=== PATIENT | female | born 1970 | race Hispanic/Latino ===

== ENCOUNTER 2018-03-26 01:56 | Emergency (ER) | payer OTHER ==
[2018-03-26] MEDS ORDERED: Fentanyl 100 MCG/2 ML VIAL ONE (02:08)
[2018-03-26] MEDS ORDERED: Lorazepam 2 MG/ML VIAL ONE (02:08)
[2018-03-26 03:19] LABS: Anion Gap 13 mmol/L (10-20); BUN (Urea Nitrogen) 62 mg/dL (7.0-18.7); Calc. Creatinine Clearance 0 mL/min (70-130); Calcium 8.5 mg/dL (7.8-10.44); Carbon Dioxide 23 mmol/L (22-29); Chloride 110 mmol/L (98-107); Estimated GFR-MDRD 7; Glucose 172 mg/dL (70-105); Potassium 3.3 mmol/L (3.5-5.1); Sodium 143 mmol/L (136-145)
== END 2018-03-26 03:49 | disposition home or self-care (01) ==
LOC: ERS 01:56
DX: G25.81 Restless legs syndrome (principal); I12.0 Hypertensive chronic kidney disease with stage 5 chronic kidney disease or end stage renal disease; N18.6 End stage renal disease; E11.22 Type 2 diabetes mellitus with diabetic chronic kidney disease; Z99.2 Dependence on renal dialysis
CPT/HCPCS: 36415; 80048; 96374; 96375; J2060; J3010

== ENCOUNTER 2018-04-25 00:41 | Emergency (ER) | payer OTHER ==
[2018-04-25 04:00] LABS: #Basophils 0.2 thou/uL (0.0-0.2); #Eosinphils 0.9 thou/uL (0.0-0.7); #Lymphocytes 4.2 thou/uL (1.20-3.40); #Monocytes 0.6 thou/uL (0.11-0.59); #Neutrophils 4.5 thou/uL (1.40-6.50); %Basophils 1.7 % (0.0-1.0); %Eosinophils 8.3 % (0.0-10.0); %Lymphocytes 40.6 % (21.0-51.0); %Monocytes 5.8 % (0.0-10.0); %Neutrophils 43.6 % (42.0-75.0); Hemoglobin 10.7 g/dL (12.0-16.0); Mean Corpuscular HGB CONC 33.6 g/dL (32.0-36.0); Mean Corpuscular Hemoglobin 31.7 pg (27.0-31.0); Mean Corpuscular Volume 94.5 fL (78.0-98.0); Mean Platelet Volume 7.7 fL (7.4-10.4); Platelet Count 245 thou/uL (130-400); RBC Distribution Width 11.7 % (11.5-14.5); Red Blood Cell (RBC) Count 3.37 mill/uL (4.20-5.40); White Blood Cell (WBC) Count 10.3 thou/uL (4.8-10.8)
[2018-04-25 04:11] LABS: BHCG - Serum Negative (NEGATIVE); Pregs Control Background? CLEAR/WHITE (CLR/WHITE); Pregs Control Bar Appear? YES (CONTROL BAR)
[2018-04-25 04:20] LABS: ALT (SGPT) 24 U/L (8-55); AST (SGOT) 15 U/L (5-34); Albumin 3.2 g/dL (3.5-5.0); Alkaline Phosphatase 81 U/L (40-150); Anion Gap 12 mmol/L (10-20); BUN (Urea Nitrogen) 46 mg/dL (7.0-18.7); Bilirubin, Total Less than 0.2 mg/dL (0.2-1.2); CK (CPK) 204 U/L (29-168); Calc. Creatinine Clearance 0 mL/min (70-130); Calcium 8.1 mg/dL (7.8-10.44); Carbon Dioxide 25 mmol/L (22-29); Chloride 106 mmol/L (98-107); Estimated GFR-MDRD 7; Globulin 2.6 g/dL (2.4-3.5); Glucose 103 mg/dL (70-105); Potassium 3.1 mmol/L (3.5-5.1); Protein, Total 5.8 g/dL (6.0-8.3); Sodium 140 mmol/L (136-145)
[2018-04-25 04:25] LABS: CKMB 1.6 ng/mL (0-6.6); Troponin I Less than 0.010 ng/mL (< 0.028)
[2018-04-25] MEDS ORDERED: Ketorolac Tromethamine 60 MG/2 ML VIAL ONE (05:01)
--- NOTE | 2018-04-25 12:13 | RAD ---
PORTABLE CHEST 1 VIEW: DATE: 06/25/2017. TIME: 3:14 a.m. HISTORY: Chest pain. FINDINGS: The heart size is normal. No focal areas of consolidation, pneumothoraces, or pleural effusions are seen. IMPRESSION: No acute process. POS: [facility]
== END 2018-04-25 05:26 | disposition home or self-care (01) ==
LOC: ERS 00:41
DX: M79.662 Pain in left lower leg (principal); M79.661 Pain in right lower leg; M19.90 Unspecified osteoarthritis, unspecified site; I10 Essential (primary) hypertension; E11.9 Type 2 diabetes mellitus without complications; Z79.891 Long term (current) use of opiate analgesic; Z79.899 Other long term (current) drug therapy
CPT/HCPCS: 36415; 71045; 80053; 82550; 82553; 84484; 84703; 85025; 93005; 96372; J1885

== ENCOUNTER 2018-05-26 08:31 | Emergency (ER) | payer OTHER ==
[2018-05-26] MEDS ORDERED: Ketorolac Tromethamine 30 MG/ML VIAL ONE (08:47)
== END 2018-05-26 09:07 | disposition home or self-care (01) ==
LOC: ERS 08:31
DX: S76.912A Strain of unspecified muscles, fascia and tendons at thigh level, left thigh, initial encounter (principal); I10 Essential (primary) hypertension; E11.9 Type 2 diabetes mellitus without complications; Z79.899 Other long term (current) drug therapy; Z79.4 Long term (current) use of insulin; X58.XXXA Exposure to other specified factors, initial encounter
CPT/HCPCS: 96372; J1885

== ENCOUNTER 2018-05-29 14:48 | Observation (INO) | payer OTHER ==
[2018-05-29 15:11] LABS: #Basophils 0.1 thou/uL (0.0-0.2); #Lymphocytes 2.3 thou/uL (1.20-3.40); #Monocytes 0.5 thou/uL (0.11-0.59); #Neutrophils 3.9 thou/uL (1.40-6.50); %Basophils 1.4 % (0.0-1.0); %Eosinophils 12.5 % (0.0-10.0); %Lymphocytes 29.5 % (21.0-51.0); %Monocytes 6.6 % (0.0-10.0); Hemoglobin 10.8 g/dL (12.0-16.0); Mean Corpuscular Hemoglobin 31.6 pg (27.0-31.0); Mean Corpuscular Volume 95.9 fL (78.0-98.0); Mean Platelet Volume 8.1 fL (7.4-10.4); Platelet Count 225 thou/uL (130-400); RBC Distribution Width 12.9 % (11.5-14.5); Red Blood Cell (RBC) Count 3.43 mill/uL (4.20-5.40); White Blood Cell (WBC) Count 7.8 thou/uL (4.8-10.8)
[2018-05-29] MEDS ORDERED: Nitroglycerin 2% Ointment 1 INCH/1 GM Packet ONE (15:20)
[2018-05-29] MEDS ORDERED: Nitroglycerin 0.4 MG TAB (25 Tab Bottle) ONE (15:20)
[2018-05-29 15:33] LABS: ALT (SGPT) 20 U/L (8-55); AST (SGOT) 13 U/L (5-34); Albumin 3.4 g/dL (3.5-5.0); Alkaline Phosphatase 116 U/L (40-150); Anion Gap 12 mmol/L (10-20); BUN (Urea Nitrogen) 60 mg/dL (7.0-18.7); Bilirubin, Total 0.2 mg/dL (0.2-1.2); CK (CPK) 108 U/L (29-168); Calc. Creatinine Clearance 0 mL/min (70-130); Calcium 8.2 mg/dL (7.8-10.44); Carbon Dioxide 23 mmol/L (22-29); Chloride 103 mmol/L (98-107); Estimated GFR-MDRD 7; Globulin 2.9 g/dL (2.4-3.5); Glucose 267 mg/dL (70-105); Lipase 54 U/L (8-78); Potassium 4.3 mmol/L (3.5-5.1); Protein, Total 6.3 g/dL (6.0-8.3); Sodium 134 mmol/L (136-145)
--- NOTE | 2018-05-29 15:43 | RAD ---
SINGLE VIEW CHEST: COMPARISON: 04/25/2018. INDICATION: Midsternal chest pain and new-onset short of breath. FINDINGS: Lungs are clear. Cardiac silhouette is stable. No effusion or pneumothorax. IMPRESSION: Stable chest. POS: [facility]
[2018-05-29] MEDS ORDERED: Ondansetron ODT 4 MG TAB SL PRN (16:00)
[2018-05-29] MEDS ORDERED: Ondansetron PF 4 MG/2 ML Vial IVP PRN (16:00)
--- NOTE | 2018-05-29 16:07 | PDOC.FPRHP ---
- History of Present Illness Chief Complaint: Chest pain History of Present Illness: This is a 48 yo female with a PMH of HTN, DM2, ESRD on Peritoneal dialysis who presents to the ed with a cc of chest pain. 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 She states that the pain started as a left sided constant sharp pain and changed to a pressure with heat. She states that the pain was constant and was associated with SOB and lightheadedness. She denies nausea or diaphoresis. She denies any pain like this before. She also states that she has been having some HTN and has recently been working with Dr. Rios with her medications. ED Course: Nitro paste 1 inch Nitro SL .4 mg aspirin 324 x1 - Allergies/Adverse Reactions Allergies Allergy/AdvReac Type Severity Reaction Status Date / Time gabapentin Allergy Severe Anaphylaxis Verified 05/29/18 17:48 - Home Medications Medication Instructions Recorded Confirmed Type Calcitriol 0.5 mcg PO DAILY 05/29/18 05/29/18 History Calcium Acetate [Calphron] 667 mg PO TID 05/29/18 05/29/18 History Carvedilol 25 mg PO BID 05/29/18 05/29/18 History Cyclobenzaprine [Flexeril] 10 mg PO TID PRN 05/29/18 05/29/18 History Diclofenac Sodium [Voltaren] 100 gm TP 05/29/18 History Insulin Aspart [Novolog] 2 unit SQ AC 05/29/18 05/29/18 History Insulin Glargine,Hum.Rec.Anlog 10 unit SQ QAM 05/29/18 05/29/18 History [Tobrenden Louise] Levothyroxine Sodium 50 mcg PO DAILY 05/29/18 05/29/18 History Metoclopramide HCl [Reglan] 5 mg PO AC 05/29/18 05/29/18 History Mirabegron [Myrbetriq ER] 25 mg PO DAILY 05/29/18 05/29/18 History Naproxen 500 mg PO BID 05/29/18 05/29/18 History Ondansetron HCl [Zofran] 8 mg PO TID PRN 05/29/18 05/29/18 History Terazosin HCl 2 mg PO DAILY 05/29/18 05/29/18 History Topiramate 50 mg PO BID 05/29/18 05/29/18 History Vit B Complx C/Folic Acid/Zinc 1 05/29/18 History [Renaplex Tablet] traMADol HCl [Tramadol HCl] 100 mg PO TID 05/29/18 05/29/18 History - History PMHx:HTN, DM2, HLD, ESRD on PD, diabetic neuropathy PSHx: PD port placed FHx: Mother had Stroke and CA in her 40s Social: Denies SAI - Review of Systems General: denies: fever/chills, weight/appetite/sleep changes Eyes: denies: eye pain, vision changes ENT: denies: nasal congestion, rhinorrhea Respiratory: reports: shortness of breath. denies: cough, congestion Cardiovascular: reports: chest pain. denies: palpitation, edema, paroxysmal nocturnal dyspnea Gastrointestinal: denies: nausea, vomiting, diarrhea, constipation Genitourinary: denies: incontinence, dysuria Skin: denies: rashes, lesions Musculoskeletal: reports: tenderness. denies: pain (back pain) Neurological: denies: numbness, syncope Psychological: denies: anxiety, depression - Vital signs BP: 169 HR: 75 RR: 18 Tmax: 98.1 Pox: 99% on ra Wt: 68.7 kg - Physical Exam Constitutional: NAD, awake, alert and oriented, well developed HEENT: normocephalic and atraumatic, PERRLA, EOMI, MMM Neck: supple, FROM Chest: no-tender to palpation, no lesions Heart: RRR, normal S1/S2, no murmurs/rubs/gallops Lungs: CTAB, no respiratory distress, good air movement Abdomen: soft, non-tender, bowel sounds present, no masses/distention Musculoskeletal: normal structure, ROM grossly normal Neurological: no focal deficit, CN II-XII intact Skin: no rash/lesions, good turgor Heme/Lymphatic: no unusual bruising or bleeding Psychiatric: normal mood and affect, intact recent and remote memory FMR H&P: Results - Labs Result Diagrams: 05/29/18 15:00 05/29/18 15:00 Lab results: WBC 7.8 thou/uL (4.8-10.8) 05/29/18 15:00 Hgb 10.8 g/dL (12.0-16.0) L 05/29/18 15:00 Hct 32.9 % (36.0-47.0) L 05/29/18 15:00 MCV 95.9 fL (78.0-98.0) 05/29/18 15:00 Plt Count 225 thou/uL (130-400) 05/29/18 15:00 Neutrophils % 50.0 % (42.0-75.0) 05/29/18 15:00 Sodium 134 mmol/L (136-145) L 05/29/18 15:00 Potassium 4.3 mmol/L (3.5-5.1) 05/29/18 15:00 Chloride 103 mmol/L (98-107) 05/29/18 15:00 Carbon Dioxide 23 mmol/L (22-29) 05/29/18 15:00 BUN 60 mg/dL (7.0-18.7) H 05/29/18 15:00 Creatinine 6.48 mg/dL (0.6-1.1) H 05/29/18 15:00 Glucose 267 mg/dL (70-105) H 05/29/18 15:00 Calcium 8.2 mg/dL (7.8-10.44) 05/29/18 15:00 Total Bilirubin 0.2 mg/dL (0.2-1.2) 05/29/18 15:00 AST 13 U/L (5-34) 05/29/18 15:00 ALT 20 U/L (8-55) 05/29/18 15:00 Alkaline Phosphatase 116 U/L (40-150) 05/29/18 15:00 Creatine Kinase 108 U/L (29-168) 05/29/18 15:00 B-Natriuretic Peptide 85.0 pg/mL (0-100) 05/29/18 15:00 Serum Total Protein 6.3 g/dL (6.0-8.3) 05/29/18 15:00 Albumin 3.4 g/dL (3.5-5.0) L 05/29/18 15:00 Lipase 54 U/L (8-78) 05/29/18 15:00 - EKG Interpretation EKG: NSR, no ST depressions or elevations - Radiology Interpretation Chest x-ray Status: report reviewed by me (No acute cardiopulmonary processes) FMR H&P: A/P - Problem List (1) ESRD (end stage renal disease) Current Visit: Yes Status: Acute Code(s): N18.6 - END STAGE RENAL DISEASE (2) Chest pain Current Visit: Yes Status: Acute Code(s): R07.9 - CHEST PAIN, UNSPECIFIED (3) DM (diabetes mellitus) Current Visit: Yes Status: Acute Code(s): E11.9 - TYPE 2 DIABETES MELLITUS WITHOUT COMPLICATIONS (4) HTN (hypertension) Current Visit: Yes Status: Acute Code(s): I10 - ESSENTIAL (PRIMARY) HYPERTENSION (5) Peripheral neuropathy Current Visit: Yes Status: Acute Code(s): G62.9 - POLYNEUROPATHY, UNSPECIFIED - Plan This is a 48 yo female with a PMH of HTN, DM2, ESRD on Peritoneal dialysis Atypical chest pain likely 2/2 ischemia vs. MSK -Heart score of 4 -Admit to tele obs -Pt received aspirin and nitro in the er -PRN nitro -Trend troponins -Stress test tomorrow, hold beta blockers tomorrow ESRD on PD -Consult Dr. Vazquez -Monitor electrolytes DM -Continue home meds -Accuchecks ACHS and SSI HTN -Continue home meds Diabetic neuropathy -Continue home meds Code: Full Prophylaxis: none Family: at bedside and plan discussed with him Disposition: home tomorrow if normal stress test FMR H&P: Upper Level - Pertinent history 48F p/w chest pain. At appointment with her wood repatcher when she developed CP at rest. Described as left sided and initially sharp that converted to a crushing sensation. It felt "hot all across my chest". Associated with dizziness , SOB. No significant cardiac history. PMH significant for ESRD on nightly peritioneal dialysis, HTN, DMII. - Pertinent findings trop: negative x 1 EKG: normal BNP: 85 - Plan Date/Time: 05/29/18 1607 Atypical chest pain: trend troponins and EKG's. morphine, oxygen, nitrates available PRN. stress test in AM given her risk factors and Heart score. ESRD on PD: consult nephrology to continue nightly regimen I, Peterson Amador, have evaluated this patient and agree with findings/plan as outlined by equine internship resident. Pertinent changes/additions are listed here. Attending Addendum - Attending Addendum Date/Time: [id number] I personally evaluated the patient and discussed the management with Dr. Martines /Perry. I agree with the History, Examination, Assessment and Plan documented above with any addition or exceptions noted below. Patient here with first episode of chest pain, pressure type in L chest, without radiation but associated with dyspnea. Has history of HTN, DM, ESRD on PD. Occurred at rest and resolved spontaneously after about 10 minutes. No evidence for ischemia on intake, EKG normal. Plan to obs for ACS r/o and stress in AM. Further mgmt per that result. Plan for PD overnight and consult her outpt [employer] to arrange for that. Continue other home meds as needed.
[2018-05-29 17:50] VITALS: BMI 32.8
[2018-05-29] MEDS ORDERED: Ondansetron ODT 4 MG TAB PO PRN (18:18)
[2018-05-29] MEDS ORDERED: Cyclobenzaprine 10 MG TAB PO PRN (18:18)
[2018-05-29] MEDS ORDERED: Ondansetron ODT 8 MG TAB PO PRN (18:18)
[2018-05-29 19:25] LABS: Troponin I Less than 0.010 ng/mL (< 0.028)
[2018-05-29] MEDS ORDERED: HumaLOG 300 UNITS/3 ML VIAL SC PRN ×2 (19:31)
[2018-05-29] MEDS ORDERED: Dextrose 5% in Water 1,000 ML IV PRN (19:31)
[2018-05-29] MEDS ORDERED: Dextrose 50% Abboject 50 ML SYRINGE SLOW IVP PRN (19:31)
[2018-05-29] MEDS ORDERED: hydrALAZINE 20 MG/ML VIAL SLOW IVP PRN (19:54)
[2018-05-29] MEDS: traMADol HCl 50 MG TAB PO SCH (20:12)
[2018-05-29] MEDS: Naproxen 500 MG TAB PO SCH (20:12)
[2018-05-29] MEDS: Topiramate 25 MG TAB PO SCH (20:13)
[2018-05-29 21:21] LABS: Troponin I Less than 0.010 ng/mL (< 0.028)
[2018-05-30] MEDS: Acetaminophen 325 MG TAB PO PRN ×2 (00:08→05:00)
[2018-05-30] MEDS ORDERED: Lactated Ringer's 500 ML IV SCH ×2 (00:30→01:15)
--- NOTE | 2018-05-30 05:50 | PDOC.FM ---
- Subjective Subjective: Patient reports feeling well this AM. Denies any recurrent episodes of CP since admission. Also denies any N/V, SOB or diaphoresis. Endorses some palpitations overnight and did have to receive 1 500mL bolus 2/2 hypotension but also underwent peritoneal dialysis overnight. Has no complaints this AM. - Objective MAR Reviewed: Yes Vital Signs & Weight: Vital Signs (12 hours) Temp Pulse Resp BP BP BP Pulse Ox 05/30/18 04:55 75 14 111/57 L 05/30/18 03:14 77 16 105/55 L 05/30/18 03:00 98.3 F 77 16 87/55 L 98 05/30/18 02:16 79 16 82/48 L 05/30/18 01:12 78 16 83/49 L 05/30/18 00:26 78 16 95/53 L 05/30/18 00:05 97.9 F 82 16 84/51 L 99 05/29/18 22:17 103 H 16 112/65 05/29/18 19:36 97.9 F 73 20 182/89 H 100 05/29/18 17:55 97.6 F 72 20 142/100 H 100 Weight Weight 68.719 kg I&O: 05/28/18 05/29/18 05/30/18 06:59 06:59 06:59 Intake Total 980 Output Total 500 Balance 480 Result Diagrams: 05/30/18 05:06 05/30/18 05:06 Phys Exam - Physical Examination Constitutional: NAD HEENT: sclera anicteric Neck: supple, full ROM Respiratory: no wheezing, no rales, no rhonchi, clear to auscultation bilateral Cardiovascular: RRR, no significant murmur Gastrointestinal: positive bowel sounds Neurological: non-focal, moves all 4 limbs Psychiatric: normal affect, A&O x 3 Skin: no rash, normal turgor Dx/Plan (1) Chest pain Code(s): R07.9 - CHEST PAIN, UNSPECIFIED Status: Acute (2) DM (diabetes mellitus) Code(s): E11.9 - TYPE 2 DIABETES MELLITUS WITHOUT COMPLICATIONS Status: Acute (3) ESRD (end stage renal disease) Code(s): N18.6 - END STAGE RENAL DISEASE Status: Acute (4) HTN (hypertension) Code(s): I10 - ESSENTIAL (PRIMARY) HYPERTENSION Status: Acute (5) Peripheral neuropathy Code(s): G62.9 - POLYNEUROPATHY, UNSPECIFIED Status: Acute - Plan Plan: This is a 48YO female with a PMH of HTN, DM2, & ESRD on Peritoneal dialysis who presented to the ED with a CC of CP 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 Atypical chest pain likely 2/2 ischemia vs. MSK origin: - Initial Heart score of 4 & troponins negative x3. However, given risk factors of DM & HTN will evaluate with a stress test today to r/o and cardiac etiology for her CP. - Will keep NPO except for H2O with meds (with exception of BBs which will be held) for stress test this morning. - Will continue PRN nitro. ESRD on PD - Will consult Dr. Vazquez and continue to monitor electrolytes. DM - Will continue home meds. - Will continue Accuchecks ACHS and SSI. HTN - Aware, will continue home meds. Diabetic neuropathy - Aware, will continue home meds. Code: Full Prophylaxis: none Diet: NPO, med with sips of water IVFs: SL Abx: None Disposition: Home today if stress test is normal.
[2018-05-30 06:24] LABS: #Basophils 0.1 thou/uL (0.0-0.2); #Eosinphils 1.1 thou/uL (0.0-0.7); #Monocytes 0.6 thou/uL (0.11-0.59); #Neutrophils 3.5 thou/uL (1.40-6.50); %Basophils 0.9 % (0.0-1.0); %Eosinophils 12.7 % (0.0-10.0); %Lymphocytes 36.7 % (21.0-51.0); %Monocytes 7.1 % (0.0-10.0); %Neutrophils 42.7 % (42.0-75.0); Hemoglobin 10.7 g/dL (12.0-16.0); Mean Corpuscular HGB CONC 33.6 g/dL (32.0-36.0); Mean Corpuscular Hemoglobin 32.4 pg (27.0-31.0); Mean Corpuscular Volume 96.5 fL (78.0-98.0); Mean Platelet Volume 8.3 fL (7.4-10.4); Platelet Count 221 thou/uL (130-400); RBC Distribution Width 12.9 % (11.5-14.5); Red Blood Cell (RBC) Count 3.31 mill/uL (4.20-5.40); White Blood Cell (WBC) Count 8.3 thou/uL (4.8-10.8)
[2018-05-30 06:38] LABS: Anion Gap 12 mmol/L (10-20); BUN (Urea Nitrogen) 56 mg/dL (7.0-18.7); Calc. Creatinine Clearance 12 mL/min (70-130); Carbon Dioxide 23 mmol/L (22-29); Chloride 108 mmol/L (98-107); Estimated GFR-MDRD 7; Glucose 141 mg/dL (70-105); Potassium 4.1 mmol/L (3.5-5.1); Sodium 139 mmol/L (136-145)
[2018-05-30] MEDS ORDERED: ADENOSINE 60 MG/20 ML VIAL ONE (08:28)
[2018-05-30] MEDS ORDERED: Terazosin HCl 1 MG CAP PO SCH (09:00)
[2018-05-30] MEDS ORDERED: Aspirin 325 MG TAB PO SCH (09:00)
[2018-05-30] MEDS ORDERED: Calcitriol 0.25 MCG CAP PO SCH (09:00)
[2018-05-30] MEDS ORDERED: Non-Formulary Item 1 EACH (Insulin Glargine,Hum.Rec.Anlog [Toujeo Solostar] 10 UNIT) SQ SCH (09:00)
[2018-05-30] MEDS ORDERED: Insulin Glargine 10 UNITS in Pre-Filled Syringe 1 EACH SC SCH (09:00)
[2018-05-30] MEDS: HumaLOG 300 UNITS/3 ML VIAL SC SCH ×2 (11:30→12:29)
[2018-05-30] MEDS: Metoclopramide HCl 10 MG TAB PO SCH ×2 (11:31→12:28)
[2018-05-30] MEDS: Calcium Acetate 667 MG CAP PO SCH ×2 (11:31→12:27)
--- NOTE | 2018-05-30 11:42 | NM ---
MYOCARDIAL PERFUSION AND QUANTITATIVE GATED SPECT STUDY PERFORMED: DOSE: 32 mCi of Technetium 99m Cardiolite for the stress portion of the exam and 10 mCi for the resting por tion of the exam. The patient was stressed using 38.1 mg of adenosine given IV. Myocardial perfusion and quantitative gated SPECT images demonstrate no evidence of areas of decrease d perfusion on stress or resting images. No evidence or reversible defect seen. Ejection fraction measures 70%. IMPRESSION: Normal myocardial perfusion and quantitated gated SPECT study. POS: [facility]
[2018-05-30 12:26] VITALS: BP 140/59; TEMP 99.1
[2018-05-30] MEDS: Naproxen 500 MG TAB PO SCH (12:27)
[2018-05-30] MEDS: traMADol HCl 50 MG TAB PO SCH ×2 (12:34→14:13)
[2018-05-30] MEDS: Topiramate 25 MG TAB PO SCH (14:14)
--- NOTE | 2018-06-01 05:35 | DIS ---
DATE OF ADMISSION: 05/29/2018 DATE OF DISCHARGE: 05/30/2018 RESIDENT: Tatianna Mcconnell MD ADMITTING ATTENDING: Austyn Hernandez MD. DISCHARGE ATTENDING: Austyn Hernandez MD. CONSULTS: None. PROCEDURES: 1. Chest x-ray, which showed clear lungs with stable cardiac silhouette and no effusion or pneumothorax. 2. Nuclear stress test, which showed a normal myocardial perfusion with an ejection fraction measuring up to 70% with no evidence of defect seen. PRIMARY DIAGNOSIS: Atypical chest pain, secondary to suspected musculoskeletal strain. SECONDARY DIAGNOSES: 1. End-stage renal disease, on peritoneal dialysis. 2. Type 2 diabetes mellitus. 3. Hypertension. 4. Peripheral neuropathy. DISCHARGE MEDICATIONS: 1. Topiramate 50 mg tablets p.o. as directed. 2. Flexeril 10 mg tabs p.o. t.i.d. p.r.n. 3. Tramadol 100 mg p.o. t.i.d. 4. Naproxen 500 mg p.o. every 12 hours. 5. Toujeo 20 units subcu q.a.m. 6. NovoLog units subcu as directed. 7. Diclofenac sodium gel 4 mg topically b.i.d. 8. Calcitriol 0.5 mcg p.o. as directed. 9. Calcium acetate 667 mg p.o. t.i.d. with meals. 10. Carvedilol 25 mg p.o. b.i.d. 11. Fluoxetine 20 mg p.o. daily. 12. Synthroid 50 mcg p.o. daily. 13. Metoclopramide 5 mg p.o. a.c. 14. Mirabegron 50 mg p.o. daily. 15. Thera-Tabs 1 tablet p.o. daily. 16. Zofran 8 mg p.o. t.i.d. p.r.n. 17. Terazosin hydrochloride 2 mg p.o. at bedtime. Discontinued medications: None. 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 The patient reported the pain to be constant, sharp, left-sided with associated shortness of breath and lightheadedness. She therefore presented to the emergency department for further evaluation. On presentation to the emergency department, the patient's vitals were noted to be within normal limits with the exception of a mildly elevated blood pressure of 152/89. She rated her pain as 5/10 in severity and was given 1 inch of topical nitro paste, one 0.4 mg sublingual tablet of nitroglycerin, and 324 mg of aspirin to be chewed. Her troponins were trended x3, all of which were negative and her initial chest x-ray and EKG were within normal limits. She was therefore admitted for observation on telemetry overnight with plans for a nuclear stress test the following morning to rule out any possible cardiac etiology. The patient was therefore kept n.p.o. after midnight and her home beta-cecil was held in anticipation of her stress test the following morning. The patient underwent the stress test without any complications and it was noted to be normal without any evidence of ischemia with normal ejection fraction estimated to be around 70%. The patient was therefore cleared to be discharged home with close followup with her primary care physician within 1 week of discharge. Of note, per reports of the emergency department nurse practitioner, who handed over care to our team, the patient was noted to have a 25-second run of ventricular tachycardia while in the emergency department. This, however, was nonsustained, but the patient was monitored closely overnight on telemetry and had no further episodes of V-tach for the duration of her hospital stay. The patient was given exquisite return discharge instructions to return to the emergency department immediately if she began to experience palpitations or a very fast heart rate along with any of the following symptoms including lightheadedness, chest pain, shortness of breath, nausea, vomiting, or diaphoresis. The patient was also instructed to follow up with her primary care provider, Dr. Jamarcus Rios within 1 week of discharge. DISPOSITION: Stable. DISCHARGE INSTRUCTIONS: 1. Location: Home. 2. Diet: Renal, high-protein diet, diabetic diet, heart-healthy diet, low sodium. 3. Activity: As tolerated. No restrictions. 4. Followup: The patient was instructed to follow up with her primary care provider, Dr. Jamarcus Rios within 1 week of discharge. Job ID: [id number]
--- NOTE | 2018-06-03 14:56 | EKG ---
Test Reason : Blood Pressure : / mmHG Vent. Rate : 072 BPM Atrial Rate : 072 BPM P-R Int : 166 ms QRS Dur : 094 ms QT Int : 430 ms P-R-T Axes : 009 -14 034 degrees QTc Int : 470 ms Normal sinus rhythm Moderate voltage criteria for LVH, may be normal variant Borderline ECG Confirmed by YOLA HERNANDEZ D.O. ([id number]), editor publications NEIDA EID ([id number]) on 06/03/2018 2:56:48 PM Referred By: Confirmed By:YOLA HERNANDEZ D.O.
== END 2018-05-30 14:47 | disposition home or self-care (01) ==
LOC: ERS 14:48 → 2NO 16:23 → INTOOBSV 16:23
PROVIDERS: ADMIT Family Medicine; ATTEND Family Medicine
DX: R07.89 Other chest pain (principal); I12.0 Hypertensive chronic kidney disease with stage 5 chronic kidney disease or end stage renal disease; E11.22 Type 2 diabetes mellitus with diabetic chronic kidney disease; N18.6 End stage renal disease; Z99.2 Dependence on renal dialysis; E11.40 Type 2 diabetes mellitus with diabetic neuropathy, unspecified; Z88.8 Allergy status to other drugs, medicaments and biological substances; Z79.891 Long term (current) use of opiate analgesic; Z79.1 Long term (current) use of non-steroidal anti-inflammatories (NSAID); Z79.4 Long term (current) use of insulin; Z79.899 Other long term (current) drug therapy; Z98.890 Other specified postprocedural states
CPT/HCPCS: 36415; 36416; 71045; 78452; 80048; 80053; 82550; 83690; 83880; 84484; 85025; 90945; 93005; 93017; 94760; 96374; A9500; G0257; G0378; J0153; J0360

== ENCOUNTER 2018-11-09 18:35 | Emergency (ER) | payer OTHER | END 2018-11-09 20:03 | disposition home or self-care (01) | LOC: ERS 18:35 | DX: S16.1XXA Strain of muscle, fascia and tendon at neck level, initial encounter (principal); E11.9 Type 2 diabetes mellitus without complications; I10 Essential (primary) hypertension; E78.00 Pure hypercholesterolemia, unspecified; E03.9 Hypothyroidism, unspecified; Z79.899 Other long term (current) drug therapy; V43.62XA Car passenger injured in collision with other type car in traffic accident, initial encounter | CPT/HCPCS: 99283 ==

== ENCOUNTER 2018-11-19 15:58 | Outpatient (CLI) | payer OTHER ==
[2018-11-19 17:31] LABS: #Basophils 0.1 thou/uL (0.0-0.2); #Eosinphils 0.4 thou/uL (0.0-0.7); #Monocytes 0.6 thou/uL (0.11-0.59); #Neutrophils 5.6 thou/uL (1.40-6.50); %Basophils 0.9 % (0.0-1.0); %Eosinophils 5.2 % (0.0-10.0); %Lymphocytes 23.1 % (21.0-51.0); %Monocytes 6.8 % (0.0-10.0); %Neutrophils 64.1 % (42.0-75.0); Hemoglobin 11.4 g/dL (12.0-16.0); Mean Corpuscular HGB CONC 33.7 g/dL (32.0-36.0); Mean Corpuscular Hemoglobin 31.9 pg (27.0-31.0); Mean Corpuscular Volume 94.8 fL (78.0-98.0); Mean Platelet Volume 8.1 fL (7.4-10.4); Platelet Count 253 thou/uL (130-400); RBC Distribution Width 11.6 % (11.5-14.5); Red Blood Cell (RBC) Count 3.57 mill/uL (4.20-5.40); White Blood Cell (WBC) Count 8.7 thou/uL (4.8-10.8)
[2018-11-19 17:53] LABS: ALT (SGPT) 27 U/L (8-55); AST (SGOT) 18 U/L (5-34); Albumin 3.5 g/dL (3.5-5.0); Alkaline Phosphatase 95 U/L (40-150); Anion Gap 14 mmol/L (10-20); BUN (Urea Nitrogen) 55 mg/dL (7.0-18.7); Bilirubin, Total 0.3 mg/dL (0.2-1.2); Calc. Creatinine Clearance 0 mL/min (70-130); Calcium 8.3 mg/dL (7.8-10.44); Carbon Dioxide 23 mmol/L (22-29); Chloride 103 mmol/L (98-107); Estimated GFR-MDRD 6; Globulin 2.5 g/dL (2.4-3.5); Glucose 249 mg/dL (70-105); Potassium 3.3 mmol/L (3.5-5.1); Sodium 137 mmol/L (136-145)
--- NOTE | 2018-11-19 18:06 | RAD ---
TWO VIEW CHEST: 11/19/18 HISTORY: Preop evaluation. The lung [place] are clear. Heart and mediastinum appear normal. Osseous structures unremarkable. IMPRESSION: Unremarkable chest. POS: [facility]
== END 2018-11-19 15:59 | disposition home or self-care (01) ==
LOC: LABBT 15:58
PROVIDERS: ATTEND Internal Medicine Cardiovascular Disease
DX: Z01.818 Encounter for other preprocedural examination (principal); R93.1 Abnormal findings on diagnostic imaging of heart and coronary circulation
CPT/HCPCS: 71046; 80053; 85025; 93005; 93010

== ENCOUNTER → 2018-11-24 | Day surgery (SDC) | payer OTHER ==
[2018-11-19 16:19] VITALS: BMI 29.2
[~2018-11-24] MED LIST: Cyclobenzaprine 10 MG TAB ONE; Cyclobenzaprine 10 MG TAB PO PRN; Fentanyl 100 MCG/2 ML VIAL ONE; Heparin 10,000 UNITS/1 ML VIAL ONE; Iopamidol 370 76% 100 ML VIAL ONE; Iopamidol 370 76% 50 ML VIAL FS ONE; Midazolam HCl 2 mg/2 ml Vial ONE; diphenhydrAMINE 50 MG/ML VIAL ONE; traMADol HCl 50 MG TAB ONE; traMADol HCl 50 MG TAB PO SCH
[2018-11-24 07:03] LABS: Cardiac Risk 3.4 (Less than 4.5)
== END ==
LOC: CCL 06:08
PROVIDERS: ATTEND Internal Medicine Cardiovascular Disease
PROC: 4A023N7 Measurement of Cardiac Sampling and Pressure, Left Heart, Percutaneous Approach (ICD-10-PCS; principal; 2018-11-24)
PROC: B2001ZZ Plain Radiography of Single Coronary Artery using Low Osmolar Contrast (ICD-10-PCS; principal; 2018-11-24)
DX: R94.39 Abnormal result of other cardiovascular function study (principal); R07.89 Other chest pain; I12.0 Hypertensive chronic kidney disease with stage 5 chronic kidney disease or end stage renal disease; N18.6 End stage renal disease; E11.22 Type 2 diabetes mellitus with diabetic chronic kidney disease; E78.00 Pure hypercholesterolemia, unspecified; Z79.4 Long term (current) use of insulin; Z79.899 Other long term (current) drug therapy
CPT/HCPCS: 36415; 80061; 85347; 93458; 99152; C1769; J1200; J1644; J2250; J3010; Q9967

== ENCOUNTER 2019-01-25 07:27 | Emergency (ER) | payer OTHER ==
[2019-01-25] MEDS ORDERED: Dexamethasone 10 MG/ML VIAL ONE (07:57)
== END 2019-01-25 08:17 | disposition home or self-care (01) ==
LOC: ERS 07:27
DX: S29.012A Strain of muscle and tendon of back wall of thorax, initial encounter (principal); E11.9 Type 2 diabetes mellitus without complications; I10 Essential (primary) hypertension; E78.00 Pure hypercholesterolemia, unspecified; E03.9 Hypothyroidism, unspecified; Z79.899 Other long term (current) drug therapy; Z79.4 Long term (current) use of insulin; X50.9XXA Other and unspecified overexertion or strenuous movements or postures, initial encounter
CPT/HCPCS: 99283; J1100

== ENCOUNTER 2019-03-26 03:24 | Emergency (ER) | payer OTHER ==
[2019-03-26] MEDS ORDERED: Dextrose 50% Abboject 50 ML SYRINGE ONE (03:29)
[2019-03-26 04:10] LABS: #Basophils 0.1 thou/uL (0.0-0.2); #Eosinphils 0.7 thou/uL (0.0-0.7); #Lymphocytes 3.4 thou/uL (1.20-3.40); #Monocytes 0.8 thou/uL (0.11-0.59); #Neutrophils 8.4 thou/uL (1.40-6.50); %Basophils 0.7 % (0.0-1.0); %Eosinophils 5.1 % (0.0-10.0); %Lymphocytes 25.6 % (21.0-51.0); %Monocytes 5.8 % (0.0-10.0); %Neutrophils 62.9 % (42.0-75.0); Hemoglobin 12.5 g/dL (12.0-16.0); Mean Corpuscular HGB CONC 33.8 g/dL (32.0-36.0); Mean Corpuscular Hemoglobin 31.7 pg (27.0-31.0); Mean Corpuscular Volume 93.8 fL (78.0-98.0); Mean Platelet Volume 7.6 fL (7.4-10.4); Platelet Count 237 thou/uL (130-400); RBC Distribution Width 12.1 % (11.5-14.5); Red Blood Cell (RBC) Count 3.95 mill/uL (4.20-5.40); White Blood Cell (WBC) Count 13.3 thou/uL (4.8-10.8)
[2019-03-26 04:16] LABS: BHCG - Serum Negative (NEGATIVE); Pregs Control Background? CLEAR/WHITE (CLR/WHITE); Pregs Control Bar Appear? YES (CONTROL BAR)
[2019-03-26 04:29] LABS: ALT (SGPT) 48 U/L (8-55); AST (SGOT) 30 U/L (5-34); Albumin 3.3 g/dL (3.5-5.0); Alkaline Phosphatase 106 U/L (40-110); Anion Gap 17 mmol/L (10-20); BUN (Urea Nitrogen) 45 mg/dL (7.0-18.7); Bilirubin, Total 0.3 mg/dL (0.2-1.2); Calc. Creatinine Clearance 0 mL/min (70-130); Calcium 8.3 mg/dL (7.8-10.44); Carbon Dioxide 22 mmol/L (22-29); Chloride 102 mmol/L (98-107); Estimated GFR-MDRD 5; Globulin 2.9 g/dL (2.4-3.5); Glucose 146 mg/dL (70-105); Protein, Total 6.2 g/dL (6.0-8.3); Sodium 138 mmol/L (136-145)
[2019-03-26] MEDS ORDERED: traMADol HCl 50 MG TAB ONE (05:26)
--- NOTE | 2019-03-26 08:00 | CT ---
PRELIMINARY REPORT/[facility]/EMERGENCY AFTER HOURS PROCEDURE: PROCEDURE INFORMATION: Exam: CT Abdomen and pelvis with contrast Exam date and time: 03/26/2019 4:10 AM Clinical history: 49 years old, female; Abdominal pain; Prior surgery; Patient HX: Er 3. 49 y/o F, wi th h/o esrd, dm, presents to ED via EMS transport from home for evaluation of AMS, nausea and vomting . PT states she was unable to complete dialysis tonight due to shunt hurting. PT states she woke up i n the middle of the night in pain. Dialysis shunt hurting. Surgical HX of tubal ligation. TECHNIQUE: Imaging protocol: Computed tomography of the abdomen and pelvis with intravenous contrast. COMPARISON: No relevant prior studies available. FINDINGS: Tubes, catheters and devices: Peritoneal dialysis catheter is present without evidence of kinking. Distal tip coiled in the pelvis. Liver: Normal attenuation. No mass. Gallbladder and bile ducts: The gallbladder has been surgically removed. There is minimal intrahepati c and extrahepatic biliary ductal dilatation most likely from prior cholecystectomy. There is no evid ence of common bile duct stone. Pancreas: Normal. No ductal dilation. Spleen: Indeterminant probable cyst in the spleen. Adrenals: Normal. No mass. Kidneys and ureters: Tiny left renal cyst. Stomach and bowel: No obstruction. No wall thickening Appendix: No evidence of appendicitis. Intraperitoneal space: Large amount of intraperitoneal fluid possibly from recent dialysis. Vasculature: Unremarkable. No abdominal aortic aneurysm. Lymph nodes: No enlarged lymph nodes. Bladder: Unremarkable as visualized. Reproductive: Unremarkable as visualized. Bones/joints: Small to moderate-sized disc protrusion at L4/L5 Soft tissues: Small fat-containing umbilical hernia. IMPRESSION: 1. No evidence of acute intra-abdominal or pelvic pathology. 2. Significant intraperitoneal free fluid which may be from recent dialysis. Thank you for allowing us to participate in the care of your patient. Dictated and Authenticated by: Adam Curtis MD 03/26/2019 5:24 AM Central Time ([place] & See) FINAL REPORT EMERGENCY AFTER HOURS CT ABDOMEN AND PELVIS WITH CONTRAST: Date: FINDINGS/IMPRESSION: I agree with the findings and impression given in the preliminary report per [facility] physician. 1. There is a peritoneal dialysis catheter and a moderate amount of ascites. 2. There is enlargement of the common bile duct and central intrahepatic biliary tree. This may be a reservoir effect from prior cholecystectomy. Correlate with LFTs. POS: [facility]
[2019-03-26] MEDS ORDERED: ISOVUE-370 76%-LOCM 1 ML ONE (12:37)
== END 2019-03-26 06:25 | disposition home or self-care (01) ==
LOC: ERS 03:24
DX: E11.649 Type 2 diabetes mellitus with hypoglycemia without coma (principal); R41.82 Altered mental status, unspecified; I12.0 Hypertensive chronic kidney disease with stage 5 chronic kidney disease or end stage renal disease; E11.22 Type 2 diabetes mellitus with diabetic chronic kidney disease; N18.6 End stage renal disease; M19.90 Unspecified osteoarthritis, unspecified site; E78.00 Pure hypercholesterolemia, unspecified; E03.9 Hypothyroidism, unspecified; F41.9 Anxiety disorder, unspecified; F32.9 Major depressive disorder, single episode, unspecified; Z79.899 Other long term (current) drug therapy; Z79.4 Long term (current) use of insulin; Z99.2 Dependence on renal dialysis
CPT/HCPCS: 36415; 36416; 74177; 80053; 84703; 85025; 96374; Q9966

== ENCOUNTER 2019-05-15 16:10 | Inpatient (IN) | payer OTHER ==
[2019-05-15 17:11] LABS: #Basophils 0.1 thou/uL (0.0-0.2); #Eosinphils 0.4 thou/uL (0.0-0.7); #Lymphocytes 2.1 thou/uL (1.20-3.40); #Monocytes 0.7 thou/uL (0.11-0.59); #Neutrophils 7.5 thou/uL (1.40-6.50); %Basophils 0.8 % (0.0-1.0); %Eosinophils 3.7 % (0.0-10.0); %Lymphocytes 19.6 % (21.0-51.0); %Monocytes 6.1 % (0.0-10.0); %Neutrophils 69.8 % (42.0-75.0); Hemoglobin 12.1 g/dL (12.0-16.0); Mean Corpuscular HGB CONC 32.8 g/dL (32.0-36.0); Mean Corpuscular Volume 94.4 fL (78.0-98.0); Mean Platelet Volume 8.4 fL (7.4-10.4); Platelet Count 214 thou/uL (130-400); RBC Distribution Width 12.2 % (11.5-14.5); Red Blood Cell (RBC) Count 3.91 mill/uL (4.20-5.40); White Blood Cell (WBC) Count 10.8 thou/uL (4.8-10.8)
[2019-05-15 17:34] LABS: ALT (SGPT) 27 U/L (8-55); AST (SGOT) 26 U/L (5-34); Albumin 3.3 g/dL (3.5-5.0); Alkaline Phosphatase 94 U/L (40-110); Anion Gap 13 mmol/L (10-20); BUN (Urea Nitrogen) 40 mg/dL (7.0-18.7); Bilirubin, Total 0.3 mg/dL (0.2-1.2); Calc. Creatinine Clearance 0 mL/min (70-130); Calcium 8.5 mg/dL (7.8-10.44); Carbon Dioxide 26 mmol/L (22-29); Chloride 97 mmol/L (98-107); Estimated GFR-MDRD 3; Glucose 153 mg/dL (70-105); Lipase 24 U/L (8-78); Protein, Total 6.3 g/dL (6.0-8.3); Sodium 133 mmol/L (136-145)
[2019-05-15 17:39] LABS: Potassium 2.5 mmol/L (3.5-5.1)
[2019-05-15] MEDS ORDERED: Potassium Chloride 40 MEQ in Sodium Chloride 0.9% 250 ML 250 ML IVPB SCH (18:00)
--- NOTE | 2019-05-15 18:53 | PDOC.FPRHP ---
- History of Present Illness Chief Complaint: Nausea/Vomiting, Hypokalemia History of Present Illness: Patient is a 49 yo female who presents with complaint of nausea and multiple episodes of vomiting. Symptoms have been ongoing on/off for at least the past week. Patient currently ESRD on peritoneal dialysis she performs daily at home, monitored by Dr. Vazquez every 2 weeks. She last saw Dr. Vazquez on 05/13 and says he changed some meds at that appointment but unknown since she has not had the chance to pick them up from the pharmacy yet. Also patient says Dr. Vazquez told her to take some TUMS with each meal, she has attempted this but vomits every time she tries to take the TUMs or tried to eat anything. Earlier today patient states she started to feel bad, checked her sugar around 3:00PM and was 24. She did not eat anything or take any of her glucose tabs at that time because she was "out of it". Patient's returned home at 4:30PM, noticed his was lethargic, checked her sugar and it was 58. He gave her glucose tabs & sugar water and proceeded to call EMS. At EMS arrival sugar was 106, was given additional glucose. Upon arrival at [facility] ED her sugar was 160. Patient currently says she still has no appetite and is nauseous. ED Course: In the ED, K+ was found to be 2.5. Started on 10meq/hr of KCl for 40meq total. EKG showed sinus tachycardia at 110. Dr. Vazquez, Nephrology was called from ED, per handoff from ED Dr. Vazquez will see patient in the morning and arrange for dialysis. - Allergies/Adverse Reactions Allergies Allergy/AdvReac Type Severity Reaction Status Date / Time gabapentin Allergy Severe Anaphylaxis Verified 11/19/18 16:19 - Home Medications Medication Instructions Recorded Confirmed Type Cyclobenzaprine [Flexeril] 10 mg PO TID PRN 05/29/18 05/16/19 History Insulin Aspart [Novolog] 0 unit SQ ASDIR 05/29/18 05/16/19 History Insulin Glargine,Hum.Rec.Anlog 40 unit SQ QAM 05/29/18 05/16/19 History [Toujessica Solostar] Topiramate 50 mg PO ASDIR 05/29/18 05/16/19 History traMADol HCl [Tramadol HCl] 100 mg PO TID PRN 05/29/18 05/16/19 History FLUoxetine HCl 20 mg PO DAILY #30 tablet 05/30/18 05/16/19 Rx Levothyroxine Sodium 50 mcg PO DAILY #30 tablet 05/30/18 05/16/19 Rx Mirabegron [Myrbetriq ER] 50 mg PO DAILY #30 tab 05/30/18 05/16/19 Rx Ondansetron HCl [Zofran] 8 mg PO TID PRN #90 tablet 05/30/18 05/16/19 Rx Carvedilol 6.25 mg PO BID 11/19/18 05/16/19 History Atorvastatin Calcium 20 mg PO QPM 05/16/19 05/16/19 History Calcitriol 0.5 mcg PO DAILY 05/16/19 05/16/19 History - History PMHx: ESRD on peritoneal dialysis daily, HTN, DM2, HLD, Neuropathy, Hypothyroidism, Arthritis PSHx: dialysis port placement, BTL, Carpal tunnel FHx: mother age 51 from DM complications & had CVA & RI in her 40s. father alive with T2DM; family members with breast and lung cancer Social: denies EtOH or tobacco use - Review of Systems General: reports: weight/appetite/sleep changes, fatigue. denies: fever/chills Eyes: denies: vision changes ENT: denies: nasal congestion Respiratory: denies: cough, congestion, shortness of breath Cardiovascular: denies: chest pain, palpitation, edema Gastrointestinal: reports: nausea, vomiting, diarrhea. denies: constipation, abdominal pain Genitourinary: denies: dysuria Skin: denies: rashes, lesions, jaundice Musculoskeletal: reports: arthritis/arthralgias. denies: pain, tenderness, swelling Neurological: reports: numbness, weakness, other (paresthesias) - Vital signs BP: 175/90 HR: 80 RR: 20 Tmax: 97.6F Pox: 100% on RA Wt: 63 kg - Physical Exam Constitutional: NAD, awake, alert and oriented, well developed HEENT: normocephalic and atraumatic, EOMI, conjunctiva clear, grossly normal vision, grossly normal hearing, MMM Neck: supple, FROM, no JVD Heart: RRR, normal S1/S2, no murmurs/rubs/gallops, pulses present, no edema Lungs: CTAB, no respiratory distress, good air movement, no rales/rhonchi, no wheezing Abdomen: soft, non-tender, bowel sounds present -Abdomen: port placement in LLQ Musculoskeletal: normal structure, normal tone, ROM grossly normal Neurological: no focal deficit Skin: no rash/lesions, good turgor Heme/Lymphatic: no unusual bruising or bleeding Psychiatric: normal mood and affect, intact recent and remote memory FMR H&P: Results - Labs Result Diagrams: 05/16/19 04:18 05/16/19 04:18 Lab results: WBC 10.8 thou/uL (4.8-10.8) 05/15/19 16:55 Hgb 12.1 g/dL (12.0-16.0) 05/15/19 16:55 Hct 36.9 % (36.0-47.0) 05/15/19 16:55 MCV 94.4 fL (78.0-98.0) 05/15/19 16:55 Plt Count 214 thou/uL (130-400) 05/15/19 16:55 Neutrophils % 69.8 % (42.0-75.0) 05/15/19 16:55 Sodium 133 mmol/L (136-145) L 05/15/19 16:55 Potassium 2.5 mmol/L (3.5-5.1) L* 05/15/19 16:55 Chloride 97 mmol/L (98-107) L 05/15/19 16:55 Carbon Dioxide 26 mmol/L (22-29) 05/15/19 16:55 BUN 40 mg/dL (7.0-18.7) H 05/15/19 16:55 Creatinine 12.86 mg/dL (0.6-1.1) H 05/15/19 16:55 Glucose 153 mg/dL (70-105) H 05/15/19 16:55 Calcium 8.5 mg/dL (7.8-10.44) 05/15/19 16:55 Total Bilirubin 0.3 mg/dL (0.2-1.2) 05/15/19 16:55 AST 26 U/L (5-34) 05/15/19 16:55 ALT 27 U/L (8-55) 05/15/19 16:55 Alkaline Phosphatase 94 U/L (40-110) 05/15/19 16:55 B-Natriuretic Peptide 47.5 pg/mL (0-100) 05/15/19 16:55 Serum Total Protein 6.3 g/dL (6.0-8.3) 05/15/19 16:55 Albumin 3.3 g/dL (3.5-5.0) L 05/15/19 16:55 Lipase 24 U/L (8-78) 05/15/19 16:55 - EKG Interpretation EKG: sinus tachycardia, no ST changes FMR H&P: A/P - Problem List (1) Hypokalemia Current Visit: Yes Status: Acute Code(s): E87.6 - HYPOKALEMIA (2) DM (diabetes mellitus) Current Visit: No Status: Acute Code(s): E11.9 - TYPE 2 DIABETES MELLITUS WITHOUT COMPLICATIONS Qualifiers: Diabetes mellitus type: type 2 Diabetes mellitus ocean transportation intermediary insulin use: with assisted use Diabetes mellitus complication status: with kidney complications Diabetes mellitus complication detail: with chronic kidney disease Chronic kidney disease stage: on chronic dialysis Qualified Code(s) : E11.22 - Type 2 diabetes mellitus with diabetic chronic kidney disease; N18.6 - End stage renal disease; Z79.4 - terminal manager (current) use of insulin; Z99.2 - Dependence on renal dialysis (3) ESRD (end stage renal disease) Current Visit: No Status: Acute Code(s): N18.6 - END STAGE RENAL DISEASE (4) Peripheral neuropathy Current Visit: No Status: Acute Code(s): G62.9 - POLYNEUROPATHY, UNSPECIFIED Qualifiers: Peripheral neuropathy type: polyneuropathy associated with underlying disease Qualified Code(s): G63 - Polyneuropathy in diseases classified elsewhere - Plan 49 yo female with complaint of n/v and diarrhea is admitted for hypokalemia & hypoglycemia #Hypokalemia -ED started 40meQ of IV replacement, will plan to give an additional 40 meQ IV -no changes on EKG -CMP in AM -Consult Nephrology, Dr. Vazquez--appreciate recs -Mg 2.2, Phosphorus pending -place on telemetry #Nausea/vomiting -suspect Gastroparesis vs viral gastroenteritis -maintenance IVF LR @ 100 ml/hr -Start clear liquid diet, advance as tolerated -will obtain flu swab if patient has fever -Zofran prn -Protonix BID #Hypoglycemia, currently resolved; T2DM -earlier sugars in 20s-50 per home log -Accuchecks ACHS -Hold home insulin -place on mild ssi #ESRD on daily PD -Nephro consulted, to arrange PD #HTN -awaiting formal med rec, will plan to restart home meds Diet: clear liquid, advance as tolerated VTE: SCD Code status: FULL Dispo: Stable, admitted to inpatient on telemetry. Will replace Potassium, monitor po intake and advance diet as tolerated. Anticipate LOS >48 hrs. FMR H&P: Upper Level - Pertinent history 49 yo F with hx of ESRD on PD and DM2, here with complaint of low blood sugar below 30 at home. She states that she has been vomiting multiple times per day for the past 2 weeks. She states that her glucose has been low for the past few days and has been correcting with glucose tabs. She was recently seen in the outpatient setting by her Nephro Dr. Vazquez who started her on a new med which she cant remember and hasnt started yet. Upon arrival to the ER her glucose was 153. She was also noted to have a potassium of 2.5 without EKG changes. She was given 40 mEq of K and Dr Vazquez was consulted to set up PD. PMHx DM2 ESRD HTN HLD Abnormal stress with normal cath on 11/24/18 Surgical hx Carpal Tunnel release b/l Tubal ligation Denies smoking, etoh, or drugs - Pertinent findings See analysis intern note for full ROS, PE, vitals, and labs ROS General denies fever or chills CV Denies CP, palpitation, or peripheral edema Resp complains of SOB. Denies cough GI Complains of n/v. Denies diarrhea or abdominal pain denies increased frequency or dysuria. Neuro denies numbness or weakness Endo complains of hypoglycemia PE General A&O x4, NAD HEENT NCAT CV RRR, no murmur Resp CTA, no respiratory distress Abd non tender, no distension, normal BS. PD cath in place, clean. Extremities no edema, equal pedal pulses Neuro no focal deficits, CN II-XII intact - Plan Date/Time: 05/15/193 I, Joseph Mcguire DO, have evaluated this patient and agree with findings/plan as outlined by analysis intern resident. Pertinent changes/additions are listed here. 1.Hypokalemia -Replace IV -EKG without worrisome changes -Recheck in AM -Nephro consulted from ER -Mg WNL -Monitor on tele 2.Hypoglycemia -Most likely related to poor PO intake -Start clears and advance as tolerated -Accucheck ACHS -Hold home insulin until taking PO 3.ESRD -Nephro consulted, will get PD here. 4.Nausea/vomiting -Gastroparesis vs viral gastroenteritis -Diet as above -Zofran as needed -Schedule protonix -Consider Reglan for pro kinetic 5.HTN -Restart home meds, IV PRNs PPx SCD Diet Clears, advance as tolerated Code Full Addendum - Attending - Attending Attestation Date/Time: 05/16/19 0619 I personally evaluated the patient and discussed the management with Dr. Keller/ Maynor. I agree with the History, Examination, Assessment and Plan documented above with any addition or exceptions noted below. Patient here for recurrent hypoglycemia and hypokalemia. Replete as needed and will make adjustments to diabetic regimen. Will discuss with Nephro about the persistent hypokalemia in setting of PD. She currently has leg cramping but otherwise denies complaints. Vitals stable. Continue current mgmt and await nephro recs.
[2019-05-15] MEDS ORDERED: Potassium Chloride 20 MEQ/100 ML PREMIX BAG ONE (19:27)
[2019-05-15 20:36] LABS: Phosphorus 4.8 mg/dL (2.3-4.7)
[2019-05-15] MEDS ORDERED: Dextrose 50% Abboject 50 ML SYRINGE ONE (21:34)
[2019-05-15] MEDS ORDERED: Ondansetron ODT 4 MG TAB PO PRN (22:56)
[2019-05-15] MEDS ORDERED: Dextrose 5% in Water 1,000 ML IV PRN (22:56)
[2019-05-15] MEDS ORDERED: Ondansetron PF 4 MG/2 ML Vial IVP PRN (22:56)
[2019-05-15] MEDS ORDERED: Dextrose 50% Abboject 50 ML SYRINGE SLOW IVP PRN (22:56)
[2019-05-15] MEDS ORDERED: HumaLOG 300 UNITS/3 ML VIAL SC PRN (22:56)
[2019-05-15] MEDS ORDERED: Potassium Chloride 10 MEQ in Premix Bag 1 BAG IVPB SCH (23:00)
[2019-05-16] MEDS: Acetaminophen 325 MG TAB PO PRN ×2 (01:03→11:15)
[2019-05-16] MEDS: Lactated Ringer's 1,000 ML IV SCH ×3 (01:06→21:19)
[2019-05-16 04:56] LABS: #Basophils 0.1 thou/uL (0.0-0.2); #Eosinphils 0.2 thou/uL (0.0-0.7); #Lymphocytes 3.7 thou/uL (1.20-3.40); #Monocytes 0.8 thou/uL (0.11-0.59); #Neutrophils 7.1 thou/uL (1.40-6.50); %Lymphocytes 30.9 % (21.0-51.0); %Monocytes 6.4 % (0.0-10.0); %Neutrophils 59.6 % (42.0-75.0); Hemoglobin 12.2 g/dL (12.0-16.0); Mean Corpuscular HGB CONC 33.4 g/dL (32.0-36.0); Mean Corpuscular Hemoglobin 31.3 pg (27.0-31.0); Mean Corpuscular Volume 93.7 fL (78.0-98.0); Mean Platelet Volume 8.8 fL (7.4-10.4); Platelet Count 215 thou/uL (130-400); RBC Distribution Width 12.5 % (11.5-14.5); White Blood Cell (WBC) Count 11.9 thou/uL (4.8-10.8)
[2019-05-16 05:07] LABS: ALT (SGPT) 22 U/L (8-55); AST (SGOT) 14 U/L (5-34); Albumin 3.2 g/dL (3.5-5.0); Alkaline Phosphatase 91 U/L (40-110); Anion Gap 15 mmol/L (10-20); BUN (Urea Nitrogen) 33 mg/dL (7.0-18.7); Bilirubin, Total 0.3 mg/dL (0.2-1.2); Calc. Creatinine Clearance 6 mL/min (70-130); Calcium 8.5 mg/dL (7.8-10.44); Carbon Dioxide 22 mmol/L (22-29); Chloride 102 mmol/L (98-107); Estimated GFR-MDRD 4; Globulin 3.1 g/dL (2.4-3.5); Glucose 63 mg/dL (70-105); Protein, Total 6.3 g/dL (6.0-8.3); Sodium 136 mmol/L (136-145)
[2019-05-16 05:21] LABS: Potassium 2.8 mmol/L (3.5-5.1)
[2019-05-16] MEDS ORDERED: Cyclobenzaprine 10 MG TAB PO PRN (05:37)
[2019-05-16] MEDS ORDERED: Ondansetron ODT 4 MG TAB PO PRN (05:37)
[2019-05-16] MEDS ORDERED: Topiramate 25 MG TAB PO SCH (05:45)
--- NOTE | 2019-05-16 05:54 | PDOC.FM ---
- Subjective Subjective: Patient doing okay this morning. Had no episodes of vomiting, but continues to report that she is gagging. Also reports that she has continued to have diarrhea. - Objective Vital Signs & Weight: Vital Signs (12 hours) Temp Pulse Resp BP Pulse Ox 05/16/19 04:00 98.6 F 67 20 116/73 98 05/15/19 23:52 98.2 F 85 20 171/81 H 100 05/15/19 22:56 98 Weight Weight 60.101 kg Result Diagrams: 05/16/19 04:18 05/16/19 04:18 EKG Reviewed by me: Yes (sinus 80s) Phys Exam - Physical Examination Constitutional: NAD HEENT: moist MMs, sclera anicteric Neck: supple Respiratory: no wheezing, clear to auscultation bilateral Cardiovascular: RRR, no significant murmur Gastrointestinal: soft, non-tender, no distention Musculoskeletal: no edema, pulses present chronic left leg pain Neurological: moves all 4 limbs Psychiatric: normal affect, A&O x 3 Skin: no rash, normal turgor Dx/Plan (1) Hypokalemia Code(s): E87.6 - HYPOKALEMIA Status: Acute (2) Chest pain Code(s): R07.9 - CHEST PAIN, UNSPECIFIED Status: Acute (3) DM (diabetes mellitus) Code(s): E11.9 - TYPE 2 DIABETES MELLITUS WITHOUT COMPLICATIONS Status: Acute Qualifiers: Diabetes mellitus type: type 2 Diabetes mellitus residential insulin use: with termite control technician use Diabetes mellitus complication status: with kidney complications Diabetes mellitus complication detail: with chronic kidney disease Chronic kidney disease stage: on chronic dialysis Qualified Code(s) : E11.22 - Type 2 diabetes mellitus with diabetic chronic kidney disease; N18.6 - End stage renal disease; Z79.4 - termite control technician (current) use of insulin; Z99.2 - Dependence on renal dialysis (4) ESRD (end stage renal disease) Code(s): N18.6 - END STAGE RENAL DISEASE Status: Acute (5) HTN (hypertension) Code(s): I10 - ESSENTIAL (PRIMARY) HYPERTENSION Status: Acute (6) Peripheral neuropathy Code(s): G62.9 - POLYNEUROPATHY, UNSPECIFIED Status: Acute Qualifiers: Peripheral neuropathy type: polyneuropathy associated with underlying disease Qualified Code(s): G63 - Polyneuropathy in diseases classified elsewhere - Plan Plan: 49 yo female with complaint of n/v and diarrhea is admitted for hypokalemia & hypoglycemia #Hypokalemia -ED started 40meQ of IV replacement, received another 10meq. Potassium 2.8 this morning, another 40meq has been ordered -no changes on EKG -Dr. Vazquez, nephrology, consulted, appreciate recs -Mg 2.2, Phosphorus high 4.8 -on telemetry #Nausea/vomiting/diarrhea -suspect Gastroparesis vs viral gastroenteritis -maintenance IVF LR @ 100 ml/hr -Started on clear liquid diet, advance as tolerated -patient afebrile overnight -Zofran prn -Protonix BID -stool studies #Hypoglycemia, currently resolved; T2DM -earlier glucose in 20s-50 per home log, glucose continues to be low this morning -likely due to n/v and patient not being able to keep any food down -D50 PRN for hypoglycemia -Accuchecks ACHS -Continue to hold home insulin -place on mild ssi #ESRD on daily PD -Nephro consulted, to arrange PD today -patient did not have PD yesterday #HTN -home meds restarted Diet: clear liquid, advance as tolerated VTE: SCD Code status: FULL Dispo: Stable, admitted to inpatient on telemetry. Continue to replace potassium as needed, monitor po intake and advance diet as tolerated. Nephrology , Dr. Vazquez, consulted, appreciate recs. Stool studies. Anticipate LOS >48 hrs. Addendum - Attending - Attending Attestation Date/Time: 05/16/19 9154 I personally evaluated the patient and discussed the management with Dr. Amador. I agree with the History, Examination, Assessment and Plan documented above with any addition or exceptions noted below. Please see H/P dated 05/15 for today's addendum.
[2019-05-16] MEDS: Levothyroxine Sodium 50 MCG TAB PO SCH (05:56)
[2019-05-16] MEDS: traMADol HCl 50 MG TAB PO PRN ×3 (05:56→23:50)
[2019-05-16] MEDS: Potassium Chloride 20 MEQ in Premix Bag 1 BAG IVPB SCH ×2 (06:07→08:42)
[2019-05-16] MEDS: Calcitriol 0.25 MCG CAP PO SCH (09:30)
[2019-05-16] MEDS: Carvedilol 25 MG TAB PO SCH ×2 (09:30→21:19)
[2019-05-16] MEDS: FLUoxetine HCl 20 MG CAP PO SCH (09:31)
[2019-05-16] MEDS: Pantoprazole 40 MG VIAL IVP SCH ×2 (09:31→21:25)
[2019-05-16 10:11] LABS: Hemoglobin A1c 7.3 % (4.0-6.0)
[2019-05-16] MEDS ORDERED: Potassium Chloride 20 MEQ TAB PO SCH (10:30)
[2019-05-16] MEDS ORDERED: Gentamicin Ophth Soln 0.3% 5 ml Bottle FS SCH (10:30)
--- NOTE | 2019-05-16 10:47 | CON ---
DATE OF CONSULTATION: HISTORY OF PRESENT ILLNESS: Ms. Marion is a 49-year-old female with ESRD from diabetic nephropathy and was admitted due to nausea and vomiting. She also was found to have a concomitant low blood sugar as well as being hypokalemic. We are being consulted for her maintenance peritoneal dialysis. She underwent peritoneal dialysis last night without any difficulty. We are continuing her current PD regimen. The patient still has some nausea today. She still has decreased appetite. REVIEW OF SYSTEMS: No chest pain. Positive for nausea and vomiting. No diarrhea. No constipation. No productive cough. Positive for abdominal discomfort. No dysuria. No urinary frequency. No productive cough. No new skin rash. Occasional numbness of the lower extremities. No headache. No fever or chills. No chest pain. No shortness of breath. HOME MEDICATIONS: Include; 1. Levothyroxine 50 mcg daily. 2. Prozac 20 mg tablet once a day. 3. Tramadol 100 mg p.o. t.i.d. p.r.n. 4. Topiramate 50 mg daily. 5. Toujeo insulin 40 units subcu q.a.m. 6. NovoLog as directed. 7. Flexeril 10 mg t.i.d. p.r.n. PAST MEDICAL HISTORY: 1. ESRD from diabetic nephropathy. 2. Type 2 diabetes mellitus. 3. History of depression. 4. Hypothyroidism. 5. Chronic pain. PAST SURGICAL HISTORY: Status post PD catheter placement, status post cuffed hemodialysis catheter placement. SOCIAL HISTORY: The patient , 4 children. 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 Currently, no smoking. No alcohol intake. No IV drug abuse. ? of blood transfusion. Education, high school. ALLERGIES/ADVERSE REACTION: Gabapentin. TRAUMA: None. IMMUNIZATIONS: Up-to-date. HOSPITALIZATIONS: Please see past medical history. FAMILY HISTORY: No family history of ESRD. PHYSICAL EXAMINATION: VITAL SIGNS: Blood pressure is 142/78, heart rate 95, respiratory rate 18, temperature 97.3, and pulse ox 100% on room air. GENERAL: Awake, alert, comfortable, not in overt distress. SKIN: Adequate turgor. HEENT: Has pinkish conjunctivae. Anicteric sclerae. NECK: No neck mass. No carotid bruits. No JVD. CHEST: No deformities. LUNGS: Clear breath sounds. No wheezing. No crackles. HEART: Normal sinus rhythm. No murmur. No gallops. No rubs. ABDOMEN: Globular, soft, and nontender. No masses. Positive for bowel sounds. Positive for PD catheter. EXTREMITIES: No edema. No deformities. NEUROLOGICAL: Moving all extremities. No tremors. No asterixis. No ataxia. Oriented to 3 spheres. LABORATORY DATA: On May 16, 2019; white count 11.9, hemoglobin 12.2. Sodium 136, potassium 2.8, chloride 102, carbon dioxide 22, BUN 33, and creatinine 11.1. AST 14, ALT 22, sugar is 45, and albumin 3.2. ASSESSMENT AND PLAN: 1. Nausea and vomiting - most likely from diabetic gastroparesis. Consider adding Reglan 5 mg tablet t.i.d. before meals and at bedtime. 2. Hypokalemia, p.r.n. correction. I have maintained this patient on potassium 40 mEq once a day. 3. End-stage renal disease, stable. Review of the last Kt/V suggests she is currently adequately dialyzed with the current peritoneal dialysis. My plan is to continue her current CCPD regimen. She is tolerating her peritoneal dialysis. 4. Hypoglycemia. Adjust insulin regimen as needed. Thank you for the consult. We will continue to follow. Job ID: [id number]
[2019-05-16] MEDS: Metoclopramide 10 MG/10 ML UDCUP PO SCH ×3 (11:15→21:31)
[2019-05-16 17:02] LABS: Anion Gap 13 mmol/L (10-20); BUN (Urea Nitrogen) 30 mg/dL (7.0-18.7); Calc. Creatinine Clearance 6 mL/min (70-130); Calcium 8.5 mg/dL (7.8-10.44); Carbon Dioxide 24 mmol/L (22-29); Chloride 103 mmol/L (98-107); Estimated GFR-MDRD 4; Potassium 3.6 mmol/L (3.5-5.1); Sodium 136 mmol/L (136-145)
[2019-05-16 17:05] LABS: Glucose 53 mg/dL (70-105)
[2019-05-16] MEDS ORDERED: Loperamide HCl 2 MG CAP PO SCH (20:45)
[2019-05-16] MEDS: Atorvastatin Calcium 20 MG TAB PO SCH (21:19)
[2019-05-16] MEDS ORDERED: Carvedilol 6.25 MG TAB PO SCH (21:30)
[2019-05-17] MEDS ORDERED: diphenhydrAMINE 25 MG CAP PO PRN (01:48)
[2019-05-17] MEDS: Levothyroxine Sodium 50 MCG TAB PO SCH (05:59)
[2019-05-17] MEDS: Lactated Ringer's 1,000 ML IV SCH (06:00)
--- NOTE | 2019-05-17 06:03 | PDOC.FM ---
- Subjective Subjective: Pt states she did better overnight, except that her BLE are very painful. She thinks the SCD's are irritating her peripheral neuropathy. Pt denies N/V. Had episode of Diarrhea overnight and reglan was held. - Objective MAR Reviewed: Yes Vital Signs & Weight: Vital Signs (12 hours) Temp Pulse Resp BP BP Pulse Ox 05/17/19 05:46 100 05/17/19 03:17 97.9 F 60 14 162/84 H 100 05/17/19 00:00 20 05/16/19 21:30 139/69 05/16/19 20:00 100 05/16/19 19:55 98.1 F 89 20 139/69 100 Weight Weight 60.101 kg I&O: 05/15/19 05/16/19 05/17/19 06:59 06:59 06:59 Intake Total 1380 1550 Output Total 780 Balance 1380 770 Result Diagrams: 05/16/19 04:18 05/17/19 08:15 Phys Exam - Physical Examination Constitutional: NAD HEENT: moist MMs, sclera anicteric Neck: no nodes, supple Respiratory: no wheezing, no rales, no rhonchi, clear to auscultation bilateral Cardiovascular: RRR, no rub Gastrointestinal: soft, non-tender, positive bowel sounds Musculoskeletal: no edema, pulses present Neurological: non-focal, moves all 4 limbs Psychiatric: normal affect, A&O x 3 Skin: no rash, normal turgor, cap refill <2 seconds Dx/Plan (1) Gastroparesis Code(s): K31.84 - GASTROPARESIS Status: Acute (2) Hypokalemia Code(s): E87.6 - HYPOKALEMIA Status: Acute (3) DM (diabetes mellitus) Code(s): E11.9 - TYPE 2 DIABETES MELLITUS WITHOUT COMPLICATIONS Status: Acute Qualifiers: Diabetes mellitus type: type 2 Diabetes mellitus terminal carman insulin use: with fci use Diabetes mellitus complication status: with kidney complications Diabetes mellitus complication detail: with chronic kidney disease Chronic kidney disease stage: on chronic dialysis Qualified Code(s) : E11.22 - Type 2 diabetes mellitus with diabetic chronic kidney disease; N18.6 - End stage renal disease; Z79.4 - emt intermediate (current) use of insulin; Z99.2 - Dependence on renal dialysis (4) ESRD (end stage renal disease) Code(s): N18.6 - END STAGE RENAL DISEASE Status: Acute (5) HTN (hypertension) Code(s): I10 - ESSENTIAL (PRIMARY) HYPERTENSION Status: Acute - Plan Plan: 49 yo female with complaint of n/v and diarrhea is admitted for hypokalemia & hypoglycemia #Hypokalemia -ED started 40meQ of IV replacement, received another 10meq. Potassium 2.8 05/16 , another 40meq given. -no changes on EKG -Dr. Vazquez, nephrology, consulted, appreciate recs -Mg 2.2, Phosphorus high 4.8 -on telemetry #Nausea/vomiting/diarrhea Most liekly 2/2 Gastroparesis -suspect Gastroparesis vs viral gastroenteritis. Reglan started by Dr. Vazquez. -maintenance IVF LR @ 100 ml/hr, will D/C today pending how well pt tolerates PO. -Started on clear liquid diet, advance as tolerated -patient afebrile overnight -Zofran prn -Protonix BID -stool studies #Hypoglycemia, currently resolved; T2DM -earlier glucose in 20s-50 per home log -likely due to n/v and patient not being able to keep any food down -D50 PRN for hypoglycemia -Accuchecks ACHS -Continue to hold home insulin -place on mild ssi #ESRD on daily PD -Nephro consulted, to arrange PD -received overnight. #HTN -home meds restarted Diet: clear liquid, advance as tolerated VTE: SCD Code status: FULL Dispo: stable, D/C pending improvement in blood glucose and toleration of Po diet. Addendum - Attending - Attending Attestation Date/Time: 05/17/19 1111 I personally evaluated the patient and discussed the management with Dr. Oliva. I agree with the History, Examination, Assessment and Plan documented above with any addition or exceptions noted below. Patient doing well, denies complaints. Reports her diarrhea is chronic, no evidence of infectious etiology. Her nausea is improved with Reglan, continue that. She continues on PD per Nephrology. Potassium improved. Will need continued management of her hypoglycemia and modification of her DM regimen.
--- NOTE | 2019-05-17 08:24 | PRG ---
DATE OF SERVICE: 05/17/2019 SUBJECTIVE: Ms. Marion is a 49-year-old female with ESRD and currently on peritoneal dialysis and was admitted for nausea and vomiting associated with hypoglycemia, hypokalemia. Sugar slowly improving. In addition, hypokalemia is also improving. She has been started on Reglan for her diabetic gastroparesis. The nausea and vomiting are better this morning. No other complaints. No chest pain or shortness of breath. She underwent PD without any difficulty yesterday. OBJECTIVE: VITAL SIGNS: Blood pressure is 162/84, heart rate 68, respiratory rate 14, temperature 97.9, pulse ox 100%-room air. GENERAL: Awake, alert, comfortable, not in distress. SKIN: Adequate turgor. HEENT: She has pinkish conjunctivae. Anicteric sclerae. NECK: No neck mass. No carotid bruits. No JVD. CHEST: No deformities. LUNGS: Clear breath sounds. No wheezing. No crackles. HEART: Normal sinus rhythm. No murmur. No gallops. No rubs. ABDOMEN: Globular, soft, nontender, no masses. Positive for PD catheter. EXTREMITIES: No edema. MEDICATIONS: May 17, 2019, were reviewed. LABORATORY DATA: May 16, 2019, white count 11.9, hemoglobin 12.2. Sodium 136, potassium 3.6, chloride 103, carbon dioxide 24, BUN 30, creatinine 10.46, calcium 8.5. ASSESSMENT AND PLAN: 1. Hypokalemia, much improved. Currently, on potassium replacement. 2. End-stage renal disease, stable, tolerating current peritoneal dialysis. We used a 2.5% PD solution due to the hypoglycemia. Tolerating said treatment. 3. Nausea and vomiting - secondary to diabetic gastroparesis, much improved. 4. Agree with current management. Recheck basic metabolic profile in a.m. Job ID: [id number]
[2019-05-17 08:53] LABS: Anion Gap 13 mmol/L (10-20); BUN (Urea Nitrogen) 26 mg/dL (7.0-18.7); Calc. Creatinine Clearance 9 mL/min (70-130); Calcium 7.9 mg/dL (7.8-10.44); Carbon Dioxide 21 mmol/L (22-29); Chloride 103 mmol/L (98-107); Estimated GFR-MDRD 5; Glucose 80 mg/dL (70-105); Potassium 4.1 mmol/L (3.5-5.1); Sodium 133 mmol/L (136-145)
[2019-05-17] MEDS: Metoclopramide 10 MG/10 ML UDCUP PO SCH ×4 (09:02→21:15)
[2019-05-17] MEDS: Carvedilol 6.25 MG TAB PO SCH ×2 (09:03→16:32)
[2019-05-17] MEDS: Potassium Chloride 20 MEQ TAB PO SCH (09:03)
[2019-05-17] MEDS: FLUoxetine HCl 20 MG CAP PO SCH (09:04)
[2019-05-17] MEDS: Calcitriol 0.25 MCG CAP PO SCH (09:04)
[2019-05-17] MEDS: Pantoprazole 40 MG VIAL IVP SCH ×2 (09:05→21:14)
[2019-05-17] MEDS: traMADol HCl 50 MG TAB PO PRN ×2 (09:07→16:38)
[2019-05-17 13:46] VITALS: BMI 30.9
[2019-05-17] MEDS: Gentamicin Ophth Soln 0.3% 5 ml Bottle FS PRN (18:00)
[2019-05-17] MEDS: Atorvastatin Calcium 20 MG TAB PO SCH (21:14)
[2019-05-18 04:55] LABS: Anion Gap 10 mmol/L (10-20); BUN (Urea Nitrogen) 33 mg/dL (7.0-18.7); Calc. Creatinine Clearance 8 mL/min (70-130); Calcium 8.7 mg/dL (7.8-10.44); Carbon Dioxide 26 mmol/L (22-29); Chloride 103 mmol/L (98-107); Estimated GFR-MDRD 5; Glucose 266 mg/dL (70-105); Potassium 4.5 mmol/L (3.5-5.1); Sodium 134 mmol/L (136-145)
[2019-05-18] MEDS: Levothyroxine Sodium 50 MCG TAB PO SCH (06:00)
--- NOTE | 2019-05-18 06:51 | PDOC.FM ---
- Subjective Subjective: Pt's glucose more jovan overnight. range 75-220. Pt states she feels ready to go home. Denies any further N/V/diarrhea. - Objective MAR Reviewed: Yes Vital Signs & Weight: Vital Signs (12 hours) Temp Pulse Resp BP Pulse Ox 05/18/19 03:19 98.8 F 81 16 137/64 96 05/18/19 00:00 87 18 05/17/19 20:00 98.7 F 81 20 143/72 H 100 Weight Admit Weight 60.101 kg Weight 65.9 kg I&O: 05/16/19 05/17/19 05/18/19 06:59 06:59 06:59 Intake Total 1380 2850 1740 Output Total 780 200 Balance 1380 2070 1540 Result Diagrams: 05/16/19 04:18 05/18/19 04:26 Phys Exam - Physical Examination Constitutional: NAD HEENT: moist MMs, sclera anicteric Neck: no nodes, supple, full ROM Respiratory: no wheezing, no rales, no rhonchi, clear to auscultation bilateral Cardiovascular: RRR, no rub Gastrointestinal: soft, non-tender, no distention, positive bowel sounds Musculoskeletal: no edema, pulses present Neurological: non-focal, normal sensation, moves all 4 limbs Psychiatric: normal affect, A&O x 3 Skin: no rash, normal turgor, cap refill <2 seconds Dx/Plan (1) Gastroparesis Code(s): K31.84 - GASTROPARESIS Status: Acute (2) Hypokalemia Code(s): E87.6 - HYPOKALEMIA Status: Acute (3) DM (diabetes mellitus) Code(s): E11.9 - TYPE 2 DIABETES MELLITUS WITHOUT COMPLICATIONS Status: Acute Qualifiers: Diabetes mellitus type: type 2 Diabetes mellitus rodent exterminator insulin use: with rodent exterminator use Diabetes mellitus complication status: with kidney complications Diabetes mellitus complication detail: with chronic kidney disease Chronic kidney disease stage: on chronic dialysis Qualified Code(s) : E11.22 - Type 2 diabetes mellitus with diabetic chronic kidney disease; N18.6 - End stage renal disease; Z79.4 - nursing home (current) use of insulin; Z99.2 - Dependence on renal dialysis (4) ESRD (end stage renal disease) Code(s): N18.6 - END STAGE RENAL DISEASE Status: Acute (5) HTN (hypertension) Code(s): I10 - ESSENTIAL (PRIMARY) HYPERTENSION Status: Acute - Plan Plan: 49 yo female with complaint of n/v and diarrhea is admitted for hypokalemia & hypoglycemia #Hypokalemia , resolved -ED started 40meQ of IV replacement, received another 10meq. Potassium 2.8 05/16 , another 40meq given. 4.5 on 05/18. -no changes on EKG -Dr. Vazquez, nephrology, consulted, appreciate recs -Mg 2.2, Phosphorus high 4.8 -on telemetry #Nausea/vomiting/diarrhea Most likely 2/2 Gastroparesis, improved -suspect Gastroparesis. Reglan TID started by Dr. Vazquez. -renal diet -patient afebrile overnight -Zofran prn -Protonix BID -stool studies negative, latoferrin elevated. Diarrhea improved 05/18. #Hypoglycemia, resolved; T2DM -glucose on admission 20s-50, stable overnight 220-75. -likely due to n/v and patient not being able to keep any food down while continuing insulin. -D50 PRN for hypoglycemia -Accuchecks ACHS -restart home insulin slowly/lightly. 10 lantus Qam, mild SSI. #ESRD on daily PD -Nephro consulted, to arrange PD -received #HTN -home meds restarted Diet: renal diet VTE: SCD Code status: FULL Dispo: stable, D/C home today after restarting insulin. Addendum - Attending - Attending Attestation Date/Time: 05/18/19 1120 I personally evaluated the patient and discussed the management with Dr. Oliva. I agree with the History, Examination, Assessment and Plan documented above with any addition or exceptions noted below. Patient denies complaints. Her potassium is improved. We are monitoring her blood sugar today back on 10 units and if stable may be discharged later today. Will need to monitor levels outpatient very closely. Nausea improved with Reglan.
[2019-05-18] MEDS ORDERED: Potassium Chloride 20 MEQ TAB PO SCH (08:00)
[2019-05-18] MEDS: Metoclopramide 10 MG/10 ML UDCUP PO SCH ×3 (08:10→16:46)
[2019-05-18] MEDS: Calcitriol 0.25 MCG CAP PO SCH (08:11)
[2019-05-18] MEDS: Carvedilol 6.25 MG TAB PO SCH ×2 (08:11→16:46)
[2019-05-18] MEDS: FLUoxetine HCl 20 MG CAP PO SCH (08:12)
[2019-05-18] MEDS: traMADol HCl 50 MG TAB PO PRN ×2 (08:16→16:46)
[2019-05-18] MEDS: Pantoprazole 40 MG VIAL IVP SCH (08:22)
[2019-05-18] MEDS ORDERED: Dextrose 50% Abboject 50 ML SYRINGE SLOW IVP PRN (08:23)
[2019-05-18] MEDS ORDERED: HumaLOG 300 UNITS/3 ML VIAL SC PRN ×2 (08:23)
[2019-05-18] MEDS ORDERED: Dextrose 5% in Water 1,000 ML IV PRN (08:23)
[2019-05-18] MEDS: Potassium Chloride 20 MEQ TAB PO SCH (08:23)
[2019-05-18] MEDS ORDERED: Insulin Glargine 10 UNITS in Pre-Filled Syringe 1 EACH SC SCH (09:00)
--- NOTE | 2019-05-18 09:06 | PRG ---
DATE OF SERVICE: 05/18/2019 SUBJECTIVE: Ms. Marion is a 49-year-old female with ESRD, currently on peritoneal dialysis. She was initially admitted due to hypoglycemia and Hypokalemia. Her metabolic abnormalities are much improved. Please note, she is currently on KCl 40 mEq once daily, which we will now decrease to 20 mEq once a day. She is feeling much better. She is tolerating the current peritoneal dialysis. We removed about 1.3 L of fluid from last night's peritoneal dialysis. No other complaints. No chest pain or shortness of breath. OBJECTIVE: VITAL SIGNS: Blood pressure 135/71, heart rate 85, respiratory rate 16, temperature 98.2, pulse ox 96%. GENERAL: Awake, alert, comfortable, not in distress. SKIN: Adequate turgor. HEENT: She has pinkish conjunctivae. Anicteric sclerae. No neck mass. No carotid bruits. No JVD. CHEST: No deformities. LUNGS: Clear breath sounds. No wheezing. No crackles. HEART: Normal sinus rhythm. No murmurs, gallops, or rubs. ABDOMEN: Globular, soft, nontender. No masses. Positive for PD catheter. EXTREMITIES: No edema. No deformities. MEDICATIONS: Medications of May 18, 2019, reviewed. LABORATORY DATA: Laboratories of May 18, 2019, sodium 134, potassium 4.5, chloride 103, carbon dioxide 26, BUN 33, creatinine 9.13, glucose 266, calcium 8.7. On May 16, 2019, hemoglobin 12.2. ASSESSMENT AND PLAN: 1. End-stage renal disease, stable. We will continue current continuous cyclic peritoneal dialysis regimen. Tolerating current peritoneal dialysis. Removed 1.3 L of fluid with yesterday's peritoneal dialysis. Continue current management. No changes will be made with the current peritoneal dialysis regimen. 2. Hypokalemia, much improved. Decrease KCl from 40 mEq to 20 mEq one tablet once a day. 3. Hypoglycemia, resolved. 4. Nausea and vomiting secondary to diabetic gastroparesis, much improved with Reglan. 5. Agree with current management. Job ID: [id number]
[2019-05-18 11:31] VITALS: TEMP 98.1
[2019-05-18 15:57] VITALS: BP 173/82
[2019-05-18] MEDS: Gentamicin Ophth Soln 0.3% 5 ml Bottle FS PRN (16:47)
== END 2019-05-18 19:09 | disposition home or self-care (01) | DRG 73 ==
LOC: ERS 16:10 → 2NO 23:15
PROVIDERS: ADMIT Family Medicine; ATTEND Family Medicine
PROC: 3E1M39Z Irrigation of Peritoneal Cavity using Dialysate, Percutaneous Approach (ICD-10-PCS; principal; 2019-05-15)
DX: E11.43 Type 2 diabetes mellitus with diabetic autonomic (poly)neuropathy (principal); N18.6 End stage renal disease; E87.6 Hypokalemia; K31.84 Gastroparesis; E11.649 Type 2 diabetes mellitus with hypoglycemia without coma; E11.42 Type 2 diabetes mellitus with diabetic polyneuropathy; F32.9 Major depressive disorder, single episode, unspecified; F41.9 Anxiety disorder, unspecified; E11.22 Type 2 diabetes mellitus with diabetic chronic kidney disease; E78.5 Hyperlipidemia, unspecified; E03.9 Hypothyroidism, unspecified; M19.90 Unspecified osteoarthritis, unspecified site; I10 Essential (primary) hypertension; Z88.8 Allergy status to other drugs, medicaments and biological substances; Z79.4 Long term (current) use of insulin; Z79.890 Hormone replacement therapy; Z79.899 Other long term (current) drug therapy; Z99.2 Dependence on renal dialysis; Z98.51 Tubal ligation status
CPT/HCPCS: 36415; 36416; 80048; 80053; 83036; 83630; 83690; 83735; 83880; 84100; 85025; 87015; 87045; 87046; 87206; 87324; 87328; 87329; 87427; 87449; 90945; C9113; G0257; J1610; J1815; J3480; J7050; Q0162; Q0163

== ENCOUNTER 2019-06-05 04:41 | Emergency (ER) | payer OTHER ==
[2019-06-05 06:27] LABS: Anion Gap 14 mmol/L (10-20); BUN (Urea Nitrogen) 41 mg/dL (7.0-18.7); Calc. Creatinine Clearance 0 mL/min (70-130); Carbon Dioxide 27 mmol/L (22-29); Chloride 99 mmol/L (98-107); Estimated GFR-MDRD 5; Glucose 101 mg/dL (70-105); Potassium 3.8 mmol/L (3.5-5.1); Sodium 136 mmol/L (136-145)
== END 2019-06-05 06:39 | disposition home or self-care (01) ==
LOC: ERS 04:41
DX: G25.81 Restless legs syndrome (principal); I12.0 Hypertensive chronic kidney disease with stage 5 chronic kidney disease or end stage renal disease; N18.6 End stage renal disease; M19.90 Unspecified osteoarthritis, unspecified site; E11.22 Type 2 diabetes mellitus with diabetic chronic kidney disease; E78.00 Pure hypercholesterolemia, unspecified; E03.9 Hypothyroidism, unspecified; F41.9 Anxiety disorder, unspecified; F32.9 Major depressive disorder, single episode, unspecified; Z79.899 Other long term (current) drug therapy; Z79.4 Long term (current) use of insulin; Z99.2 Dependence on renal dialysis
CPT/HCPCS: 36415; 80048; 99283

== ENCOUNTER 2019-09-12 02:10 | Emergency (ER) | payer OTHER ==
[2019-09-12] MEDS ORDERED: Ondansetron PF 4 MG/2 ML Vial ONE ×2 (02:29→03:19)
[2019-09-12 02:40] LABS: #Basophils 0.1 thou/uL (0.0-0.2); #Eosinphils 0.4 thou/uL (0.0-0.7); #Lymphocytes 1.9 thou/uL (1.20-3.40); #Monocytes 0.9 thou/uL (0.11-0.59); #Neutrophils 10.9 thou/uL (1.40-6.50); %Basophils 0.5 % (0.0-1.0); %Eosinophils 2.7 % (0.0-10.0); %Lymphocytes 13.2 % (21.0-51.0); %Monocytes 6.2 % (0.0-10.0); %Neutrophils 77.4 % (42.0-75.0); Hemoglobin 12.2 g/dL (12.0-16.0); Mean Corpuscular HGB CONC 33.1 g/dL (32.0-36.0); Mean Corpuscular Hemoglobin 31.1 pg (27.0-31.0); Mean Corpuscular Volume 93.9 fL (78.0-98.0); Mean Platelet Volume 7.7 fL (7.4-10.4); Platelet Count 252 thou/uL (130-400); RBC Distribution Width 12.8 % (11.5-14.5); Red Blood Cell (RBC) Count 3.91 mill/uL (4.20-5.40); White Blood Cell (WBC) Count 14.1 thou/uL (4.8-10.8)
[2019-09-12 03:03] LABS: BHCG - Serum Negative (NEGATIVE); Pregs Control Background? CLEAR/WHITE (CLR/WHITE); Pregs Control Bar Appear? YES (CONTROL BAR)
[2019-09-12 03:10] LABS: ALT (SGPT) 19 U/L (8-55); AST (SGOT) 30 U/L (5-34); Albumin 3.3 g/dL (3.5-5.0); Alkaline Phosphatase 111 U/L (40-110); Anion Gap 20 mmol/L (10-20); BUN (Urea Nitrogen) 38 mg/dL (7.0-18.7); Bilirubin, Total 0.4 mg/dL (0.2-1.2); Calc. Creatinine Clearance 0 mL/min (70-130); Calcium 9.2 mg/dL (7.8-10.44); Carbon Dioxide 21 mmol/L (22-29); Chloride 101 mmol/L (98-107); Estimated GFR-MDRD 4; Glucose 90 mg/dL (70-105); Lipase 15 U/L (8-78); Magnesium 1.9 mg/dL (1.6-2.6); Protein, Total 7.3 g/dL (6.0-8.3); Sodium 137 mmol/L (136-145)
[2019-09-12] MEDS ORDERED: Haloperidol Lactate 5 MG/ML VIAL ONE (03:34)
--- NOTE | 2019-09-12 08:20 | CT ---
PRELIMINARY REPORT/[facility]/EMERGENCY AFTER HOURS PROCEDURE EXAM: CT Abdomen and Pelvis with Intravenous Contrast CLINICAL HISTORY: F 49 presents to ER with c/o N/V/D associated with abd pain that onset this morning. Pt reports dry h eaving.Pt reports cramping abd pain localized to the epigastric area TECHNIQUE: Axial computed tomography images of the abdomen and pelvis with intravenous contrast. CONTRAST: With; ISOVUE 370,100mL COMPARISON: None provided. FINDINGS: LUNG BASES: No basilar airspace consolidation or pleural effusion. LIVER: Focal fatty deposition at the falciform ligament. Mild intrahepatic biliary duct dilatation. GALLBLADDER AND BILE DUCTS: Status post cholecystectomy. Enlargement of the common bile duct up to 2.6 cm. PANCREAS: Unremarkable. SPLEEN: 1.2 cm cystic lesion within the spleen. Spleen is otherwise unremarkable. ADRENAL GLANDS: Unremarkable. KIDNEYS, URETERS, AND BLADDER: Unremarkable. No hydronephrosis or nephrolithiasis. No ureteral or bladder calculi. STOMACH AND BOWEL: No obstruction. No wall thickening. No CT evidence of colitis or acute diverticulitis. APPENDIX: No CT evidence for appendicitis. PERITONEUM: Intra-abdominal ascites, or perinephric retroperitoneal stranding. No intra-abdominal abscess or free air. LYMPH NODES: No lymphadenopathy. REPRODUCTIVE: Unremarkable as visualized. VASCULATURE: No aortic aneurysm. Diffuse atherosclerotic vascular changes. BONES: No fracture or suspicious osseous abnormality. ABDOMINAL WALL AND SOFT TISSUES: Unremarkable. MISCELLANEOUS: Surgical drain in pelvic free fluid. IMPRESSION: 1. Dilation of the common bile duct and intrahepatic biliary ducts out of proportion to expected for postcholecystectomy status. No discrete obstructing process. Correlate with laboratory values and consider further evaluation with MRCP or ERCP if concern for biliary obstruction persists. 2. Mild diffuse intra-abdominal ascites and pelvic ascites. Surgical drain within pelvic free fluid. ELECTRONICALLY SIGNED BY: Tae Fisher M.D. Sep 12, 2019 3:13:58 AM CDT This report is intended for review by the ordering physician only, in accordance of law. If you recei ve this report in error, please call [facility] at [phone]. FINAL REPORT EXAM: CT ABDOMEN AND PELVIS HISTORY: Nausea vomiting diarrhea. Abdominal pain. COMPARISON: 03/26/2019 Procedure: Multiple contiguous axial images were obtained and a CT of the abdomen and pelvis with IV contrast. C oronal reformats were performed. FINDINGS: Lower Chest: Small bilateral pleural effusions. Patchy groundglass opacities in the visualized lung p arenchyma. Vessels: Normal caliber aorta. Heart: Normal heart size. Abdomen: Portal vein:Patent Gallbladder: Surgically absent. Stable dilatation of the intra and extra hepatic biliary system. Liver: within normal limits. Pancreas: within normal limits. Spleen: Stable hypodensity in the splenic parenchyma. Adrenals: within normal limits. Kidneys: Symmetric enhancement. Bilateral perinephric fluid. No obstructive uropathy. Peritoneum: Extensive free fluid in the pelvis, compatible with a patient undergoing peritoneal dialy sis. Bowel: Limited evaluation due to the lack of oral contrast administration. No evidence of bowel obstr uction. Ileocecal junction is unremarkable. Normal caliber appendix. Scattered fecal material in a nondistended, nondilated colon. Mesentery and Retroperitoneum: No enlarged mesenteric or retroperitoneal lymph nodes. Abdominal Wall: Note is made of a peritoneal dialysis catheter. Associated pneumoperitoneum. Pelvis: Reproductive Organs: Reproductive organs are unremarkable. Pelvis: No mass, lymphadenopathy, free air or free fluid. Bladder: within normal limits. Bones: within normal limits. IMPRESSION: This report is in agreement with initial report by [facility]. Findings compatible with periton eal dialysis. No acute abnormality in the abdomen or pelvis. Transcribed Date/Time: 09/12/2019 9:30 AM
--- NOTE | 2019-09-12 09:35 | ULT ---
PRELIMINARY REPORT/[facility]/EMERGENCY AFTER HOURS PROCEDURE: EXAM: US Abdomen Limited, Right Upper Quadrant. CLINICAL HISTORY: HX: ABD PAIN, VOMITTING. SEE NOTES ON LAST IMAGE.THANKS TECHNIQUE: Real-time ultrasound of the right upper quadrant with image documentation. COMPARISON: CT - CT ABDOMEN PELVIS W CON - 09/12/2019 02:42 AM CDT FINDINGS: LIVER: Unremarkable. GALLBLADDER: Surgically absent. COMMON BILE DUCT: Appears dilated at 17.5 mm. PANCREAS: Unremarkable as visualized. The distal pancreas is obscured by overlying bowel gas. RIGHT KIDNEY: Multiple nonobstructing renal calculi are noted. No hydronephrosis. Measures 10 cm IMPRESSION: Nonobstructing renal calculi. Cholecystectomy with dilatation of the common bile duct ELECTRONICALLY SIGNED BY: Arvin Mcgrath MD Sep 12, 2019 4:17:33 AM CDT This report is intended for review by the ordering physician only, in accordance of law. If you recei ve this report in error, please call [facility] at [phone]. FINAL REPORT GALLBLADDER ULTRASOUND: Date: 09/12/2019 HISTORY: Right upper quadrant pain. FINDINGS: Real-time imaging of the right upper quadrant shows that the gallbladder has been removed. The common duct is very dilated at 1.7 cm. There is intrahepatic ductal dilatation. Visualized liver parenchyma shows no focal findings. Right kidney is normal in size and not obstructed. Pancreas is partially ob scured. IMPRESSION: Post cholecystectomy change. The common bile duct is markedly dilated, more dilated than typically se en in post cholecystectomy. In reviewing a previous CT examination of 03/26/2019, this is a similar f inding to that study and this is most likely on the basis of cholecystectomy. Report in agreement with the preliminary report issued by [facility]. POS: TPC
[2019-09-12] MEDS ORDERED: Iopamidol 370 76% 100 ML VIAL ONE (15:09)
== END 2019-09-12 05:16 | disposition home or self-care (01) ==
LOC: ERS 02:10
DX: K83.8 Other specified diseases of biliary tract (principal); E11.9 Type 2 diabetes mellitus without complications; I10 Essential (primary) hypertension; E03.9 Hypothyroidism, unspecified; F41.9 Anxiety disorder, unspecified; F32.9 Major depressive disorder, single episode, unspecified; Z79.899 Other long term (current) drug therapy
CPT/HCPCS: 36416; 74177; 76705; 80053; 83690; 83735; 84703; 85025; J0500; J1630; J2405

== ENCOUNTER 2019-09-12 21:49 | Observation (INO) | payer OTHER ==
[2019-09-12 22:31] LABS: #Basophils 0.1 thou/uL (0.0-0.2); #Eosinphils 0.2 thou/uL (0.0-0.7); #Lymphocytes 1.5 thou/uL (1.20-3.40); #Monocytes 0.8 thou/uL (0.11-0.59); #Neutrophils 9.1 thou/uL (1.40-6.50); %Basophils 0.6 % (0.0-1.0); %Eosinophils 2.1 % (0.0-10.0); %Lymphocytes 12.8 % (21.0-51.0); %Monocytes 7.2 % (0.0-10.0); %Neutrophils 77.4 % (42.0-75.0); Hemoglobin 12.5 g/dL (12.0-16.0); Mean Corpuscular HGB CONC 33.3 g/dL (32.0-36.0); Mean Corpuscular Hemoglobin 30.9 pg (27.0-31.0); Mean Corpuscular Volume 92.8 fL (78.0-98.0); Mean Platelet Volume 8.2 fL (7.4-10.4); Platelet Count 230 thou/uL (130-400); RBC Distribution Width 12.8 % (11.5-14.5); Red Blood Cell (RBC) Count 4.04 mill/uL (4.20-5.40); White Blood Cell (WBC) Count 11.7 thou/uL (4.8-10.8)
[2019-09-12] MEDS ORDERED: Morphine 4 MG/ML VIAL ONE ×2 (22:43→23:52)
[2019-09-12] MEDS ORDERED: Ondansetron PF 4 MG/2 ML Vial ONE (22:43)
[2019-09-12] MEDS ORDERED: Pantoprazole 40 MG VIAL ONE (22:43)
[2019-09-12 22:55] LABS: ALT (SGPT) 19 U/L (8-55); AST (SGOT) 28 U/L (5-34); Albumin 3.3 g/dL (3.5-5.0); Alkaline Phosphatase 106 U/L (40-110); Anion Gap 17 mmol/L (10-20); BUN (Urea Nitrogen) 36 mg/dL (7.0-18.7); Bilirubin, Total 0.5 mg/dL (0.2-1.2); Calc. Creatinine Clearance 0 mL/min (70-130); Calcium 9.8 mg/dL (7.8-10.44); Carbon Dioxide 25 mmol/L (22-29); Chloride 99 mmol/L (98-107); Estimated GFR-MDRD 4; Globulin 3.3 g/dL (2.4-3.5); Glucose 136 mg/dL (70-105); Lipase 18 U/L (8-78); Potassium 3.6 mmol/L (3.5-5.1); Protein, Total 6.6 g/dL (6.0-8.3); Sodium 137 mmol/L (136-145)
--- NOTE | 2019-09-12 23:18 | PDOC.FPRHP ---
- History of Present Illness Chief Complaint: intractable abdominal pain History of Present Illness: Yesterday morning she began having severe abdominal pain that came on suddenly. She describes the pain as 10/10. It woke her from sleep. It is waxing and waning , when it is present it lasts for 5-10 minutes and comes back every 30 minutes. She came to the ED yesterday and was worked up and sent home. US and CT scan were negative (CT showed dilated common bile duct and ascites, US showed dilation of the common bile duct). She is on daily peritoneal dialysis. Her daughter said that the fluid from yesterday was yellow, whereas it was usually clear. She states this pain is similar to the pain she had with her gallstones several years ago. She has had associated nausea and vomiting, to the point she is just dry heaving now. She had diarrhea yesterday, but a normal bowel movement today. She denies gastrointestinal bleeding. ED Course: Morphine 12mg, Haldol 5mg, Benadryl 25mg, ASA 324, Nitro, Protonix 40mg - Allergies/Adverse Reactions Allergies Allergy/AdvReac Type Severity Reaction Status Date / Time gabapentin Allergy Severe Anaphylaxis Verified 09/13/19 02:56 - Home Medications Medication Instructions Recorded Confirmed Type Topiramate 50 mg PO DAILY 05/29/18 09/13/19 History traMADol HCl [Tramadol HCl] 50 mg PO TID PRN 05/29/18 09/13/19 History Levothyroxine Sodium 50 mcg PO DAILY #30 tablet 05/30/18 09/13/19 Rx Ondansetron HCl [Zofran] 8 mg PO TID PRN #90 tablet 05/30/18 09/13/19 Rx Carvedilol 12.5 mg PO BID 11/19/18 09/13/19 History Atorvastatin Calcium 20 mg PO QPM 05/16/19 09/13/19 History Calcitriol 0.5 mcg PO DAILY 05/16/19 09/13/19 History Metoclopramide [Reglan Oral 5 mg PO ACHS #60 udcup 05/18/19 09/13/19 Rx Solution] DULoxetine HCl [Cymbalta] 20 mg PO DAILY 09/13/19 09/13/19 History Insulin Glargine,Hum.Rec.Anlog 20 unit SQ QAM 09/13/19 09/13/19 History [Giovany Louise] Mirabegron [Myrbetriq] 50 mg PO DAILY 09/13/19 09/13/19 History Pantoprazole Sodium 20 mg PO DAILY 09/13/19 09/13/19 History - History PMHx: ESRD on periotoneal dialysis DMII Arthritis HTN HLD Hypothyroidism Anxiety & Depression PSHx: Tubal ligation Tennis elbow Carpal tunnel release Cholecystectomy FHx: Parents had diabetes and HTN. Grandmother had pancreatic cancer. Social: Denies tobacco, alcohol, or illicit drug use. - Review of Systems General: reports: weight/appetite/sleep changes (unable to tolerate PO intake). denies: fever/chills, night sweats Eyes: denies: eye pain, vision changes ENT: denies: nasal congestion, rhinorrhea Respiratory: reports: shortness of breath. denies: cough, congestion Cardiovascular: reports: chest pain. denies: palpitation, edema, paroxysmal nocturnal dyspnea, orthopnea Gastrointestinal: reports: nausea, vomiting, diarrhea, abdominal pain. denies: constipation, GI bleeding Genitourinary: denies: dysuria, polyuria, discharge Skin: denies: rashes, lesions, jaundice Musculoskeletal: denies: pain, tenderness, stiffness Neurological: denies: numbness, syncope, seizure, weakness Psychological: reports: anxiety, depression - Vital signs BP: 188/131, Pulse: 102, Resp: 20, Pain: 8, O2 sat: 98 on (Room Air), Time: 09/11 23:00. Weight 64kg - Physical Exam Constitutional: awake, alert and oriented -Constitutional: Writhing and crying in pain. Eyes swollen from crying. HEENT: normocephalic and atraumatic, PERRLA, EOMI, conjunctiva clear, grossly normal vision, grossly normal hearing, MMM Neck: supple, trachea midline Heart: normal S1/S2, no murmurs/rubs/gallops, pulses present, no edema -Heart: Tachycardic Lungs: CTAB, no respiratory distress, good air movement Abdomen: soft, bowel sounds present -Abdomen: Peritoneal dialysis catheter present. No signs of skin changes. Positive peritoneal signs: Rebound tenderness present. Mildly positive heel jar tenderness. TTP diffusely, worst in the midepigastrium. Musculoskeletal: normal structure, normal tone Neurological: no focal deficit, CN II-XII intact Skin: good turgor -Skin: Several skin lesions on legs, appear chronic. 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 Heme/Lymphatic: no unusual bruising or bleeding, no purpura, no petechia Psychiatric: intact recent and remote memory FMR H&P: Results - Labs Result Diagrams: 09/13/19 04:22 09/13/19 04:22 Lab results: WBC 11.7 thou/uL (4.8-10.8) H 09/12/19 22:18 Hgb 12.5 g/dL (12.0-16.0) 09/12/19 22:18 Hct 37.5 % (36.0-47.0) 09/12/19 22:18 MCV 92.8 fL (78.0-98.0) 09/12/19 22:18 Plt Count 230 thou/uL (130-400) 09/12/19 22:18 Neutrophils % 77.4 % (42.0-75.0) H 09/12/19 22:18 Sodium 137 mmol/L (136-145) 09/12/19 22:18 Potassium 3.6 mmol/L (3.5-5.1) 09/12/19 22:18 Chloride 99 mmol/L (98-107) 09/12/19 22:18 Carbon Dioxide 25 mmol/L (22-29) 09/12/19 22:18 BUN 36 mg/dL (7.0-18.7) H 09/12/19 22:18 Creatinine 9.36 mg/dL (0.6-1.1) H 09/12/19 22:18 Glucose 136 mg/dL (70-105) H 09/12/19 22:18 Calcium 9.8 mg/dL (7.8-10.44) 09/12/19 22:18 Total Bilirubin 0.5 mg/dL (0.2-1.2) 09/12/19 22:18 AST 28 U/L (5-34) 09/12/19 22:18 ALT 19 U/L (8-55) 09/12/19 22:18 Alkaline Phosphatase 106 U/L (40-110) 09/12/19 22:18 Serum Total Protein 6.6 g/dL (6.0-8.3) 09/12/19 22:18 Albumin 3.3 g/dL (3.5-5.0) L 09/12/19 22:18 Lipase 18 U/L (8-78) 09/12/19 22:18 - Radiology Interpretation CT scan - abdomen Status: report reviewed by me (09/10 Common bile duct dilation. Mild diffuse intraabdominal ascites.) US - abdomen Status: report reviewed by me (09/10 Dilated CBD.) FMR H&P: A/P - Problem List (1) Spontaneous bacterial peritonitis Current Visit: Yes Status: Acute Code(s): K65.2 - SPONTANEOUS BACTERIAL PERITONITIS (2) DM (diabetes mellitus) Current Visit: No Status: Acute Code(s): E11.9 - TYPE 2 DIABETES MELLITUS WITHOUT COMPLICATIONS Qualifiers: Diabetes mellitus type: type 2 Diabetes mellitus fdc insulin use: with rodent exterminator use Diabetes mellitus complication status: with kidney complications Diabetes mellitus complication detail: with chronic kidney disease Chronic kidney disease stage: on chronic dialysis Qualified Code(s) : E11.22 - Type 2 diabetes mellitus with diabetic chronic kidney disease; N18.6 - End stage renal disease; Z79.4 - terminologist (current) use of insulin; Z99.2 - Dependence on renal dialysis (3) ESRD (end stage renal disease) Current Visit: No Status: Acute Code(s): N18.6 - END STAGE RENAL DISEASE (4) Gastroparesis Current Visit: No Status: Acute Code(s): K31.84 - GASTROPARESIS (5) HTN (hypertension) Current Visit: No Status: Acute Code(s): I10 - ESSENTIAL (PRIMARY) HYPERTENSION (6) Peripheral neuropathy Current Visit: No Status: Acute Code(s): G62.9 - POLYNEUROPATHY, UNSPECIFIED Qualifiers: Peripheral neuropathy type: polyneuropathy associated with underlying disease Qualified Code(s): G63 - Polyneuropathy in diseases classified elsewhere - Plan Suspected bacterial peritonitis - exam findings consistent w/ SBP. Fluid yesterday was straw colored instead of the normal clear color. - Fluid culture, gram stain, and cytology ordered. - Will start empiric antibiotics once fluid is collected (Rocephin 2g and intraperitoneal vancomycin 30mg/kg) - Will monitor CBC and CMP in the morning. DM II - Patient is taking 20u of Toujeo daily and 2u regular insulin prior to meals, per clinic documentation. - Will verify dosage tomorrow and continue home medications. - SSI and hypoglycemia protocol HTN - patient is taking 12.5mg coreg bid and Amlodipine 5mg daily, per clinic documentation. - Will continue home meds. ESRD on PD daily - Will initiate peritoneal dialysis - Consult Dr. Vazquez in the morning. Hypothyroid - continue home medication Gastroparesis - continue reglan Dispo: stable Code: Full PCP: Gabriel BARCLAY H&P: Upper Level - Plan Date/Time: 09/12/19 1361 I, Pete Mckeon, DO, have evaluated this patient and agree with findings/ plan as outlined by software intern resident. Pertinent changes/additions are listed here. I was present for the entire history and physical exam and discussed in detail the assessment and plan with Dr Brown. Pt is a 49 yo f w/ ESRD on PD who presents for 3 day history of worsening abdominal pain. Was seen in ed yesterday and had multiple imaginf done on abd which was negative. She presents again with same complaint. She has prfound rebound tenderness but otherwise soft abd ND, mild ttp diffsely. Neg lipase, normal LFTs. Given exam fidnings will admit for presumptive peritonitis from peritoneal dialysis. Consult nepgro in am for further recs. Empiric avx with rocephin and IP vanc with loading dose of 30mg/kg and daily exchanges. VSS. Troponins indterminant, likely dmenad and trop leak from ESRD, trend. Dispo, stable admit to obs and order peritoneal fluid analysis in addition to empiric abx for peritonitis 2/2 indwelling peritoneal dialysis cath. Addendum - Attending - Attending Attestation Date/Time: 09/13/19 4691 I personally evaluated the patient and discussed the management with Dr. Brown/ Mike. I agree with the History, Examination, Assessment and Plan documented above with any addition or exceptions noted below. Continue abx for now, does not appear to be peritonitis. Await cultures. Nephro on board. Vitals stable and pain improved currently.
[2019-09-12] MEDS ORDERED: Haloperidol Lactate 5 MG/ML VIAL ONE (23:34)
[2019-09-12] MEDS ORDERED: Aspirin Chewable 81 MG TAB ONE (23:34)
[2019-09-12] MEDS ORDERED: diphenhydrAMINE 50 MG/ML VIAL ONE (23:34)
[2019-09-12] MEDS ORDERED: Nitroglycerin 2% Ointment 1 INCH/1 GM Packet ONE (23:34)
[2019-09-12] MEDS ORDERED: Vancomycin 1 GM/200 ML BAG FS SCH (23:45)
[2019-09-12] MEDS ORDERED: Morphine 2 MG/ML SYRINGE SLOW IVP PRN (23:53)
[2019-09-12] MEDS ORDERED: Dextrose 5% in Water 1,000 ML IV PRN (23:53)
[2019-09-12] MEDS ORDERED: Morphine 4 MG/ML VIAL SLOW IVP PRN (23:53)
[2019-09-12] MEDS ORDERED: Dextrose 50% Abboject 50 ML SYRINGE SLOW IVP PRN (23:53)
[2019-09-12] MEDS ORDERED: HumaLOG 300 UNITS/3 ML VIAL SC PRN (23:53)
[2019-09-12] MEDS ORDERED: Ondansetron PF 4 MG/2 ML Vial IVP PRN (23:53)
[2019-09-12 23:54] LABS: Hemoglobin A1c 6.7 % (4.0-6.0)
[2019-09-13 01:43] VITALS: BMI 31.9
[2019-09-13 01:57] LABS: Troponin I 0.149 ng/mL (< 0.028)
[2019-09-13] MEDS ORDERED: [UNRECOGNIZED DRUG - OTHER] FS SCH (03:15)
[2019-09-13] MEDS ORDERED: DEXTROSE FS SCH (03:15)
[2019-09-13] MEDS ORDERED: VANCOMYCIN HCL 2 GM FS SCH (03:15)
[2019-09-13 04:54] LABS: #Basophils 0.1 thou/uL (0.0-0.2); #Eosinphils 0.2 thou/uL (0.0-0.7); #Lymphocytes 1.9 thou/uL (1.20-3.40); #Monocytes 0.6 thou/uL (0.11-0.59); #Neutrophils 7.1 thou/uL (1.40-6.50); %Basophils 0.6 % (0.0-1.0); %Eosinophils 1.5 % (0.0-10.0); %Lymphocytes 19.3 % (21.0-51.0); %Monocytes 6.5 % (0.0-10.0); %Neutrophils 72.1 % (42.0-75.0); Hemoglobin 9.3 g/dL (12.0-16.0); Mean Corpuscular HGB CONC 33.4 g/dL (32.0-36.0); Mean Corpuscular Hemoglobin 30.8 pg (27.0-31.0); Mean Corpuscular Volume 92.2 fL (78.0-98.0); Mean Platelet Volume 8.2 fL (7.4-10.4); Platelet Count 170 thou/uL (130-400); RBC Distribution Width 12.6 % (11.5-14.5); Red Blood Cell (RBC) Count 3.03 mill/uL (4.20-5.40); White Blood Cell (WBC) Count 9.8 thou/uL (4.8-10.8)
[2019-09-13 05:12] LABS: ALT (SGPT) 14 U/L (8-55); AST (SGOT) 20 U/L (5-34); Albumin 2.6 g/dL (3.5-5.0); Alkaline Phosphatase 83 U/L (40-110); Anion Gap 14 mmol/L (10-20); BUN (Urea Nitrogen) 37 mg/dL (7.0-18.7); Bilirubin, Total 0.4 mg/dL (0.2-1.2); Calc. Creatinine Clearance 8 mL/min (70-130); Calcium 9.1 mg/dL (7.8-10.44); Carbon Dioxide 26 mmol/L (22-29); Chloride 102 mmol/L (98-107); Estimated GFR-MDRD 4; Globulin 2.5 g/dL (2.4-3.5); Glucose 98 mg/dL (70-105); Potassium 3.8 mmol/L (3.5-5.1); Protein, Total 5.1 g/dL (6.0-8.3); Sodium 138 mmol/L (136-145)
[2019-09-13 05:12] LABS: RBC Count-Automated (BF) 0 /cumm; WBC/Nucleated-Auto (BF) 37 uL
[2019-09-13 05:15] LABS: BF Color Colorless; Body Fluid Source Peritoneal Fluid; Clarity Clear (Clear); Tube # EDTA
[2019-09-13] MEDS: cefTRIAXone\\ROCEPHIN 2 GM in Sodium Chloride 0.9% 100 ML IVPB SCH (05:36)
[2019-09-13] MEDS: Levothyroxine Sodium 50 MCG TAB PO SCH (05:36)
[2019-09-13 05:44] LABS: BF Segmented Neutrophils 2 %; Cell Count Non Hematic 82 %; Eosinophils 1 %; Lymphocytes 15 %
[2019-09-13 07:04] LABS: Troponin I 0.146 ng/mL (< 0.028)
[2019-09-13] MEDS: Metoclopramide HCl 10 MG TAB PO SCH ×2 (08:13→16:08)
[2019-09-13] MEDS: Carvedilol 25 MG TAB PO SCH ×2 (08:13→20:35)
[2019-09-13] MEDS: Heparin 5,000 UNITS/ML VIAL SC SCH ×3 (08:14→20:35)
[2019-09-13] MEDS ORDERED: Labetalol HCl 100 MG/20 ML VIAL SLOW IVP PRN (08:38)
[2019-09-13] MEDS ORDERED: INSULIN GLARGINE HUM REC ANLOG 20 UNIT SQ SCH (09:00)
[2019-09-13] MEDS ORDERED: Ondansetron ODT 8 MG TAB PO PRN (10:09)
--- NOTE | 2019-09-13 10:43 | PRG ---
DATE OF SERVICE: 09/13/2019 SERVICE: Renal Medicine. SUBJECTIVE: Ms. Marion is a 49-year-old female with ESRD-on peritoneal dialysis and was admitted for abdominal pain. Initial ultrasound and CT scan of the abdomen showed no acute abdominal lesions. We are being consulted for her maintenance peritoneal dialysis. Please note that the patient's abdominal pain is actually improved. REVIEW OF SYSTEMS: Currently, no abdominal pain. Positive for occasional nausea. No hematochezia. No melena. No hematemesis. No chest pain. No shortness of breath. Appetite and energy level are decreased. No leg edema. No syncopal episode. No fever or chills. No productive cough. MEDICATIONS: 1. Atorvastatin 20 mg at bedtime. 2. Calcitriol 0.5 mcg p.o. daily. 3. Carvedilol 12.5 mg b.i.d. 4. Ceftriaxone 2 g IV daily. 5. Cymbalta 20 mg daily. 6. Heparin 5000 units subcu t.i.d. 7. Lantus 16 units subcu q.a.m. 8. Levothyroxine 50 mcg daily. 9. Metoclopramide 5 mg p.o. b.i.d. before meals. 10. Myrbetriq 50 mg daily. 11. Morphine 2 mg IV q.2 p.r.n. 12. Topiramate 50 mg daily. 13. Tramadol 50 mg p.o. b.i.d.. PAST MEDICAL HISTORY: 1. ESRD from diabetic nephropathy. 2. Type 2 diabetes mellitus. 3. Hyperlipidemia. 4. Hypothyroidism. 5. History of chronic pain. 6. Type 2 diabetes mellitus. 7. History of hypertension. PAST SURGICAL HISTORY: Status post cuffed dialysis catheter placement, status post PD catheter placement. SOCIAL HISTORY: The patient originally from [place], but lives in [place]. She is , has 4 children. 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 Currently, no smoking. No alcohol intake. No IV drug abuse. ? of blood transfusion. Education, high school. ALLERGIES/ADVERSE REACTION: ? gabapentin. TRAUMA: None. IMMUNIZATIONS: Up to date. HOSPITALIZATIONS: Please see past medical history. FAMILY HISTORY: No family history of ESRD. PHYSICAL EXAMINATION: VITAL SIGNS: Blood pressure is 219/95, heart rate 83, respiratory rate 20, temperature 97.5, pulse ox 100%. GENERAL: Noted to be awake, alert, comfortable, not in overt distress. SKIN: Adequate turgor. HEENT: Pinkish conjunctivae. Anicteric sclerae. NECK: No neck mass. No carotid bruits. No JVD. CHEST: No deformities. LUNGS: Clear breath sounds. HEART: Normal sinus rhythm. No murmur. No gallops. No rubs. ABDOMEN: Globular, soft, nontender. No masses. EXTREMITIES: No edema. No deformities. Positive for PD catheter in the belly. LABORATORY DATA: Laboratories of September 13, 2019; white count 9.8, hemoglobin 9.3, hematocrit 27.9. Sodium 138, potassium 3.8, chloride 102, carbon dioxide 26, BUN 37, creatinine 9.39, calcium 9.1, albumin 2.6. Troponin I 0.146. CT scan of the abdomen and pelvis, no acute intraabdominal pathology noted. ASSESSMENT AND PLAN: 1. Abdominal pain-PD fluid was examined and total cell count was noted to be 36. The PD fluid is clear, making peritonitis less likely for her abdominal pain. 2. End-stage renal disease, stable. We will continue current CCPD regimen. No changes with the current peritoneal dialysis regimen. If she is still here in the hospital, we will continue the current PD regimen. 3. Hypertension. Adjust BP medications. We would probably add nifedipine 30 mg XL tab with this patient for better BP control. Thank you for the consult. We will continue to follow. Job ID: [id number] [id number]
[2019-09-13] MEDS: Insulin Glargine 16 UNITS in Pre-Filled Syringe 1 EACH SC SCH (13:23)
[2019-09-13] MEDS ORDERED: NIFEdipine XL 30 MG TAB PO SCH (13:30)
[2019-09-13] MEDS: HumaLOG 300 UNITS/3 ML VIAL SC PRN (17:43)
[2019-09-13 18:32] LABS: HBSAg Index 0.22 S/CO (0-0.99); Hep B Surf Ag Non-Reactive S/CO (NonReactive)
[2019-09-13] MEDS ORDERED: Pramipexole Di-HCl 0.125 MG TAB PO PRN (20:13)
[2019-09-13] MEDS: traMADol HCl 50 MG TAB PO PRN (20:36)
[2019-09-13] MEDS ORDERED: Atorvastatin Calcium 20 MG TAB PO SCH (21:00)
[2019-09-14] MEDS: cefTRIAXone\\ROCEPHIN 2 GM in Sodium Chloride 0.9% 100 ML IVPB SCH (04:27)
[2019-09-14] MEDS: Levothyroxine Sodium 50 MCG TAB PO SCH (04:28)
--- NOTE | 2019-09-14 05:43 | PDOC.FM ---
- Subjective Subjective: She says she feels great this morning. She no longer has abdominal pain. She is eating and sleeping well. - Objective MAR Reviewed: Yes Vital Signs & Weight: Vital Signs (12 hours) Temp Pulse Resp BP Pulse Ox 09/14/19 04:20 98.1 F 79 14 160/70 H 93 L 09/14/19 00:02 85 14 158/68 H 09/13/19 19:47 98.0 F 86 20 170/80 H 96 Weight Admit Weight 66.95 kg Weight 64.637 kg I&O: 09/12/19 09/13/19 09/14/19 06:59 06:59 06:59 Intake Total 120 702 Output Total 0 1813 Balance 120 -1111 Result Diagrams: 09/13/19 04:22 09/13/19 04:22 Phys Exam - Physical Examination Constitutional: NAD HEENT: PERRLA, moist MMs, sclera anicteric Neck: no nodes, supple Respiratory: no wheezing, no rales, no rhonchi, clear to auscultation bilateral Cardiovascular: RRR, no significant murmur, no rub Gastrointestinal: soft, non-tender, positive bowel sounds Musculoskeletal: no edema, pulses present Neurological: moves all 4 limbs Lymphatic: no nodes Psychiatric: normal affect Skin: no rash, normal turgor Dx/Plan (1) Spontaneous bacterial peritonitis Code(s): K65.2 - SPONTANEOUS BACTERIAL PERITONITIS Status: Acute (2) DM (diabetes mellitus) Code(s): E11.9 - TYPE 2 DIABETES MELLITUS WITHOUT COMPLICATIONS Status: Acute Qualifiers: Diabetes mellitus type: type 2 Diabetes mellitus buttermaker helper insulin use: with buttermaker helper use Diabetes mellitus complication status: with kidney complications Diabetes mellitus complication detail: with chronic kidney disease Chronic kidney disease stage: on chronic dialysis Qualified Code(s) : E11.22 - Type 2 diabetes mellitus with diabetic chronic kidney disease; N18.6 - End stage renal disease; Z79.4 - nursing home (current) use of insulin; Z99.2 - Dependence on renal dialysis (3) ESRD (end stage renal disease) Code(s): N18.6 - END STAGE RENAL DISEASE Status: Acute (4) Gastroparesis Code(s): K31.84 - GASTROPARESIS Status: Acute (5) HTN (hypertension) Code(s): I10 - ESSENTIAL (PRIMARY) HYPERTENSION Status: Acute - Plan Plan: 49 yo F with pmh of ESRD on periotoneal dialysis DMII, Arthritis, HTN, HLD, Hypothyroidism, Anxiety, & Depression who present 09/11 for severe abdominal pain. 1. Suspected bacterial peritonitis- Ruled out Exam findings on initial presentation consistent w/ SBP. Fluid yesterday was straw colored instead of the normal clear color. * Fluid studies: * Cytology shows 37 WBC so unlikely peritonitis * Gram Stain: Rare WBCs and no Organisms * Fluid Cx: NG @ 24H * Was started on empiric antibiotics after fluid was collected (Rocephin 2g and intraperitoneal vancomycin 30mg/kg) * Will d/c Antibiotics today * Will monitor CBC and CMP. 2. DM II Patient is taking 20u of Toujeo daily and 2u regular insulin prior to meals, per clinic documentation. * Continue home medication regimen * SSI and hypoglycemia protocol 3. HTN Patient is taking 12.5mg coreg bid and Amlodipine 5mg daily, per clinic documentation. * Continued Coreg * Started Procardia XL 30 mg 4. ESRD on PD daily Continue peritoneal dialysis * Nephrology consulted, Dr. Vazquez, appreciate recommendations. * Unlikely SBP * Continue dialysis regimen * Start Procardia 5. Hypothyroid Continue home medication 7. Gastroparesis Continue reglan Code Status: Full Diet: HHLSo DVT PPx: Heparin 5000 TID IVF: SL PCP: Gabriel Dispo: Med obs, LOS < 48H. Likely d/c today with continued blood pressure control and discontinuation of antibiotics. Addendum - Attending - Attending Attestation Date/Time: 09/14/19 3611 I personally evaluated the patient and discussed the management with Dr. Kamara I agree with the History, Examination, Assessment and Plan documented above with any addition or exceptions noted below. BP improved. Will d/c home unless Nephro has additional recommendations.
[2019-09-14] MEDS ORDERED: Epoetin (ESRD) 20,000 UNITS/ML SC SCH (08:45)
--- NOTE | 2019-09-14 08:48 | PRG ---
DATE OF SERVICE: 09/14/2019 SUBJECTIVE: Ms. Marion is a 49-year-old female with ESRD and on peritoneal dialysis. She was admitted for abdominal pain. Initially, the feeling is that she may have peritonitis. However, abdominal pain is much improved. In addition, the PD fluid was noted to be clear and did not show any evidence of peritonitis. This morning, she is asymptomatic. OBJECTIVE: VITAL SIGNS: Blood pressure 158/70, heart rate 75, respiratory rate 16, temperature 98.9, and pulse ox 95%. GENERAL: Awake, alert, comfortable, not in distress. SKIN: Adequate turgor. HEENT: She has pinkish conjunctivae. Anicteric sclerae. No neck mass. No carotid bruits. No JVD. CHEST: No deformities. LUNGS: Clear breath sounds. HEART: Normal sinus rhythm. No murmurs. No gallops. No rubs. ABDOMEN: Globular, soft, and nontender. No masses. Positive for PD catheter. EXTREMITIES: No edema. No deformities. MEDICATIONS: Medications of September 14, 2019, reviewed. LABORATORY DATA: Laboratories of September 13, 2019: White count 9.8, hemoglobin 9.3. Sodium 138, potassium 3.8, chloride 102, carbon dioxide 26, BUN 37, creatinine 9.39, and albumin 2.6. LFTs normal. PD fluid, no white cells, negative Gram stain. ASSESSMENT AND PLAN: 1. Abdominal pain, resolved. No evidence of peritonitis. 2. End-stage renal disease, stable. We will continue current CCPD regimen. We will continue 2.5% PD solution. 3. Anemia. Resume Epogen at 7500 units subcu every week. 4. Hypertension. Continue current blood pressure medications. Please note, she was started on nifedipine yesterday. Job ID: [id number]
[2019-09-14] MEDS ORDERED: Topiramate 25 MG TAB PO SCH (09:00)
[2019-09-14] MEDS ORDERED: NIFEdipine XL 30 MG TAB PO SCH (09:00)
[2019-09-14] MEDS ORDERED: Calcitriol 0.25 MCG CAP PO SCH (09:00)
[2019-09-14] MEDS: Metoclopramide HCl 10 MG TAB PO SCH (09:04)
[2019-09-14] MEDS: Carvedilol 25 MG TAB PO SCH (09:05)
[2019-09-14] MEDS: Insulin Glargine 16 UNITS in Pre-Filled Syringe 1 EACH SC SCH (09:08)
[2019-09-14] MEDS: Heparin 5,000 UNITS/ML VIAL SC SCH (09:09)
[2019-09-14] MEDS: traMADol HCl 50 MG TAB PO PRN (09:17)
[2019-09-14] MEDS: HumaLOG 300 UNITS/3 ML VIAL SC PRN (11:38)
[2019-09-14] MEDS ORDERED: EPOETIN ALFA-EPBX (ESRD) 4,000 UNIT/ML VIAL SC SCH (12:00)
[2019-09-14 12:15] VITALS: BP 148/64; TEMP 97.9
--- NOTE | 2019-09-14 14:45 | DIS ---
DATE OF ADMISSION: 09/12/2019 DATE OF DISCHARGE: 09/14/2019 RESIDENT: Carmine Kamara MD. ADMITTING ATTENDING: Matteo Dozier MD. DISCHARGE ATTENDING: Kole Cuellar MD. CONSULTS: Nephrology on 09/13/2019. * Abdominal pain, resolved, no evidence of peritonitis. * End-stage renal disease, continue current peritoneal dialysis regimen. Continue 2.5% peritoneal dialysis solution. * Anemia, resume Epogen at 7500 units subcu every week. * Hypertension, continue current blood pressure medications along with nifedipine that was started yesterday. PROCEDURES: Fluid was obtained from the peritoneal dialysis to rule out SBP. Fluid Gram-stain showed few white blood cells and no organisms. Cytology revealed 37 white blood cells and there has been no growth on the culture for 24 hours, so unlikely SBP. PRIMARY DIAGNOSIS: Spontaneous bacterial peritonitis. SECONDARY DIAGNOSES: 1. Diabetes, type 2. 2. Hypertension. 3. End-stage renal disease, on peritoneal dialysis daily. 4. Hypothyroidism. 5. Gastroparesis. DISCHARGE MEDICATIONS: 1. Nifedipine 30 mg p.o. daily. 2. Atorvastatin 20 mg q.p.m. 3. Calcitriol 0.5 mcg daily. 4. Carvedilol 12.5 mg p.o. b.i.d. 5. Duloxetine 20 mg p.o. daily. 6. EPO 7500 units subcu every 7 days. 7. Levothyroxine 50 mcg p.o. daily. 8. Metoclopramide 5 mg p.o. a.c. and at bedtime. 9. Myrbetriq 50 mg daily. 10. Zofran 8 mg p.o. t.i.d. 11. Protonix 20 mg daily. 12. Topiramate 50 mg daily. 13. Tramadol 50 mg daily. 14. Toujeo 20 units daily subcu q.a.m. 15. Procardia, as noted above, 30 mg daily. DISCONTINUED MEDICATIONS: 1. Morphine. 2. Sliding-scale insulin. 3. Pramipexole. 4. Labetalol. 5. Heparin. 6. Glucagon. 7. D50. HISTORY OF PRESENT ILLNESS/HOSPITAL COURSE: The patient is a 49-year-old female with past medical history of end-stage renal disease, on peritoneal dialysis, diabetes type 2, arthritis, hypertension , hyperlipidemia, hypothyroidism, anxiety and depression, who presents for severe abdominal pain on 09/11, that came on suddenly. She describes the pain as 10/10 and awoke her from sleep. It is waxing and waning when it is present. It lasts for 5 to 10 minutes and come back every 30 minutes. She came to the ED yesterday and was worked up, sent home. Ultrasound and CT scan were negative. CT showed dilated common bile duct and ascites. Ultrasound showed dilation of the common bile duct. She is on daily peritoneal dialysis. Her daughter said that the fluid from yesterday was yellow, whereas it is usually clear. She states this pain is similar to the pain she had with her gallstones several years ago. She had associated nausea and vomiting to the point. She has dry heaving. She had diarrhea, but normal bowel movement today. She denied GI bleeding. In the ED, she was given morphine 12 mg, Haldol 5 mg, Benadryl 25 mg, aspirin 324, nitroglycerin, and Protonix. 1. Spontaneous bacterial peritonitis, ruled down. Exam on initial presentation was consistent with spontaneous bacterial peritonitis and fluid was straw-colored instead of normal clear color with peritoneal dialysis. * Fluid studies showed a cytology of 37 white blood count, unlikely SBP. * Gram-stain showed were white blood cells and no organisms. * Fluid culture showed no growth at 24 hours. * Started on empiric antibiotics after fluid was collected. * Rocephin 2 g and intraperitoneal vancomycin. * Discontinue the antibiotics before discharge. 2. Type 2 diabetes. The patient is on 20 units of Toujeo daily and 2 units of regular insulin, one prior to meals per clinical documentation. * Had her on sliding-scale insulin during hospital stay, but discharged with home medication regimen. 3. Hypertension. The patient is taking 12.5 mg of Coreg b.i.d. and amlodipine 5 mg daily. * We continued to the Coreg. * Later on, it was discovered that amlodipine was not current, so started on Procardia XL 30 mg and did not start amlodipine. * Blood pressures have been stayed stable on this dosage. We will send home with 30 days and needs further followup to call. 4. End-stage renal disease, on peritoneal dialysis. Continue peritoneal dialysis. * Nephrology consulted. Appreciate records as above from Dr. Vazquez. 5. Hypothyroidism. Continue home medication. 6. Gastroparesis. Continue Reglan. DISPOSITION: Stable. DISCHARGE INSTRUCTIONS: 1. Location: Home. 2. Activity: As tolerated. 3. Diet: Renal. 4. Followup: Follow up with Dr. Rios within 7 days of discharge. Job ID: [id number] MTDD
[2019-09-15] MEDS ORDERED: DEXTROSE IP SCH (22:00)
[2019-09-15] MEDS ORDERED: [UNRECOGNIZED DRUG - OTHER] IP SCH (22:00)
[2019-09-15] MEDS ORDERED: VANCOMYCIN HCL 2 GM IP SCH (22:00)
--- NOTE | 2019-09-16 15:29 | EKG ---
Test Reason : EMERGENCY EXAM Blood Pressure : / mmHG Vent. Rate : 096 BPM Atrial Rate : 096 BPM P-R Int : 148 ms QRS Dur : 094 ms QT Int : 380 ms P-R-T Axes : 073 -09 031 degrees QTc Int : 480 ms Normal sinus rhythm Moderate voltage criteria for LVH, may be normal variant Prolonged QT Abnormal ECG Confirmed by CORINE FERNANDEZ, ANIL ([id number]), acquisitions editor NEIDA EID ([id number]) on 09/16/2019 3:29:11 PM Referred By: Confirmed By:ANIL POOL MD
== END 2019-09-14 14:54 | disposition home or self-care (01) ==
LOC: ERS 21:49 → 2SW 23:25
PROVIDERS: ADMIT Family Medicine; ATTEND Family Medicine
DX: R10.84 Generalized abdominal pain (principal); I12.0 Hypertensive chronic kidney disease with stage 5 chronic kidney disease or end stage renal disease; E11.21 Type 2 diabetes mellitus with diabetic nephropathy; E11.22 Type 2 diabetes mellitus with diabetic chronic kidney disease; N18.6 End stage renal disease; D63.1 Anemia in chronic kidney disease; M19.90 Unspecified osteoarthritis, unspecified site; E78.5 Hyperlipidemia, unspecified; E03.9 Hypothyroidism, unspecified; F41.9 Anxiety disorder, unspecified; F32.9 Major depressive disorder, single episode, unspecified; E11.43 Type 2 diabetes mellitus with diabetic autonomic (poly)neuropathy; K31.84 Gastroparesis; E11.42 Type 2 diabetes mellitus with diabetic polyneuropathy; G25.81 Restless legs syndrome; E78.00 Pure hypercholesterolemia, unspecified; Z79.4 Long term (current) use of insulin; Z79.899 Other long term (current) drug therapy; Z88.8 Allergy status to other drugs, medicaments and biological substances; Z99.2 Dependence on renal dialysis
CPT/HCPCS: 36415; 36416; 74177; 76705; 80053; 82553; 83036; 83690; 83735; 84484; 84703; 85025; 85060; 87070; 87205; 87340; 89051; 90945; 93005; 96361; 96365; 96366; 96367; 96372; 96374; 96375; 96376; C9113; G0257; G0378; J0500; J0696; J1200; J1630; J1644; J1815; J2270; J2405; J3370; J3490; Q5105; Q9967

== ENCOUNTER 2019-10-20 21:11 | Emergency (ER) | payer OTHER ==
[2019-10-20] MEDS ORDERED: Diazepam 10 MG/2 ML SYRINGE ONE (22:28)
[2019-10-20 22:54] LABS: Anion Gap 19 mmol/L (10-20); BUN (Urea Nitrogen) 42 mg/dL (7.0-18.7); Calc. Creatinine Clearance 0 mL/min (70-130); Calcium 9.1 mg/dL (7.8-10.44); Carbon Dioxide 22 mmol/L (22-29); Chloride 100 mmol/L (98-107); Estimated GFR-MDRD 4; Glucose 123 mg/dL (70-105); Sodium 137 mmol/L (136-145)
== END 2019-10-20 23:15 | disposition home or self-care (01) ==
LOC: ERS 21:11
DX: M79.605 Pain in left leg (principal); E11.9 Type 2 diabetes mellitus without complications; I10 Essential (primary) hypertension; E78.00 Pure hypercholesterolemia, unspecified; E03.9 Hypothyroidism, unspecified; F41.9 Anxiety disorder, unspecified; F32.9 Major depressive disorder, single episode, unspecified; M19.90 Unspecified osteoarthritis, unspecified site; Z79.899 Other long term (current) drug therapy; Z79.891 Long term (current) use of opiate analgesic
CPT/HCPCS: 36415; 80048; 96374; J3360

== ENCOUNTER 2019-10-31 11:02 | Emergency (ER) | payer OTHER | END 2019-10-31 14:12 | disposition home or self-care (01) | LOC: ERS 11:02 | DX: E11.649 Type 2 diabetes mellitus with hypoglycemia without coma (principal); M19.90 Unspecified osteoarthritis, unspecified site; I10 Essential (primary) hypertension; E78.00 Pure hypercholesterolemia, unspecified; E03.9 Hypothyroidism, unspecified; F41.9 Anxiety disorder, unspecified; F32.9 Major depressive disorder, single episode, unspecified; Z79.891 Long term (current) use of opiate analgesic; Z79.899 Other long term (current) drug therapy | CPT/HCPCS: 36416; 99285 ==

== ENCOUNTER 2019-12-15 04:09 | Emergency (ER) | payer OTHER ==
[2019-12-15 04:55] LABS: #Basophils 0.1 thou/uL (0.0-0.2); #Eosinphils 0.3 thou/uL (0.0-0.7); #Lymphocytes 1.9 thou/uL (1.20-3.40); #Monocytes 0.5 thou/uL (0.11-0.59); #Neutrophils 7.5 thou/uL (1.40-6.50); %Basophils 0.6 % (0.0-1.0); %Eosinophils 2.7 % (0.0-10.0); %Lymphocytes 18.6 % (21.0-51.0); %Monocytes 5.3 % (0.0-10.0); %Neutrophils 72.9 % (42.0-75.0); Hemoglobin 11.2 g/dL (12.0-16.0); Mean Corpuscular Hemoglobin 30.6 pg (27.0-31.0); Mean Corpuscular Volume 92.8 fL (78.0-98.0); Mean Platelet Volume 9.6 fL (7.4-10.4); Platelet Count 216 thou/uL (130-400); RBC Distribution Width 14.3 % (11.5-14.5); Red Blood Cell (RBC) Count 3.65 mill/uL (4.20-5.40); White Blood Cell (WBC) Count 10.3 thou/uL (4.8-10.8)
[2019-12-15 05:16] LABS: ALT (SGPT) 47 U/L (8-55); AST (SGOT) 42 U/L (5-34); Albumin 2.6 g/dL (3.5-5.0); Alkaline Phosphatase 93 U/L (40-110); Anion Gap 16 mmol/L (10-20); BUN (Urea Nitrogen) 69 mg/dL (7.0-18.7); Bilirubin, Total 0.2 mg/dL (0.2-1.2); Calc. Creatinine Clearance 0 mL/min (70-130); Calcium 8.8 mg/dL (7.8-10.44); Carbon Dioxide 17 mmol/L (22-29); Chloride 108 mmol/L (98-107); Estimated GFR-MDRD 4; Globulin 2.9 g/dL (2.4-3.5); Glucose 121 mg/dL (70-105); Potassium 3.5 mmol/L (3.5-5.1); Protein, Total 5.5 g/dL (6.0-8.3); Sodium 137 mmol/L (136-145)
== END 2019-12-15 06:05 | disposition home or self-care (01) ==
LOC: ERS 04:09
DX: E11.649 Type 2 diabetes mellitus with hypoglycemia without coma (principal); I10 Essential (primary) hypertension; E03.9 Hypothyroidism, unspecified; F41.9 Anxiety disorder, unspecified; Z79.899 Other long term (current) drug therapy
CPT/HCPCS: 36415; 36416; 80053; 85025; 99285

== ENCOUNTER 2019-12-19 12:26 | Inpatient (IN) | payer OTHER ==
[2019-12-19] MEDS ORDERED: Dextrose 50% Abboject 50 ML SYRINGE ONE (13:32)
[2019-12-19] MEDS ORDERED: Calcium Chloride 1 GM/10 ML Abboject SYRINGE ONE (13:32)
[2019-12-19 13:45] LABS: Actual Bicarbonate (HCO3a) 16.9 mEq/L (22-28); Analyzer IN Cardio ER; CO2 Tension 36.6 mmHg (35.0-45.0); Calcium, Ionized (arterial) 1.13 mmol/L (1.12-1.30); Hemoglobin (Hb) 12.2 g/dL (12.0-16.0); O2 Tension (PaO2), arterial 115.8 mmHg (80.0-100.0); Potassium - ABG Lab 3.73 mmol/L (3.70-5.30); pH, Arterial 7.28 (7.35-7.45)
[2019-12-19 13:46] LABS: Puncture Site RBRACH
[2019-12-19 14:07] LABS: #Basophils 0.1 thou/uL (0.0-0.2); #Eosinphils 0.3 thou/uL (0.0-0.7); #Lymphocytes 1.8 thou/uL (1.20-3.40); #Monocytes 0.3 thou/uL (0.11-0.59); #Neutrophils 6.6 thou/uL (1.40-6.50); %Basophils 0.7 % (0.0-1.0); %Lymphocytes 19.9 % (21.0-51.0); %Monocytes 3.7 % (0.0-10.0); %Neutrophils 72.7 % (42.0-75.0); Mean Corpuscular HGB CONC 32.3 g/dL (32.0-36.0); Mean Corpuscular Hemoglobin 31.2 pg (27.0-31.0); Mean Corpuscular Volume 96.7 fL (78.0-98.0); Mean Platelet Volume 9.5 fL (7.4-10.4); Platelet Count 199 thou/uL (130-400); RBC Distribution Width 15.2 % (11.5-14.5); Red Blood Cell (RBC) Count 3.51 mill/uL (4.20-5.40)
--- NOTE | 2019-12-19 14:13 | RAD ---
AP CHEST: History: Central line placement. FINDINGS: A supine portable exam was obtained. A central line via the left subclavian has been placed with the tip overlying the SVC and appears in good position. The lungs show no pneumothorax or interval change. POS: AGW
[2019-12-19] MEDS ORDERED: Iopamidol-370 76% 500 ML 1 ML ONE (14:24)
[2019-12-19 14:27] LABS: ALT (SGPT) 103 U/L (8-55); AST (SGOT) 154 U/L (5-34); Albumin 2.3 g/dL (3.5-5.0); Alkaline Phosphatase 118 U/L (40-110); Anion Gap 17 mmol/L (10-20); BUN (Urea Nitrogen) 62 mg/dL (7.0-18.7); Bilirubin, Total 0.3 mg/dL (0.2-1.2); CK (CPK) 112 U/L (29-168); Calc. Creatinine Clearance 0 mL/min (70-130); Calcium 7.7 mg/dL (7.8-10.44); Carbon Dioxide 17 mmol/L (22-29); Chloride 105 mmol/L (98-107); Estimated GFR-MDRD 4; Globulin 2.7 g/dL (2.4-3.5); Glucose 224 mg/dL (70-105); Lipase 50 U/L (8-78); Potassium 3.7 mmol/L (3.5-5.1); Sodium 135 mmol/L (136-145)
[2019-12-19 14:28] LABS: Acetaminophen Less than 6.0 mcg/mL (10.0-30.0); Alcohol Less than 10 mg/dL (Less than 10); Salicylate Less than 8.0 mg/dL (15.0-30.0)
[2019-12-19 14:36] LABS: Bilirubin Negative (Negative); Blood, Urine Trace (Negative); Clarity Turbid (Clear); Glucose, Urine (Dipstick) 30 mg/dL (Negative); Leukocyte 500 Leu/uL (Negative); Nitrite Negative (Negative); Protein, Urine (Dipstick) 200 mg/dL (Neg-Trace); Squamous Epithelial 0-3 HPF (0-3); Urobilinogen Normal mg/dL (Less than 2); WBC/HPF Greater than 50 HPF (0-3)
[2019-12-19 14:44] LABS: Amphetamine Not Detected (NotDetected); Barbiturates Screen Not Detected (NotDetected); Benzodiazepine Screen Not Detected (NotDetected); Cocaine Metabolite Screen Not Detected (NotDetected); Medtox Control Line Valid? VALID (VALID); Medtox Reader # READER 1; Methadone Not Detected (NotDetected); Methamphetamine Not Detected (NotDetected); Opiate Screen Detected (NotDetected); Oxycodone Screen Not Detected (NotDetected); Phencyclidine (PCP) Not Detected (NotDetected); THC/Cannabinoid Screen Not Detected (NotDetected); Tricyclic Screen Not Detected (NotDetected)
[2019-12-19 14:46] LABS: Bacteria/HPF Rare-Few HPF (None Seen)
[2019-12-19 14:49] LABS: CKMB 4.6 ng/mL (0-6.6)
[2019-12-19] MEDS ORDERED: Cefepime 2 GM VIAL ONE (14:56)
[2019-12-19] MEDS ORDERED: Vancomycin 1 GM/200 ML BAG ONE (14:57)
[2019-12-19] MEDS ORDERED: Octreotide Acetate 50 MCG/ML AMP ONE (14:57)
[2019-12-19] MEDS ORDERED: Sodium Chloride 77 MEQ in Dextrose 10% in Water 1,000 ML IV SCH (15:15)
--- NOTE | 2019-12-19 15:15 | RAD ---
FRONTRAL RADIOGRAPH CHEST: Date: 12-19-2019 Comparison: 11-26-2019 History: Dialysis, altered mental status. FINDINGS: Right upper quadrant post-operative clips suggest prior cholecystectomy. No pneumothorax, pleural flu id, focal consolidation or alveolar edema. There are post-operative clips in the left axillary region . IMPRESSION: No significant interval change. POS: YAMEL
--- NOTE | 2019-12-19 16:19 | PDOC.FPRHP ---
- History of Present Illness Chief Complaint: Altered mental status History of Present Illness: Ms. Marion is a 49yoF well known to our service who presented to the ED today for altered mental status. She Her daughter states that she was find last night. One of her sons found her down on the floor around lunchtime today and she was unresponsive. Her blood glucose machine at home read 70. They called 911 and EMS arrived and gave her sugar. : [phone] Daughter Albina: [phone] Her senior ui web developer is Dr. Vazquez. She is on peritoneal dialysis. ED Course: NS 1L, Vancomycin 1g, Cefepime 1g, Octreotide 26mcg, D10 IV, Calcium chloride, D50 1 amp. - Allergies/Adverse Reactions Allergies Allergy/AdvReac Type Severity Reaction Status Date / Time gabapentin Allergy Severe Anaphylaxis Verified 11/26/19 14:56 - Home Medications Medication Instructions Recorded Confirmed Type Topiramate 50 mg PO DAILY 05/29/18 11/26/19 History traMADol HCl [Tramadol HCl] 50 mg PO TID PRN 05/29/18 11/26/19 History Levothyroxine Sodium 50 mcg PO DAILY #30 tablet 05/30/18 11/26/19 Rx Ondansetron HCl [Zofran] 8 mg PO TID PRN #90 tablet 05/30/18 11/26/19 Rx Carvedilol 12.5 mg PO BID 11/19/18 11/26/19 History Atorvastatin Calcium 20 mg PO QPM 05/16/19 11/26/19 History Calcitriol 0.5 mcg PO DAILY 05/16/19 11/26/19 History Metoclopramide [Reglan Oral 5 mg PO ACHS #60 udcup 05/18/19 11/26/19 Rx Solution] Insulin Glargine,Hum.Rec.Anlog 30 unit SQ QAM 09/13/19 09/13/19 History [Toujessica Solostar] Mirabegron [Myrbetriq] 50 mg PO DAILY 09/13/19 11/26/19 History Pantoprazole Sodium 20 mg PO DAILY 09/13/19 11/26/19 History Epoetin Siddhartha-Epbx [Retacrit] 7,500 unit SC Q7D vial 09/14/19 11/26/19 Rx NIFEdipine [Procardia XL] 30 mg PO DAILY 30 Days #30 tab 09/14/19 11/26/19 Rx - History PMHx: ESRD on periotoneal dialysis DMII Arthritis HTN HLD Hypothyroidism Anxiety & Depression PSHx: Tubal ligation Tennis elbow Carpal tunnel release Cholecystectomy FHx: Parents had diabetes and HTN. Grandmother had pancreatic cancer. Social: Denies tobacco, alcohol, or illicit drug use. - Review of Systems ROS unobtainable: due to mental status - Vital signs BP: 156/70, MAP: 98, Pulse: 59, Resp: 14, Pain: UTR, O2 sat: 100 on (Room Air), Time: 12/19/2019 15:40. Weight 57kg - Physical Exam Constitutional: NAD, well developed -Constitutional: Responds to painful/uncomfortable stimuli HEENT: normocephalic and atraumatic, PERRLA, EOMI, conjunctiva clear, grossly normal vision, grossly normal hearing, MMM, oropharynx clear Neck: supple, trachea midline Heart: RRR, normal S1/S2, no murmurs/rubs/gallops, pulses present, no edema Lungs: CTAB, no respiratory distress, good air movement, no rales/rhonchi, no wheezing, no retractions Abdomen: soft, non-tender, bowel sounds present Musculoskeletal: normal structure, normal tone -Neurological: Responds to pain. Minimally responsive to voice. -Skin: Calciphlaxis Heme/Lymphatic: no unusual bruising or bleeding, no purpura -Psychiatric: Unable to obtain FMR H&P: Results - Labs Result Diagrams: 12/19/19 13:47 12/19/19 13:47 Lab results: WBC 9.0 thou/uL (4.8-10.8) 12/19/19 13:47 Hgb 11.0 g/dL (12.0-16.0) L 12/19/19 13:47 Hct 34.0 % (36.0-47.0) L 12/19/19 13:47 MCV 96.7 fL (78.0-98.0) 12/19/19 13:47 Plt Count 199 thou/uL (130-400) 12/19/19 13:47 Neutrophils % 72.7 % (42.0-75.0) 12/19/19 13:47 ABG pH 7.28 (7.35-7.45) L 12/19/19 13:45 ABG pCO2 36.6 mmHg (35.0-45.0) 12/19/19 13:45 ABG pO2 115.8 mmHg (80.0-100.0) H 12/19/19 13:45 Sodium 135 mmol/L (136-145) L 12/19/19 13:47 Potassium 3.7 mmol/L (3.5-5.1) 12/19/19 13:47 Chloride 105 mmol/L (98-107) 12/19/19 13:47 Carbon Dioxide 17 mmol/L (22-29) L 12/19/19 13:47 BUN 62 mg/dL (7.0-18.7) H 12/19/19 13:47 Creatinine 10.23 mg/dL (0.6-1.1) H 12/19/19 13:47 Glucose 224 mg/dL (70-105) H 12/19/19 13:47 Lactic Acid 0.5 mmol/L (0.5-2.2) 12/19/19 13:47 Calcium 7.7 mg/dL (7.8-10.44) L 12/19/19 13:47 Total Bilirubin 0.3 mg/dL (0.2-1.2) 12/19/19 13:47 AST 154 U/L (5-34) H 12/19/19 13:47 ALT 103 U/L (8-55) H 12/19/19 13:47 Alkaline Phosphatase 118 U/L (40-110) H 12/19/19 13:47 Ammonia 23 umol/L (18-72) 12/19/19 13:47 Creatine Kinase 112 U/L (29-168) 12/19/19 13:47 CK-MB (CK-2) 4.6 ng/mL (0-6.6) 12/19/19 13:47 B-Natriuretic Peptide 430.7 pg/mL (0-100) H 12/19/19 13:47 Serum Total Protein 5.0 g/dL (6.0-8.3) L 12/19/19 13:47 Albumin 2.3 g/dL (3.5-5.0) L 12/19/19 13:47 Lipase 50 U/L (8-78) 12/19/19 13:47 Urine Ketones Negative mg/dL (Negative) 12/19/19 14:20 Urine Blood Trace (Negative) A 12/19/19 14:20 Urine Nitrite Negative (Negative) 12/19/19 14:20 Ur Leukocyte Esterase 500 Noe/uL (Negative) A 12/19/19 14:20 Urine RBC 4-6 HPF (0-3) A 12/19/19 14:20 Urine WBC Greater than 50 HPF (0-3) A 12/19/19 14:20 Ur Squamous Epith Cells 0-3 HPF (0-3) 12/19/19 14:20 Urine Bacteria Rare-Few HPF (None Seen) 12/19/19 14:20 - EKG Interpretation EKG: Poor EKG, appears to be NSR - Radiology Interpretation CT scan - chest Status: report reviewed by me (No PE. No acute findings in lungs.) CT scan - head Status: report reviewed by me (No acute findings) Chest x-ray Status: report reviewed by me (No acute findings, central line in place.) FMR H&P: A/P - Problem List (1) Sepsis Current Visit: Yes Status: Acute Code(s): A41.9 - SEPSIS, UNSPECIFIED ORGANISM (2) UTI (urinary tract infection) Current Visit: Yes Status: Acute (3) DM (diabetes mellitus) Current Visit: No Status: Acute Code(s): E11.9 - TYPE 2 DIABETES MELLITUS WITHOUT COMPLICATIONS Qualifiers: Diabetes mellitus type: type 2 Diabetes mellitus swimming pool attendant insulin use: with halfway use Diabetes mellitus complication status: with kidney complications Diabetes mellitus complication detail: with chronic kidney disease Chronic kidney disease stage: on chronic dialysis Qualified Code(s) : E11.22 - Type 2 diabetes mellitus with diabetic chronic kidney disease; N18.6 - End stage renal disease; Z79.4 - cone cleaner (current) use of insulin; Z99.2 - Dependence on renal dialysis (4) ESRD (end stage renal disease) Current Visit: No Status: Acute Code(s): N18.6 - END STAGE RENAL DISEASE (5) Gastroparesis Current Visit: No Status: Acute Code(s): K31.84 - GASTROPARESIS (6) HTN (hypertension) Current Visit: No Status: Acute Code(s): I10 - ESSENTIAL (PRIMARY) HYPERTENSION (7) Hypokalemia Current Visit: No Status: Acute Code(s): E87.6 - HYPOKALEMIA (8) Peripheral neuropathy Current Visit: No Status: Acute Code(s): G62.9 - POLYNEUROPATHY, UNSPECIFIED Qualifiers: Peripheral neuropathy type: polyneuropathy associated with underlying disease Qualified Code(s): G63 - Polyneuropathy in diseases classified elsewhere - Plan Altered mental status likely 2/2 UTI Hypothermia - Initial temp 92.4F rectally - Will cover with broad spectrum antibiotics (Vanc and Cefepime) until cultures result. - Unclear etiology of her altered mental status. Transaminitis - AST/ALT 154/103 - Will obtain hepatitis serologies. - May have shock liver from inciting event. Will trend. Hypoglycemia - Will start D5W as blood sugar has been labile and initially was in the 40s. DM II - Patient is taking 30u of Toujeo daily and 2u regular insulin prior to meals, per clinic documentation. - SSI and hypoglycemia protocol HTN - patient is taking 12.5mg coreg bid and Nifedipine ER 60mg - Will continue home meds. ESRD on PD daily - Will initiate peritoneal dialysis - Consult Dr. Vazquez in the morning. - Cr 10.23 Hypothyroid - continue home medication Gastroparesis - continue reglan Dispo: stable Code: Full PCP: [facility], previously Dr. Gabriel Clancy MD PGY2 The patient was seen and discussed with Dr. Cuellar attending and Dr. Vargas. FMR H&P: Upper Level - Plan Date/Time: 12/19/19 1617 I, [], have evaluated this patient and agree with findings/plan as outlined by training intern resident. Pertinent changes/additions are listed here. Addendum - Attending - Attending Attestation Date/Time: 12/19/19 1901 I personally evaluated the patient and discussed the management with Dr. Brown. I agree with the History, Examination, Assessment and Plan documented above with any addition or exceptions noted below. See my dictated H&P for details. Doc # [id number].
--- NOTE | 2019-12-19 16:51 | CT ---
CT HEAD: Indications: Mental status change. FINDINGS: The ventricles have normal size and position. There is no evidence of intracranial mass or hemorrhage . No evidence of acute infarct. IMPRESSION: No acute abnormality identified. POS: AGW
--- NOTE | 2019-12-19 16:55 | CT ---
CTA CHEST WITH CONTRAST: Technique: Axial tomograms obtained with multiplanar reconstruction and 3D post processing. Indications: Elevated D-Dimer. Assess for pulmonary embolus. FINDINGS: Pulmonary arteries show adequate opacification. No evidence of pulmonary embolus identified. Thoracic aorta is unremarkable with no evidence of dissection. The lungs are well aerated. No infiltrate or effusion. There is cardiomegaly and mild vascular conges tion. Images through the upper abdomen reveal intra and extra hepatic biliary duct dilatation. This w as described on the prior CT scan of 09-12-2019. IMPRESSION: 1. No evidence of pulmonary embolus. 2. No acute lung process. POS: AGW
[2019-12-19] MEDS ORDERED: HumaLOG 300 UNITS/3 ML VIAL SC PRN ×2 (17:14)
[2019-12-19] MEDS ORDERED: Acetaminophen 650 MG Suppository PR PRN (17:14)
[2019-12-19] MEDS ORDERED: Dextrose 5% in Water 1,000 ML IV PRN (17:14)
[2019-12-19] MEDS ORDERED: Ondansetron PF 4 MG/2 ML Vial IVP PRN (17:14)
[2019-12-19] MEDS ORDERED: Calcium Carbonate 500 MG ChewTAB PO PRN (17:14)
[2019-12-19 18:36] VITALS: BMI 26.2
[2019-12-19] MEDS ORDERED: Dextrose 5 %-0.45 % NaCl 1,000 ML IV SCH (18:45)
[2019-12-19] MEDS ORDERED: Dextrose 10% in Water 1,000 ML IV SCH (19:00)
[2019-12-19 20:04] LABS: Phosphorus 9.2 mg/dL (2.3-4.7)
[2019-12-19 20:16] LABS: Syphilis Antibody Nonreactive (Nonreactive); Syphilis Antibody Index 0.02 S/CO (<1.00 Non-Reactive)
[2019-12-19 20:19] LABS: HBSAg Index 0.13 S/CO (0-0.99); HIV (1/2) Antibody/Antigen Non-Reactive (NonReactive); Hep B Surf Ag Non-Reactive S/CO (NonReactive)
[2019-12-19 20:20] LABS: HBSAB Concentration 228.99 mIU/mL; Hep B Surf AB Reactive (NonReactive)
[2019-12-19] MEDS: Heparin 5,000 UNITS/ML VIAL SC SCH (20:30)
--- NOTE | 2019-12-19 21:53 | HP ---
TIME OF SERVICE: 1815 hours. CHIEF COMPLAINT: Altered mental status. HISTORY OF PRESENT ILLNESS: I reviewed all documentation and discussed the management of this patient with Dr. Brown. I agree with her history and physical unless otherwise stated in the following attestation. In summary, Ms. Marion is a 49-year-old female with a history of end- stage renal disease, currently on peritoneal dialysis; hypertension; diabetes; chronic pain; and peripheral vascular disease. Per report, she was found down at home around noon today unresponsive. Her family checked her blood glucose and it was 70. States she was last seen normal the previous evening. Upon arrival, EMS gave her IV dextrose, and her initial core body temperature was noted to be 92.2 Fahrenheit rectally. She was aggressively warmed in the ER and started on D10 drip. No other history can be obtained at this time as there is no family present at bedside and the patient is still fairly altered. Please see resident note for past medical, surgical, social, and family history. PHYSICAL EXAMINATION: VITAL SIGNS: Temperature 98.7, blood pressure 180/80, pulse 60, respiratory rate 14, pulse ox 95% on room air. Lowest recorded temperature, T-min 92.2 rectally. GENERAL: Alert, oriented to person and place. The patient thought she was at [facility]. She would not answer orientation to time. She is in no acute distress, but very somnolent. CARDIOVASCULAR: Normal rate, regular rhythm. There is a 2/6 murmur auscultated in the precordium. PULMONARY: Clear to auscultation bilaterally. NEUROLOGIC: The patient moves all 4 limbs equally. She follows commands appropriately. EXTREMITIES: Left BKA. PERTINENT LABORATORY FINDINGS: Hemoglobin 11, which appears to be her baseline; platelets 199. D-dimer 0.9. Blood gas: PH 7.28, pCO2 36.6, PO2 115.8, bicarb 16.9. Initial glucose 224, trended down to 74, back up to 92. BNP 430.7. AST 154, ALT 103, alkaline phosphatase 118. Troponin 0.031. DIAGNOSTIC DATA: Chest x-ray reviewed by me, no acute process or infiltrate noted. Chest x-ray post-CVC placement, left subclavian central venous catheter placed appropriately. No pneumothorax. CT chest without contrast report reviewed by me. No acute processes. No pulmonary embolus. EKG, normal sinus rhythm, normal intervals, ST depressions or elevations. DISCUSSION AND DECISION-MAKING: Ms. Marion is a 49-year-old woman with multiple chronic comorbidities, found altered at home. She was borderline hypoglycemic and found to be profoundly hypothermic. Her mentation appears to have improved with rewarming and IV dextrose. 1. Acute metabolic encephalopathy. This may be due to her hypothermia, UTI, or hypoglycemia. We will continue rewarming, antibiotics, and IV dextrose. We will monitor mental status in the IMCU. Frequent glucose checks q.4 hours. 2. Acute metabolic acidosis. Appears to be very mild, likely result of her hypothermia. Anion gap is normal. We will continue to monitor and reassess. 3. Potential opiate abuse. [facility] was reviewed and only shows tramadol and Lyrica prescription for the past 2 years. I suspect she may be obtaining opiates from some other source, which may be contributing to her altered mental status. If she becomes more somnolent, we will administer Narcan at that time. 4. End-stage renal disease. Dr. Vazquez consulted for peritoneal dialysis. 5. Elevated BNP. We will check an echocardiogram. 6. Heart murmur. The patient is unable to state if this is a chronic issue, echocardiogram. 7. Elevated troponin without ischemia. We will continue to trend. 8. Possible UTI. culture pending. continue antibiotics . DISPOSITION: Inpatient IMCU greater than 2 midnights. Job ID: [id number] MTDD
[2019-12-20] MEDS: Acetaminophen 325 MG TAB PO PRN (00:12)
[2019-12-20] MEDS ORDERED: traMADol HCl 50 MG TAB PO SCH (02:45)
[2019-12-20 03:27] LABS: #Basophils 0.1 thou/uL (0.0-0.2); #Eosinphils 0.5 thou/uL (0.0-0.7); #Lymphocytes 1.9 thou/uL (1.20-3.40); #Monocytes 0.7 thou/uL (0.11-0.59); #Neutrophils 7.6 thou/uL (1.40-6.50); %Basophils 0.7 % (0.0-1.0); %Eosinophils 4.7 % (0.0-10.0); %Monocytes 6.3 % (0.0-10.0); %Neutrophils 70.3 % (42.0-75.0); Hemoglobin 10.4 g/dL (12.0-16.0); Mean Corpuscular HGB CONC 32.6 g/dL (32.0-36.0); Mean Corpuscular Hemoglobin 30.6 pg (27.0-31.0); Mean Corpuscular Volume 94.1 fL (78.0-98.0); Mean Platelet Volume 9.8 fL (7.4-10.4); Platelet Count 231 thou/uL (130-400); RBC Distribution Width 15.2 % (11.5-14.5); Red Blood Cell (RBC) Count 3.41 mill/uL (4.20-5.40); White Blood Cell (WBC) Count 10.8 thou/uL (4.8-10.8)
[2019-12-20 03:48] LABS: ALT (SGPT) 96 U/L (8-55); AST (SGOT) 79 U/L (5-34); Albumin 2.3 g/dL (3.5-5.0); Alkaline Phosphatase 118 U/L (40-110); Anion Gap 13 mmol/L (10-20); BUN (Urea Nitrogen) 54 mg/dL (7.0-18.7); Bilirubin, Total 0.2 mg/dL (0.2-1.2); Calc. Creatinine Clearance 7 mL/min (70-130); Calcium 8.1 mg/dL (7.8-10.44); Carbon Dioxide 20 mmol/L (22-29); Chloride 104 mmol/L (98-107); Estimated GFR-MDRD 4; Globulin 2.8 g/dL (2.4-3.5); Glucose 300 mg/dL (70-105); Potassium 3.4 mmol/L (3.5-5.1); Protein, Total 5.1 g/dL (6.0-8.3); Sodium 134 mmol/L (136-145)
[2019-12-20] MEDS ORDERED: Pregabalin 50 MG CAP PO SCH (04:15)
--- NOTE | 2019-12-20 05:36 | PDOC.FM ---
- Subjective Subjective: Patient complains of leg cramping this morning. Just finished a round of peritoneal dialysis. Per nursing report, the patient became more alert and oriented around midnight overnight and has been mostly awake since. She did receive a dose of Tramadol and Lyrica overnight which patient says helped her pain. Patient's POC glucose last was 300, D10 fluids were stopped at 0400. - Objective MAR Reviewed: Yes Vital Signs & Weight: Vital Signs (12 hours) Temp Resp Pulse Ox 12/20/19 03:32 98.3 F 12/19/19 23:31 98.4 F 12/19/19 20:00 12 100 12/19/19 19:32 98.4 F 12/19/19 19:00 12 12/19/19 17:57 98.7 F Weight Weight 64.949 kg Most Recent Monitor Data Heart Rate from ECG 86 NIBP 168/99 NIBP BP-Mean 122 Respiration from ECG 22 SpO2 100 I&O: 12/18/19 12/19/19 12/20/19 06:59 06:59 06:59 Intake Total 1376 Output Total 250 Balance 1126 Result Diagrams: 12/20/19 03:10 12/20/19 03:10 Phys Exam - Physical Examination Constitutional: NAD HEENT: moist MMs, sclera anicteric Neck: supple, full ROM Respiratory: no wheezing, clear to auscultation bilateral Cardiovascular: RRR, no significant murmur Gastrointestinal: soft, no distention Musculoskeletal: no edema, pulses present Neurological: moves all 4 limbs Psychiatric: normal affect, A&O x 3 Skin: no rash, normal turgor Dx/Plan (1) Acute metabolic encephalopathy Code(s): G93.41 - METABOLIC ENCEPHALOPATHY Status: Acute (2) UTI (urinary tract infection) Status: Acute Qualifiers: Urinary tract infection type: acute cystitis Hematuria presence: without hematuria Qualified Code(s): N30.00 - Acute cystitis without hematuria (3) DM (diabetes mellitus) Code(s): E11.9 - TYPE 2 DIABETES MELLITUS WITHOUT COMPLICATIONS Status: Acute Qualifiers: Diabetes mellitus type: type 2 Diabetes mellitus buttermaker helper insulin use: with buttermaker helper use Diabetes mellitus complication status: with kidney complications Diabetes mellitus complication detail: with chronic kidney disease Chronic kidney disease stage: on chronic dialysis Qualified Code(s) : E11.22 - Type 2 diabetes mellitus with diabetic chronic kidney disease; N18.6 - End stage renal disease; Z79.4 - intermediate project manager (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) use of insulin; Z99.2 - Dependence on renal dialysis (4) ESRD (end stage renal disease) Code(s): N18.6 - END STAGE RENAL DISEASE Status: Acute (5) HTN (hypertension) Code(s): I10 - ESSENTIAL (PRIMARY) HYPERTENSION Status: Acute Qualifiers: Hypertension type: secondary to other renal disorders Qualified Code(s): I15.1 - Hypertension secondary to other renal disorders; N28.89 - Other specified disorders of kidney and ureter - Plan Plan: Patient is a 49 yo female who presents with AMS is admitted to IMCU for acute metabolic encephalopthy: #Altered metabolic encephalopathy likely 2/2 UTI #Hypothermia - Initial temp 92.4F rectally, initial BS 70, then 46 - UA: turbid, >50 WBC, 500 Leuk, 0-3 squamous epithelial - Will cover with broad spectrum antibiotics (Vanc and Cefepime) until cultures result. - Blood & Urine Cx pending - Unclear etiology of her altered mental status, UDS pos for opiates so suspect some underlying opiate abuse contributing #Transaminitis - AST/ALT 154/103 - Hepatitis B Ag neg, Hep C pending - May have shock liver from inciting event. Will trend. #Hypoglycemia - Received D10W as blood sugar has been labile and initially was in the 40s, sugars holding in 110s-180s with most recent at 300. D10 stopped today. - continue to monitor POC accuchecks #DM II - Patient is taking 30u of Toujeo daily and 2u regular insulin prior to meals, per clinic documentation. - SSI and hypoglycemia protocol #Paresthesias Bilateral LE -leg pain/cramping throughout day -takes Lyrica & Tramadol at home, will continue #HTN - patient is taking 12.5mg coreg bid and Nifedipine ER 60mg - Will continue home meds once able to resume PO - will add on IV Hydralazine prn for BP coverage until tolerate PO #ESRD on PD daily - Will initiate peritoneal dialysis - Consult Dr. Vazquez to arrange dialysis, appreciate recs - Cr 10.23, will monitor with labs #Hypothyroid - continue home medication #Gastroparesis - continue reglan Diet: Renal VTE: Heparin TID Code: Full PCP: SAJI, previously Dr. Rios Dispo: Stable, admitted to [facility] for further monitoring of mental status. Continue IVF and antibiotics, cultures pending. Consider transition to medical floor pending clinical improvement. Anticipate discharge in >48 hours. Addendum - Attending - Attending Attestation Date/Time: 12/20/19 2227 I personally evaluated the patient and discussed the management with Dr. Keller I agree with the History, Examination, Assessment and Plan documented above with any addition or exceptions noted below- Patient sitting up in chair. Denies any complaints. Afebrile VSS. A/P: 1) AMS- resolved; possibly secondary to hypoglycemia or hypothermia. Transfer to floor. 2) DM- monitor accuchecks; continue current dose of insulin; patient endorses poor appetite; consider addition of mirtazipine. 3) HTN- resume home meds. 4) ESRD- continue PD.
[2019-12-20] MEDS ORDERED: Vancomycin HCl 750 MG in Sodium Chloride 0.9% 250 ML 250 ML IVPB SCH (05:45)
[2019-12-20] MEDS ORDERED: Vancomycin 1 GM in Premix Bag 1 BAG IVPB SCH (05:45)
[2019-12-20] MEDS ORDERED: Vancomycin HCl 500 MG in Sodium Chloride 0.9% 100 ML IVPB SCH (05:45)
[2019-12-20] MEDS ORDERED: Vancomycin HCl 250 MG in Sodium Chloride 0.9% 100 ML IVPB SCH (05:45)
[2019-12-20] MEDS ORDERED: Non-Formulary Item 1 EACH (Ondansetron Hcl [Zofran] 8 MG) PO PRN (07:07)
[2019-12-20] MEDS ORDERED: Ondansetron ODT 4 MG TAB PO PRN ×2 (07:19→07:30)
[2019-12-20] MEDS ORDERED: Metoclopramide 10 MG/10 ML UDCUP PO SCH (07:30)
[2019-12-20] MEDS: NIFEdipine XL 30 MG TAB PO SCH (08:01)
[2019-12-20] MEDS: Calcitriol 0.25 MCG CAP PO SCH (08:02)
[2019-12-20] MEDS: Pregabalin 75 MG CAP PO SCH ×2 (08:02→20:22)
[2019-12-20] MEDS: Metoclopramide HCl 10 MG TAB PO SCH ×2 (08:03→20:22)
[2019-12-20] MEDS: Carvedilol 6.25 MG TAB PO SCH ×2 (08:03→20:21)
[2019-12-20] MEDS: Heparin 5,000 UNITS/ML VIAL SC SCH ×3 (08:04→20:21)
[2019-12-20] MEDS: Levothyroxine Sodium 50 MCG TAB PO SCH (08:05)
[2019-12-20] MEDS: Topiramate 25 MG TAB PO SCH (08:06)
[2019-12-20] MEDS: Pantoprazole 40 MG GRANULES PACKET PO SCH (08:08)
[2019-12-20] MEDS ORDERED: Non-Formulary Item 1 EACH (Calcitriol [Calcitriol] 0.5 MCG) PO SCH (09:00)
[2019-12-20] MEDS ORDERED: INSULIN GLARGINE HUM REC ANLOG 30 UNIT SQ SCH (09:00)
[2019-12-20] MEDS ORDERED: Prevnar 13-Val Conj/PF 0.5 ML SYRINGE IM ONE (09:00)
[2019-12-20] MEDS ORDERED: Carvedilol 25 MG TAB PO SCH (09:00)
[2019-12-20] MEDS ORDERED: Non-Formulary Item 1 EACH (Mirabegron [Myrbetriq] 50 MG) PO SCH (09:00)
[2019-12-20] MEDS ORDERED: Non-Formulary Item 1 EACH (Topiramate [Topiramate] 50 MG) PO SCH (09:00)
[2019-12-20] MEDS ORDERED: Insulin Glargine 30 UNITS in Pre-Filled Syringe 1 EACH SC SCH (09:00)
[2019-12-20] MEDS ORDERED: Non-Formulary Item 1 EACH (Pantoprazole Sodium [Pantoprazole Sodium] 20 MG) PO SCH (09:00)
--- NOTE | 2019-12-20 09:46 | CON ---
DATE OF CONSULTATION: SERVICE: Renal Medicine. HISTORY OF PRESENT ILLNESS: Ms. Marion is a 49-year-old female with ESRD-on peritoneal dialysis, was admitted due to mental status change. She was also noted to be hypoglycemic and hypothermic. Temperature was noted at 92.2. The suspicion is that the patient may have overmedicated with her pain medications. Please note, she is on Lyrica as well as on tramadol. I had long discussion with the patient regarding judicious use of her pain medications. She does have underlying chronic pain from her underlying diabetic neuropathy. We were consulted for maintenance peritoneal dialysis. She underwent peritoneal dialysis last night without any difficulty. REVIEW OF SYSTEMS: Positive for chronic pain. Occasional nausea, but no vomiting. Appetite and energy level are fair. No gross hematuria. No dysuria. No urinary frequency. No productive cough. No fever or chills. No shortness of breath or chest pain. Occasional joint pains. No hematochezia. No melena. No hematemesis. MEDICATIONS: 1. Lyrica 75 mg p.o. b.i.d. 2. Protonix 20 mg tablet daily. 3. Zofran 4 mg IV q.6 p.r.n. 4. Nifedipine 30 mg tablet daily. 5. Levothyroxine 50 mcg daily. 6. Glargine insulin 30 units subcu q.a.m. 7. Humalog sliding scale. 8. Tramadol-on hold. PAST MEDICAL HISTORY: 1. ESRD from diabetic nephropathy. 2. Type 2 diabetes mellitus. 3. Chronic pain. 4. Diabetic gastroparesis, hypothyroidism, history of depression. PAST SURGICAL HISTORY: Status post cuffed hemodialysis catheter placement, status post PD catheter placement. SOCIAL HISTORY: The patient is . Lives with her . Four children. 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 No smoking. No alcohol intake. No drug abuse. Status post blood transfusion. Education, high school. ALLERGIES/ADVERSE REACTION: Gabapentin. TRAUMA: None. IMMUNIZATION: Up-to-date. HOSPITALIZATIONS: Please see past medical history. FAMILY HISTORY: No family history of ESRD. PHYSICAL EXAMINATION: VITAL SIGNS: Blood pressure is 186/95, heart rate 88, O2 saturation 100%, and respiratory rate 25. GENERAL: The patient is awake, alert, comfortable, not in overt distress. SKIN: Adequate turgor. HEENT: She has slightly pale conjunctivae. Anicteric sclerae. No neck mass. No carotid bruits. No JVD. CHEST: No deformities. LUNGS: Clear breath sounds. No wheezing. No crackles. HEART: Normal sinus rhythm. No murmur. No gallops. No rubs. ABDOMEN: Globular, soft, nontender. No masses. Positive for PD catheter. EXTREMITIES: No edema. No deformities. LABORATORY DATA: Laboratories of December 20, 2019, white count 10.8, hemoglobin 10.4. Sodium 134, potassium 3.4, chloride 104, carbon dioxide 20, BUN 54, creatinine 9.81, glucose 300, calcium 8.1, AST 79, ALT 96, albumin 2.3. CT scan of the brain on December 19, 2019, no acute findings. CT of the chest, no pulmonary embolism. ASSESSMENT AND PLAN: 1. Mental status change-the patient may simply have overdosed with her pain medication. Tramadol has been discontinued. Lyrica has been adjusted for her chronic pain. 2. Chronic pain, on Lyrica 75 mg p.o. b.i.d. We will observe her intake regarding this, see if she is tolerating the Lyrica. 3. End-stage renal disease, stable. She tolerated her peritoneal dialysis last night. We are currently using a 1.5% PD solution with 2 L fill volume with 8 hours duration and for exchanges. She is tolerating said dialysis. Review of the last Kt/V suggests she is adequately dialyzed. 4. Agree with current management. Job ID: [id number]
[2019-12-20] MEDS: traMADol HCl 50 MG TAB PO PRN ×2 (14:24→23:46)
[2019-12-20] MEDS: Dextrose 50% Abboject 50 ML SYRINGE SLOW IVP PRN (16:19)
[2019-12-20] MEDS ORDERED: Vancomycin HCl 1 GM in Sodium Chloride 0.9% 250 ML 300 ML IVPB SCH (17:00)
[2019-12-20] MEDS: Atorvastatin Calcium 20 MG TAB PO SCH (20:21)
[2019-12-20] MEDS: Melatonin 3 MG TAB PO PRN (21:24)
[2019-12-21] MEDS: Dextrose 50% Abboject 50 ML SYRINGE SLOW IVP PRN ×2 (01:38→04:27)
[2019-12-21] MEDS ORDERED: hydrOXYzine 25 MG TAB PO SCH (01:45)
[2019-12-21] MEDS: Acetaminophen 325 MG TAB PO PRN (02:48)
[2019-12-21] MEDS ORDERED: Dextrose 5 %-0.45 % NaCl 1,000 ML IV SCH (04:45)
--- NOTE | 2019-12-21 05:33 | PDOC.FM ---
- Subjective Subjective: Patient in the position in bed. Notes that she is doing better today but still complains of leg cramping. Requesting hydrocodone. Patient was screaming and agitated throughout the night. Received tramadol, tylenol and then atarax. Per the night nurse, the patient was found on the ground next to her bed, possibly that she fell, was initially unresponsive but after a sternal rub starting screaming about her pain. There was no head injury, a neuro check was negative and she was at her baseline. Also noted overnight was her blood sugars dropped to 30, she was given D50, then they were 59, 455 and she was given another amp D50 and started on a D5 drip with her morning lantus stopped. There was a complication with her peritoneal dialysis last night, per the nurse some sort of kink, dialysis came down fixed it and she still received her full treatment. The nurse noted the patients fistual was draining serosanguinous fluid over night, they have covered it and it currently appears to not be draining. - Objective MAR Reviewed: Yes Vital Signs & Weight: Vital Signs (12 hours) Temp Pulse Resp BP Pulse Ox 12/21/19 03:45 73 16 156/89 H 99 12/21/19 01:47 98 12/20/19 23:35 98 12/20/19 23:25 98.6 F 82 18 98 12/20/19 20:38 83 18 99 12/20/19 20:00 99 12/20/19 19:00 99.3 F Weight Weight 64.949 kg Most Recent Monitor Data Heart Rate from ECG 81 NIBP 166/104 NIBP BP-Mean 124 Respiration from ECG 15 SpO2 100 I&O: 12/19/19 12/20/19 12/21/19 06:59 06:59 06:59 Intake Total 1376 Output Total 250 Balance 1126 Result Diagrams: 12/21/19 05:15 12/21/19 07:54 Phys Exam - Physical Examination Constitutional: NAD HEENT: PERRLA, moist MMs Respiratory: clear to auscultation bilateral Cardiovascular: RRR Gastrointestinal: soft, non-tender Musculoskeletal: no edema Neurological: moves all 4 limbs Psychiatric: A&O x 3 Skin: no rash Dx/Plan - Plan Plan: Patient is a 49 yo female who presents with AMS is initially admitted to [facility], now on the medical floor, for acute metabolic encephalopthy: Altered metabolic encephalopathy Secondary to Likely Medication Overuse Hypothermia - Unclear etiology of her altered mental status, UDS pos for opiates so suspect some underlying opiate abuse contributing. Holding tramadol as it could be a potential cause. Initial temp 92.4F rectally, initial BS 70, then 46 UA: turbid, >50 WBC, 500 Leuk, 0-3 squamous epithelial - UCx <10,000 strep a - Will cover with broad spectrum antibiotics Vanc/Cefepime until cultures result. Can consider discontinuing if blood cultures negative. - pending BCx Hypoglycemia Blood sugar trends last night 30 -->D50, 59, 45 --> D50, started on D5 drip last BS 185 Lantus discontinued, D5 drip stopped, moderate sliding scale for BS management - continue to monitor POC accuchecks DM II At home patient is taking 30u of Toujeo daily and 2u regular insulin prior to meals, per clinic documentation. - as above, stopping daily lantus and switching to moderate sliding scale only - SSI and hypoglycemia protocol ESRD on PD daily - peritoneal dialysis nightly, issue with machine resolved - Dr. Vazquez Consulted, appreciate recs - Cr 10.23 --> 9.81, will monitor with labs Paresthesias Bilateral LE -leg pain/cramping throughout day -Home Lyrica dose increased and tramadol discontinued per nephro recs Transaminitis, improving Initial AST/ALT 154/103 ; now 79/96 Hepatitis B Ag neg, Hep C pending - May have been from shock liver from inciting event. Trending down. Will continue to trend HTN - patient is taking 12.5mg coreg bid and Nifedipine ER 60mg - Will continue home meds once able to resume PO - IV Hydralazine prn for BP coverage until tolerate PO Hypothyroid - continue home medication Gastroparesis - continue reglan Diet: Renal VTE: Heparin TID Code: Full PCP: SAJI, previously Dr. Rios Dispo: Stable on medical floor. Awaiting Blood cultures, if negative can stop antibiotics. Likely discharge in 2-3 days pending blood sugars and cultures. Case discussed with Dr. Carnes. Addendum - Attending - Attending Attestation Date/Time: 12/21/19 2033 I personally evaluated the patient and discussed the management with Dr. Vazquez I agree with the History, Examination, Assessment and Plan documented above with any addition or exceptions noted below - Patient crying on rounds this morning secondary to leg pain. Afebrile VSS. A/P: 1) AMS- resolved; continue cautious pain medications. 2) ESRD on PD- continue PD. 3) Hypoglycemia - having recurrent episodes needing D50; restarted on D5 IV fluids and will trasnfer to IMCU for close monitoring.
[2019-12-21 06:13] LABS: #Basophils 0.1 thou/uL (0.0-0.2); #Eosinphils 0.3 thou/uL (0.0-0.7); #Lymphocytes 1.7 thou/uL (1.20-3.40); #Monocytes 0.5 thou/uL (0.11-0.59); #Neutrophils 6.8 thou/uL (1.40-6.50); %Basophils 0.6 % (0.0-1.0); %Lymphocytes 18.2 % (21.0-51.0); %Monocytes 5.1 % (0.0-10.0); %Neutrophils 73.1 % (42.0-75.0); Hemoglobin 10.1 g/dL (12.0-16.0); Mean Corpuscular HGB CONC 33.6 g/dL (32.0-36.0); Mean Corpuscular Hemoglobin 31.1 pg (27.0-31.0); Mean Corpuscular Volume 92.7 fL (78.0-98.0); Mean Platelet Volume 9.7 fL (7.4-10.4); Platelet Count 203 thou/uL (130-400); RBC Distribution Width 14.7 % (11.5-14.5); Red Blood Cell (RBC) Count 3.26 mill/uL (4.20-5.40); White Blood Cell (WBC) Count 9.4 thou/uL (4.8-10.8)
[2019-12-21 08:25] LABS: Vancomycin, Trough 12.2 ug/mL
[2019-12-21 08:27] LABS: ALT (SGPT) 86 U/L (8-55); AST (SGOT) 64 U/L (5-34); Albumin 2.6 g/dL (3.5-5.0); Alkaline Phosphatase 137 U/L (40-110); Anion Gap 16 mmol/L (10-20); BUN (Urea Nitrogen) 50 mg/dL (7.0-18.7); Bilirubin, Total 0.3 mg/dL (0.2-1.2); Calc. Creatinine Clearance 7 mL/min (70-130); Calcium 8.9 mg/dL (7.8-10.44); Carbon Dioxide 19 mmol/L (22-29); Chloride 103 mmol/L (98-107); Estimated GFR-MDRD 4; Globulin 3.1 g/dL (2.4-3.5); Glucose 95 mg/dL (70-105); Potassium 3.9 mmol/L (3.5-5.1); Protein, Total 5.7 g/dL (6.0-8.3); Sodium 134 mmol/L (136-145)
[2019-12-21] MEDS: Calcitriol 0.25 MCG CAP PO SCH (08:31)
[2019-12-21] MEDS: Levothyroxine Sodium 50 MCG TAB PO SCH (08:32)
[2019-12-21] MEDS: Carvedilol 6.25 MG TAB PO SCH ×2 (08:32→20:16)
[2019-12-21] MEDS: NIFEdipine XL 30 MG TAB PO SCH (08:32)
[2019-12-21] MEDS: Metoclopramide HCl 10 MG TAB PO SCH ×2 (08:32→20:20)
[2019-12-21] MEDS: Topiramate 25 MG TAB PO SCH (08:33)
[2019-12-21] MEDS: Pregabalin 75 MG CAP PO SCH ×2 (08:33→20:15)
[2019-12-21] MEDS: Heparin 5,000 UNITS/ML VIAL SC SCH ×3 (08:34→20:20)
[2019-12-21] MEDS: Pantoprazole 40 MG GRANULES PACKET PO SCH (08:34)
[2019-12-21] MEDS ORDERED: Insulin Glargine 20 UNITS in Pre-Filled Syringe SC SCH (09:00)
[2019-12-21] MEDS ORDERED: Morphine 2 MG/ML SYRINGE SLOW IVP PRN (09:03)
--- NOTE | 2019-12-21 09:28 | PRG ---
DATE OF SERVICE: 12/21/2019 SUBJECTIVE: Ms. Marion is a 49-year-old female with ESRD and followed up by the Renal Service for management of her ESRD. She underwent peritoneal dialysis last night. We pulled about 300 mL of fluid. This morning, complaining of severe bilateral leg pain. We will give her a one time dose of morphine sulfate 2 mg IV. OBJECTIVE: VITAL SIGNS: Blood pressure is 186/70, heart rate 73, respiratory rate 18, temperature 97.5, and O2 saturation 99%. GENERAL: The patient is awake, in mild distress from the leg pain. HEENT: Pinkish conjunctivae. Anicteric sclerae. NECK: No neck mass. No carotid bruits. No JVD. CHEST: No deformities. LUNGS: Clear breath sounds. HEART: Normal sinus rhythm. No murmurs. No gallops. No rubs. ABDOMEN: Globular, soft, and nontender. No masses. EXTREMITIES: No edema. No deformities. MEDICATIONS: Medications of December 21, 2019, reviewed. LABORATORY DATA: Laboratories of December 21, 2019; white count 9.4, hemoglobin 10.1. Sodium 134, potassium 3.9, chloride 103, carbon dioxide 19, BUN 50, creatinine 9.83. AST 64, ALT 86, and albumin 2.6. ASSESSMENT AND PLAN: 1. Chronic leg pain-most likely from diabetic neuropathy. We will give a one time dose of morphine sulfate 2 mg IV. Consider placing this patient on long-term pain medications-? of fentanyl patch. 2. Mental status change-secondary to overdose of her pain medications. Mentating better. 3. End-stage renal disease, stable, tolerating current CCPD regimen. We will continue current peritoneal dialysis regimen. Job ID: [id number]
[2019-12-21] MEDS ORDERED: Dextrose 5 % And 0.9 % NaCl 1,000 ML IV SCH (15:00)
[2019-12-21] MEDS ORDERED: Cefepime 2 GM in Sodium Chloride 0.9% 100 ML IVPB SCH (15:00)
[2019-12-21] MEDS ORDERED: Dextrose 50% Abboject 50 ML SYRINGE ONE (15:17)
[2019-12-21] MEDS ORDERED: Dextrose 50% Abboject 50 ML SYRINGE SLOW IVP SCH (16:15)
[2019-12-21] MEDS: hydrALAZINE 20 MG/ML VIAL SLOW IVP PRN (16:22)
[2019-12-21] MEDS: Atorvastatin Calcium 20 MG TAB PO SCH (20:20)
[2019-12-22 03:23] LABS: #Basophils 0.1 thou/uL (0.0-0.2); #Eosinphils 0.7 thou/uL (0.0-0.7); #Lymphocytes 2.7 thou/uL (1.20-3.40); #Neutrophils 6.5 thou/uL (1.40-6.50); %Basophils 0.8 % (0.0-1.0); %Eosinophils 6.4 % (0.0-10.0); %Lymphocytes 24.7 % (21.0-51.0); %Monocytes 9.2 % (0.0-10.0); Hemoglobin 9.1 g/dL (12.0-16.0); Mean Corpuscular HGB CONC 32.3 g/dL (32.0-36.0); Mean Corpuscular Hemoglobin 30.3 pg (27.0-31.0); Mean Corpuscular Volume 93.8 fL (78.0-98.0); Mean Platelet Volume 10.1 fL (7.4-10.4); Platelet Count 175 thou/uL (130-400); RBC Distribution Width 14.8 % (11.5-14.5); Red Blood Cell (RBC) Count 3.02 mill/uL (4.20-5.40)
--- NOTE | 2019-12-22 06:03 | PDOC.FM ---
- Subjective Subjective: Patient is resting comfortably in bed. She states that she feels "good" today and that her pain is improving with the fentanyl patch. Denies CP/SOB. - Objective MAR Reviewed: Yes Vital Signs & Weight: Vital Signs (12 hours) Temp Pulse Resp BP BP Pulse Ox 12/22/19 03:29 98.4 F 12/21/19 23:49 98.2 F 12/21/19 20:55 100 12/21/19 20:16 171/80 H 12/21/19 20:05 97.9 F 92 18 171/80 H 99 12/21/19 18:11 97.4 F L 73 18 182/80 H 96 Weight Weight 64.949 kg Most Recent Monitor Data Heart Rate from ECG 72 NIBP 149/76 NIBP BP-Mean 100 Respiration from ECG 16 SpO2 100 I&O: 12/20/19 12/21/19 12/22/19 06:59 06:59 06:59 Intake Total 1376 1095 0 Output Total 250 838 Balance 2098 087 [id number] Result Diagrams: 12/22/19 02:55 12/21/19 07:54 Phys Exam - Physical Examination Constitutional: NAD HEENT: PERRLA Respiratory: clear to auscultation bilateral Cardiovascular: RRR Gastrointestinal: soft, non-tender Musculoskeletal: no edema Neurological: non-focal, moves all 4 limbs Psychiatric: A&O x 3 Skin: normal turgor Dx/Plan - Plan Plan: Patient is a 49 yo female who presents with AMS is initially admitted to [facility], now on the medical floor, for acute metabolic encephalopthy: Altered metabolic encephalopathy Secondary to Likely Medication Overuse Hypothermia - Unclear etiology of her altered mental status, UDS pos for opiates so suspect some underlying opiate abuse contributing. Holding tramadol per Dr. Vazquez as it could be a potential cause. Initial temp 92.4F rectally, initial BS 70, then 46 UA: turbid, >50 WBC, 500 Leuk, 0-3 squamous epithelial - Will cover with broad spectrum antibiotics Vanc/Cefepime until cultures result. - UCx <10,000 strep a - BCx no growth at 48 hours - Will stop Vanc/Cefipime started 12/18, due to negative cultures, no symptoms Hypoglycemia Throughout hospital stay blood sugars have been intermittently dropping in the 40s-50s, requiring d50 and D5 drip. Last drop (12/20) Current BG 95 with D5 drip, lantus and all sliding scale stopped - continue to monitor POC accuchecks q2hr DM II At home patient is taking 30u of Toujeo daily and 2u regular insulin prior to meals, per clinic documentation. - as above, stopping daily lantus and sliding scale - hypoglycemia protocol ESRD on PD daily - peritoneal dialysis nightly - Dr. Vazquez Consulted, appreciate recs - Cr 10.23 --> 9.81 --> 9.83, - will continue to monitor Paresthesias Bilateral LE - Hx of Lumbar Stenosis and LE neuropathy - leg pain/cramping throughout day - Home Lyrica dose increased and tramadol discontinued per nephro recs - Fentanyl patches started 12/[address] Vazquez, her pain appears to be improving - Due to difficulty getting in and out of bed, the patient History of Falls - d/t lumbar stenosis vs hypoglycemia vs neuropathy - deconditioned since admission to the hospital - gait unsteady per PT report and recommends either rehab vs outpatient PT services - would benefit from home health and assistance via shower bench and bedside commode due to the above Transaminitis, improving Initial AST/ALT 154/103 ; now 64/86 Hepatitis B Ag neg, Hep C pending - May have been from shock liver from inciting event. Trending down. Will continue to trend HTN - patient is taking 12.5mg coreg bid and Nifedipine ER 60mg - Will continue home meds once able to resume PO - IV Hydralazine prn for BP coverage until tolerate PO Hypothyroid - continue home medication Gastroparesis - continue reglan Diet: Renal VTE: Heparin TID Code: Full PCP: SAJI, previously Dr. Rios Dispo: Stable on IMCU, Monitoring her blood sugars. Likely discharge 2-3 days depending on her BG control. Case discussed with Dr. Carnes. Addendum - Attending - Attending Attestation Date/Time: 12/22/19 5964 I personally evaluated the patient and discussed the management with Dr. Vazquez I agree with the History, Examination, Assessment and Plan documented above with any addition or exceptions noted below - Patient states her pain is better today since starting on fentanyl patch. Afebrile VSS A/P: 1) Hypoglycemia - transferred yesterday to [facility] for frequent accuchecks; improved; weaned off D5; tolerating diet; continue to monitor closely. 2) Chronic leg pain - started on fentanyl patch after discussion with nephrology for a medication compatib;le with her dialysis. Continue to monitor. Will need close outpatient follow-up. Continue lyrica. 3) ESRD- continue PD, 4) DM - suspect insulin requirements are low due to ESRD; not on any long acting currently; continue to hold and if needed will restart very small dose.
[2019-12-22] MEDS: NIFEdipine XL 30 MG TAB PO SCH (08:14)
[2019-12-22] MEDS: Carvedilol 6.25 MG TAB PO SCH ×2 (08:14→20:04)
[2019-12-22] MEDS: Pregabalin 75 MG CAP PO SCH ×2 (08:14→20:05)
[2019-12-22] MEDS: Metoclopramide HCl 10 MG TAB PO SCH ×2 (08:15→20:04)
[2019-12-22] MEDS: Topiramate 25 MG TAB PO SCH (08:15)
[2019-12-22] MEDS: Levothyroxine Sodium 50 MCG TAB PO SCH (08:15)
[2019-12-22] MEDS: Calcitriol 0.25 MCG CAP PO SCH (08:15)
[2019-12-22] MEDS: Heparin 5,000 UNITS/ML VIAL SC SCH ×3 (08:16→20:07)
[2019-12-22] MEDS ORDERED: EPOETIN ALFA-EPBX (ESRD) 4,000 UNIT/ML VIAL SC SCH (09:45)
--- NOTE | 2019-12-22 09:51 | PRG ---
DATE OF SERVICE: 12/22/2019 SUBJECTIVE: Ms. Marion is a 49-year-old female, followed up by the Renal Service for her ESRD. She is undergoing peritoneal dialysis and tolerating said treatment. We removed more than 1 L with the dialysis last night. She is still having some pain on the lower extremities. Currently, this is being addressed by her primary care team. She has been started on Duragesic at 12 mcg q.3 days. She continues to be on Lyrica. She is currently ambulating with PT. She was a bit upset when the nursing staff was impatient with her last night. She has been crying quite frequently due to the pain. OBJECTIVE: VITAL SIGNS: Blood pressure 183/82, heart rate 77, respiratory rate 21, O2 saturation 100%. GENERAL: The patient is awake, comfortable, sitting, not in distress. SKIN: Adequate turgor. HEENT: Pinkish conjunctivae. Anicteric sclerae. No neck mass. No carotid bruits. No JVD. CHEST: No deformities. LUNGS: Clear breath sounds. HEART: Normal sinus rhythm. No murmurs. No gallops. No rubs. ABDOMEN: Globular, soft, nontender. No masses. Positive for PD catheter. EXTREMITIES: No edema. No deformities. MEDICATIONS: Medications of December 22, 2019, reviewed. LABORATORY DATA: Laboratories of December 22, 2019; white count 11, hemoglobin 9.1. On December 21, 2019; potassium 3.9, BUN 50, creatinine 9.83. ASSESSMENT AND PLAN: 1. Chronic pain, lower extremities - most likely from diabetic neuropathy. Currently, the patient has been started on fentanyl patch. Continue supportive care. Continue Lyrica. 2. End-stage renal disease, stable, tolerating current peritoneal dialysis, fluid removal as tolerated by the patient. 3. Anemia. We will start Epogen every week. Job ID: [id number] MTDD
[2019-12-22 11:49] LABS: Hemoglobin A1c 7.6 % (4.0-6.0)
[2019-12-22 18:57] LABS: Phosphorus 9.3 mg/dL (2.3-4.7)
[2019-12-22] MEDS: Acetaminophen 325 MG TAB PO PRN (19:27)
[2019-12-22] MEDS: Melatonin 3 MG TAB PO PRN (20:03)
[2019-12-22] MEDS: Atorvastatin Calcium 20 MG TAB PO SCH (20:05)
[2019-12-23 04:14] LABS: #Eosinphils 0.7 thou/uL (0.0-0.7); #Lymphocytes 2.7 thou/uL (1.20-3.40); #Monocytes 0.9 thou/uL (0.11-0.59); #Neutrophils 5.1 thou/uL (1.40-6.50); %Basophils 0.3 % (0.0-1.0); %Eosinophils 7.8 % (0.0-10.0); %Lymphocytes 28.2 % (21.0-51.0); %Monocytes 9.9 % (0.0-10.0); %Neutrophils 53.8 % (42.0-75.0); Hemoglobin 9.1 g/dL (12.0-16.0); Mean Corpuscular HGB CONC 33.4 g/dL (32.0-36.0); Mean Corpuscular Hemoglobin 31.2 pg (27.0-31.0); Mean Corpuscular Volume 93.4 fL (78.0-98.0); Mean Platelet Volume 9.8 fL (7.4-10.4); Platelet Count 177 thou/uL (130-400); RBC Distribution Width 14.6 % (11.5-14.5); White Blood Cell (WBC) Count 9.4 thou/uL (4.8-10.8)
[2019-12-23] MEDS ORDERED: diphenhydrAMINE 25 MG CAP PO SCH (04:30)
[2019-12-23] MEDS: Acetaminophen 325 MG TAB PO PRN ×3 (04:40→22:21)
--- NOTE | 2019-12-23 05:55 | PDOC.FM ---
- Subjective Subjective: Patient is standing by the bed. She complains of left knee pain she had a fall 2 days ago. Notes she can still walk on it but it is painful. She states this is different than her cramping leg pain. She is still having the cramping leg pain but it appears to be improving. - Objective MAR Reviewed: Yes Vital Signs & Weight: Vital Signs (12 hours) Temp BP Pulse Ox 12/23/19 03:40 97.8 F 12/22/19 23:35 98.3 F 12/22/19 20:04 164/103 H 12/22/19 20:00 100 12/22/19 19:28 98.6 F Weight Weight 64.949 kg Most Recent Monitor Data Heart Rate from ECG 82 NIBP 126/78 NIBP BP-Mean 94 Respiration from ECG 17 SpO2 99 I&O: 12/21/19 12/22/19 12/23/19 06:59 06:59 06:59 Intake Total 1095 2050 Output Total 838 1327 250 Balance 257 723 -250 Result Diagrams: 12/23/19 03:52 12/23/19 10:53 Phys Exam - Physical Examination Constitutional: NAD HEENT: PERRLA, moist MMs Respiratory: clear to auscultation bilateral Cardiovascular: RRR Gastrointestinal: soft, non-tender TTP along the medial and lateral joint lines of the L knee, worse laterally Full ROM of the knee, sensation and pulses intact, strength 2+ Neurological: moves all 4 limbs Psychiatric: normal affect, A&O x 3 Skin: normal turgor Dx/Plan - Plan Plan: Patient is a 49 yo female who presents with AMS is in the IMCU for acute metabolic encephalopthy: Metabolic encephalopathy Likely Secondary to Hypoglycemia - Patient becomes encephalopathic each time sugars are in the 30s-50s - UDS pos for opiates so suspect some underlying opiate abuse contributing. Holding tramadol per Dr. Vazquez as it could be a potential cause. - UCx <10,000 strep a - BCx no growth at 48 hours Hypoglycemia Throughout hospital stay blood sugars have been intermittently dropping in the 40s-50s, 12/21 after stopping SS and lantus, glucose has begun to rise and is now in the low 400s - starting lantus 10u (1/3 of home dose) - continue to monitor POC accuchecks q2hr DM II At home patient is taking 30u of Toujeo daily and 2u regular insulin prior to meals, per clinic documentation. - as above, started lantus 10u - hypoglycemia protocol ESRD on PD daily - peritoneal dialysis nightly - Dr. Vazquez Consulted, appreciate recs - phosphate (12/22) 9.4, discussed with Dr. Vazquez, will start Renvela. Repeat Phosphorus ordered. - CR downtrending, ordered CMP for today - will continue to monitor Paresthesias Bilateral LE - Hx of Lumbar Stenosis and LE neuropathy - leg pain/cramping throughout day - Home Lyrica dose increased and tramadol discontinued per nephro recs - Fentanyl patches started 12/[address] Vazquez, her pain appears to be improving History of Falls - d/t lumbar stenosis vs hypoglycemia vs neuropathy - Reported fall (12/21) - deconditioned since admission to the hospital - gait unsteady per PT report and recommends either rehab vs outpatient PT services - would benefit from home health and assistance via shower bench and bedside commode due to the above L Knee Pain Patient states left knee pain x 1 day after a fall where she hit her knee, reports she is still able to walk on it - TTP along L knee joint line, full ROM, strength intact - L Knee XR ordered Transaminitis, resolved Initial AST/ALT 154/103; last , repeat CMP today Hepatitis B Ag neg, Hep C pending Likely d/t shock liver from inciting event HTN - Patient is taking her home medications of 12.5mg coreg bid and Nifedipine ER 30mg - Will continue to monitor Hypothyroid - continue home medication Gastroparesis - continue reglan Diet: Renal VTE: Heparin TID Code: Full PCP: [facility]JI, previously Dr. Rios Dispo: Stable on IMCU, Monitoring her blood sugars. Likely discharge 2-3 days depending on her BG control. Addendum - Attending - Attending Attestation Date/Time: 12/23/19 [id number] I personally evaluated the patient and discussed the management with Dr. Vazquez I agree with the History, Examination, Assessment and Plan documented above with any addition or exceptions noted below- Patient without complaints except for leg pain. Afebrile VSS. A/P: 1) Hypoglycemia- resolved; restarted on smaller dose of long acting insulin; monitor BG through day and if stable will trasnfer to floor. 2) Leg pain possible diabetic neuropathy- continue lyrica and fentanyl patch; discussed with patient that unable to increase patch yet as it was just started. Will add small dose of tramadol for breakthrough and also trial of ropinoprile for restless leg componenet. 3) ESRD- continue PD.
--- NOTE | 2019-12-23 09:52 | RAD ---
LEFT KNEE 2 VIEWS: Date: 12/23/2019 HISTORY: Left knee pain following injury from a fall. FINDINGS: Prominent arteriovascular calcification. Minimal osteoarthrosis changes and degenerative changes of t he knee joint. No fracture or dislocation. IMPRESSION: Degenerative and osteoarthrosis change. Extensive vascular calcification. No fracture or dislocation. POS: RRE
--- NOTE | 2019-12-23 09:54 | PRG ---
DATE OF SERVICE: 12/23/2019 SERVICE: Renal Medicine. SUBJECTIVE: Ms. Marion is a 49-year-old female with ESRD and currently on peritoneal dialysis. She was admitted initially for mental status change secondary to overdose of her pain medications. Pain medications have been adjusted. She is more awake. Complaining of still diffuse overall pain. Also complaining of knee joint pain. X-rays have been ordered. She has been started on Duragesic patch at 12 mcg every three days. OBJECTIVE: VITAL SIGNS: Blood pressure is 127/75, heart rate 82, respiratory rate 15, temperature is 98.1, and O2 saturation 100%. GENERAL: Awake, sitting comfortable, in mild pain, not in overt cardiorespiratory distress. SKIN: Adequate turgor. HEENT: She has a slightly pale conjunctivae. Anicteric sclerae. NECK: No neck mass. No carotid bruits. No JVD. CHEST: No deformities. LUNGS: Clear breath sounds. HEART: Normal sinus rhythm. No murmur. No gallops. No rubs. ABDOMEN: Globular, soft, nontender. Positive for PD catheter. EXTREMITIES: No edema. MEDICATIONS: Medications of December 23, 2019, were reviewed. LABORATORY DATA: Laboratories of December 23, 2019; white count 9.4 and hemoglobin 9.1. December 23, 2019; glucose 352. December 21, 2019; potassium 3.9, BUN 50, and creatinine 9.83. ASSESSMENT AND PLAN: 1. Chronic pain. Consider increasing fentanyl patch to 25 mcg q.3 days. 2. End-stage renal disease, stable. We will continue current CCPD regimen. We are using only 1.5% PD solution to minimize ultrafiltration. She does complain of diffuse cramping, which could be related from the fluid removal. Please note, we only removed about 800 mL of ultrafiltration overnight with the current peritoneal dialysis. No changes to be made at the present time. 3. Anemia, continuing weekly Epogen. Overall agree with current management. Job ID: [id number]
[2019-12-23] MEDS: Calcitriol 0.25 MCG CAP PO SCH (10:08)
[2019-12-23] MEDS: NIFEdipine XL 30 MG TAB PO SCH (10:09)
[2019-12-23] MEDS: Pregabalin 75 MG CAP PO SCH ×2 (10:09→20:03)
[2019-12-23] MEDS: Levothyroxine Sodium 50 MCG TAB PO SCH (10:10)
[2019-12-23] MEDS: Carvedilol 6.25 MG TAB PO SCH ×2 (10:11→20:04)
[2019-12-23] MEDS: Heparin 5,000 UNITS/ML VIAL SC SCH ×3 (10:12→20:03)
[2019-12-23] MEDS: Metoclopramide HCl 10 MG TAB PO SCH ×2 (10:12→20:02)
[2019-12-23] MEDS: Insulin Glargine 10 UNITS in Pre-Filled Syringe 1 EACH SC SCH (10:13)
[2019-12-23] MEDS: Topiramate 25 MG TAB PO SCH (10:14)
[2019-12-23] MEDS: Sevelamer Carbonate 800 MG TAB PO SCH ×2 (10:54→17:08)
[2019-12-23 11:49] LABS: ALT (SGPT) 55 U/L (8-55); AST (SGOT) 34 U/L (5-34); Albumin 2.3 g/dL (3.5-5.0); Alkaline Phosphatase 163 U/L (40-110); Anion Gap 15 mmol/L (10-20); BUN (Urea Nitrogen) 46 mg/dL (7.0-18.7); Bilirubin, Total 0.2 mg/dL (0.2-1.2); Calc. Creatinine Clearance 7 mL/min (70-130); Calcium 8.2 mg/dL (7.8-10.44); Carbon Dioxide 18 mmol/L (22-29); Chloride 103 mmol/L (98-107); Estimated GFR-MDRD 4; Globulin 2.7 g/dL (2.4-3.5); Glucose 376 mg/dL (70-105); Potassium 4.4 mmol/L (3.5-5.1); Sodium 132 mmol/L (136-145)
[2019-12-23 11:52] LABS: Phosphorus 9.4 mg/dL (2.3-4.7)
[2019-12-23] MEDS ORDERED: traMADol HCl 50 MG TAB PO PRN (16:11)
[2019-12-23] MEDS: Atorvastatin Calcium 20 MG TAB PO SCH (20:03)
[2019-12-23] MEDS ORDERED: rOPINIRole HCl 0.25 MG TAB PO SCH (21:00)
[2019-12-23] MEDS: Melatonin 3 MG TAB PO PRN (22:21)
[2019-12-23] MEDS ORDERED: hydrOXYzine 25 MG TAB PO PRN (23:56)
--- NOTE | 2019-12-24 07:13 | PDOC.FM ---
- Subjective Subjective: Patient is resting in bed. She states that her pain is better this morning but it was bad overnight. She received hydroxyzine overnight. She states that she is feeling depressed and notes that she doesn't want to be here. - Objective MAR Reviewed: Yes Vital Signs & Weight: Vital Signs (12 hours) Temp Pulse Resp BP BP Pulse Ox 12/24/19 03:24 97.5 F L 66 18 180/77 H 98 12/24/19 00:00 99 12/23/19 23:35 97.4 F L 73 16 129/74 99 12/23/19 21:00 98.9 F 78 20 163/78 H 99 12/23/19 20:04 136/79 12/23/19 20:00 100 12/23/19 19:23 98.7 F Weight Weight 64.949 kg Most Recent Monitor Data Heart Rate from ECG 78 NIBP 136/79 NIBP BP-Mean 98 Respiration from ECG 11 SpO2 100 I&O: 12/23/19 12/24/19 12/25/19 06:59 06:59 06:59 Intake Total 720 890 Output Total 950 Balance -230 890 Result Diagrams: 12/23/19 03:52 12/23/19 10:53 Phys Exam - Physical Examination tearful HEENT: PERRLA, moist MMs Respiratory: clear to auscultation bilateral Cardiovascular: RRR Gastrointestinal: soft, non-tender Musculoskeletal: no edema Neurological: non-focal, moves all 4 limbs Psychiatric: A&O x 3 Skin: normal turgor Dx/Plan - Plan Plan: Plan: Patient is a 49 yo female who presents with AMS is on the medical floor for acute metabolic encephalopthy: Metabolic encephalopathy Likely Secondary to Hypoglycemia - Patient becomes encephalopathic each time sugars are in the 30s-50s - UDS pos for opiates so suspect some underlying opiate abuse contributing. - UCx <10,000 strep a - BCx no growth at 48 hours Hypoglycemia, improving Throughout hospital stay blood sugars have been intermittently dropping in the 40s-50s, appears to have stabilized sugars in the high 200s and 300s for the last 24 hours, last sugar 180s - restarted lantus 10u (1/3 of home dose) yesterday morning 12/22, will continue - continue to monitor POC accuchecks q4hr DM II At home patient is taking 30u of Toujeo daily and 2u regular insulin prior to meals, per clinic documentation. - as above, started lantus 10u 12/22 - hypoglycemia protocol ESRD on PD daily - peritoneal dialysis nightly - Dr. Vazquez Consulted, appreciate recs - phosphate (12/22) 9.4, discussed with Dr. Vazquez, will start Renvela. Repeat Phosphorus ordered. - CR downtrending, ordered CMP for today - will continue to monitor Paresthesias Bilateral LE - Hx of Lumbar Stenosis and LE neuropathy - leg pain/cramping throughout day - Home Lyrica dose increased. Home tramadol PRN - Fentanyl patches started 12/[address] Vazquez, increaesed by Dr. Vazquez yesterday 12/22 Depression - notes her pain makes her depressed, she is crying a lot, will check records for past rx for depression History of Falls - d/t lumbar stenosis vs hypoglycemia vs neuropathy - Reported fall (12/21) - deconditioned since admission to the hospital - gait unsteady per PT report and recommends either rehab vs outpatient PT services - would benefit from home health and assistance via shower bench and bedside commode due to the above L Knee Pain, improving Patient states left knee pain x 1 day after a fall where she hit her knee, reports she is still able to walk on it - TTP along L knee joint line, full ROM, strength intact - L Knee XR positive for degenerative changes, no fracture - on pain medications for leg cramping - improved today Transaminitis, resolved Initial AST/ALT 154/103; last , repeat CMP today Hepatitis B Ag neg, Hep C pending Likely d/t shock liver from inciting event HTN - Patient is taking her home medications of 12.5mg coreg bid and Nifedipine ER 30mg - Will continue to monitor Hypothyroid - continue home medication Gastroparesis - continue reglan Diet: Renal VTE: Heparin TID Code: Full PCP: [facility]JI, previously Dr. Rios Dispo: Stable on medicine, Monitoring her blood sugars. Possible d/c today or tomorrow depending on her BG control and pain. Addendum - Attending - Attending Attestation Date/Time: 12/24/19 0076 I personally evaluated the patient and discussed the management with Dr. Vazquez I agree with the History, Examination, Assessment and Plan documented above with any addition or exceptions noted below- Patient resting; states had pain through night. Afebrile VSS. A/P: 1) Hypoglycemia- resolved; continue current dose of insulin. 2) Chronic pain- currently on fentanyl patch 25mcg and ropinoprole started yesterday. Will check with renal regarding addition of duloxetine. Outpatient follow-up with behavioral clinic may be helpful. D/c home today.
[2019-12-24] MEDS: NIFEdipine XL 30 MG TAB PO SCH (08:55)
[2019-12-24] MEDS: Sevelamer Carbonate 800 MG TAB PO SCH ×2 (08:55→13:17)
[2019-12-24] MEDS: Calcitriol 0.25 MCG CAP PO SCH (08:56)
[2019-12-24] MEDS: Metoclopramide HCl 10 MG TAB PO SCH (08:57)
[2019-12-24] MEDS: Carvedilol 6.25 MG TAB PO SCH (08:57)
[2019-12-24] MEDS: Levothyroxine Sodium 50 MCG TAB PO SCH (08:58)
[2019-12-24] MEDS: Heparin 5,000 UNITS/ML VIAL SC SCH ×2 (08:58→14:38)
[2019-12-24] MEDS: Pregabalin 75 MG CAP PO SCH (08:58)
[2019-12-24] MEDS: hydrALAZINE 20 MG/ML VIAL SLOW IVP PRN (09:54)
[2019-12-24] MEDS: Topiramate 25 MG TAB PO SCH (10:01)
[2019-12-24] MEDS: Insulin Glargine 10 UNITS in Pre-Filled Syringe 1 EACH SC SCH (10:01)
--- NOTE | 2019-12-24 10:10 | PRG ---
DATE OF SERVICE: 12/24/2019 SERVICE: Renal Medicine. SUBJECTIVE: Ms. Marion is a 49-year-old female with ESRD and currently on peritoneal dialysis. She was somewhat teary-eyed today. She feels that some of the staff is not listening to her. Her pain has actually improved with increased dose of her fentanyl patch. The patient feels somewhat depressed. No complaints of chest pain or shortness of breath. OBJECTIVE: VITAL SIGNS: Blood pressure 181/83, heart rate 74, respiratory rate 16, temperature 97.5, O2 saturation 100%. GENERAL: Noted to be awake, teary eyed, sitting, not in distress. SKIN: Adequate turgor. HEENT: Slightly pale conjunctivae. Anicteric sclerae. NECK: No neck mass. No carotid bruits. No JVD. CHEST: No deformities. LUNGS: Clear breath sounds. HEART: Normal sinus rhythm. No murmurs. No gallops. No rubs. ABDOMEN: Globular, soft, nontender. No masses. Positive for PD catheter. EXTREMITIES: No edema. No deformities. MEDICATIONS: Medications of December 24, 2019, were reviewed. LABORATORY DATA: Laboratories of December 23, 2019, white count 9.4, hemoglobin 9.1. Sodium 132, potassium 4.4, chloride 103, carbon dioxide 18, BUN 46, creatinine 10.1, glucose 376, phosphorus is 9.4, calcium 8.2, AST 34, ALT 55. On December 24, 2019, glucose 185. ASSESSMENT AND PLAN: 1. End-stage renal disease, stable, tolerating current peritoneal dialysis. Remove 1.6 L of fluid with dialysis yesterday. Continue current CCPD regimen. 2. Chronic pain-actually improved, most likely from diabetic nephropathy, on a fentanyl patch. 3. Anemia. Continue weekly Epogen. Continue supportive care. Job ID: [id number]
[2019-12-24 11:42] VITALS: BP 157/90; TEMP 97.3
== END 2019-12-24 14:04 | disposition home or self-care (01) | DRG 917 ==
LOC: ERS 12:26 → IMCU/EMU 13:58 → SURG A 12-20 23:36 → IMCU/EMU 12-21 21:29 → SURG A 12-23 20:53
PROVIDERS: ADMIT Family Medicine; ATTEND Family Medicine
PROC: 3E1M39Z Irrigation of Peritoneal Cavity using Dialysate, Percutaneous Approach (ICD-10-PCS; principal; 2019-12-21)
DX: T40.4X1A Poisoning by other synthetic narcotics, accidental (unintentional), initial encounter (principal); N18.6 End stage renal disease; G93.41 Metabolic encephalopathy; K72.00 Acute and subacute hepatic failure without coma; I12.0 Hypertensive chronic kidney disease with stage 5 chronic kidney disease or end stage renal disease; E87.2 Acidosis; N39.0 Urinary tract infection, site not specified; E11.649 Type 2 diabetes mellitus with hypoglycemia without coma; E11.22 Type 2 diabetes mellitus with diabetic chronic kidney disease; M19.90 Unspecified osteoarthritis, unspecified site; E78.5 Hyperlipidemia, unspecified; E03.9 Hypothyroidism, unspecified; F41.9 Anxiety disorder, unspecified; F32.9 Major depressive disorder, single episode, unspecified; E11.43 Type 2 diabetes mellitus with diabetic autonomic (poly)neuropathy; K31.84 Gastroparesis; E87.6 Hypokalemia; G89.29 Other chronic pain; R79.89 Other specified abnormal findings of blood chemistry; T68.XXXA Hypothermia, initial encounter; R01.1 Cardiac murmur, unspecified; M25.562 Pain in left knee; I73.9 Peripheral vascular disease, unspecified; R20.2 Paresthesia of skin; Z88.8 Allergy status to other drugs, medicaments and biological substances; Z99.2 Dependence on renal dialysis; Z98.51 Tubal ligation status; Z90.49 Acquired absence of other specified parts of digestive tract; Z79.4 Long term (current) use of insulin; Z91.81 History of falling
CPT/HCPCS: 36415; 36416; 36556; 51701; 70450; 71045; 71275; 80053; 80202; 80306; 80307; 81003; 81015; 82140; 82550; 82553; 82607; 82805; 83036; 83605; 83690; 83735; 83880; 84100; 84443; 84484; 85025; 85379; 86706; 86780; 87040; 87077; 87086; 87340; 87389; 87521; 90945; 93005; 93306; 96361; 96365; 96368; 96372; 96375; 99292; G0257; J0360; J0692; J1644; J1815; J2270; J2354; J2405; J3370; J3490; Q0163; Q5105; Q9967

== ENCOUNTER 2019-12-31 01:57 | Emergency (ER) | payer OTHER ==
[2019-12-31 03:02] LABS: Anion Gap 20 mmol/L (10-20); BUN (Urea Nitrogen) 56 mg/dL (7.0-18.7); Calc. Creatinine Clearance 0 mL/min (70-130); Calcium 8.5 mg/dL (7.8-10.44); Carbon Dioxide 20 mmol/L (22-29); Chloride 103 mmol/L (98-107); Estimated GFR-MDRD 4; Glucose 229 mg/dL (70-105); Potassium 4.2 mmol/L (3.5-5.1); Sodium 139 mmol/L (136-145)
[2019-12-31] MEDS ORDERED: Lorazepam 1 MG TAB ONE (03:07)
== END 2019-12-31 03:20 | disposition home or self-care (01) ==
LOC: ERS 01:57
DX: M79.662 Pain in left lower leg (principal); M79.661 Pain in right lower leg; M79.672 Pain in left foot; M79.671 Pain in right foot; M79.675 Pain in left toe(s); M79.674 Pain in right toe(s); R21 Rash and other nonspecific skin eruption; R60.0 Localized edema; L98.9 Disorder of the skin and subcutaneous tissue, unspecified; E11.9 Type 2 diabetes mellitus without complications; I10 Essential (primary) hypertension; E78.00 Pure hypercholesterolemia, unspecified; E03.9 Hypothyroidism, unspecified; M19.90 Unspecified osteoarthritis, unspecified site; F41.9 Anxiety disorder, unspecified; F32.9 Major depressive disorder, single episode, unspecified; Z79.4 Long term (current) use of insulin; Z79.899 Other long term (current) drug therapy; Z99.2 Dependence on renal dialysis
CPT/HCPCS: 36415; 80048; 99283

== ENCOUNTER 2020-01-14 13:38 | Emergency (ER) | payer OTHER | END 2020-01-14 15:29 | disposition home or self-care (01) | LOC: ERS 13:38 | DX: E11.649 Type 2 diabetes mellitus with hypoglycemia without coma (principal); F41.9 Anxiety disorder, unspecified; F32.9 Major depressive disorder, single episode, unspecified; M19.90 Unspecified osteoarthritis, unspecified site; I10 Essential (primary) hypertension; E03.9 Hypothyroidism, unspecified; E78.00 Pure hypercholesterolemia, unspecified | CPT/HCPCS: 36416; 99281 ==

== ENCOUNTER 2020-02-21 16:58 | Emergency (ER) | payer OTHER ==
[2020-02-21 17:47] LABS: #Eosinphils 0.1 thou/uL (0.0-0.7); #Lymphocytes 0.7 thou/uL (1.20-3.40); #Monocytes 0.1 thou/uL (0.11-0.59); #Neutrophils 7.2 thou/uL (1.40-6.50); %Basophils 0.4 % (0.0-1.0); %Eosinophils 0.8 % (0.0-10.0); %Lymphocytes 8.9 % (21.0-51.0); %Monocytes 1.2 % (0.0-10.0); %Neutrophils 88.8 % (42.0-75.0); Hemoglobin 9.3 g/dL (12.0-16.0); Mean Corpuscular HGB CONC 31.6 g/dL (32.0-36.0); Mean Corpuscular Hemoglobin 28.9 pg (27.0-31.0); Mean Corpuscular Volume 91.6 fL (78.0-98.0); Mean Platelet Volume 8.5 fL (7.4-10.4); Platelet Count 232 thou/uL (130-400); RBC Distribution Width 13.3 % (11.5-14.5); Red Blood Cell (RBC) Count 3.21 mill/uL (4.20-5.40); White Blood Cell (WBC) Count 8.1 thou/uL (4.8-10.8)
[2020-02-21 18:11] LABS: ALT (SGPT) 25 U/L (8-55); AST (SGOT) 22 U/L (5-34); Albumin 3.2 g/dL (3.5-5.0); Alkaline Phosphatase 220 U/L (40-110); Anion Gap 24 mmol/L (10-20); BUN (Urea Nitrogen) 97 mg/dL (7.0-18.7); Bilirubin, Total 0.4 mg/dL (0.2-1.2); Calc. Creatinine Clearance 0 mL/min (70-130); Calcium 8.2 mg/dL (7.8-10.44); Carbon Dioxide 17 mmol/L (22-29); Chloride 100 mmol/L (98-107); Estimated GFR-MDRD 4; Globulin 3.2 g/dL (2.4-3.5); Glucose 257 mg/dL (70-105); Potassium 6.5 mmol/L (3.5-5.1); Protein, Total 6.4 g/dL (6.0-8.3); Sodium 134 mmol/L (136-145)
== END 2020-02-21 18:15 | disposition left against medical advice (07) ==
LOC: ERS 16:58
DX: R53.1 Weakness (principal); I10 Essential (primary) hypertension; E03.9 Hypothyroidism, unspecified; E11.9 Type 2 diabetes mellitus without complications; E78.00 Pure hypercholesterolemia, unspecified; F41.9 Anxiety disorder, unspecified; F32.9 Major depressive disorder, single episode, unspecified
CPT/HCPCS: 36415; 80053; 85025; 93005

== ENCOUNTER 2020-02-22 16:18 | Inpatient (IN) | payer OTHER ==
[2020-02-22 16:56] LABS: #Eosinphils 0.5 thou/uL (0.0-0.7); #Neutrophils 6.4 thou/uL (1.40-6.50); %Basophils 0.3 % (0.0-1.0); %Eosinophils 4.3 % (0.0-10.0); %Lymphocytes 27.7 % (21.0-51.0); %Monocytes 9.2 % (0.0-10.0); %Neutrophils 58.6 % (42.0-75.0); Hemoglobin 8.6 g/dL (12.0-16.0); Mean Corpuscular HGB CONC 32.6 g/dL (32.0-36.0); Mean Platelet Volume 8.9 fL (7.4-10.4); Platelet Count 221 thou/uL (130-400); RBC Distribution Width 13.2 % (11.5-14.5); Red Blood Cell (RBC) Count 2.86 mill/uL (4.20-5.40); White Blood Cell (WBC) Count 10.8 thou/uL (4.8-10.8)
--- NOTE | 2020-02-22 16:57 | RAD ---
Chest one view HISTORY: Dyspnea. COMPARISON: 12/19/2019. FINDINGS: Cardiac silhouette is magnified by projection. Pulmonary vasculature is unremarkable. Mediastinum is midline. No lobar consolidation or evidence of pneumothorax. IMPRESSION : No abnormalities are demonstrated.
[2020-02-22 17:14] LABS: Base Excess-Venous -7.1 mmol/L (-2.0 to 3.0); Bicarbonate (HCO3v) 18.1 mmol/L (22.0-28.0); CO2 Tension (PvCO2) 34.2 mmHg (40.0-50.0); Calcium, Ionized 0.89 mmol/L (See Comments:); Chloride 105 mmol/L (98-107); Hemoglobin - Calc 8.7 g/dL (12.0-16.0); Potassium 5.6 mmol/L (3.5-5.1); Sodium 129 mmol/L (138-145); T. Carbon Dioxide 19.1 mmol/L (22.0-28.0); vO2 Saturation-calc 98.3 % (60.0-85.0)
[2020-02-22 17:22] LABS: ALT (SGPT) 27 U/L (8-55); AST (SGOT) 23 U/L (5-34); Albumin 3.3 g/dL (3.5-5.0); Alkaline Phosphatase 229 U/L (40-110); Anion Gap 26 mmol/L (10-20); BUN (Urea Nitrogen) 120 mg/dL (7.0-18.7); Bilirubin, Total 0.4 mg/dL (0.2-1.2); Calc. Creatinine Clearance 0 mL/min (70-130); Calcium 8.4 mg/dL (7.8-10.44); Carbon Dioxide 16 mmol/L (22-29); Chloride 98 mmol/L (98-107); Estimated GFR-MDRD 3; Glucose 288 mg/dL (70-105); Potassium 5.9 mmol/L (3.5-5.1); Protein, Total 6.3 g/dL (6.0-8.3); Sodium 134 mmol/L (136-145)
[2020-02-22 17:43] LABS: CKMB 7.4 ng/mL (0-6.6)
[2020-02-22] MEDS ORDERED: Calcium Gluc 4.6 MEQ/10 ML (100 MG/ML) ONE (17:45)
[2020-02-22] MEDS ORDERED: Aspirin Chewable 81 MG TAB ONE ×2 (18:17→18:20)
--- NOTE | 2020-02-22 18:19 | PDOC.FPRHP ---
- History of Present Illness Chief Complaint: sent by doctor due to high K History of Present Illness: This is a 49yo F with PMH of multiple comorbidities including ESRD on PD who comes to the ER after getting labs done at clinic that showed a K of 6.4. She did not do her PD last night. Yesterday in clinic she was found to have elevated BP, up to Ps 200 and abdominal distention with weight gain of 25 pounds in 2 weeks. She was sent to the ED from clinic, but patient left AMA from ED. PCP spoke with patient today and advised her to come back to ED. In speaking with patient today in ED, she was very lethargic and not participating well in discussion. She was oriented to person, place and time, but kept falling asleep during interview. 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 Patient is currently on peritoneal dialysis but has been recommended to start HD , currently she is refusing. She is not performing her PD correctly at home which is leading to her increase K and abdominal distention. ED Course: 2g IV calcium gluconate, 324 ASA Labs: Trop 0.045, CKMB 7.4 BNP 915.6 Na 134, K 5.9 BUN/120/Cr 12.29 CXR nml hgb 8.6 - Allergies/Adverse Reactions Allergies Allergy/AdvReac Type Severity Reaction Status Date / Time gabapentin Allergy Severe Anaphylaxis Verified 02/22/20 23:32 - Home Medications Medication Instructions Recorded Confirmed Type Topiramate 50 mg PO DAILY 05/29/18 12/20/19 History traMADol HCl [Tramadol HCl] 50 mg PO TID PRN 05/29/18 12/20/19 History Levothyroxine Sodium 50 mcg PO DAILY #30 tablet 05/30/18 02/22/20 Rx Carvedilol 12.5 mg PO BID 11/19/18 02/22/20 History Atorvastatin Calcium 20 mg PO QPM 05/16/19 02/22/20 History Metoclopramide [Reglan Oral 5 mg PO ACHS #60 udcup 05/18/19 12/20/19 Rx Solution] Mirabegron [Myrbetriq] 50 mg PO DAILY 09/13/19 02/22/20 History Pantoprazole Sodium 20 mg PO DAILY 09/13/19 12/20/19 History Epoetin Siddhartha-Epbx [Retacrit] 7,500 unit SC Q7D vial 09/14/19 12/20/19 Rx DULoxetine [Cymbalta] 30 mg PO DAILY #30 cap 12/24/19 Rx Insulin Glargine,Hum.Rec.Anlog 10 unit SQ QAM #1 insuln.pen 12/24/19 Rx [Toujeo Solostar] Sevelamer Carbonate [Renvela] 800 mg PO TID-WM #90 tab 12/24/19 Rx fentaNYL [Duragesic] 25 mcg TD Q3D #0 patch 12/24/19 Rx rOPINIRole HCl [Requip] 0.25 mg PO QPM #30 tab 12/24/19 02/22/20 Rx Calcitriol 1 cap PO DAILY 02/22/20 02/22/20 History HYDROcodone Bit/APAP 10/325 [[place] 0.5 tab PO Q6HR PRN 02/22/20 02/22/20 History 10/325] NIFEdipine [Nifedipine ER] 60 mg PO HS 02/22/20 02/22/20 History Ondansetron [Zofran ODT] 4 mg PO BID PRN 02/22/20 02/22/20 History Pregabalin [Lyrica] 50 mg PO HS 02/22/20 02/22/20 History hydrOXYzine HCl 10 mg PO Q6H PRN 02/22/20 02/22/20 History - History PMHx: DM2, ESRD on PD, peripheral neuropathy, depression, hx of falls, HTN, hypothyroidism, arthritis, restless leg PSHx: tubal ligation, carpal tunnel release, cholecystectomy, AV fistula left arm FHx: parents with Dm and HTN, grandmother with pancreatic cancer Social: denies tobacco, alcohol, or illicit drug use - Review of Systems General: denies: fever/chills Eyes: denies: eye pain Respiratory: denies: cough, shortness of breath Cardiovascular: denies: chest pain, palpitation Gastrointestinal: denies: nausea, vomiting, diarrhea Skin: denies: rashes Musculoskeletal: denies: pain, tenderness - Vital signs BP: 156/86, Pulse: 74, Resp: 12, O2 sat: 98 on (Room Air), Time: 02/22/2020 18: 15. Weight 74kg - Physical Exam -Constitutional: lethargic, sleeping throughout exam, AO x3 HEENT: normocephalic and atraumatic, grossly normal vision, grossly normal hearing Neck: FROM, trachea midline Chest: no-tender to palpation Heart: RRR, normal S1/S2, pulses present -Heart: 2/6 systolic murmur best heard at left sternal border, 1+ pretibial pitting edema bilat Lungs: CTAB, no respiratory distress Abdomen: soft, non-tender -Abdomen: mild distention Musculoskeletal: normal structure, normal tone Neurological: no focal deficit, normal sensation Skin: no rash/lesions FMR H&P: Results - Labs Result Diagrams: 02/23/20 04:01 02/23/20 04:01 Lab results: WBC 10.8 thou/uL (4.8-10.8) 02/22/20 16:44 Hgb 8.6 g/dL (12.0-16.0) L 02/22/20 16:44 Hct 26.3 % (36.0-47.0) L 02/22/20 16:44 MCV 92.0 fL (78.0-98.0) 02/22/20 16:44 Plt Count 221 thou/uL (130-400) 02/22/20 16:44 Neutrophils % 58.6 % (42.0-75.0) 02/22/20 16:44 VBG pCO2 34.2 mmHg (40.0-50.0) L 02/22/20 17:15 VBG pO2 116.1 mmHg (35.0-45.0) H 02/22/20 17:15 Sodium 134 mmol/L (136-145) L 02/22/20 16:44 Potassium 5.9 mmol/L (3.5-5.1) H 02/22/20 16:44 Chloride 98 mmol/L (98-107) 02/22/20 16:44 Carbon Dioxide 16 mmol/L (22-29) L 02/22/20 16:44 BUN 120 mg/dL (7.0-18.7) H 02/22/20 16:44 Creatinine 12.29 mg/dL (0.6-1.1) H 02/22/20 16:44 Glucose 288 mg/dL (70-105) H 02/22/20 16:44 Calcium 8.4 mg/dL (7.8-10.44) 02/22/20 16:44 Total Bilirubin 0.4 mg/dL (0.2-1.2) 02/22/20 16:44 AST 23 U/L (5-34) 02/22/20 16:44 ALT 27 U/L (8-55) 02/22/20 16:44 Alkaline Phosphatase 229 U/L (40-110) H 02/22/20 16:44 CK-MB (CK-2) 7.4 ng/mL (0-6.6) H* 02/22/20 16:44 B-Natriuretic Peptide 915.6 pg/mL (0-100) H 02/22/20 16:44 Serum Total Protein 6.3 g/dL (6.0-8.3) 02/22/20 16:44 Albumin 3.3 g/dL (3.5-5.0) L 02/22/20 16:44 - EKG Interpretation EKG: no peaked T waves, sinus rhythm FMR H&P: A/P - Plan #Encephalopathy 2/2 Uremia vs Pain medication - BUN/Cr 120/12.9, K 5.9 - current pain regimen: fentanyl patch 25mcg q72h, norco 10/325 1/2 tab q6h, lyrica 25mg daily. 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 crop farmworker: HD tonight, patient has fistula in left arm, recommends pt transition from PD to HD and he will speak with daughter - 10u insulin now, SSI - pending CT brain - admit tele, appreciate nephro recs #hyperkalemia - likely due to improper peritoneal dialysis at home - ekg stable - Dr Vazquez plans to do HD - given Ca gluconate in ED - 10 units insulin given - will continue to monitor #Elevated Trop - Trop 0.045, this appears to be stable from previous admissions, will trend - denies CP, SOB #elevated BNP - likely due to ESRD - echo in November showed normal EF with no diastolic dysfunction - will monitor #Anemia - likely due to ESRD - will monitor #DM w/ peripheral neuropathy - poorly controlled at home - will hold lyrica due to AMS - SSI, glucose checks ACHS #HTN - continue home meds - will monitor #ESRD on PD - consulted Dr. Vazquez who plans to do HD #Hypothyroidism - TSH 1.95 - continue home meds #Restless leg - continue home med: ropinirole #constipation - continue home meds Diet: renal Ppx: heparin Code: Full PCP: Ella Glass Dispo: admit to tele, obs Case discussed with Dr. Carnes and Dr Ella Chester FMR H&P: Upper Level - Plan Date/Time: 02/22/201814 I, Jennifer Chester MD, have evaluated this patient and agree with findings/plan as outlined by internal security manager resident. Pertinent changes/additions are listed here. This is a 49yo F with PMH of ESRD on PD who presents to the ER today after labs at clinic showed elevated K. She came to the ER yesterday but left AMA. She saw Dr Glass in clinic yesterday - please see her note for full details/HPI. In the ER the patient was lethargic but arousable. She did not have any acute concerns or complaints. Denied chest pain, SOB. Endorses swelling of her abdomen. Stated she had not done her PD at night and has missed this several times. PE: General: NAD, resting, lethargic HEENT: NCAT, neck supple, free ROM, trachea midline Cards: RRR with occasional VPC Resp: CTAB Abd: mildly distended, non TTP, normal BS MSK: palpable thrill of fistula in L arm, 1+ edema b/l LE Psych: axox3, slow to arouse, wouldn't open eyes when responding Plan: Metabolic Encephalopay 2/2 Uremia and missed PD BUN/Cr 120/12.9. K 5.9. s/p calcium gluconate in the ER. No T wave elevations on EKG. - Dr. Vazquez (nephrology) consulted; Patient to get HD tonight. Patient likely needs to be transitioned from PD to HD due to inability to properly do PD at home. - Monitor K. Will give 10u insulin now. Monitor on tele due to K. - Will hold nephrotoxic medications. Discontinue pain meds and lyrica due to altered state. - CT brain pending to r/o other etiology Elevated Trop Trop 0.049, CKMB 7.4. No acute chest pain. - Will trend Anemia likely 2/2 CKD. Hgb 8.6. - will trend labs Will continue meds for other chronic conditions. Dispo: admit to tele, obs Diet: CC Ppx: heparin Code: Full PCP: Ella Glass Case discussed with Dr. Carnes Addendum - Attending - Attending Attestation Date/Time: 02/23/20 2285 I personally evaluated the patient and discussed the management with Dr. Glass I agree with the History, Examination, Assessment and Plan documented above with any addition or exceptions noted below -49yo F with PMH of ESRD on PD who presents to the ER today after labs at clinic showed elevated K. She came to the ER yesterday but left AMA. In the ER the patient was sleepy but arousable. She did not have any acute concerns or complaints. Denied chest pain, SOB. Endorses swelling of her abdomen. Stated she had not done her PD at night and has missed this several times. PMH/PSH/Meds/SH reviewed and agree with resident' s documentation. Afebrile VSS. Exam repeated by me and agree with resident's findings. Labs: H/H=8.6/26.3, Ixg=223, Au=482, K=5.9, Cl=98, CO2=16, BUN/Fz=438/ 12.29, Hemv=984, trop=0.043, BCN=029.6, TSH=1.9553 A/P: 1) Hyperkalemia- Place in obs. Nephro contacted and will assist with dialysis. 2) HTN- pcontinue home meds and monitor closely. 3) Chronic pain - continue current meds, 4) DM- continue home meds.
[2020-02-22] MEDS ORDERED: Ondansetron PF 4 MG/2 ML Vial IVP PRN (18:39)
[2020-02-22] MEDS ORDERED: Ondansetron ODT 4 MG TAB PO PRN (18:39)
[2020-02-22] MEDS ORDERED: Acetaminophen 650 MG Suppository PR PRN (18:39)
[2020-02-22] MEDS ORDERED: Senokot S 8.6-50 MG TAB PO PRN (18:39)
[2020-02-22] MEDS ORDERED: Dextrose 5% in Water 1,000 ML IV PRN (18:48)
[2020-02-22] MEDS ORDERED: HumaLOG 300 UNITS/3 ML VIAL SC PRN ×2 (18:48→19:32)
[2020-02-22] MEDS ORDERED: Dextrose 50% Abboject 50 ML SYRINGE SLOW IVP PRN (18:48)
--- NOTE | 2020-02-22 19:23 | CT ---
Exam: Head CT without contrast HISTORY: Altered mental status. Unresponsive patient. COMPARISON: 12/19/2019 FINDINGS: Hemorrhage: No intraparenchymal hemorrhage or extra-axial hematoma. Brain parenchyma: Cortical parra-white matter differentiation is preserved. No mass effect or midline shift. Basilar cisterns are patent. Ventricular system: Ventricles and sulci are patent and symmetric. Calvarium: Intact. Sinuses and mastoid air cells: Adequate aeration. IMPRESSION: No acute intracranial process.
[2020-02-22 20:41] VITALS: BMI 40.1
[2020-02-22] MEDS ORDERED: Insulin Regular 300 UNITS/3 ML VIAL SC SCH (20:45)
[2020-02-22 20:52] LABS: CKMB 7.5 ng/mL (0-6.6)
[2020-02-22] MEDS: Heparin 5,000 UNITS/ML VIAL SC SCH (21:20)
[2020-02-23] MEDS: Acetaminophen 325 MG TAB PO PRN ×2 (04:31→20:52)
[2020-02-23] MEDS: Levothyroxine Sodium 50 MCG TAB PO SCH (04:32)
[2020-02-23 04:56] LABS: #Basophils 0.1 thou/uL (0.0-0.2); #Eosinphils 1.1 thou/uL (0.0-0.7); #Lymphocytes 3.9 thou/uL (1.20-3.40); #Monocytes 1.2 thou/uL (0.11-0.59); %Basophils 0.8 % (0.0-1.0); %Eosinophils 8.3 % (0.0-10.0); %Lymphocytes 29.3 % (21.0-51.0); %Monocytes 8.8 % (0.0-10.0); %Neutrophils 52.7 % (42.0-75.0); Hemoglobin 9.2 g/dL (12.0-16.0); Mean Corpuscular HGB CONC 31.9 g/dL (32.0-36.0); Mean Corpuscular Hemoglobin 29.6 pg (27.0-31.0); Mean Corpuscular Volume 92.8 fL (78.0-98.0); Mean Platelet Volume 8.7 fL (7.4-10.4); Platelet Count 265 thou/uL (130-400); RBC Distribution Width 13.3 % (11.5-14.5); White Blood Cell (WBC) Count 13.3 thou/uL (4.8-10.8)
[2020-02-23 05:10] LABS: ALT (SGPT) 25 U/L (8-55); AST (SGOT) 21 U/L (5-34); Albumin 3.4 g/dL (3.5-5.0); Alkaline Phosphatase 170 U/L (40-110); Anion Gap 25 mmol/L (10-20); BUN (Urea Nitrogen) 116 mg/dL (7.0-18.7); Bilirubin, Total 0.4 mg/dL (0.2-1.2); Calc. Creatinine Clearance 8 mL/min (70-130); Calcium 9.1 mg/dL (7.8-10.44); Carbon Dioxide 18 mmol/L (22-29); Chloride 99 mmol/L (98-107); Estimated GFR-MDRD 3; Globulin 3.4 g/dL (2.4-3.5); Potassium 5.5 mmol/L (3.5-5.1); Protein, Total 6.8 g/dL (6.0-8.3); Sodium 136 mmol/L (136-145)
[2020-02-23 05:22] LABS: Glucose 44 mg/dL (70-105)
--- NOTE | 2020-02-23 05:29 | PDOC.FM ---
- Subjective Subjective: Patient sleeping and receiving PD. Briefly awakened to deny any new pain or complaints. - Objective MAR Reviewed: Yes Vital Signs & Weight: Vital Signs (12 hours) Temp Pulse Resp BP Pulse Ox 02/23/20 03:40 97.5 F L 67 18 171/76 H 96 02/22/20 23:05 97.7 F 67 15 142/83 H 99 02/22/20 20:25 97.9 F 72 14 132/72 95 Weight Weight 84.187 kg Result Diagrams: 02/23/20 04:01 02/23/20 04:01 Additional Labs: CT Brain - neg for intracranial process Phys Exam - Physical Examination Constitutional: NAD HEENT: PERRLA, moist MMs Respiratory: no wheezing, clear to auscultation bilateral Cardiovascular: RRR 2/6 WILLIE Gastrointestinal: soft, non-tender, positive bowel sounds 1+ pitting edema b/l Neurological: non-focal Patient very sleepy during exam, oriented to person, place, time would only wake up and speak a few words before returning to sleep Skin: no rash Dx/Plan - Plan Plan: #Encephalopathy 2/2 Uremia vs Pain medication CT brain neg - BUN/Cr 120/12.9, K 5.9 - current pain regimen: fentanyl patch 25mcg q72h, norco 10/325 1/2 tab q6h, lyrica 25mg daily - discontinued per George recs - consulted Dr Vazquez, her supervisor rework: HD tonight, patient has fistula in left arm, recommends pt transition from PD to HD and he will speak with daughter - Getting PD this morning - appreciate nephro recs #Hyperkalemia - likely due to improper peritoneal dialysis at home - ekg stable - Dr Vazquez plans to transition to HD - given Ca gluconate in ED - 10 units insulin given - will continue to monitor #Elevated Trop - Trop 0.045, this appears to be stable from previous admissions, will trend - denies CP, SOB #elevated BNP - likely due to ESRD - echo in November showed normal EF with no diastolic dysfunction - will monitor #Anemia - likely due to ESRD - will monitor #DM w/ peripheral neuropathy - poorly controlled at home - will hold lyrica due to AMS - SSI, glucose checks ACHS #HTN - continue home meds - will monitor #ESRD on PD CKMB 7.4, 7.5 - CK ordered - consulted Dr. Vazquez who plans to do HD - strict I/Os, daily weights #Hypothyroidism - TSH 1.95 - continue home meds #Restless leg - continue home med: ropinirole #constipation - continue home meds Diet: renal Ppx: heparin Code: Full PCP: Ella Glass Dispo: admit to tele, obs Addendum - Attending - Attending Attestation Date/Time: 02/23/20 [id number] I personally evaluated the patient and discussed the management with Dr. Vazquez. I agree with the History, Examination, Assessment and Plan documented above with any addition or exceptions noted below. Patient here with abnormal labs due to noncompliance with PD. Nephro has been consulted and she will be on prolonged PD sessions. Monitor labs, continue home meds.
[2020-02-23] MEDS: Heparin 5,000 UNITS/ML VIAL SC SCH ×3 (08:36→20:53)
[2020-02-23] MEDS: Carvedilol 6.25 MG TAB PO SCH ×2 (08:37→18:02)
[2020-02-23] MEDS ORDERED: Calcitriol 0.25 MCG CAP PO SCH (09:00)
[2020-02-23] MEDS ORDERED: NIFEdipine XL 60 MG TAB PO SCH (09:00)
[2020-02-23] MEDS ORDERED: Prevnar 13-Val Conj/PF 0.5 ML SYRINGE IM ONE (09:00)
[2020-02-23] MEDS ORDERED: Epoetin (ESRD) 20,000 UNITS/ML SC SCH (09:15)
[2020-02-23] MEDS ORDERED: EPOETIN ALFA-EPBX (ESRD) 4,000 UNIT/ML VIAL SC SCH ×2 (09:15→10:00)
--- NOTE | 2020-02-23 09:41 | PRG ---
DATE OF SERVICE: SUBJECTIVE: Ms. Marion is a 49-year-old female with ESRD and was admitted due to high potassium. Recheck of the potassium showed it is much improved. She also has not been compliant with her peritoneal dialysis. I had a long discussion with the patient about the peritoneal dialysis. She said she plans converting to hemodialysis. Her potassium is much better. In addition, her mentation was decreased yesterday. I felt that this was secondary to her pain medications. This pain medication has currently been adjusted. We are following her up for her management over ESRD. She underwent peritoneal dialysis last night without any difficulty. We did use 4.25% PD solution to enhance ultrafiltration. OBJECTIVE: VITAL SIGNS: Blood pressure is 162/74, heart rate 68, respiratory rate 20, temperature 97.6, O2 saturation 96%. GENERAL: The patient is awake, alert, comfortable, not in distress. SKIN: Adequate turgor. HEENT: Slightly pale conjunctivae. Anicteric sclerae. NECK: No neck mass. No carotid bruits. No JVD. CHEST: No deformities. LUNGS: Clear breath sounds. No wheezing. No crackles. HEART: Normal sinus rhythm. No murmurs. No gallops. No rubs. ABDOMEN: Globular, soft, nontender. No masses. Positive for PD catheter. EXTREMITIES: Trace edema. MEDICATIONS: Medications of February 23, 2020, was reviewed. LABORATORY DATA: Laboratories of February 23, 2020; white count 13.3, hemoglobin 9.2. Sodium 136, potassium 5.5, chloride 99, carbon dioxide 18, BUN 116, creatinine 11.97, glucose 120, calcium 9.1, AST 21, ALT 25. Troponin I 0.043. Albumin 3.4. Chest x-ray, no CHF. ASSESSMENT AND PLAN: 1. Decreased mentation-most likely related to the pain medications. This has been adjusted or placed on hold temporarily. 2. End-stage renal disease. The patient is undergoing peritoneal dialysis for a total of 9 hours using 4.25% PD solution to enhance fluid removal. 3. Hyperkalemia, much improved. Potassium is 5.5, which is acceptable. 4. Anemia. We will start Epogen 7500 units subcu q.week. Consider converting patient to hemodialysis. She has a left AV fistula which is functional. Job ID: [id number] [facility]
[2020-02-23 12:56] LABS: SARS-CoV-2 MS2 Positive; SARS-CoV-2 N Gene Negative; SARS-CoV-2 S Gene Negative; SARS-CoV-2 by NAA Not Detected (NotDetected); SARS-CoV-2 orf1ab Negative
[2020-02-23] MEDS ORDERED: rOPINIRole HCl 0.25 MG TAB PO SCH (19:00)
[2020-02-23] MEDS ORDERED: Atorvastatin Calcium 20 MG TAB PO SCH (21:00)
[2020-02-23] MEDS ORDERED: Bacitracin 1 PK TOP SCH (21:00)
[2020-02-23] MEDS ORDERED: HYDROcodone/Acetaminophen 5/325 mg Tablet PO SCH (22:45)
[2020-02-24] MEDS ORDERED: hydrOXYzine 10 MG TAB PO PRN (02:03)
[2020-02-24] MEDS ORDERED: Pregabalin 50 MG CAP PO SCH ×2 (02:30→21:00)
[2020-02-24 04:57] LABS: #Basophils 0.1 thou/uL (0.0-0.2); #Eosinphils 1.1 thou/uL (0.0-0.7); #Monocytes 1.2 thou/uL (0.11-0.59); #Neutrophils 6.8 thou/uL (1.40-6.50); %Basophils 0.6 % (0.0-1.0); %Eosinophils 9.6 % (0.0-10.0); %Lymphocytes 17.9 % (21.0-51.0); %Monocytes 10.5 % (0.0-10.0); %Neutrophils 61.4 % (42.0-75.0); Hemoglobin 8.6 g/dL (12.0-16.0); Mean Corpuscular HGB CONC 32.1 g/dL (32.0-36.0); Mean Corpuscular Volume 93.4 fL (78.0-98.0); Mean Platelet Volume 8.5 fL (7.4-10.4); Platelet Count 200 thou/uL (130-400); RBC Distribution Width 13.2 % (11.5-14.5); Red Blood Cell (RBC) Count 2.86 mill/uL (4.20-5.40); White Blood Cell (WBC) Count 11.1 thou/uL (4.8-10.8)
[2020-02-24 05:21] LABS: ALT (SGPT) 24 U/L (8-55); AST (SGOT) 24 U/L (5-34); Albumin 2.7 g/dL (3.5-5.0); Alkaline Phosphatase 156 U/L (40-110); Anion Gap 24 mmol/L (10-20); BUN (Urea Nitrogen) 118 mg/dL (7.0-18.7); Bilirubin, Total 0.4 mg/dL (0.2-1.2); Calc. Creatinine Clearance 7 mL/min (70-130); Calcium 8.2 mg/dL (7.8-10.44); Carbon Dioxide 17 mmol/L (22-29); Chloride 100 mmol/L (98-107); Estimated GFR-MDRD 3; Globulin 2.5 g/dL (2.4-3.5); Glucose 133 mg/dL (70-105); Potassium 5.6 mmol/L (3.5-5.1); Protein, Total 5.2 g/dL (6.0-8.3); Sodium 135 mmol/L (136-145)
--- NOTE | 2020-02-24 05:27 | PDOC.FM ---
- Subjective Subjective: Patient is resting in bed. Reports she had pain in her legs overnight. Notes she got PD overnight. Denies chest pain, shortness of breath. Is threatening to leave the hospital. Advised her that Dr. Vazquez will be by this by this morning, and that is unsafe for her to leave. Told her we can discuss her pain medications with Dr. Vazquez and what he advises for us to continue. - Objective MAR Reviewed: Yes Vital Signs & Weight: Vital Signs (12 hours) Temp Pulse Resp BP Pulse Ox 02/23/20 23:21 97.6 F 74 18 137/64 97 02/23/20 20:38 96 02/23/20 20:16 97.6 F 74 18 136/63 96 Weight Weight 84.907 kg I&O: 02/22/20 02/23/20 02/24/20 06:59 06:59 06:59 Intake Total 480 Output Total 3000 Balance -2520 Result Diagrams: 02/24/20 04:33 02/24/20 04:33 Phys Exam - Physical Examination Constitutional: NAD HEENT: PERRLA, moist MMs Respiratory: no wheezing, clear to auscultation bilateral Cardiovascular: RRR, no significant murmur Gastrointestinal: soft, non-tender, positive bowel sounds 2+ pitting edema bilaterally Neurological: non-focal, normal sensation, moves all 4 limbs Psychiatric: normal affect, A&O x 3 Skin: no rash Dx/Plan - Plan Plan: #Encephalopathy 2/2 Uremia vs Pain medication Patient Skipped PD at home CT brain neg - BUN/Cr 120/12.9 --> 118/12/24, K 5.9> 5.6 s/p PD - current pain regimen: fentanyl patch 25mcg q72h, norco 10/325 1/2 tab q6h, lyrica 25mg daily - discontinued per George recs - consulted Dr Vazquez, 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: PD last night, patient has fistula in left arm - recommends pt transition from PD to HD - appreciate nephro recs #Hyperkalemia - likely due to improper peritoneal dialysis at home - ekg stable - Dr Vazquez plans to transition to HD - will continue to monitor #Elevated Trop - Trop 0.045 > .043, this appears to be stable from previous admissions - denies CP, SOB #elevated BNP - likely due to ESRD - echo in November showed normal EF with no diastolic dysfunction - will monitor #Anemia - likely due to ESRD - will monitor #DM w/ peripheral neuropathy - poorly controlled at home - SSI, glucose checks ACHS #HTN - continue home meds - will monitor #ESRD on PD CKMB 7.4, 7.5; CK 345 - consulted Dr. Vazquez who plans to do HD - strict I/Os, daily weights #Hypothyroidism - TSH 1.95 - continue home meds #Restless leg - continue home med: ropinirole #constipation - continue home meds Diet: renal Ppx: heparin Code: Full PCP: Ella Glass Dispo: likely > 48 hours Addendum - Attending - Attending Attestation Date/Time: 02/24/20 1101 I personally evaluated the patient and discussed the management with Dr. Vazquez. I agree with the History, Examination, Assessment and Plan documented above with any addition or exceptions noted below. Patient in need of continued workup and interventions but left AMA this morning.
[2020-02-24] MEDS: Levothyroxine Sodium 50 MCG TAB PO SCH (06:50)
[2020-02-24] MEDS: Acetaminophen 325 MG TAB PO PRN (06:50)
[2020-02-24 07:30] VITALS: BP 174/76; TEMP 98.2
[2020-02-24] MEDS ORDERED: DULoxetine 30 MG CAP PO SCH (09:00)
== END 2020-02-24 08:45 | disposition left against medical advice (07) | DRG 91 ==
LOC: ERS 16:18 → 2SW 18:20 → OBSVTOIN 02-23 17:54
PROVIDERS: ADMIT Student in an Organized Health Care Education/Training Program; ATTEND Student in an Organized Health Care Education/Training Program
PROC: 3E1M39Z Irrigation of Peritoneal Cavity using Dialysate, Percutaneous Approach (ICD-10-PCS; principal; 2020-02-24)
DX: G92 Toxic encephalopathy (principal); N18.6 End stage renal disease; I12.0 Hypertensive chronic kidney disease with stage 5 chronic kidney disease or end stage renal disease; Z20.828 Contact with and (suspected) exposure to other viral communicable diseases; E87.5 Hyperkalemia; R79.89 Other specified abnormal findings of blood chemistry; D63.1 Anemia in chronic kidney disease; E11.22 Type 2 diabetes mellitus with diabetic chronic kidney disease; E11.42 Type 2 diabetes mellitus with diabetic polyneuropathy; E03.9 Hypothyroidism, unspecified; G25.81 Restless legs syndrome; K59.00 Constipation, unspecified; G89.29 Other chronic pain; F32.9 Major depressive disorder, single episode, unspecified; M19.90 Unspecified osteoarthritis, unspecified site; Z99.2 Dependence on renal dialysis; Z88.8 Allergy status to other drugs, medicaments and biological substances; Z98.51 Tubal ligation status; Z90.49 Acquired absence of other specified parts of digestive tract; Z91.15 Patient's noncompliance with renal dialysis; Z79.4 Long term (current) use of insulin
CPT/HCPCS: 36415; 36416; 70450; 71045; 80053; 82330; 82550; 82553; 82803; 83880; 84443; 84484; 85025; 87635; 90945; 93005; 96372; 96375; 96376; G0257; G0378; J1644; J1815; Q5105; U0003

== ENCOUNTER 2020-04-12 08:11 | Outpatient (CLI) | payer OTHER ==
[2020-04-13 13:14] LABS: SARS-CoV-2 MS2 Positive; SARS-CoV-2 N Gene Negative; SARS-CoV-2 S Gene Negative; SARS-CoV-2 by NAA Not Detected (NotDetected); SARS-CoV-2 orf1ab Negative
== END 2020-04-12 08:12 | disposition home or self-care (01) ==
LOC: LABBT 08:11
PROVIDERS: ATTEND Specialist
DX: N18.6 End stage renal disease (principal); T85.611A Breakdown (mechanical) of intraperitoneal dialysis catheter, initial encounter; Z20.828 Contact with and (suspected) exposure to other viral communicable diseases
CPT/HCPCS: 87635; U0003

== ENCOUNTER 2020-04-17 07:41 | Day surgery (SDC) | payer OTHER ==
--- NOTE | 2020-04-14 09:44 | HP ---
HISTORY OF PRESENT ILLNESS: Cori Marion, 50-year-old female, referred by Dr. Vazquez for removal of hemodialysis catheter. She has a left upper arm basilic vein fistula, which is functioning very well. She dialyzes Friday, , and Friday at [facility] [address] [place] [address]. Peritoneal dialysis catheter functioned adequately, but she received poor clearances and persistent edema and converted to hemodialysis. ALLERGIES: NEURONTIN. SOCIAL HISTORY: Tobacco, none. Alcohol, none. PAST SURGICAL HISTORY: Open gallbladder, left AV fistula basilic vein , PD catheter placement, . PAST MEDICAL HISTORY: Hypertension, diabetes, end-stage renal disease, elevated cholesterol, neuropathy, follows with Dr. Gonzales. REVIEW OF SYSTEMS: Noncontributory. FAMILY HISTORY: Noncontributory. PHYSICAL EXAMINATION: VITAL SIGNS: 167 pounds, 4 foot 9, 36 BMI, 206/87, 74, 97.9 degrees. EARS, EYES, NOSE AND THROAT: Unremarkable. LUNGS: Clear to auscultation. CARDIAC: Rhythm without murmur or gallop. ABDOMEN: Soft. Peritoneal dialysis catheter, left lower quadrant. Open cholecystectomy scar in right upper quadrant without hernia. EXTREMITIES: Without edema. Left upper extremity, basilic vein fistula good thrill and bruit, upper arm. ASSESSMENT AND PLAN: Undesired peritoneal dialysis catheter. Plan, removal under IV sedation and local anesthesia, outpatient. The patient understands risks and benefits and consents. Job ID: [id number]
[2020-04-14 10:50] VITALS: BMI 31.4
[2020-04-17 08:18] LABS: #Basophils 0.1 thou/uL (0.0-0.2); #Eosinphils 1.2 thou/uL (0.0-0.7); #Lymphocytes 1.9 thou/uL (1.20-3.40); #Monocytes 0.5 thou/uL (0.11-0.59); #Neutrophils 4.6 thou/uL (1.40-6.50); %Basophils 0.8 % (0.0-1.0); %Eosinophils 14.5 % (0.0-10.0); %Lymphocytes 22.9 % (21.0-51.0); %Monocytes 6.1 % (0.0-10.0); %Neutrophils 55.6 % (42.0-75.0); Hemoglobin 11.1 g/dL (12.0-16.0); Mean Corpuscular HGB CONC 31.3 g/dL (32.0-36.0); Mean Corpuscular Hemoglobin 29.5 pg (27.0-31.0); Mean Corpuscular Volume 94.3 fL (78.0-98.0); Mean Platelet Volume 9.5 fL (7.4-10.4); Platelet Count 230 thou/uL (130-400); RBC Distribution Width 15.3 % (11.5-14.5); Red Blood Cell (RBC) Count 3.75 mill/uL (4.20-5.40); White Blood Cell (WBC) Count 8.3 thou/uL (4.8-10.8)
[2020-04-17] MEDS ORDERED: Fentanyl 100 MCG/2 ML VIAL ONE (08:52)
[2020-04-17] MEDS ORDERED: SUGAMMADEX SODIUM 200 MG/2 ML VIAL ONE (08:52)
[2020-04-17 08:56] LABS: Anion Gap 18 mmol/L (10-20); BUN (Urea Nitrogen) 36 mg/dL (7.0-18.7); Calc. Creatinine Clearance 11 mL/min (70-130); Calcium 9.2 mg/dL (7.8-10.44); Carbon Dioxide 29 mmol/L (22-29); Chloride 100 mmol/L (98-107); Estimated GFR-MDRD 7; Glucose 226 mg/dL (70-105); Potassium 4.1 mmol/L (3.5-5.1); Sodium 143 mmol/L (136-145)
[2020-04-17] MEDS ORDERED: PROPOFOL 200 MG/20 ML VIAL ONE (09:11)
[2020-04-17] MEDS ORDERED: Bupivacaine/Epinephrine 0.25% 30 ML VIAL ONE (09:28)
[2020-04-17] MEDS ORDERED: Lidocaine 2% PF 5 ML VIAL ONE (09:28)
--- NOTE | 2020-04-17 13:01 | OP ---
DATE OF PROCEDURE: 04/17/2020 PREOPERATIVE DIAGNOSIS: End-stage renal disease, undesired PD catheter did not work out for her, although it exchanged well. POSTOPERATIVE DIAGNOSIS: End-stage renal disease, undesired PD catheter did not work out for her, although it exchanged well. PROCEDURE PERFORMED: Removal of PD catheter, double-cuffed pigtail intact. ANESTHESIA: Intravenous sedation, local 0.5% Marcaine with epinephrine 30 mL mixed with 1% Xylocaine 20 mL. DESCRIPTION OF PROCEDURE: The patient was taken to the operating room, where under inhalational sedation, IV was initiated and abdomen and PD catheter were prepared with ChloraPrep and draped in routine fashion. Local anesthetic was infiltrated in the skin and subcutaneous tissue. Catheter double-cuffed pigtail removed intact, discarded, and dressings applied. The patient tolerated procedure well. Job ID: [id number]
[2020-04-17] MEDS ORDERED: HYDROcodone/Acetaminophen 10/325 mg Tablet ONE (13:15)
[2020-04-17] MEDS ORDERED: Insulin Regular 300 UNITS/3 ML VIAL ONE (13:15)
== END 2020-04-17 13:55 | disposition home or self-care (01) ==
LOC: SDC 07:41
PROVIDERS: ATTEND Specialist
PROC: 0WPGX3Z Removal of Infusion Device from Peritoneal Cavity, External Approach (ICD-10-PCS; principal; 2020-04-17)
DX: T85.691A Other mechanical complication of intraperitoneal dialysis catheter, initial encounter (principal); I12.0 Hypertensive chronic kidney disease with stage 5 chronic kidney disease or end stage renal disease; E11.22 Type 2 diabetes mellitus with diabetic chronic kidney disease; E11.42 Type 2 diabetes mellitus with diabetic polyneuropathy; N18.6 End stage renal disease; E78.00 Pure hypercholesterolemia, unspecified; Z79.4 Long term (current) use of insulin; Z79.899 Other long term (current) drug therapy; Z88.8 Allergy status to other drugs, medicaments and biological substances
CPT/HCPCS: 36415; 80048; 85025; J0690; J1815; J2001; J2704; J3010

== ENCOUNTER 2020-05-14 04:59 | Emergency (ER) | payer OTHER | END 2020-05-14 05:29 | disposition left against medical advice (07) | LOC: ERS 04:59 | DX: G89.29 Other chronic pain (principal); M25.512 Pain in left shoulder; M79.604 Pain in right leg; M79.605 Pain in left leg; E11.9 Type 2 diabetes mellitus without complications; I10 Essential (primary) hypertension; E78.00 Pure hypercholesterolemia, unspecified; E03.9 Hypothyroidism, unspecified; F41.9 Anxiety disorder, unspecified; F32.9 Major depressive disorder, single episode, unspecified | CPT/HCPCS: 99283 ==

== ENCOUNTER 2020-06-08 18:42 | Inpatient (IN) | payer OTHER ==
[2020-06-08 19:18] LABS: #Eosinphils 0.1 thou/uL (0.0-0.7); #Lymphocytes 0.8 thou/uL (1.20-3.40); #Monocytes 0.4 thou/uL (0.11-0.59); #Neutrophils 5.8 thou/uL (1.40-6.50); %Basophils 0.3 % (0.0-1.0); %Eosinophils 0.9 % (0.0-10.0); %Lymphocytes 11.1 % (21.0-51.0); %Neutrophils 82.7 % (42.0-75.0); Hemoglobin 12.5 g/dL (12.0-16.0); Mean Corpuscular HGB CONC 31.8 g/dL (32.0-36.0); Mean Corpuscular Hemoglobin 29.1 pg (27.0-31.0); Mean Corpuscular Volume 91.6 fL (78.0-98.0); Mean Platelet Volume 10.3 fL (7.4-10.4); Platelet Count 177 thou/uL (130-400); RBC Distribution Width 17.1 % (11.5-14.5)
[2020-06-08 19:54] LABS: PTT 32.8 sec (22.9-36.1)
[2020-06-08 19:59] LABS: Prothrombin Time 13.1 sec (12.0-14.7)
--- NOTE | 2020-06-08 20:17 | RAD ---
Portable frontal chest radiograph: 06/08/2020 COMPARISON: 02/22/2020 HISTORY: Cough FINDINGS: There is extensive severe new interstitial and alveolar/ground glass opacity bilaterally wi th a perihilar/bibasilar predominance. No large volume pleural effusion. No pneumothorax. Heart and mediastinal contours are stable. IMPRESSION: Interval development of severe extensive bilateral interstitial and alveolar opacity. Fin dings are suspicious for Covid pneumonia. Superimposed edema cannot be excluded. Recommend follow-up imaging following treatment.
[2020-06-08] MEDS ORDERED: cefTRIAXone\\ROCEPHIN 2 GM VIAL ONE (20:19)
[2020-06-08 20:35] LABS: ALT (SGPT) 31 U/L (8-55); AST (SGOT) 27 U/L (5-34); Albumin 4.1 g/dL (3.5-5.0); Alkaline Phosphatase 215 U/L (40-110); Anion Gap 23 mmol/L (10-20); BUN (Urea Nitrogen) 31 mg/dL (7.0-18.7); Bilirubin, Total 0.5 mg/dL (0.2-1.2); Calc. Creatinine Clearance 0 mL/min (70-130); Calcium 9.1 mg/dL (7.8-10.44); Carbon Dioxide 24 mmol/L (22-29); Chloride 94 mmol/L (98-107); Globulin 3.8 g/dL (2.4-3.5); Glucose 153 mg/dL (70-105); Potassium 4.4 mmol/L (3.5-5.1); Protein, Total 7.9 g/dL (6.0-8.3); Sodium 137 mmol/L (136-145)
[2020-06-08 20:46] LABS: SARS-CoV-2 NAA Rapid Test DETECTED (NotDetected)
--- NOTE | 2020-06-08 21:36 | PDOC.FPRHP ---
- History of Present Illness Chief Complaint: Fever History of Present Illness: This is a 50 yo female with a pmh of ESRD on HD, HTN, HLD, hypothyroidism who presents to the ER from dialysis with a cc of SOB and cough. She reports initially feeling symptoms on Friday. She reports associated cough, congestion, SOB, and fatigue. She states these symptoms worsened over the course of the week until her arrival. In addition, she reports a fever prior to arrival and a loss of taste yesterday. She states that her grandson is likely the person who gave her COVID as he is quarantined at a friends house at this time. Today she was at dialysis when she began feeling progressively worse. She reports cough and SOB that prompted her to come to the ER. She did not finish dialysis and in fact only completed 1-2 hours. Her labs are not terribly concerning at this time. I spoke with Dr. Vazquez, her blood donor recruiter who plans to see her in the morning and possibly dialyze her further. Of note, our clinic has stopped prescribing any opioid medications for this patient starting 03/31/20 due to two hospitalizations 2/2 drug overdose. ED Course: Labetolol 5mg Azithromycin 500mg Rocephin 1g - Allergies/Adverse Reactions Allergies Allergy/AdvReac Type Severity Reaction Status Date / Time gabapentin Allergy Severe Anaphylaxis Verified 04/14/20 10:50 - Home Medications Medication Instructions Recorded Confirmed Type Carvedilol 12.5 mg PO BID 11/19/18 06/08/20 History Atorvastatin Calcium 20 mg PO QPM 05/16/19 06/08/20 History Sevelamer Carbonate [Renvela] 800 mg PO TID- #90 tab 12/24/19 06/08/20 Rx NIFEdipine [Nifedipine ER] 60 mg PO HS 02/22/20 06/08/20 History Insulin Glargine,Hum.Rec.Anlog 15 ml SQ DAILY 04/14/20 06/08/20 History [Toupatsyo Solostar] Levothyroxine Sodium 75 mcg PO DAILY 04/14/20 06/08/20 History DULoxetine [Cymbalta] 30 mg PO DAILY 06/08/20 06/08/20 History - History PMHx: ESRD, HTN, HLD, hypothyroidism, IDDM PSHx: Elbow, hand, fistula FHx: Siblings diabetes, Social: Denies current Drug, alcohol, or tobacco abuse - Review of Systems General: reports: fever/chills, weight/appetite/sleep changes, fatigue. denies: night sweats Eyes: denies: eye pain, vision changes ENT: reports: nasal congestion, rhinorrhea Respiratory: reports: cough, congestion, shortness of breath, exercise intolerance Cardiovascular: reports: chest pain (with exertion and coughing), edema. denies: palpitation, paroxysmal nocturnal dyspnea, orthopnea Gastrointestinal: reports: nausea, vomiting, diarrhea, abdominal pain. denies: constipation, GI bleeding Genitourinary: reports: other (produces some urine). denies: incontinence, dysuria Musculoskeletal: reports: pain. denies: tenderness, stiffness, swelling Neurological: reports: weakness. denies: numbness, syncope Psychological: reports: anxiety, depression - Vital signs BP: 122/86 HR: 75 RR: 21 Tmax: 98.5 Pox: 98% on 2L Wt: 68 kg - Physical Exam Constitutional: NAD, awake, alert and oriented, well developed HEENT: EOMI, grossly normal vision, grossly normal hearing, MMM Neck: trachea midline, no JVD Heart: RRR, normal S1/S2, no murmurs/rubs/gallops Lungs: other (bilateral basilar crackles with upper lobe rhonchi) Abdomen: soft, bowel sounds present, other (Pt had mild pain with palpation initially and her pain worsened with time) Musculoskeletal: normal tone, other (pain with palpation of bilateral calfs, no cords felt, no warmth or erythema appreciated) Neurological: CN II-XII intact, normal sensation, other Skin: capillary refill <2 seconds Heme/Lymphatic: no unusual bruising or bleeding Psychiatric: normal mood and affect FMR H&P: Results - Labs Result Diagrams: 06/08/20 19:05 06/08/20 19:59 Lab results: WBC 7.0 thou/uL (4.8-10.8) 06/08/20 19:05 Hgb 12.5 g/dL (12.0-16.0) 06/08/20 19:05 Hct 39.4 % (36.0-47.0) 06/08/20 19:05 MCV 91.6 fL (78.0-98.0) 06/08/20 19:05 Plt Count 177 thou/uL (130-400) 06/08/20 19:05 Neutrophils % 82.7 % (42.0-75.0) H 06/08/20 19:05 Sodium 137 mmol/L (136-145) 06/08/20 19:59 Potassium 4.4 mmol/L (3.5-5.1) 06/08/20 19:59 Chloride 94 mmol/L (98-107) L 06/08/20 19:59 Carbon Dioxide 24 mmol/L (22-29) 06/08/20 19:59 BUN 31 mg/dL (7.0-18.7) H 06/08/20 19:59 Creatinine 6.53 mg/dL (0.6-1.1) H 06/08/20 19:59 Glucose 153 mg/dL (70-105) H 06/08/20 19:59 Lactic Acid 1.9 mmol/L (0.5-2.2) 06/08/20 19:05 Calcium 9.1 mg/dL (7.8-10.44) 06/08/20 19:59 Total Bilirubin 0.5 mg/dL (0.2-1.2) 06/08/20 19:59 AST 27 U/L (5-34) 06/08/20 19:59 ALT 31 U/L (8-55) 06/08/20 19:59 Alkaline Phosphatase 215 U/L (40-110) H 06/08/20 19:59 Serum Total Protein 7.9 g/dL (6.0-8.3) 06/08/20 19:59 Albumin 4.1 g/dL (3.5-5.0) 06/08/20 19:59 - Radiology Interpretation Chest x-ray Status: image reviewed by me (Ground glass opacities, vascular congestion, no significant effusions), report reviewed by me FMR H&P: A/P - Plan Acute hypoxic respiratory failure 2/2 COVID PNA -Admit to medical -Respiratory support -Continue Azithromycin and Rocephin given comorbidities -Pending COVID risk stratifying labs -CXR consistent with covid PNA and pulmonary congestion Sepsis 2/2 above -As above ESRD on HD TTHS -Consult DR. Vazquez -Plan for dialysis tomorrow -Currently K 4.4, BUN 31, Cr 6.5 HTN -Pt had elevated BP in ER but resolved after a single dose of labetolol -Will continue home Coreg and Procardia HLD -Continue atrovastatin Hypothyroidism -Continue home levothyroxine -TSH on 02/2020 was 1.9 Abdominal pain -Pending CT abdomen/pelvis w/o contrast to assess -Pt received 4mg of morphine at the time for her pain Opioid pain medication abuse -Our clinic no longer prescribes opioid medication for this patient after 2 hospital admissions for opioid/drug overdose Restless leg syndrome -Per chart review, she is off ropierol, pending further med rec -Pt is on Cymbalta at this time Code: Full Propylaxis: Heparin 5000 units TID Family: None at bedside Fluids: SL Diet: Renal high protein Disposition: DC in 4-5 days PCP: SAJI Mcclendon
[2020-06-08] MEDS ORDERED: Metoprolol Tartrate 5 MG/5 ML VIAL ONE (21:37)
[2020-06-08] MEDS ORDERED: Metoprolol Tartrate 50 MG TAB ONE (21:37)
[2020-06-08] MEDS ORDERED: Azithromycin 500 MG VIAL ONE (21:40)
[2020-06-08] MEDS ORDERED: Carvedilol 6.25 MG TAB PO SCH (21:45)
[2020-06-08] MEDS ORDERED: Ondansetron PF 4 MG/2 ML Vial ONE (21:49)
[2020-06-08] MEDS ORDERED: Acetaminophen 325 MG TAB PO PRN (21:56)
[2020-06-08] MEDS ORDERED: Acetaminophen 500 MG TAB PO SCH ×2 (22:00→22:45)
[2020-06-08] MEDS ORDERED: Morphine 4 MG/ML VIAL ONE (23:12)
--- NOTE | 2020-06-08 23:55 | CT ---
CT abdomen and pelvis: 06/08/2020 COMPARISON: None HISTORY: Shortness of breath and cough TECHNIQUE: Axial CT imaging at 5 mm intervals from lung bases through pubic symphysis without contras t. Coronal and sagittal reformatted imaging obtained. FINDINGS: Evaluation of the viscera, bowel, vascular structures, and for lymphadenopathy limited on n oncontrast enhanced examination. Extensive confluent patchy airspace disease within the lung bases. No pleural fluid. Enlarged partially imaged heart. Diffuse stranding of the subcutaneous fat with ski n thickening, evidence of anasarca. Cholecystectomy clips. Liver and spleen not optimally assessed without contrast media. Nonspecific round low-density lesion within the anterior spleen measures 1.4 cm. Pancreas and adrenal glands grossly unremarkable, not well evaluated on this exam. Kidneys appear small and contain numerous calcifications which likely represent a combination of vascular corina cification and nonobstructing stones. There is moderate volume free fluid within the abdomen/pelvis, most prominent within the pelvis. Limited assessment of the bowel demonstrates no evidence for obstruction. Severe diffuse atherosclero tic calcification of the abdominal aorta and its branches noted. Review of the osseous structures demonstrates no acute findings. IMPRESSION: Extensive pulmonary parenchymal opacities, most consistent with a nonspecific diffuse inf ectious pneumonitis. This certainly could represent Covid pneumonia. Anasarca with moderate nonspecific ascites. Extensive atherosclerotic calcification.
[2020-06-09] MEDS ORDERED: Ondansetron ODT 4 MG TAB PO PRN (00:08)
[2020-06-09] MEDS ORDERED: Acetaminophen 650 MG Suppository PR PRN (00:08)
[2020-06-09] MEDS ORDERED: Dextrose 50% Abboject 50 ML SYRINGE SLOW IVP PRN (00:08)
[2020-06-09] MEDS ORDERED: HumaLOG 300 UNITS/3 ML VIAL SC PRN ×2 (00:08)
[2020-06-09] MEDS ORDERED: Dextrose 5% in Water 1,000 ML IV PRN (00:08)
[2020-06-09 00:38] VITALS: BMI 34.3
[2020-06-09 01:27] LABS: CKMB 1.5 ng/mL (0-6.6)
[2020-06-09] MEDS ORDERED: Heparin 25,000 units/D5W 500 ML IVPB SCH (02:00)
[2020-06-09] MEDS ORDERED: Heparin 10,000 UNITS/ 10 ML VIAL SLOW IVP SCH (02:00)
[2020-06-09] MEDS: hydrALAZINE 20 MG/ML VIAL SLOW IVP PRN ×3 (02:46→17:52)
[2020-06-09] MEDS ORDERED: Heparin 25,000 units/D5W 500 ML IV SCH (04:00)
[2020-06-09] MEDS: Ondansetron PF 4 MG/2 ML Vial IVP PRN ×2 (04:20→21:23)
[2020-06-09 05:03] LABS: #Lymphocytes 0.8 thou/uL (1.20-3.40); #Monocytes 0.8 thou/uL (0.11-0.59); #Neutrophils 8.9 thou/uL (1.40-6.50); %Basophils 0.1 % (0.0-1.0); %Eosinophils 0.2 % (0.0-10.0); %Lymphocytes 7.3 % (21.0-51.0); %Monocytes 7.4 % (0.0-10.0); Hemoglobin 11.2 g/dL (12.0-16.0); Mean Corpuscular HGB CONC 31.5 g/dL (32.0-36.0); Mean Platelet Volume 10.8 fL (7.4-10.4); Platelet Count 129 thou/uL (130-400); RBC Distribution Width 17.2 % (11.5-14.5); Red Blood Cell (RBC) Count 3.85 mill/uL (4.20-5.40); White Blood Cell (WBC) Count 10.5 thou/uL (4.8-10.8)
[2020-06-09 05:19] LABS: Anion Gap 21 mmol/L (10-20); BUN (Urea Nitrogen) 35 mg/dL (7.0-18.7); Calc. Creatinine Clearance 12 mL/min (70-130); Calcium 8.5 mg/dL (7.8-10.44); Carbon Dioxide 25 mmol/L (22-29); Chloride 95 mmol/L (98-107); Glucose 121 mg/dL (70-105); Potassium 4.4 mmol/L (3.5-5.1); Sodium 137 mmol/L (136-145)
[2020-06-09 05:28] LABS: Troponin I 0.423 ng/mL (< 0.028)
--- NOTE | 2020-06-09 05:50 | PDOC.FM ---
- Subjective Subjective: Pt resting comfortably in bed this AM. No acute events overnight. She has a non productive cough. No pain at this time. - Objective Vital Signs & Weight: Vital Signs (12 hours) Temp Pulse Resp BP Pulse Ox 06/09/20 05:38 191/95 H 06/09/20 03:15 98.4 F 80 20 197/101 H 96 06/09/20 02:55 99.1 F 74 18 188/99 H 97 06/09/20 02:46 74 06/09/20 00:20 98 F 74 18 143/98 H 97 Weight Weight 71.985 kg Result Diagrams: 06/09/20 04:47 06/09/20 04:47 Phys Exam - Physical Examination Constitutional: NAD 2L NC HEENT: moist MMs Neck: supple Respiratory: no wheezing, no rales, no rhonchi, clear to auscultation bilateral Cardiovascular: RRR, no significant murmur, no rub Gastrointestinal: soft, non-tender, no distention, positive bowel sounds Musculoskeletal: pulses present Neurological: normal sensation Psychiatric: normal affect, A&O x 3 Skin: normal turgor, cap refill <2 seconds Dx/Plan - Plan Plan: Acute hypoxic respiratory failure 2/2 COVID PNA -Respiratory support -Abx started in ED, will discuss whether these are necessary at this time. Procal trend. -LDH 2065, CRP 7.24, D-dimer 4.79, Ferritin 33K, trending d-dimer daily -CT and CXR showing COVID PNA -Convalescent plasma ordered, not candidate for remdesivir due to kidney fxn -on 2L NC Elevated troponin -Trop increasing from 0.290-->0.423-->0.48, trend trop -EKG showed sinus tach, no events on telemetry, no CP -on Heparin drip -consult cardiology ESRD on HD TTHS -Consult Dr. Vazquez -Monitoring lytes with AM labs HTN -Pt had elevated BP in ER but resolved after a single dose of labetolol -Will continue home Coreg and Procardia -Will keep monitoring, might need adjustments HLD -Continue atrovastatin Hypothyroidism -Continue home levothyroxine -TSH on 02/2020 was 1.9 Abdominal pain -Pending CT abdomen/pelvis w/o contrast to assess -Pt received 4mg of morphine at the time for her pain Opioid pain medication abuse -Our clinic no longer prescribes opioid medication for this patient after 2 hospital admissions for opioid/drug overdose Restless leg syndrome -Per chart review, she is off ropierol, pending further med rec -Pt is on Cymbalta at this time Propylaxis: Heparin 5000 units TID Diet: Renal high protein Code: Full PCP: SAJI Mcclendon Dispo as of 06/09: Will monitor resp status. Dialysis today. Consulting cardiology. Monitoring troponins.
[2020-06-09] MEDS ORDERED: Carvedilol 25 MG TAB PO SCH (06:15)
[2020-06-09] MEDS ORDERED: Sevelamer Carbonate 800 MG TAB PO SCH (08:00)
[2020-06-09 08:14] LABS: Troponin I 0.481 ng/mL (< 0.028)
[2020-06-09] MEDS ORDERED: Heparin 5,000 UNITS/ML VIAL SC SCH (09:00)
[2020-06-09] MEDS ORDERED: Dexamethasone 4 MG TAB PO SCH (09:00)
[2020-06-09] MEDS ORDERED: Azithromycin 250 MG TAB PO SCH (09:00)
[2020-06-09] MEDS ORDERED: Non-Formulary Item 1 EACH (Insulin Glargine,Hum.Rec.Anlog [Toujeo Solostar] 300 UNIT/ML I SQ SCH (09:00)
[2020-06-09] MEDS ORDERED: FLU VACC QS2020-21(6MOS UP)/PF 60 MCG/0.5 ML SYRINGE IM ONE (09:00)
[2020-06-09] MEDS: DULoxetine 30 MG CAP PO SCH (09:13)
[2020-06-09] MEDS: Insulin Glargine 15 UNITS in Pre-Filled Syringe 1 EACH SC SCH (09:13)
--- NOTE | 2020-06-09 09:14 | CON ---
DATE OF CONSULTATION: 06/09/2020 HISTORY OF PRESENT ILLNESS: Ms. Marion is a 50-year-old female with ESRD from diabetic nephropathy, type 2 diabetes mellitus, and presented with cough and shortness of breath. According to the patient, she has been febrile in the last few days and was having productive cough. She was subsequently diagnosed to have a COVID-19 pneumonia. We are being consulted for management of her ESRD. She did have a shortened dialysis yesterday for this reason. She will undergo 2-hour hemodialysis for fluid removal. REVIEW OF SYSTEMS: Positive for cough. Positive for fever. No syncopal episode. Occasional nausea. Positive for diarrhea. No abdominal pain. No dysuria. Decreased appetite. Decreased energy level. Positive for occasional leg edema. MEDICATIONS: Currently on; 1. Tylenol 650 mg q.4 p.r.n. 2. Lipitor 20 mg at bedtime. 3. Zithromax 250 mg daily. 4. Coreg 12.5 mg p.o. b.i.d. 5. Ceftriaxone 2 g IV daily. 6. Cymbalta 30 mg daily. 7. Heparin drip. 8. Status post flu shot. 9. Insulin glargine 15 units subcu q.a.m. 10. Humalog sliding scale. 11. Synthroid 75 mcg daily. 12. Nifedipine 60 mg XL tablet once a day. 13. Zofran 4 mg IV q.6 p.r.n. PAST MEDICAL HISTORY: ESRD from diabetic nephropathy, type 2 diabetes mellitus, chronic pain from diabetic neuropathy, diabetic gastroparesis, hypothyroidism, depression. PAST SURGICAL HISTORY: Status post AV fistula placement, status post cuffed hemodialysis catheter placement, status post PD catheter placement with subsequent removal. 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 Education, high school. Status post blood transfusion. No smoking. No IV drug abuse. ALLERGIES: ALLERGIC [id number] OF ADVERSE REACTION. TRAUMA: None. IMMUNIZATIONS: Up to date. HOSPITALIZATIONS: Please see past medical history FAMILY HISTORY: No family history of ESRD. PHYSICAL EXAMINATION: VITAL SIGNS: Blood pressure is 197/100 before BP medications, heart rate 70, respiratory rate 20, temperature 98.7, O2 saturation 95% on 2 L. GENERAL: The patient is awake, lethargic. Not in overt distress. SKIN: Adequate turgor. HEENT: She has pinkish conjunctivae. Anicteric sclerae. NECK: No neck mass. No carotid bruits. No JVD. CHEST: No deformities. LUNGS: Decreased breath sounds. HEART: Normal sinus rhythm. No murmur. No gallops. No rubs. ABDOMEN: Globular, soft, nontender. No masses. EXTREMITIES: Trace edema. No deformities. NEUROLOGIC: Awake. Oriented to 3 spheres. Moving all extremities. No tremors. No asterixis. No ataxia. LABORATORY DATA: On June 09, 2020: White count 10.5, hemoglobin 11.2. Sodium 137, potassium 4.4, chloride 95, carbon dioxide 25, BUN 35, creatinine 6.48, calcium is 8.5. Troponin-I 0.481. On June 08, 2020: CT scan of the abdomen and pelvis shows ascites. Chest x-ray of June 08, 2020, shows extensive bilateral interstitial alveolar opacity - suspicious for COVID pneumonia. ASSESSMENT AND PLAN: 1. COVID-19 pneumonia - on empiric therapy. The patient empirically also started on IV antibiotics. The patient is currently on isolation. 2. End-stage renal disease, due to volume overload in the past, we will do a short 2-hour hemodialysis today with fluid removal and then we will resume her back on her regular Friday, , and Friday hemodialysis regimen. Please note, this patient has history of noncompliance with her dialysis schedule. Overall, prognosis remains guarded. Agree with current management. Job ID: [id number]
[2020-06-09] MEDS: Acetaminophen 325 MG TAB PO PRN ×2 (09:42→21:11)
[2020-06-09] MEDS ORDERED: Albuterol Sulfate 2.5 mg/3 ml Neb NEB PRN (10:05)
[2020-06-09] MEDS ORDERED: Albuterol 200 PUFF (6.7GM INHALER) INH PRN (10:12)
[2020-06-09] MEDS: Mometasone 100 MCG/Formoterol 5 MCG 120 PUFF INHALER INH SCH ×3 (10:51→17:52)
[2020-06-09] MEDS: Sevelamer Carbonate 800 MG TAB PO SCH ×2 (10:56→16:28)
--- NOTE | 2020-06-09 13:04 | PRG ---
DATE OF SERVICE: 06/09/2020 I read the note of Dr. Valentina Fonseca and agree with her assessment and plan. Job ID: [id number]
[2020-06-09 13:16] LABS: Critical Call Chem Troponin I RESULT DECREASING
[2020-06-09] MEDS: Heparin 5,000 UNITS/ML VIAL SC SCH ×2 (15:03→21:10)
[2020-06-09] MEDS: hydrALAZINE 25 MG TAB PO SCH ×2 (15:04→21:09)
[2020-06-09] MEDS ORDERED: cefTRIAXone\\ROCEPHIN 2 GM in Sodium Chloride 0.9% 100 ML IVPB SCH (20:00)
[2020-06-09] MEDS: NIFEdipine XL 60 MG TAB PO SCH (21:09)
[2020-06-09] MEDS: Carvedilol 25 MG TAB PO SCH (21:10)
[2020-06-09] MEDS: Atorvastatin Calcium 20 MG TAB PO SCH (21:12)
[2020-06-10 05:05] LABS: Anion Gap 19 mmol/L (10-20); BUN (Urea Nitrogen) 33 mg/dL (7.0-18.7); Calc. Creatinine Clearance 14 mL/min (70-130); Calcium 7.9 mg/dL (7.8-10.44); Carbon Dioxide 25 mmol/L (22-29); Chloride 97 mmol/L (98-107); Glucose 80 mg/dL (70-105); Potassium 4.2 mmol/L (3.5-5.1); Sodium 137 mmol/L (136-145)
--- NOTE | 2020-06-10 06:11 | PDOC.FM ---
- Subjective Subjective: Pt was resting, getting dialysis, not on oxygen. She continues to complain about her legs hurting and is requesting pain meds. She denies SOB, cough. As I left the room she stated "I am going to get a new doctor, I don't like this doctor." - Objective Vital Signs & Weight: Vital Signs (12 hours) Temp Pulse Resp BP Pulse Ox 06/10/20 05:02 97.3 F L 63 14 133/63 94 L 06/09/20 23:40 98.3 F 64 16 178/77 H 100 06/09/20 21:20 96 06/09/20 21:18 98.7 F 74 18 199/94 H 87 L 06/09/20 18:19 188/87 H Weight Admit Weight 71.985 kg Weight 71.985 kg Result Diagrams: 06/10/20 19:58 06/10/20 04:33 Phys Exam - Physical Examination Constitutional: NAD Neck: supple Respiratory: no wheezing, clear to auscultation bilateral chronic 2/6 systolic murmur Gastrointestinal: soft, non-tender Musculoskeletal: no edema Neurological: non-focal Skin: no rash Dx/Plan - Plan Plan: Acute hypoxic respiratory failure 2/2 COVID PNA -Respiratory support -Abx started in ED, did not continue -LDH 2065, CRP 7.24, D-dimer 4.79, Ferritin 33K, trending d-dimer daily -CT and CXR showing COVID PNA -Convalescent plasma ordered, not candidate for remdesivir due to kidney fxn -was on 2L NC, this morning was not on oxygen, will discuss with nurse and wean as tolerated Elevated procal -0.82>20 -called lab to re-run lab, pt is asymptomatic -repeat CXR: improved aeration -if lab is still positive, will repeat tomorrow before treating as clinical picture is not consistent with results Elevated troponin -Trop increasing from 0.290-->0.423-->0.48, trend trop -EKG showed sinus tach, no events on telemetry, no CP -on Heparin drip ESRD on HD TTHS -Consult Dr. Vazquez: continue with routine dialysis today -Monitoring lytes with AM labs HTN -Pt had elevated BP in ER but resolved after a single dose of labetolol -Will continue home Coreg and Procardia -Will keep monitoring, might need adjustments HLD -Continue atorvastatin Hypothyroidism -Continue home levothyroxine -TSH on 02/2020 was 1.9 Abdominal pain -Pending CT abdomen/pelvis w/o contrast to assess -Pt received 4mg of morphine at the time for her pain Opioid pain medication abuse -Our clinic no longer prescribes opioid medication for this patient after 2 hospital admissions for opioid/drug overdose Restless leg syndrome -Per chart review, she is off ropinerole, pending further med rec -Pt is on Cymbalta at this time Propylaxis: Heparin 5000 units TID Diet: Renal high protein Code: Full PCP: Dr. Glass, [facility] Dispo as of 06/09: Will monitor resp status. Dialysis today. Addendum - Attending - Attending Attestation Date/Time: 06/10/202023 I personally evaluated the patient and discussed the management with Dr. Glass I agree with the History, Examination, Assessment and Plan documented above with any addition or exceptions noted below. COVID PNA- pt declined convolescent plasma and not a remdesivir candidate. Elevated procal but patient afebrile and no obvious sign of bacterial infection. Due to clinical picture will not treat with abs and simply repeat tomorrow. If fevers or develops sign of bacterial infection will add abx. HTN- restarted oral hydralazine yesterday. Follow bp today.
[2020-06-10] MEDS: Levothyroxine Sodium 75 MCG TAB PO SCH (06:48)
[2020-06-10] MEDS: Acetaminophen 325 MG TAB PO PRN ×3 (06:48→21:15)
[2020-06-10] MEDS: Mometasone 100 MCG/Formoterol 5 MCG 120 PUFF INHALER INH SCH ×2 (06:49→17:46)
[2020-06-10] MEDS: Heparin 5,000 UNITS/ML VIAL SC SCH ×3 (08:12→21:13)
[2020-06-10] MEDS: Sevelamer Carbonate 800 MG TAB PO SCH ×3 (08:13→16:12)
[2020-06-10] MEDS: hydrALAZINE 25 MG TAB PO SCH ×3 (08:14→19:39)
--- NOTE | 2020-06-10 08:25 | RAD ---
XR Chest 1 View Portable History: Shortness of breath Comparison: Radiograph 2 days prior Findings: Slight improved lung aeration. Heart size is enlarged. No pneumothorax. Trace effusions. No acute osseous abnormality. Impression: Slightly improved lung aeration.
[2020-06-10] MEDS: Insulin Glargine 15 UNITS in Pre-Filled Syringe 1 EACH SC SCH (09:06)
--- NOTE | 2020-06-10 10:46 | PRG ---
DATE OF SERVICE: 06/10/2020 SUBJECTIVE: Ms. Marion is a 50-year-old female with ESRD from diabetic nephropathy and was admitted due to a COVID-19 pneumonia. She was also found to be in some degree of mild volume overload. She underwent extra hemodialysis for fluid removal yesterday. Today, she is undergoing hemodialysis, targeting about 3 L off her. No new complaints. OBJECTIVE: VITAL SIGNS: Blood pressure is 134/64, heart rate 66, respiratory rate 18, temperature 98.5, O2 saturation 92% on room air. GENERAL: Sleepy, but arousable and comfortable. SKIN: Adequate turgor. HEENT: She has pinkish conjunctivae. Anicteric sclerae. NECK: No neck mass. No carotid bruits. No JVD. CHEST: No deformities. LUNGS: Decreased bibasilar crackles. HEART: Normal sinus rhythm. No murmur. No gallops. No rubs. ABDOMEN: Globular, soft, nontender. No masses. EXTREMITIES: No edema. MEDICATIONS: Medications of 06/10/2020 were reviewed. LABORATORY DATA: On 06/09/2020: White count 10.5, hemoglobin 11.2. On 06/10/2020: Sodium 137, potassium 4.2, chloride 97, carbon dioxide 25, BUN 33, creatinine 5.62, and calcium 7.9. Procalcitonin 20.25. Troponin-I 0.390. ASSESSMENT AND PLAN: 1. COVID-19 pneumonia. Continue supportive care. Currently on steroids. 2. End-stage renal disease, stable. We will continue current 3 times a week hemodialysis with this patient. Again, fluid removal as tolerated. 3. Congestive heart failure, the patient received extra dialysis for fluid removal yesterday and currently undergoing another dialysis session and we are attempting a 3 L fluid removal. Overall prognosis remains guarded. Job ID: [id number]
[2020-06-10] MEDS: Dexamethasone 4 MG TAB PO SCH (12:33)
[2020-06-10] MEDS: DULoxetine 30 MG CAP PO SCH (12:34)
[2020-06-10] MEDS: Carvedilol 25 MG TAB PO SCH ×2 (12:35→19:39)
[2020-06-10] MEDS ORDERED: Lidocaine 2% Jelly 5 ML TUBE TOP PRN (15:58)
[2020-06-10] MEDS ORDERED: DULoxetine 30 MG CAP PO SCH (16:00)
[2020-06-10] MEDS ORDERED: Pramipexole Di-HCl 0.125 MG TAB PO SCH (16:00)
[2020-06-10] MEDS ORDERED: Senokot 8.6 MG TAB PO PRN (17:07)
[2020-06-10] MEDS: Atorvastatin Calcium 20 MG TAB PO SCH (19:39)
[2020-06-10] MEDS: NIFEdipine XL 60 MG TAB PO SCH (19:40)
[2020-06-10 20:17] LABS: Platelet Count 159 thou/uL (130-400)
[2020-06-11] MEDS: Acetaminophen 325 MG TAB PO PRN ×2 (01:18→05:25)
[2020-06-11] MEDS ORDERED: Meloxicam 7.5 MG TAB PO SCH (03:45)
[2020-06-11 05:02] LABS: #Lymphocytes 0.6 thou/uL (1.20-3.40); #Monocytes 0.3 thou/uL (0.11-0.59); #Neutrophils 8.4 thou/uL (1.40-6.50); %Basophils 0.1 % (0.0-1.0); %Eosinophils 0.2 % (0.0-10.0); %Lymphocytes 6.7 % (21.0-51.0); %Monocytes 3.5 % (0.0-10.0); %Neutrophils 89.6 % (42.0-75.0); Hemoglobin 11.9 g/dL (12.0-16.0); Mean Corpuscular HGB CONC 31.5 g/dL (32.0-36.0); Mean Corpuscular Hemoglobin 29.4 pg (27.0-31.0); Mean Corpuscular Volume 93.3 fL (78.0-98.0); Mean Platelet Volume 9.9 fL (7.4-10.4); Platelet Count 163 thou/uL (130-400); RBC Distribution Width 17.1 % (11.5-14.5); Red Blood Cell (RBC) Count 4.05 mill/uL (4.20-5.40); White Blood Cell (WBC) Count 9.4 thou/uL (4.8-10.8)
[2020-06-11 05:21] LABS: Anion Gap 18 mmol/L (10-20); BUN (Urea Nitrogen) 26 mg/dL (7.0-18.7); Calc. Creatinine Clearance 17 mL/min (70-130); Calcium 8.3 mg/dL (7.8-10.44); Carbon Dioxide 27 mmol/L (22-29); Chloride 94 mmol/L (98-107); Glucose 187 mg/dL (70-105); Sodium 135 mmol/L (136-145)
[2020-06-11] MEDS: Levothyroxine Sodium 75 MCG TAB PO SCH (05:25)
[2020-06-11] MEDS: Mometasone 100 MCG/Formoterol 5 MCG 120 PUFF INHALER INH SCH (05:38)
--- NOTE | 2020-06-11 06:01 | PDOC.FM ---
- Subjective Subjective: Pt writhing around in the bed complaining of leg pain. She is wanting to leave AMA. She says "no one is helping me for my pain. I didn't sleep at all". She says that all she was given yesterday was tylenol for her pain. I asked her about the lidocaine gel, the pramipexole and meloxicam and she stated "nothing helped." I overheard her talking to her on the phone and she said "If they would just give me a shot of morphine, I would stay." She has a history of opioid overdose. I discussed that she has an abnormal lab value suggesting she may have an infection and we were going to start her on antibiotics. Both she and her voiced understanding and asked if we could give her oral abx. I advised against this and she said she would like to leave now. - Objective Vital Signs & Weight: Vital Signs (12 hours) Temp Pulse Resp BP BP Pulse Ox 06/11/20 03:49 98.1 F 70 18 149/68 H 97 06/11/20 01:01 97 06/10/20 23:10 98.4 F 68 20 130/60 97 06/10/20 19:55 98.3 F 69 20 141/67 H 98 06/10/20 19:40 98 Weight Admit Weight 71.985 kg Weight 71.985 kg I&O: 06/09/20 06/10/20 06/11/20 06:59 06:59 06:59 Intake Total 1040 Balance 1040 Result Diagrams: 06/11/20 04:44 06/11/20 04:44 Phys Exam - Physical Examination Constitutional: NAD HEENT: sclera anicteric Neck: supple Musculoskeletal: no edema Neurological: non-focal Psychiatric: A&O x 3 Skin: no rash Dx/Plan - Plan Plan: Acute hypoxic respiratory failure 2/2 COVID PNA -first day of sx 06/03/20, tested positive on 06/08/20 -currently 97% on RA -Abx started in ED: rocephin and azithromycin -LDH 2065, CRP 7.24, D-dimer 4.79>5.89, Ferritin 33K, trending d-dimer daily -CT and CXR showing COVID PNA -Convalescent plasma ordered, not candidate for remdesivir due to kidney fxn -was on 2L NC, this morning was not on oxygen, will discuss with nurse and wean as tolerated Elevated procal -0.82>20>23 -pt is asymptomatic -repeat CXR: improved aeration -procal 23, wanted to start broad spectrum abx (Vanc and cefepime) but pt left ama, strongly advised against this -spoke with Dr Vazquez and he said he will give her abx with dialysis Elevated troponin -Trop increasing from 0.290-->0.423-->0.48, trend trop -EKG showed sinus tach, no events on telemetry, no CP -on Heparin drip ESRD on HD TTHS -Consult Dr. Vazquez: continue with routine dialysis today -Monitoring lytes with AM labs HTN -Pt had elevated BP in ER but resolved after a single dose of labetolol -Will continue home Coreg and Procardia -Will keep monitoring, might need adjustments -added hydralazine, will send home with rx HLD -Continue atorvastatin Hypothyroidism -Continue home levothyroxine -TSH on 02/2020 was 1.9 Abdominal pain -Pending CT abdomen/pelvis w/o contrast to assess -Pt received 4mg of morphine at the time for her pain Opioid pain medication abuse -Our clinic no longer prescribes opioid medication for this patient after 2 hospital admissions for opioid/drug overdose Restless leg syndrome -Per chart review, she is off ropinerole, pending further med rec -Pt is on Cymbalta at this time Propylaxis: Heparin 5000 units TID Diet: Renal high protein Code: Full PCP: SAJI Mcclendon Dispo: Pt left AMA Addendum - Attending - Attending Attestation Date/Time: 06/11/20 2601 I discussed the management with Dr. Glass. Patient left AMA prior to me being a ble to see her. I agree with the History, Examination, Assessment and Plan documented above with any addition or exceptions noted below. Plan for today was to cover for superimposed PNA in additional to covid pna and d dimer and procal elevated. Discussed this with patient and she declined and left because we did not give her narcotic pain medication. Called Dr. 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 Patient is very high risk of bounceback.
[2020-06-11] MEDS ORDERED: cefTRIAXone\\ROCEPHIN 2 GM in Sodium Chloride 0.9% 100 ML IVPB SCH (07:30)
[2020-06-11] MEDS: hydrALAZINE 25 MG TAB PO SCH (07:57)
[2020-06-11] MEDS: Sevelamer Carbonate 800 MG TAB PO SCH (07:58)
[2020-06-11] MEDS: Carvedilol 25 MG TAB PO SCH (07:58)
[2020-06-11] MEDS: Dexamethasone 4 MG TAB PO SCH (07:58)
[2020-06-11] MEDS: Heparin 5,000 UNITS/ML VIAL SC SCH (07:58)
[2020-06-11] MEDS: Insulin Glargine 15 UNITS in Pre-Filled Syringe 1 EACH SC SCH (08:14)
[2020-06-11 08:16] VITALS: BP 166/74; TEMP 98.3
[2020-06-11] MEDS ORDERED: Azithromycin 250 MG TAB PO SCH (09:00)
[2020-06-11] MEDS ORDERED: Pramipexole Di-HCl 0.125 MG TAB PO SCH (09:00)
[2020-06-11] MEDS ORDERED: DULoxetine 60 MG CAP PO SCH (09:00)
--- NOTE | 2020-06-13 07:57 | DIS ---
DATE OF ADMISSION: 06/08/2020 DATE OF DISCHARGE: 06/11/2020 RESIDENT: Angie Glass, PGY-1. ADMITTING ATTENDING: Dr. Hernandez. DISCHARGE ATTENDING: Dr. Clark. CONSULTS: 1. Nephrology, Dr. Vazquez. 2. PT/OT. PROCEDURES: None. PRIMARY DIAGNOSIS: 1. Acute hypoxic respiratory failure secondary to COVID pneumonia. 2. Sepsis secondary to COVID pneumonia. SECONDARY DIAGNOSES: 1. End-stage renal disease, on hemodialysis. 2. Hypertension. 3. Hyperlipidemia. 4. Hypothyroidism. 5. Abdominal pain. 6. Opioid pain medication abuse. 7. Restless legs syndrome. DISCHARGE MEDICATIONS: 1. Atorvastatin 20 mg daily. 2. Carvedilol 12.5 mg b.i.d. 3. Cymbalta 30 mg daily. 4. Hydralazine 25 mg t.i.d. 5. Toujeo 15 mL subcu daily. 6. Levothyroxine 75 mcg daily. 7. Nifedipine 60 mg at bedtime. 8. Pramipexole 0.125 mg daily for 10 days. 9. Renvela 800 mg t.i.d. Discontinued medications: None. HISTORY OF PRESENT ILLNESS: This is a 50-year-old female with past medical history of end-stage renal disease, on hemodialysis; hypertension; hyperlipidemia; hypothyroidism, who presented to the ER from dialysis with chief complaint of shortness of breath and cough. She reports initially feeling these symptoms on Friday06/03/20. States they have worsened throughout the week. Also reports a fever and loss of taste yesterday. Known sick contact of grandson with known COVID. Labs drawn and significant for COVID positive, D-dimer 4.87, BUN 31, creatinine 6.53, ferritin 33,660, lactate dehydrogenase 2065. Troponin 0.29, 0.42, 0.48, 0.39. CRP 7.24. Procalcitonin 0.83, 20.25, 23.71. Flu A and B negative. On arrival to the ED, the patient's temperature was 101.1, O2 saturation 87% on room air, blood pressure 235/116, pulse 100. The patient was placed on 2 L nasal cannula and O2 sats improved to 97%. The patient given labetalol for blood pressure and started on broad-spectrum antibiotic coverage. Abdomen and pelvis CT showed likely COVID pneumonia and anasarca with moderate nonspecific ascites. Once the patient's lab came back positive for COVID pneumonia, convalescent plasma was offered and the patient refused. She was not a candidate for Remdesivir due to kidney function. She was placed on steroids as per protocol. Nephrology saw the patient and continued her routine dialysis schedule of Friday, , Friday. The patient's blood pressure continued to be elevated, so hydralazine was added to her home regimen. While the patient was here, her respiratory status improved and she was no longer requiring oxygen. She complained of pain in her legs, which is a chronic problem. She was requesting narcotic pain medication, but she has a history of opioid abuse and overdose. Multiple different modalities were used to try and help relieve her leg pain and she stated that none of them worked. Eventually, on June 11, 2020, she stated she was leaving due to her leg pain. I advised the patient that she had a highly abnormal procalcitonin level, and we would like to continue broad-spectrum antibiotic coverage in the hospital, but she declined. I spoke to her , who was on the phone while I was in the room, and he voiced understanding about what her physicians were advising versus what she wanted to do. After lengthy discussion including risks of leaving without proper testing and treatment, the patient decided to leave [facility]. I called and spoke with Dr. Vazquez over the phone and advised him of this, and he stated he would provide antibiotics with dialysis on her regular schedule. Job ID: [id number] MTDD
== END 2020-06-11 08:40 | disposition left against medical advice (07) | DRG 871 ==
LOC: ERS 18:42 → T4-B 21:17 → 2SE 06-09 03:40
PROVIDERS: ADMIT Family Medicine; ATTEND Family Medicine
PROC: 8E0ZXY6 Isolation (ICD-10-PCS; principal; 2020-06-08)
PROC: 5A1D70Z Performance of Urinary Filtration, Intermittent, Less than 6 Hours Per Day (ICD-10-PCS; 2020-06-08)
DX: A41.89 Other specified sepsis (principal); U07.1 COVID-19; J12.89 Other viral pneumonia; J96.01 Acute respiratory failure with hypoxia; N18.6 End stage renal disease; I13.2 Hypertensive heart and chronic kidney disease with heart failure and with stage 5 chronic kidney disease, or end stage renal disease; Z23 Encounter for immunization; E78.5 Hyperlipidemia, unspecified; E03.9 Hypothyroidism, unspecified; F11.10 Opioid abuse, uncomplicated; G25.81 Restless legs syndrome; M19.90 Unspecified osteoarthritis, unspecified site; E78.00 Pure hypercholesterolemia, unspecified; F41.9 Anxiety disorder, unspecified; R79.89 Other specified abnormal findings of blood chemistry; E11.22 Type 2 diabetes mellitus with diabetic chronic kidney disease; I50.9 Heart failure, unspecified; F32.9 Major depressive disorder, single episode, unspecified; Z53.29 Procedure and treatment not carried out because of patient's decision for other reasons; Z98.51 Tubal ligation status; Z99.2 Dependence on renal dialysis; Z88.8 Allergy status to other drugs, medicaments and biological substances; Z79.890 Hormone replacement therapy; Z79.4 Long term (current) use of insulin; Z79.899 Other long term (current) drug therapy
CPT/HCPCS: 0240U; 36415; 36416; 71045; 74176; 80048; 80053; 82553; 82728; 83605; 83615; 84145; 84484; 85014; 85018; 85025; 85049; 85379; 85610; 85730; 86140; 87040; 90471; 90662; 90935; 93005; 93010; 94760; 96365; 96366; 96368; 96375; G0008; G0257; J0360; J0456; J0696; J1644; J1815; J2270; J2405; J8540; Q0162

== ENCOUNTER 2020-06-20 17:30 | Emergency (ER) | payer OTHER ==
[2020-06-20 19:00] LABS: #Eosinphils 0.6 thou/uL (0.0-0.7); #Lymphocytes 1.1 thou/uL (1.20-3.40); #Monocytes 0.6 thou/uL (0.11-0.59); #Neutrophils 5.9 thou/uL (1.40-6.50); %Eosinophils 7.6 % (0.0-10.0); %Lymphocytes 13.6 % (21.0-51.0); %Monocytes 7.4 % (0.0-10.0); %Neutrophils 71.4 % (42.0-75.0); Hemoglobin 11.1 g/dL (12.0-16.0); Mean Corpuscular HGB CONC 32.1 g/dL (32.0-36.0); Mean Corpuscular Hemoglobin 29.2 pg (27.0-31.0); Mean Corpuscular Volume 90.9 fL (78.0-98.0); Mean Platelet Volume 8.6 fL (7.4-10.4); Platelet Count 365 thou/uL (130-400); RBC Distribution Width 17.3 % (11.5-14.5); Red Blood Cell (RBC) Count 3.79 mill/uL (4.20-5.40); White Blood Cell (WBC) Count 8.3 thou/uL (4.8-10.8)
[2020-06-20 19:21] LABS: Anion Gap 24 mmol/L (10-20); BUN (Urea Nitrogen) 101 mg/dL (7.0-18.7); Calc. Creatinine Clearance 0 mL/min (70-130); Carbon Dioxide 20 mmol/L (22-29); Chloride 94 mmol/L (98-107); Potassium 5.2 mmol/L (3.5-5.1); Sodium 133 mmol/L (136-145)
[2020-06-20 19:22] LABS: ALT (SGPT) 86 U/L (8-55); AST (SGOT) 18 U/L (5-34); Albumin 3.7 g/dL (3.5-5.0); Alkaline Phosphatase 228 U/L (40-110); Bilirubin, Total 0.5 mg/dL (0.2-1.2); Calcium 8.8 mg/dL (7.8-10.44); Globulin 3.9 g/dL (2.4-3.5); Glucose 224 mg/dL (70-105); Protein, Total 7.6 g/dL (6.0-8.3)
--- NOTE | 2020-06-20 19:40 | RAD ---
PORTABLE CHEST: 06/20/20 PROVIDED CLINICAL HISTORY: Cough, COVID positive. FINDINGS: Comparison 06/10/20. The cardiac silhouette remains enlarged. There is extensive patchy bilateral interstitial and air spa ce opacity, worsened with respect to the prior study. There is no pleural fluid or pneumothorax appar ent. IMPRESSION: 1. Cardiomegaly. 2. Bilateral lung parenchymal findings compatible with COVID pneumonia. POS: JULES
--- NOTE | 2020-06-24 12:15 | EKG ---
Test Reason : Blood Pressure : / mmHG Vent. Rate : 078 BPM Atrial Rate : 078 BPM P-R Int : 192 ms QRS Dur : 090 ms QT Int : 420 ms P-R-T Axes : 033 -21 106 degrees QTc Int : 478 ms Normal sinus rhythm Possible Left atrial enlargement Left ventricular hypertrophy Cannot rule out Septal infarct , age undetermined Abnormal ECG Confirmed by LATOYA MARINELLI ([id number]), advertising editor DEYANIRA RODRIGUEZ ([id number]) on 06/24/2020 12:15:16 PM Referred By: Confirmed By:LATOYA MARINELLI
== END 2020-06-21 02:03 | disposition home or self-care (01) ==
LOC: ERS 17:30
DX: Z49.01 Encounter for fitting and adjustment of extracorporeal dialysis catheter (principal); E78.00 Pure hypercholesterolemia, unspecified; E03.9 Hypothyroidism, unspecified; E11.22 Type 2 diabetes mellitus with diabetic chronic kidney disease; I12.9 Hypertensive chronic kidney disease with stage 1 through stage 4 chronic kidney disease, or unspecified chronic kidney disease; N18.9 Chronic kidney disease, unspecified
CPT/HCPCS: 36415; 71045; 80053; 85025; 93005

== ENCOUNTER 2020-07-21 06:14 | Inpatient (IN) | payer OTHER ==
[2020-07-21 07:33] LABS: #Basophils 0.1 thou/uL (0.0-0.2); #Eosinphils 0.5 thou/uL (0.0-0.7); #Lymphocytes 1.5 thou/uL (1.20-3.40); #Monocytes 1.3 thou/uL (0.11-0.59); #Neutrophils 8.3 thou/uL (1.40-6.50); %Basophils 0.8 % (0.0-1.0); %Eosinophils 4.3 % (0.0-10.0); %Monocytes 10.7 % (0.0-10.0); %Neutrophils 71.2 % (42.0-75.0); Hemoglobin 9.2 g/dL (12.0-16.0); Mean Corpuscular HGB CONC 31.1 g/dL (32.0-36.0); Mean Corpuscular Hemoglobin 28.7 pg (27.0-31.0); Mean Platelet Volume 8.4 fL (7.4-10.4); Platelet Count 328 thou/uL (130-400); RBC Distribution Width 16.6 % (11.5-14.5); Red Blood Cell (RBC) Count 3.22 mill/uL (4.20-5.40); White Blood Cell (WBC) Count 11.7 thou/uL (4.8-10.8)
[2020-07-21 07:34] LABS: ALT (SGPT) 15 U/L (8-55); AST (SGOT) 9 U/L (5-34); Albumin 3.5 g/dL (3.5-5.0); Alkaline Phosphatase 193 U/L (40-110); Anion Gap 24 mmol/L (10-20); BUN (Urea Nitrogen) 65 mg/dL (7.0-18.7); Bilirubin, Total 0.4 mg/dL (0.2-1.2); Calc. Creatinine Clearance 0 mL/min (70-130); Calcium 8.1 mg/dL (7.8-10.44); Carbon Dioxide 16 mmol/L (22-29); Chloride 103 mmol/L (98-107); Globulin 3.4 g/dL (2.4-3.5); Glucose 454 mg/dL (70-105); Potassium 6.3 mmol/L (3.5-5.1); Protein, Total 6.9 g/dL (6.0-8.3); Sodium 137 mmol/L (136-145)
[2020-07-21] MEDS ORDERED: Morphine 4 MG/ML VIAL ONE (08:17)
[2020-07-21 08:45] LABS: Acetaminophen Less than 6.0 mcg/mL (10.0-30.0); Alcohol Less than 10 mg/dL (Less than 10); Salicylate Less than 8.0 mg/dL (15.0-30.0)
[2020-07-21 09:05] LABS: CKMB 3.6 ng/mL (0-6.6)
[2020-07-21] MEDS ORDERED: Fentanyl 100 MCG/2 ML VIAL ONE (09:09)
[2020-07-21] MEDS ORDERED: Dextrose 5% in Water 1,000 ML IV PRN (11:05)
[2020-07-21] MEDS ORDERED: Dextrose 50% Abboject 50 ML SYRINGE SLOW IVP PRN (11:05)
[2020-07-21] MEDS ORDERED: Ondansetron PF 4 MG/2 ML Vial IVP PRN (11:05)
[2020-07-21] MEDS ORDERED: Ondansetron ODT 4 MG TAB PO PRN (11:05)
[2020-07-21] MEDS ORDERED: HumaLOG 300 UNITS/3 ML VIAL SC PRN (11:09)
[2020-07-21 12:25] LABS: Troponin I 0.032 ng/mL (< 0.028)
[2020-07-21] MEDS: Sevelamer Carbonate 800 MG TAB PO SCH ×2 (15:35→17:08)
[2020-07-21 16:06] LABS: Troponin I 0.029 ng/mL (< 0.028)
[2020-07-21] MEDS: Heparin 5,000 UNITS/ML VIAL SC SCH ×2 (16:26→20:28)
[2020-07-21 16:32] VITALS: BMI 34.4
[2020-07-21] MEDS ORDERED: Sucroferric Oxyhydroxide [Velphoro] 500 MG Tab.Chew PO SCH (17:00)
[2020-07-21] MEDS: hydrALAZINE 25 MG TAB PO SCH ×2 (17:07→20:29)
[2020-07-21 17:23] LABS: Anion Gap 13 mmol/L (10-20); BUN (Urea Nitrogen) 25 mg/dL (7.0-18.7); Calc. Creatinine Clearance 17 mL/min (70-130); Carbon Dioxide 25 mmol/L (22-29); Chloride 102 mmol/L (98-107); Potassium 4.2 mmol/L (3.5-5.1); Sodium 136 mmol/L (136-145)
[2020-07-21 17:24] LABS: Glucose 101 mg/dL (70-105)
[2020-07-21 17:34] LABS: Troponin I 0.042 ng/mL (< 0.028)
[2020-07-21] MEDS: Carvedilol 6.25 MG TAB PO SCH (20:28)
[2020-07-21] MEDS: NIFEdipine XL 60 MG TAB PO SCH (20:29)
[2020-07-21] MEDS: Atorvastatin Calcium 20 MG TAB PO SCH (20:29)
[2020-07-22] MEDS: Acetaminophen 325 MG TAB PO PRN ×2 (00:44→17:45)
[2020-07-22 04:52] LABS: ALT (SGPT) 12 U/L (8-55); AST (SGOT) 13 U/L (5-34); Alkaline Phosphatase 128 U/L (40-110); Anion Gap 16 mmol/L (10-20); BUN (Urea Nitrogen) 27 mg/dL (7.0-18.7); Bilirubin, Total 0.3 mg/dL (0.2-1.2); Calc. Creatinine Clearance 15 mL/min (70-130); Calcium 7.9 mg/dL (7.8-10.44); Carbon Dioxide 22 mmol/L (22-29); Chloride 101 mmol/L (98-107); Globulin 3.3 g/dL (2.4-3.5); Glucose 84 mg/dL (70-105); Potassium 5.2 mmol/L (3.5-5.1); Protein, Total 6.3 g/dL (6.0-8.3); Sodium 134 mmol/L (136-145)
[2020-07-22] MEDS: Levothyroxine Sodium 75 MCG TAB PO SCH (05:46)
[2020-07-22 06:13] LABS: #Eosinphils 0.7 thou/uL (0.0-0.7); #Lymphocytes 2.3 thou/uL (1.20-3.40); #Monocytes 0.9 thou/uL (0.11-0.59); #Neutrophils 6.2 thou/uL (1.40-6.50); %Basophils 0.3 % (0.0-1.0); %Lymphocytes 22.6 % (21.0-51.0); Hemoglobin 10.4 g/dL (12.0-16.0); Mean Corpuscular HGB CONC 31.7 g/dL (32.0-36.0); Mean Corpuscular Hemoglobin 29.3 pg (27.0-31.0); Mean Corpuscular Volume 92.5 fL (78.0-98.0); Mean Platelet Volume 9.6 fL (7.4-10.4); Platelet Count 281 thou/uL (130-400); RBC Distribution Width 16.8 % (11.5-14.5); Red Blood Cell (RBC) Count 3.56 mill/uL (4.20-5.40); White Blood Cell (WBC) Count 10.1 thou/uL (4.8-10.8)
[2020-07-22 06:19] LABS: Phosphorus 5.1 mg/dL (2.3-4.7)
[2020-07-22] MEDS: DULoxetine 30 MG CAP PO SCH (08:36)
[2020-07-22] MEDS: Carvedilol 6.25 MG TAB PO SCH ×2 (08:36→20:11)
[2020-07-22] MEDS: Calcitriol 0.25 MCG CAP PO SCH (08:36)
[2020-07-22] MEDS: Sevelamer Carbonate 800 MG TAB PO SCH ×3 (08:36→20:10)
[2020-07-22] MEDS: Heparin 5,000 UNITS/ML VIAL SC SCH ×3 (08:37→20:11)
[2020-07-22] MEDS: hydrALAZINE 25 MG TAB PO SCH ×3 (08:37→20:11)
[2020-07-22] MEDS ORDERED: Non-Formulary Item 1 EACH (Insulin Glargine,Hum.Rec.Anlog [Toujeo Solostar] 300 UNIT/ML I SQ SCH (09:00)
[2020-07-22] MEDS: Insulin Glargine 12 UNITS in Pre-Filled Syringe 1 EACH SC SCH (09:35)
[2020-07-22] MEDS ORDERED: EPOETIN ALFA-EPBX (ESRD) 4,000 UNIT/ML VIAL SC SCH (10:45)
[2020-07-22] MEDS: HumaLOG 300 UNITS/3 ML VIAL SC PRN (12:03)
[2020-07-22] MEDS: hydrALAZINE 20 MG/ML VIAL SLOW IVP PRN (12:23)
[2020-07-22] MEDS: Atorvastatin Calcium 20 MG TAB PO SCH (20:11)
[2020-07-22] MEDS: NIFEdipine XL 60 MG TAB PO SCH (20:12)
[2020-07-23] MEDS: hydrALAZINE 20 MG/ML VIAL SLOW IVP PRN ×2 (00:29→06:41)
[2020-07-23] MEDS: Acetaminophen 325 MG TAB PO PRN (01:29)
[2020-07-23] MEDS ORDERED: Acetaminophen 325 MG TAB PO PRN (05:02)
[2020-07-23 05:17] LABS: ALT (SGPT) 11 U/L (8-55); AST (SGOT) 14 U/L (5-34); Albumin 3.2 g/dL (3.5-5.0); Alkaline Phosphatase 123 U/L (40-110); Anion Gap 18 mmol/L (10-20); BUN (Urea Nitrogen) 18 mg/dL (7.0-18.7); Bilirubin, Total 0.3 mg/dL (0.2-1.2); Calc. Creatinine Clearance 19 mL/min (70-130); Calcium 8.4 mg/dL (7.8-10.44); Carbon Dioxide 25 mmol/L (22-29); Chloride 102 mmol/L (98-107); Globulin 3.4 g/dL (2.4-3.5); Glucose 126 mg/dL (70-105); Protein, Total 6.6 g/dL (6.0-8.3); Sodium 140 mmol/L (136-145)
[2020-07-23] MEDS: Levothyroxine Sodium 75 MCG TAB PO SCH (05:33)
[2020-07-23] MEDS: Acetaminophen 500 MG TAB PO PRN ×2 (06:26→23:41)
[2020-07-23] MEDS ORDERED: NIFEdipine XL 30 MG TAB PO SCH (06:45)
[2020-07-23] MEDS: Carvedilol 6.25 MG TAB PO SCH (07:53)
[2020-07-23] MEDS: Sevelamer Carbonate 800 MG TAB PO SCH ×3 (07:55→18:09)
[2020-07-23] MEDS: DULoxetine 30 MG CAP PO SCH (07:56)
[2020-07-23] MEDS: Calcitriol 0.25 MCG CAP PO SCH (07:56)
[2020-07-23] MEDS: hydrALAZINE 25 MG TAB PO SCH ×3 (07:56→20:52)
[2020-07-23] MEDS: Heparin 5,000 UNITS/ML VIAL SC SCH ×3 (07:57→20:52)
[2020-07-23] MEDS ORDERED: cloNIDine 0.1 MG TAB PO SCH (09:00)
[2020-07-23] MEDS: Insulin Glargine 12 UNITS in Pre-Filled Syringe 1 EACH SC SCH (09:37)
[2020-07-23] MEDS ORDERED: hydrALAZINE 20 MG/ML VIAL SLOW IVP PRN ×2 (09:49→14:20)
[2020-07-23] MEDS ORDERED: Senokot 8.6 MG TAB PO PRN (10:02)
[2020-07-23] MEDS ORDERED: Diphenoxylate HCl/Atropine Tablet PO PRN (10:02)
[2020-07-23] MEDS ORDERED: Non-Formulary Item 1 EACH (Metoclopramide Hcl [Reglan] 5 MG Tablet) PO SCH (10:15)
[2020-07-23] MEDS ORDERED: Carvedilol 6.25 MG TAB PO SCH (12:00)
[2020-07-23] MEDS: Metoclopramide HCl 10 MG TAB PO SCH ×3 (12:20→20:53)
[2020-07-23] MEDS: HumaLOG 300 UNITS/3 ML VIAL SC PRN (12:21)
[2020-07-23] MEDS: Carvedilol 25 MG TAB PO SCH (17:06)
[2020-07-23] MEDS: cloNIDine 0.1 MG TAB PO SCH (20:52)
[2020-07-23] MEDS: Atorvastatin Calcium 20 MG TAB PO SCH (20:52)
[2020-07-23] MEDS ORDERED: NIFEdipine XL 90 MG TAB PO SCH (21:00)
[2020-07-23] MEDS ORDERED: rOPINIRole HCl 0.25 MG TAB PO SCH (21:00)
[2020-07-24 05:07] LABS: Anion Gap 16 mmol/L (10-20); BUN (Urea Nitrogen) 26 mg/dL (7.0-18.7); Calc. Creatinine Clearance 15 mL/min (70-130); Calcium 8.5 mg/dL (7.8-10.44); Carbon Dioxide 27 mmol/L (22-29); Chloride 97 mmol/L (98-107); Phosphorus 5.1 mg/dL (2.3-4.7); Sodium 135 mmol/L (136-145)
[2020-07-24 05:11] LABS: Glucose 58 mg/dL (70-105)
[2020-07-24] MEDS: Acetaminophen 500 MG TAB PO PRN ×2 (05:37→11:18)
[2020-07-24] MEDS ORDERED: Levothyroxine Sodium 50 MCG TAB PO SCH (06:00)
[2020-07-24] MEDS: Sevelamer Carbonate 800 MG TAB PO SCH ×2 (08:13→13:19)
[2020-07-24] MEDS: Metoclopramide HCl 10 MG TAB PO SCH ×2 (08:13→13:19)
[2020-07-24] MEDS: DULoxetine 30 MG CAP PO SCH (08:14)
[2020-07-24] MEDS: Calcitriol 0.25 MCG CAP PO SCH (08:14)
[2020-07-24] MEDS: Heparin 5,000 UNITS/ML VIAL SC SCH (08:15)
[2020-07-24] MEDS: hydrALAZINE 25 MG TAB PO SCH (08:15)
[2020-07-24] MEDS: Carvedilol 25 MG TAB PO SCH (08:17)
[2020-07-24] MEDS ORDERED: Ondansetron ODT 4 MG TAB PO SCH (09:00)
[2020-07-24] MEDS ORDERED: Insulin Glargine 15 UNITS in Pre-Filled Syringe 1 EACH SC SCH (09:00)
[2020-07-24 09:52] VITALS: TEMP 98.1
[2020-07-24 11:18] VITALS: BP 160/72
[2020-07-24] MEDS: cloNIDine 0.1 MG TAB PO SCH (11:19)
== END 2020-07-24 13:39 | disposition home or self-care (01) | DRG 640 ==
LOC: ERS 06:14 → 2NO 11:05
PROVIDERS: ADMIT Student in an Organized Health Care Education/Training Program; ATTEND Student in an Organized Health Care Education/Training Program
PROC: 5A1D70Z Performance of Urinary Filtration, Intermittent, Less than 6 Hours Per Day (ICD-10-PCS; principal; 2020-07-21)
DX: E87.5 Hyperkalemia (principal); N18.6 End stage renal disease; I12.0 Hypertensive chronic kidney disease with stage 5 chronic kidney disease or end stage renal disease; G93.40 Encephalopathy, unspecified; E78.5 Hyperlipidemia, unspecified; E03.9 Hypothyroidism, unspecified; E11.22 Type 2 diabetes mellitus with diabetic chronic kidney disease; E83.39 Other disorders of phosphorus metabolism; G25.81 Restless legs syndrome; F11.10 Opioid abuse, uncomplicated; R77.8 Other specified abnormalities of plasma proteins; R94.5 Abnormal results of liver function studies; G89.29 Other chronic pain; M79.606 Pain in leg, unspecified; D63.1 Anemia in chronic kidney disease; Z88.8 Allergy status to other drugs, medicaments and biological substances; Z79.899 Other long term (current) drug therapy; Z79.890 Hormone replacement therapy; Z79.4 Long term (current) use of insulin; Z99.2 Dependence on renal dialysis; Z83.3 Family history of diabetes mellitus; Z91.15 Patient's noncompliance with renal dialysis
CPT/HCPCS: 36415; 36416; 70450; 71045; 80048; 80053; 80307; 82010; 82553; 83690; 83735; 84100; 84484; 85025; 90935; 93005; 93010; 96372; G0257; J0360; J1644; J1815; J2270; J3010; Q0162; Q5105

== ENCOUNTER 2020-07-26 14:22 | Outpatient (CLI) | payer OTHER ==
--- NOTE | 2020-07-26 15:30 | RAD ---
LUMBAR SPINE SERIES FOUR VIEWS INCLUDING FLEXION AND EXTENSION: 07/26/20 HISTORY: Back pain with neurogenic claudication. The vertebral bodies are normal in height. Disc spaces are well preserved. Pedicles are intact. No spondylolisthesis. No abnormal motion on flexion or extension. Some mild degenerative facet change s are seen. IMPRESSION: Some minimal degenerative facet changes, otherwise, essentially unremarkable exam. POS: AMNA
== END 2020-07-26 14:23 | disposition home or self-care (01) ==
LOC: BICMRI 14:22
PROVIDERS: ATTEND Nurse Practitioner Family
DX: M48.062 Spinal stenosis, lumbar region with neurogenic claudication (principal); M47.816 Spondylosis without myelopathy or radiculopathy, lumbar region
CPT/HCPCS: 72110

== ENCOUNTER 2020-07-27 15:09 | Inpatient (IN) | payer OTHER ==
[2020-07-27] MEDS ORDERED: Dextrose 50% Abboject 50 ML SYRINGE ONE ×4 (15:21→21:38)
[2020-07-27] MEDS ORDERED: Naloxone HCl 0.4 mg/ml Vial ONE (15:27)
[2020-07-27 15:48] LABS: #Lymphocytes 1.5 thou/uL (1.20-3.40); #Monocytes 0.8 thou/uL (0.11-0.59); #Neutrophils 8.4 thou/uL (1.40-6.50); %Basophils 0.4 % (0.0-1.0); %Eosinophils 8.6 % (0.0-10.0); %Lymphocytes 12.4 % (21.0-51.0); %Neutrophils 71.6 % (42.0-75.0); Hemoglobin 9.7 g/dL (12.0-16.0); Mean Corpuscular HGB CONC 30.7 g/dL (32.0-36.0); Mean Corpuscular Hemoglobin 28.7 pg (27.0-31.0); Mean Corpuscular Volume 93.4 fL (78.0-98.0); Mean Platelet Volume 7.7 fL (7.4-10.4); Platelet Count 333 thou/uL (130-400); RBC Distribution Width 16.8 % (11.5-14.5); Red Blood Cell (RBC) Count 3.39 mill/uL (4.20-5.40); White Blood Cell (WBC) Count 11.7 thou/uL (4.8-10.8)
[2020-07-27 16:10] LABS: ALT (SGPT) 16 U/L (8-55); AST (SGOT) 22 U/L (5-34); Albumin 3.4 g/dL (3.5-5.0); Alkaline Phosphatase 140 U/L (40-110); Anion Gap 16 mmol/L (10-20); BUN (Urea Nitrogen) 32 mg/dL (7.0-18.7); Bilirubin, Total 0.4 mg/dL (0.2-1.2); Calc. Creatinine Clearance 0 mL/min (70-130); Calcium 8.5 mg/dL (7.8-10.44); Carbon Dioxide 25 mmol/L (22-29); Chloride 100 mmol/L (98-107); Globulin 3.5 g/dL (2.4-3.5); Glucose 177 mg/dL (70-105); Potassium 4.4 mmol/L (3.5-5.1); Protein, Total 6.9 g/dL (6.0-8.3); Sodium 137 mmol/L (136-145)
--- NOTE | 2020-07-27 16:42 | RAD ---
PORTABLE CHEST 1 VIEW: Date: 07/27/2020 Time: 1609 hours HISTORY: Hypoglycemia. Altered mental status. COMPARISON: 07/21/2020. FINDINGS: The heart is enlarged. 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 Lungs are well expan ded without lobar consolidation, pneumothoraces, vickie pulmonary edema, or pleural effusions. IMPRESSION: No acute process. POS: OFF
--- NOTE | 2020-07-27 17:10 | CT ---
CT BRAIN WITHOUT CONTRAST: Date: 07/27/2020 HISTORY: Hypoglycemia. Altered mental status. COMPARISON: 07/21/2020. FINDINGS: No evidence of acute infarct, hemorrhage, midline shift, or abnormal extra-axial fluid collections ar e seen. The ventricular size is normal and the basilar cisterns are patent. The bony calvarium is int act. There is mild mucosal disease in the paranasal sinuses. Vascular calcifications in the carotid s iphons and distal vertebral arteries are again seen. IMPRESSION: No CT evidence of acute intracranial process. POS: OFF
[2020-07-27 17:17] LABS: CKMB 2.8 ng/mL (0-6.6)
[2020-07-27] MEDS ORDERED: Acetaminophen 650 MG Suppository ONE (17:34)
[2020-07-27] MEDS ORDERED: Acetaminophen 325 MG Suppository ONE (17:34)
[2020-07-27 17:52] LABS: Amphetamine Not Detected (NotDetected); Barbiturates Screen Not Detected (NotDetected); Benzodiazepine Screen Detected (NotDetected); Cocaine Metabolite Screen Not Detected (NotDetected); Medtox Control Line Valid? VALID (VALID); Medtox Reader # READER 4; Methadone Not Detected (NotDetected); Methamphetamine Not Detected (NotDetected); Opiate Screen Detected (NotDetected); Oxycodone Screen Not Detected (NotDetected); Phencyclidine (PCP) Not Detected (NotDetected); THC/Cannabinoid Screen Detected (NotDetected); Tricyclic Screen Not Detected (NotDetected)
--- NOTE | 2020-07-27 18:10 | PDOC.FPRHP ---
- History of Present Illness Chief Complaint: AMS History of Present Illness: Pt is a 50 y/o F who presented via EMS to the ED with [facility], she was found to be hypoglycemic in the field. Her initial blood sugar was in the 30s. She was given dextrose with improvement of her sugar though no significant improvement of her mental status. She is unable to provide meaningful information at this time. ED Course: 2 amp D50 tylenol 0.4mg naloxone CXR wnl Bran CT no acute intracranial process - Allergies/Adverse Reactions Allergies Allergy/AdvReac Type Severity Reaction Status Date / Time gabapentin Allergy Severe Anaphylaxis Verified 04/14/20 10:50 - Home Medications Medication Instructions Recorded Confirmed Type Atorvastatin Calcium 20 mg PO QPM 05/16/19 07/27/20 History Sevelamer Carbonate [Renvela] 800 mg PO TID-WM #90 tab 12/24/19 07/27/20 Rx NIFEdipine [Nifedipine ER] 90 mg PO HS 02/22/20 07/28/20 History Insulin Glargine,Hum.Rec.Anlog 15 ml SQ DAILY 04/14/20 07/27/20 History [Toujeo Solostar] DULoxetine [Cymbalta] 30 mg PO DAILY 06/08/20 07/27/20 History hydrALAZINE [Apresoline] 25 mg PO TID #90 tab 06/11/20 07/27/20 Rx Calcitriol 0.25 mcg PO DAILY 07/21/20 07/28/20 History Levothyroxine Sodium 50 mcg PO DAILY 07/23/20 07/28/20 History [Levothyroxine] Mirabegron [Myrbetriq] 50 mg PO DAILY 07/23/20 07/28/20 History Ondansetron [Zofran ODT] 4 mg PO DAILY 07/23/20 07/28/20 History Sennosides [Senokot] 2 tab PO HS PRN 07/23/20 07/28/20 History rOPINIRole HCl [Ropinirole HCl] 0.25 mg PO HS 07/23/20 07/28/20 History Carvedilol [Coreg] 25 mg PO BID-WM #60 tab 07/24/20 07/27/20 Rx Diphenoxylate HCl/Atropine 1 each PO BID PRN 07/28/20 07/28/20 History [Diphenoxylate-Atrop 2.5-0.025] Metoclopramide HCl [Reglan] 5 mg PO ACHS 07/28/20 07/28/20 History Sucroferric Oxyhydroxide [Velphoro] 500 mg PO TID-WM 07/28/20 07/28/20 History cloNIDine [Catapres] 0.1 mg PO BID 07/28/20 07/28/20 History - History PMHx: -ESRD on dialysis -HTN -HLD -Hypothyroidism -Opiod/polysubstance abuse -Restless Leg syndrome PSHx: -elbow/hand surgery -fistula placement FHx: -Non contributory Social: -unable to assess for recent TAD - Review of Systems ROS unobtainable: due to mental status - Vital signs BP: 135/72, Pulse: 66, Resp: 14`, Temp: 95.6 (Rectal), O2 sat: 100 on (2L Oxygen), Time: 07/27/2020 19:22. - Physical Exam Constitutional: NAD HEENT: normocephalic and atraumatic Heart: RRR, normal S1/S2, no murmurs/rubs/gallops Lungs: CTAB, no respiratory distress, good air movement, no rales/rhonchi, no wheezing, no retractions Abdomen: soft, non-tender, bowel sounds present Skin: no rash/lesions, good turgor, capillary refill <2 seconds, no jaundice Heme/Lymphatic: no unusual bruising or bleeding FMR H&P: Results - Labs Result Diagrams: 07/28/20 04:32 07/28/20 04:32 Lab results: WBC 11.7 thou/uL (4.8-10.8) H 07/27/20 15:34 Hgb 9.7 g/dL (12.0-16.0) L 07/27/20 15:34 Hct 31.7 % (36.0-47.0) L 07/27/20 15:34 MCV 93.4 fL (78.0-98.0) 07/27/20 15:34 Plt Count 333 thou/uL (130-400) 07/27/20 15:34 Neutrophils % 71.6 % (42.0-75.0) 07/27/20 15:34 Sodium 137 mmol/L (136-145) 07/27/20 15:34 Potassium 4.4 mmol/L (3.5-5.1) 07/27/20 15:34 Chloride 100 mmol/L (98-107) 07/27/20 15:34 Carbon Dioxide 25 mmol/L (22-29) 07/27/20 15:34 BUN 32 mg/dL (7.0-18.7) H 07/27/20 15:34 Creatinine 4.95 mg/dL (0.6-1.1) H 07/27/20 15:34 Glucose 177 mg/dL (70-105) H 07/27/20 15:34 Lactic Acid 1.0 mmol/L (0.5-2.2) 07/27/20 16:01 Calcium 8.5 mg/dL (7.8-10.44) 07/27/20 15:34 Total Bilirubin 0.4 mg/dL (0.2-1.2) 07/27/20 15:34 AST 22 U/L (5-34) 07/27/20 15:34 ALT 16 U/L (8-55) 07/27/20 15:34 Alkaline Phosphatase 140 U/L (40-110) H 07/27/20 15:34 Creatine Kinase 130 U/L (29-168) 07/27/20 16:09 CK-MB (CK-2) 2.8 ng/mL (0-6.6) 07/27/20 16:01 Serum Total Protein 6.9 g/dL (6.0-8.3) 07/27/20 15:34 Albumin 3.4 g/dL (3.5-5.0) L 07/27/20 15:34 FMR H&P: A/P - Plan ##AMS 2/ hypoglycemia and polysubstance abuse/overdose -UDS noted to be positive for opiates, BZD, and cannabinoids. Noted on patients hx is hx of polysubstance abuse, particularly of opiates. Has not been prescribed opiates by our clinic as multiple discussions have been had with patient about how opiates are not appropriate for her medical care -s/p nalaxone in ED, will continue to monitor VSS and mental status and respir atory status -seizure protocol and ASE protocol in place -pt also presented with hypoglycemia, which persisted after 2 amp D50 in ER, Q1H glucose checks, hypoglycemia protocol ##Hypothermia -noted to be hypothermic in presentation to ED, 94.4 -most likely due to polysubstance use -hypothermia protocol as needed -blood clx and urine clx obtained ##Indeterminate trop -trop 0.045 -based on previous admissions, this is patient's baseline, do not need to trend -EKG showed no ST changes ##ESRD on dialysis T,TH,S -BUN 32, Phone Triage 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 FMR H&P: Upper Level - Plan Date/Time: 07/27/201807 I, Austyn Camacho [email or web address], have evaluated this patient and agree with findings/plan as outlined by dietary internship resident. Pertinent changes/additions are listed here. 50yo F with pmh of DM and ESRD being admitted for encephalopathy 2/2 persistent hypoglycemia and drug intoxication pt is fatigued but rousable on exam. hypothermic on presentation. A/P Encephalopathy 2/2 hypoglycemia and multidrug intoxication A- Pt is s/p 2 amps D50 and 2 doses narcan, she is reportedly improved somewhat from presentation. Most recent BG 81. UDS showing THC, opiates, benzos. Pt is fatigued but protecting airway, GCS 14, eyes responding to verbal command. P- admit to IMCU for observation -give additional d50 amp now -check sugars q1hr -monitor closely for withdrawal seizures or worsening mental status hypothermia A- temp on presentation in 94-95 range, has improved with correction of hypoglycemia and bear hugger. P- monitor vitals, if it persists will treat and workup sepsis -f/u BCx COVID positive A- hx of infection in may, pt is asymptomatic P- will keep on precautions for time being. Indeterminate Troponin A- elevated troponin at baseline, .045 today. P- will hold further workup, monitor for symptoms ESRD on HD (T,TH,S) -Will consult DR. Vazquez in the AM - continue home medication Normocytic Anemia - Hgb: 9.2, MCV: 92. likely 2/2 to ESRD DM -hold home glargine for now - SSI, hypoglycemia protocol -per plan above HTN, HLD, Hypothyroidism, Restless leg syndrome -home medications Code: Full Propylaxis: Heparin 5000 units TID Fluids: SL Diet: Renal high protein PCP: SAJI Mcclendon dispo: IMCU, obs, expect < 2 midnights Addendum - Attending - Attending Attestation Date/Time: 07/27/201919 I personally evaluated the patient and discussed the management with resident team I agree with the History, Examination, Assessment and Plan documented above with any addition or exceptions noted below. Admit to IMCU. Multifactorial encephalopathy. Largely uremia, drug intoxication, and hypoglycemia. Supportive care. Now more awake after narcan, glucose, and IVFs. Continue active warming. Consult nephro. Will need HD. Antibx given in ER. Inflammatory irene pending. Cultures pending. Covid pending. Unsure social situation. UDS reviewed. Concern for street use of opiods. Monitor closely. Pranav
[2020-07-27] MEDS ORDERED: Dextrose 5% in Water 1,000 ML IV PRN (19:33)
[2020-07-27] MEDS ORDERED: Acetaminophen 650 MG Suppository PR PRN (19:33)
[2020-07-27 20:00] LABS: SARS-CoV-2 NAA Rapid Test DETECTED (NotDetected)
[2020-07-27 23:52] VITALS: BMI 36.8
[2020-07-28] MEDS: Heparin 5,000 UNITS/ML VIAL SC SCH ×2 (00:33→07:29)
[2020-07-28] MEDS: Dextrose 50% Abboject 50 ML SYRINGE SLOW IVP PRN ×2 (00:44→05:15)
[2020-07-28] MEDS: Acetaminophen 325 MG TAB PO PRN ×2 (03:13→12:06)
[2020-07-28 05:26] LABS: Anion Gap 18 mmol/L (10-20); BUN (Urea Nitrogen) 36 mg/dL (7.0-18.7); Calc. Creatinine Clearance 15 mL/min (70-130); Calcium 8.7 mg/dL (7.8-10.44); Carbon Dioxide 24 mmol/L (22-29); Chloride 99 mmol/L (98-107); Glucose 71 mg/dL (70-105); Potassium 4.6 mmol/L (3.5-5.1); Sodium 136 mmol/L (136-145)
[2020-07-28] MEDS ORDERED: Levothyroxine Sodium 75 MCG TAB PO SCH (06:00)
--- NOTE | 2020-07-28 06:35 | PDOC.FM ---
- Subjective Subjective: Ms. Marion is sleeping this morning but arousable by sternal rub. - Objective Vital Signs & Weight: Vital Signs (12 hours) Temp Pulse Resp BP Pulse Ox 07/28/20 04:00 98.2 F 71 10 L 165/74 H 97 07/28/20 03:18 97 07/28/20 02:00 70 12 178/89 H 100 07/27/20 23:49 97.3 F L 70 12 177/76 H 96 Weight Weight 77.111 kg Result Diagrams: 07/28/20 04:32 07/28/20 04:32 EKG Reviewed by me: Yes (tele: SR 60-70s) Phys Exam - Physical Examination Neck: no nodes Respiratory: no wheezing, no rales, no rhonchi, clear to auscultation bilateral Gastrointestinal: soft, no distention Musculoskeletal: no edema, pulses present Deviation from normal: A&Ox1 Skin: no rash Dx/Plan - Plan Plan: AMS 2/2 hypoglycemia and polysubstance abuse/overdose -UDS noted to be positive for opiates, BZD, and cannabinoids. Noted on patients hx is hx of polysubstance abuse, particularly of opiates. Has not been prescribed opiates by our clinic as multiple discussions have been had with patient about how opiates are not appropriate for her medical care -s/p nalaxone in ED, will continue to monitor VSS and mental status and respiratory status -seizure protocol and ASE protocol in place -pt also presented with hypoglycemia, which persisted after 2 amp D50 in ER, Q1H glucose checks, hypoglycemia protocol. Blood glucoses are stable this AM. HTN -restart home meds Hypothermia, resolved -noted to be hypothermic in presentation to ED, 94.4. 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 If this resolves by this afternoon patient can be discharged since hypoglycemia has resolved.
[2020-07-28 06:52] LABS: Eosinophils 10 % (0-10); Hemoglobin 9.9 g/dL (12.0-16.0); Lymphocytes 18 % (21-51); MDiff Complete? YES; Mean Corpuscular HGB CONC 30.5 g/dL (32.0-36.0); Mean Corpuscular Hemoglobin 28.5 pg (27.0-31.0); Mean Corpuscular Volume 93.3 fL (78.0-98.0); Mean Platelet Volume 7.8 fL (7.4-10.4); Monocytes 9 % (0-10); Neutrophil 63 % (42-75); Platelet Count 309 thou/uL (130-400); Platelet Morphology Comment Appears Adequate; RBC Distribution Width 16.7 % (11.5-14.5); Red Blood Cell (RBC) Count 3.47 mill/uL (4.20-5.40)
[2020-07-28] MEDS: Sevelamer Carbonate 800 MG TAB PO SCH ×2 (07:28→12:05)
[2020-07-28] MEDS ORDERED: DULoxetine 30 MG CAP PO SCH (09:00)
[2020-07-28] MEDS ORDERED: hydrALAZINE 25 MG TAB PO SCH (09:00)
[2020-07-28] MEDS ORDERED: cloNIDine 0.1 MG TAB PO SCH (09:00)
[2020-07-28] MEDS ORDERED: hydrALAZINE 20 MG/ML VIAL SLOW IVP PRN (11:14)
[2020-07-28] MEDS ORDERED: Carvedilol 25 MG TAB PO SCH ×2 (11:15→17:00)
[2020-07-28] MEDS ORDERED: NIFEdipine XL 90 MG TAB PO SCH (11:30)
[2020-07-28 12:01] VITALS: TEMP 97.7
[2020-07-28 14:41] VITALS: BP 150/70
[2020-07-28] MEDS ORDERED: NIFEdipine XL 60 MG TAB PO SCH (21:00)
[2020-07-28] MEDS ORDERED: Atorvastatin Calcium 20 MG TAB PO SCH (21:00)
[2020-07-28] MEDS ORDERED: Prevnar 13-Val Conj/PF 0.5 ML SYRINGE IM ONE (21:00)
[2020-07-29] MEDS ORDERED: NIFEdipine XL 90 MG TAB PO SCH (09:00)
--- NOTE | 2020-07-29 16:17 | EKG ---
Test Reason : Blood Pressure : / mmHG Vent. Rate : 063 BPM Atrial Rate : 063 BPM P-R Int : 194 ms QRS Dur : 090 ms QT Int : 460 ms P-R-T Axes : 036 -15 013 degrees QTc Int : 470 ms Normal sinus rhythm Minimal voltage criteria for LVH, may be normal variant Nonspecific T wave abnormality Prolonged QT Abnormal ECG Confirmed by YOLA HERNANDEZ DO ([id number]), newspaper copy editor DEYANIRA RODRIGUEZ ([id number]) on 07/29/2020 4:16:32 PM Referred By: Confirmed By:YOLA HERNANDEZ DO
== END 2020-07-28 14:31 | disposition home or self-care (01) | DRG 917 ==
LOC: ERS 15:09 → 2SE 18:52
PROVIDERS: ADMIT Family Medicine; ATTEND Family Medicine
PROC: 8E0ZXY6 Isolation (ICD-10-PCS; principal; 2020-07-27)
DX: T40.2X1A Poisoning by other opioids, accidental (unintentional), initial encounter (principal); N18.6 End stage renal disease; G92 Toxic encephalopathy; U07.1 COVID-19; I12.0 Hypertensive chronic kidney disease with stage 5 chronic kidney disease or end stage renal disease; T40.7X1A Poisoning by cannabis (derivatives), accidental (unintentional), initial encounter; T42.4X1A Poisoning by benzodiazepines, accidental (unintentional), initial encounter; E78.5 Hyperlipidemia, unspecified; E03.9 Hypothyroidism, unspecified; G25.81 Restless legs syndrome; D63.1 Anemia in chronic kidney disease; R68.0 Hypothermia, not associated with low environmental temperature; E11.649 Type 2 diabetes mellitus with hypoglycemia without coma; F41.9 Anxiety disorder, unspecified; F32.9 Major depressive disorder, single episode, unspecified; E78.00 Pure hypercholesterolemia, unspecified; Z99.2 Dependence on renal dialysis; Z88.8 Allergy status to other drugs, medicaments and biological substances; Z79.890 Hormone replacement therapy; Z79.899 Other long term (current) drug therapy
CPT/HCPCS: 0240U; 36415; 36416; 51701; 70450; 71045; 80048; 80053; 80306; 82550; 82553; 83605; 84484; 85007; 85025; 85027; 87040; 87086; 93005; 96374; 96375; 96376; J1644; J2310

== ENCOUNTER 2020-08-11 23:30 | Inpatient (IN) | payer OTHER ==
[2020-08-11 23:53] LABS: #Basophils 0.1 thou/uL (0.0-0.2); #Eosinphils 0.4 thou/uL (0.0-0.7); #Lymphocytes 1.2 thou/uL (1.20-3.40); #Monocytes 0.3 thou/uL (0.11-0.59); #Neutrophils 7.5 thou/uL (1.40-6.50); %Basophils 0.8 % (0.0-1.0); %Eosinophils 4.4 % (0.0-10.0); %Lymphocytes 12.3 % (21.0-51.0); %Monocytes 2.8 % (0.0-10.0); %Neutrophils 79.7 % (42.0-75.0); Hemoglobin 12.1 g/dL (12.0-16.0); Mean Corpuscular HGB CONC 31.7 g/dL (32.0-36.0); Mean Corpuscular Volume 91.5 fL (78.0-98.0); Mean Platelet Volume 7.6 fL (7.4-10.4); Platelet Count 318 thou/uL (130-400); RBC Distribution Width 15.1 % (11.5-14.5); Red Blood Cell (RBC) Count 4.19 mill/uL (4.20-5.40); White Blood Cell (WBC) Count 9.4 thou/uL (4.8-10.8)
[2020-08-12] MEDS ORDERED: Ondansetron ODT 4 MG TAB ONE (00:13)
[2020-08-12 00:14] LABS: ALT (SGPT) 15 U/L (8-55); AST (SGOT) 21 U/L (5-34); Albumin 4.4 g/dL (3.5-5.0); Alkaline Phosphatase 163 U/L (40-110); Anion Gap 21 mmol/L (10-20); BUN (Urea Nitrogen) 28 mg/dL (7.0-18.7); Bilirubin, Total 0.6 mg/dL (0.2-1.2); Calc. Creatinine Clearance 0 mL/min (70-130); Calcium 9.8 mg/dL (7.8-10.44); Carbon Dioxide 29 mmol/L (22-29); Chloride 95 mmol/L (98-107); Globulin 4.2 g/dL (2.4-3.5); Glucose 177 mg/dL (70-105); Lipase 283 U/L (8-78); Potassium 4.6 mmol/L (3.5-5.1); Protein, Total 8.6 g/dL (6.0-8.3); Sodium 140 mmol/L (136-145)
[2020-08-12 00:35] LABS: CKMB 2.3 ng/mL (0-6.6)
[2020-08-12] MEDS ORDERED: Morphine 4 MG/ML VIAL ONE ×4 (01:39→08:38)
[2020-08-12] MEDS ORDERED: Ondansetron PF 4 MG/2 ML Vial ONE ×2 (01:48→08:45)
--- NOTE | 2020-08-12 02:35 | PDOC.FPRHP ---
- History of Present Illness Chief Complaint: Abdominal pain History of Present Illness: 50-year-old female with past medical history significant for end-stage renal disease presented to the emergency department for complaint of abdominal pain. Patient stated that this started 2 days ago. She states that it was primarily in her epigastric area but now feels like it is all over her body but worse still in her epigastrium. She also notes several loose stools during this time. She notes continued nausea and a couple episodes of retching but no vomiting. ED workup was significant for an elevated lipase. Previous values for the patient were always within normal range aside from 1 mo ago when it was borderline elevated. Patient has previously had her gallbladder removed many years ago. She denies any fevers, chills, constipation. She denies any new medications. She denies any recent alcohol intake. She receives dialysis on Friday, , Friday-follows with Dr. Vazquez. She denies missing any dialysis appointments. ED Course: Morphine and zofran. Nitropaste for HTN. CT abdomen/pelvis - Allergies/Adverse Reactions Allergies Allergy/AdvReac Type Severity Reaction Status Date / Time gabapentin Allergy Severe Anaphylaxis Verified 08/12/20 15:12 - Home Medications Medication Instructions Recorded Confirmed Type Atorvastatin Calcium 20 mg PO QPM 05/16/19 08/12/20 History Sevelamer Carbonate [Renvela] 800 mg PO TID-WM #90 tab 12/24/19 08/12/20 Rx NIFEdipine [Nifedipine ER] 90 mg PO HS 02/22/20 08/12/20 History DULoxetine [Cymbalta] 30 mg PO DAILY 06/08/20 08/12/20 History hydrALAZINE [Apresoline] 25 mg PO TID #90 tab 06/11/20 08/12/20 Rx Calcitriol 0.25 mcg PO DAILY 07/21/20 08/12/20 History Levothyroxine Sodium 50 mcg PO DAILY 07/23/20 08/12/20 History [Levothyroxine] Mirabegron [Myrbetriq] 50 mg PO DAILY 07/23/20 08/12/20 History Sennosides [Senokot] 2 tab PO HS PRN 07/23/20 08/12/20 History rOPINIRole HCl [Ropinirole HCl] 0.25 mg PO HS 07/23/20 08/12/20 History Carvedilol [Coreg] 25 mg PO BID-WM #60 tab 07/24/20 08/12/20 Rx Diphenoxylate HCl/Atropine 1 each PO BID PRN 07/28/20 08/12/20 History [Diphenoxylate-Atrop 2.5-0.025] Metoclopramide HCl [Reglan] 5 mg PO ACHS 07/28/20 08/12/20 History Sucroferric Oxyhydroxide [Velphoro] 500 mg PO TID-WM 07/28/20 08/12/20 History cloNIDine [Catapres] 0.1 mg PO BID 07/28/20 08/12/20 History Insulin Glargine,Hum.Rec.Anlog 50 unit SQ DAILY 08/12/20 08/12/20 History [Giovany Louise] - History PMHx: -ESRD on dialysis -HTN -HLD -Hypothyroidism -Opiod/polysubstance abuse -Restless Leg syndrome PSHx: -elbow/hand surgery -fistula placement FHx: -Non contributory Social: -Denies alcohol, tobacco, or drugs - however previous UDS within the last month + opioids, benzos, and THC - Review of Systems General: reports: weight/appetite/sleep changes (decreased appetite). denies: fever/chills Eyes: denies: vision changes, other ENT: denies: nasal congestion, rhinorrhea Respiratory: denies: cough, shortness of breath Cardiovascular: denies: chest pain, edema Gastrointestinal: reports: nausea, diarrhea, abdominal pain. denies: vomiting, constipation, GI bleeding Genitourinary: denies: dysuria, polyuria Skin: denies: rashes, lesions Musculoskeletal: denies: pain, swelling Neurological: denies: numbness, weakness Psychological: reports: anxiety, depression - Vital signs BP: 268/149, Pulse: 85, Resp: 24, Pain: 10, O2 sat: 98 on (Room Air), Wt: 72kg - Physical Exam Constitutional: awake, alert and oriented -Constitutional: Throughout exam pt is moaning and rocking back in forth in pain, when I or her daughter ask her questions or her concentration is taken off her pain or she is engaged this stops HEENT: EOMI, MMM Neck: FROM Heart: RRR, normal S1/S2, no edema Lungs: CTAB, no respiratory distress Abdomen: soft, bowel sounds present, no masses/distention -Abdomen: Diffusely tender, worse to epigastrium, no peritoneal signs Musculoskeletal: normal structure, normal tone Neurological: no focal deficit, CN II-XII intact Skin: no rash/lesions, good turgor Heme/Lymphatic: no unusual bruising or bleeding, no purpura -Psychiatric: Anxious FMR H&P: Results - Labs Result Diagrams: 08/12/20 06:10 08/12/20 06:10 Lab results: WBC 9.4 thou/uL (4.8-10.8) 08/11/20 23:43 Hgb 12.1 g/dL (12.0-16.0) 08/11/20 23:43 Hct 38.3 % (36.0-47.0) 08/11/20 23:43 MCV 91.5 fL (78.0-98.0) 08/11/20 23:43 Plt Count 318 thou/uL (130-400) 08/11/20 23:43 Neutrophils % 79.7 % (42.0-75.0) H 08/11/20 23:43 Sodium 140 mmol/L (136-145) 08/11/20 23:43 Potassium 4.6 mmol/L (3.5-5.1) 08/11/20 23:43 Chloride 95 mmol/L (98-107) L 08/11/20 23:43 Carbon Dioxide 29 mmol/L (22-29) 08/11/20 23:43 BUN 28 mg/dL (7.0-18.7) H 08/11/20 23:43 Creatinine 5.77 mg/dL (0.6-1.1) H 08/11/20 23:43 Glucose 177 mg/dL (70-105) H 08/11/20 23:43 Calcium 9.8 mg/dL (7.8-10.44) 08/11/20 23:43 Total Bilirubin 0.6 mg/dL (0.2-1.2) 08/11/20 23:43 AST 21 U/L (5-34) 08/11/20 23:43 ALT 15 U/L (8-55) 08/11/20 23:43 Alkaline Phosphatase 163 U/L (40-110) H 08/11/20 23:43 CK-MB (CK-2) 2.3 ng/mL (0-6.6) 08/11/20 23:43 Serum Total Protein 8.6 g/dL (6.0-8.3) H 08/11/20 23:43 Albumin 4.4 g/dL (3.5-5.0) 08/11/20 23:43 Lipase 283 U/L (8-78) H 08/11/20 23:43 - Radiology Interpretation CT scan - abdomen Status: pending FMR H&P: A/P - Problem List (1) Pancreatitis Current Visit: Yes Status: Acute Code(s): K85.90 - ACUTE PANCREATITIS WITHOUT NECROSIS OR INFECTION, UNSP Qualifiers: Chronicity: acute Pancreatitis type: unspecified pancreatitis type (2) Troponin level elevated Current Visit: Yes Status: Chronic Code(s): R77.8 - OTHER SPECIFIED ABNORMALITIES OF PLASMA PROTEINS (3) DM (diabetes mellitus) Current Visit: No Status: Chronic Code(s): E11.9 - TYPE 2 DIABETES MELLITUS WITHOUT COMPLICATIONS Qualifiers: Diabetes mellitus type: type 2 Diabetes mellitus fci insulin use: with fci use Diabetes mellitus complication status: with kidney complications Diabetes mellitus complication detail: with chronic kidney disease Chronic kidney disease stage: on chronic dialysis Qualified Code(s): E11.22 - Type 2 diabetes mellitus with diabetic chronic kidney disease; N18.6 - End stage renal disease; Z79.4 - lobsterman (current) use of insulin; Z99.2 - Dependence on renal dialysis (4) ESRD (end stage renal disease) Current Visit: No Status: Chronic Code(s): N18.6 - END STAGE RENAL DISEASE (5) HTN (hypertension) Current Visit: No Status: Chronic Code(s): I10 - ESSENTIAL (PRIMARY) HYPERTENSION Qualifiers: Hypertension type: secondary to other renal disorders Qualified Code(s): I15.1 - Hypertension secondary to other renal disorders; N28.89 - Other specified disorders of kidney and ureter (6) Hypothyroid Current Visit: No Status: Chronic Code(s): E03.9 - HYPOTHYROIDISM, UNSPECIFIED (7) Restless leg syndrome Current Visit: No Status: Chronic - Plan Pancreatitis - Epigastric pain w/ N/V, Lipase >3x upper limit of normal at 283 - CT abd/pelvis read pending - NPO, will advance diet as pain improves - IVF - LR @ 180ml x2 bags - Due to ESRD will need to closely monitor fluid balance - Morphine 4mg q4hr for pain - Hx of opioid abuse, will need to wean as soon as able - Will not DC with opioid - No identifiable etiology: Does not drink, no high risk medications (atorvastatin considered class III so low risk, held for now), no trauma, previous cholecystectomy, calcium level normal, no transaminitis - Will get lipid panel to assess triglyceride levels - Consider GI consult Indeterminate trop - Pt always has trop in indeterminate level 2/2 ESRD - EKG stable - Sx are atypical for ACS - Will trend Hypertensive Urgency - SBP >220 in ED - Missed morning and afternoon BP rx's yesterday - coreg, hydralazine, clonidine - Received nitropaste during eval - Will give now dose of a.m. meds if not improving Chronic medical conditions ESRD - Consult nephro Dr. Vazquez in a.m., dialysis due today, conservative fluids DM II - SSI while NPO, resume long acting insulin regimen once diet resumed Hypothyroid - resume home levothyroxine RLS - resume home ropinirole IVF: LR @ 180ml/hr x2L VTE: Heparin TID Diet: NPO Code: Full PCP: Dr. Angie Glass - [facility] Dispo: Admit to inpatient telemetry. NPO, IVF, and pain control for acute pancreatitis. Thierno Calvin DO - PGY2 FMR H&P: Upper Level - Plan Date/Time: 08/12/20 1074 I, [], have evaluated this patient and agree with findings/plan as outlined by technology intern resident. Pertinent changes/additions are listed here. Addendum - Attending - Attending Attestation Date/Time: 08/12/20 4480 I personally evaluated the patient and discussed the management with Dr. Calvin. I agree with the History, Examination, Assessment and Plan documented above with any addition or exceptions noted below. The patient admits with abdominal pain, pancreatitis and hypertensive urgency. Will adjust bp regimen. Adjust morphine for better pain control. Consulting Dr. Vazquez for dialysis, she is due today.
[2020-08-12] MEDS ORDERED: Nitroglycerin 2% Ointment 1 INCH/1 GM Packet ONE (02:44)
[2020-08-12] MEDS ORDERED: Morphine 4 MG/ML VIAL SLOW IVP PRN (03:14)
[2020-08-12] MEDS ORDERED: Ondansetron ODT 4 MG TAB PO PRN (03:14)
[2020-08-12] MEDS ORDERED: Ondansetron PF 4 MG/2 ML Vial IVP PRN (03:14)
[2020-08-12] MEDS ORDERED: Senokot 8.6 MG TAB PO PRN (03:26)
[2020-08-12] MEDS ORDERED: Diphenoxylate HCl/Atropine Tablet PO PRN (03:26)
[2020-08-12] MEDS ORDERED: cloNIDine 0.1 MG TAB ONE (04:15)
[2020-08-12] MEDS ORDERED: hydrALAZINE 25 MG TAB ONE (04:15)
[2020-08-12] MEDS ORDERED: Carvedilol 25 MG TAB PO SCH (04:30)
[2020-08-12] MEDS ORDERED: Dicyclomine 20 MG TAB ONE ×2 (04:40→04:50)
[2020-08-12] MEDS ORDERED: Diphenoxylate HCl/Atropine Tablet PO SCH (04:45)
[2020-08-12] MEDS ORDERED: Diphenoxylate HCl/Atropine Tablet ONE (04:51)
[2020-08-12 06:29] LABS: #Monocytes 0.2 thou/uL (0.11-0.59); #Neutrophils 7.4 thou/uL (1.40-6.50); %Basophils 0.3 % (0.0-1.0); %Eosinophils 0.4 % (0.0-10.0); %Lymphocytes 11.3 % (21.0-51.0); %Monocytes 1.9 % (0.0-10.0); %Neutrophils 86.1 % (42.0-75.0); Mean Corpuscular HGB CONC 31.5 g/dL (32.0-36.0); Mean Corpuscular Hemoglobin 28.8 pg (27.0-31.0); Mean Corpuscular Volume 91.3 fL (78.0-98.0); Mean Platelet Volume 7.9 fL (7.4-10.4); Platelet Count 309 thou/uL (130-400); RBC Distribution Width 15.1 % (11.5-14.5); Red Blood Cell (RBC) Count 3.81 mill/uL (4.20-5.40); White Blood Cell (WBC) Count 8.6 thou/uL (4.8-10.8)
[2020-08-12] MEDS ORDERED: hydrALAZINE 20 MG/ML VIAL ONE (06:52)
[2020-08-12 07:07] LABS: ALT (SGPT) 14 U/L (8-55); AST (SGOT) 29 U/L (5-34); Alkaline Phosphatase 142 U/L (40-110); Anion Gap 26 mmol/L (10-20); BUN (Urea Nitrogen) 31 mg/dL (7.0-18.7); Bilirubin, Total 0.6 mg/dL (0.2-1.2); Calc. Creatinine Clearance 0 mL/min (70-130); Calcium 9.6 mg/dL (7.8-10.44); Carbon Dioxide 22 mmol/L (22-29); Cardiac Risk 2.2 (Less than 4.5); Chloride 94 mmol/L (98-107); Cholesterol 158 mg/dl (< 200 Desired); Globulin 4.1 g/dL (2.4-3.5); Glucose 224 mg/dL (70-105); HDL Cholesterol 72 mg/dL (>60 Neg Risk); LDL Cholesterol, Calculated 65 mg/dL; Lipase 150 U/L (8-78); Potassium 5.3 mmol/L (3.5-5.1); Protein, Total 8.1 g/dL (6.0-8.3); Sodium 137 mmol/L (136-145); Triglycerides 105 mg/dL (Less than 150)
[2020-08-12] MEDS: Lactated Ringer's 1,000 ML IV SCH ×2 (08:00→08:49)
[2020-08-12] MEDS ORDERED: Sucroferric Oxyhydroxide [Velphoro] 500 MG Tab.Chew PO SCH (08:00)
[2020-08-12] MEDS ORDERED: Morphine 2 MG/ML VIAL SLOW IVP PRN (08:12)
--- NOTE | 2020-08-12 08:38 | CT ---
PRELIMINARY REPORT/DIRECT RADIOLOGY/EMERGENCY AFTER HOURS PROCEDURE: EXAM: CT Abdomen and Pelvis with Intravenous Contrast CLINICAL HISTORY: 50-year-old female patient presents ER with complaint of abdominal pain, nausea, lo ose stools for the past few days. The patient has a history of end-stage renal disease and is on dialysis Friday, , Friday and reports that she has not missed any episodes of her dialysis . TECHNIQUE: Axial computed tomography images of the abdomen and pelvis with intravenous contrast. CONTRAST: With; ISOVUE 370,80mL COMPARISON: Abdominal ultrasound and CT dated 09/12/2019 (report only). CT of the abdomen and pelvis dated 06/08/2020. FINDINGS: LUNG BASES: Smooth intralobular septal thickening and enlargement of the cardiac chambers suggestive of mild pulmonary interstitial edema. No focal consolidation. Few scattered areas of nodular subpleural thickening likely representing atelectasis or resolving pneumonia (see most recent CT comp arison). LIVER: Perihepatic ascites. There is a ill-defined region of increased attenuation within the left h epatic lobe measuring approximate 0.9 cm which may represent a small hepatic hemangioma, although incompletely characterized. No additional hepatic lesions. GALLBLADDER AND BILE DUCTS: The patient is status post cholecystectomy. There is intrahepatic and ex trahepatic biliary ductal dilatation. The common bile duct measuring up to 1.6 cm in AP dimension and the intrahepatic bile ducts measuring approximately 0.7 cm along the left portal vein. PANCREAS: No discrete pancreatic mass or pathologic pancreatic ductal dilatation. SPLEEN: No evidence of splenomegaly. There is a regional area of hypoattenuation along the splenic h ilum. A circumscribed cyst is present within the spleen measuring approximate 1.2 cm. ADRENAL GLANDS: Unremarkable. KIDNEYS, URETERS, AND BLADDER: Symmetric atrophic changes of the kidneys without discrete mass. No hy dronephrosis or nephrolithiasis. No ureteral or bladder calculi. STOMACH AND BOWEL: No obstruction. No wall thickening. Area of increased intraluminal attenuation al meagan the terminal ileum and cecum which may represent recently ingested material. No CT evidence of colitis or acute diverticulitis. APPENDIX: The appendix is not definitively visualized. PERITONEUM: Moderate diffuse intra-abdominal ascites with internal Hounsfield units attenuation perry tible with simple fluid. No pneumoperitoneum. LYMPH NODES: No lymphadenopathy. REPRODUCTIVE: Increased areas of attenuation along the uterus consistent with vascular calcification. No adnexal mass. VASCULATURE: Diffuse atherosclerotic calcifications of the aorta and intra-abdominal vasculature. No aortic aneurysm. BONES: No fracture or suspicious osseous abnormality. ABDOMINAL WALL AND SOFT TISSUES: Unremarkable. IMPRESSION: 1. Findings suggestive of mild pulmonary interstitial edema, cardiomegaly, and diffuse intra-abdomin al ascites in patient with reported history of end-stage renal disease. 2. Dilatation of the intra-and extrahepatic bile ducts, as detailed above in patient with history of prior cholecystectomy; overall similar to most recent comparison and also present on prior study dated 09/12/2019 per report. 3. No definitive acute intra-abdominal findings. ELECTRONICALLY SIGNED BY: Maico Martínez MD Aug 12, 2020 3:08:47 AM SCHOOL CURRICULUM DEVELOPER FINAL REPORT CT ABDOMEN AND PELVIS WITH CONTRAST: History: Abdominal pain. Comparison: Abdomen and pelvis CT without contrast May 2020. Findings: Mild volume overload in the lung bases. Continued dilatation of the common bile duct and intrahepatic biliary system. Hypodense cystic structure within the spleen is similar. Peripheral wedge-shaped area of hypoattenuation superior pole of the spleen likely on the basis of infarction. Moderate volume ascites. Severe arterial medial sclerosis. Likely small flash filling hemangioma with in hepatic segment 3. Impression: Majority of the findings and impression are concordant with the initial report. In addition there is a peripheral wedge-shaped hypodense focus within the superior spleen that is concerning for infarction. Transcribed Date/Time: 08/12/2020 9:07 AM
[2020-08-12] MEDS ORDERED: cloNIDine 0.1 MG TAB PO SCH ×3 (09:00)
[2020-08-12] MEDS ORDERED: cloNIDine 0.2mg/24 Hour PATCH TD SCH (09:00)
[2020-08-12] MEDS: hydrALAZINE 25 MG TAB PO SCH ×3 (09:15→20:47)
[2020-08-12] MEDS: Metoclopramide HCl 10 MG TAB PO SCH ×4 (09:15→20:46)
[2020-08-12] MEDS ORDERED: Acetaminophen 650 MG Suppository PR PRN (09:39)
[2020-08-12] MEDS ORDERED: HumaLOG 300 UNITS/3 ML VIAL SC PRN ×2 (09:39)
[2020-08-12] MEDS ORDERED: Dextrose 50% Abboject 50 ML SYRINGE SLOW IVP PRN (09:39)
[2020-08-12] MEDS ORDERED: Acetaminophen 325 MG TAB PO PRN (09:39)
[2020-08-12] MEDS ORDERED: Dextrose 5% in Water 1,000 ML IV PRN (09:39)
[2020-08-12] MEDS ORDERED: Heparin 5,000 UNITS/ML VIAL SC SCH (10:00)
[2020-08-12 10:46] VITALS: BMI 26.5
[2020-08-12] MEDS ORDERED: Iopamidol-370 76% 500 ML 1 ML ONE (11:28)
--- NOTE | 2020-08-12 11:58 | CON ---
DATE OF CONSULTATION: 08/12/2020 HISTORY OF PRESENT ILLNESS: Ms. Marion is a 50-year-old female with ESRD - on maintenance hemodialysis and admitted for abdominal pain. She was found to have acute pancreatitis. She was also having labile hypertension on admission. Adjustments of BP medications are being done. We are being consulted for management of her ESRD. The patient is currently undergoing hemodialysis today. REVIEW OF SYSTEMS: Positive for abdominal pain. Positive for nausea and vomiting. No chest pain or shortness of breath. No fever or chills. No headache. No diplopia. No syncopal episode. No sore throat. No productive cough. No hematochezia. No melena. No hematemesis. Appetite is decreased. Positive for chronic pain. No dysuria. No melena. No hematemesis. HOME MEDICATIONS: Include; 1. Nifedipine ER 90 mg at bedtime. 2. Atorvastatin 20 mg tablet at bedtime. 3. Sevelamer 800 mg one tablet t.i.d. with meals. 4. Cymbalta 30 mg daily. 5. Hydralazine 25 mg p.o. t.i.d. 6. Calcitriol 0.25 mcg daily. 7. Levothyroxine 50 mcg daily. 8. Myrbetriq 50 mg daily. 9. Senokot p.r.n. 10. Ropinirole 0.25 mg at bedtime. 11. Carvedilol 25 mg p.o. b.i.d. 12. Velphoro 500 mg p.o. t.i.d. with meals. 13. Lomotil p.r.n. 14. Clonidine 0.1 mg p.o. b.i.d. 15. Insulin 50 ?units subcu daily. PAST MEDICAL HISTORY: ESRD from diabetic nephropathy, currently on maintenance hemodialysis, failed peritoneal dialysis, hypertension, hyperlipidemia, hypothyroidism, chronic pain, restless legs syndrome, type 2 diabetes mellitus, history of diabetic gastroparesis, and diabetic neuropathy. PAST SURGICAL HISTORY: Status post AV fistula placement, status post cuffed hemodialysis catheter placement, status post PD catheter placement with subsequent removal. SOCIAL HISTORY: The patient originally from [place]. She is , four children. Lives with her . 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 Status post multiple blood transfusion. No smoking. No IV drug abuse. Sedentary lifestyle. ALLERGIES: NONE EXCEPT ADVERSE REACTION TO GABAPENTIN. TRAUMA: None. IMMUNIZATIONS: Up to date. HOSPITALIZATIONS: Please see past medical history. FAMILY HISTORY: No family history of ESRD. PHYSICAL EXAMINATION: VITAL SIGNS: Blood pressure is 209/101, heart rate 82, respiratory rate 20, temperature 97.8, O2 saturation 97%. GENERAL: The patient is sleeping, but arousable, comfortable, not in overt distress. SKIN: Adequate turgor. HEENT: She has a pinkish conjunctivae. Anicteric sclerae. No neck mass. No carotid bruits. No JVD. CHEST: No deformities. LUNGS: Clear breath sounds. No wheezing. No crackles. HEART: Normal sinus rhythm. No murmurs, no gallops, no rubs. ABDOMEN: Globular, soft, nontender. No masses. EXTREMITIES: No edema. No deformities. LABORATORY DATA: Laboratories of August 12, 2020, white count 8.6, hemoglobin 11. Sodium 137, potassium 5.3, chloride 94, carbon dioxide 22, BUN 31, creatinine 6.12, glucose 224, calcium 9.6. AST is 29, ALT 14, albumin 4.0. Troponin I 0.1. Lipase noted at 283. IMAGING: CT scan of the abdomen and pelvis-August 12, 2020, shows mild pulmonary interstitial edema, cardiomegaly. Positive for ascites. Pancreas showed no pancreatic abnormality. ASSESSMENT AND PLAN: 1. Acute pancreatitis. Continue supportive care. Continue renal diet with this patient. 2. ESRD-patient undergoing hemodialysis. My plan is to do a 3-hour hemodialysis with fluid removal only as tolerated by the patient. 3. Labile hypertension. I would suggest that we add minoxidil 5 mg tablet q day be added and adjust as needed. 4. Otherwise, continue the other home BP medications with this patient. Thank you for the consult. We will continue to follow. Job ID: [id number] MTDD
[2020-08-12] MEDS: Sevelamer Carbonate 800 MG TAB PO SCH ×3 (14:37→17:14)
[2020-08-12] MEDS: cloNIDine 0.2 MG TAB PO SCH ×2 (14:56→20:47)
[2020-08-12] MEDS: DULoxetine 30 MG CAP PO SCH (15:47)
[2020-08-12] MEDS: Calcitriol 0.25 MCG CAP PO SCH (15:47)
[2020-08-12] MEDS: Famotidine 20 MG TAB PO SCH (15:47)
[2020-08-12] MEDS: Levothyroxine Sodium 50 MCG TAB PO SCH (15:48)
[2020-08-12] MEDS: Carvedilol 25 MG TAB PO SCH ×2 (15:48→17:15)
[2020-08-12] MEDS: Heparin 5,000 UNITS/ML VIAL SC SCH ×2 (15:48→20:46)
[2020-08-12] MEDS: Famotidine/PF 20 mg/2ml Vial SLOW IVP SCH (15:49)
[2020-08-12] MEDS ORDERED: diphenhydrAMINE 25 MG CAP PO PRN (20:23)
[2020-08-12] MEDS ORDERED: rOPINIRole HCl 0.25 MG TAB PO SCH (21:00)
[2020-08-12] MEDS ORDERED: NIFEdipine XL 90 MG TAB PO SCH (21:00)
[2020-08-13 05:09] LABS: #Basophils 0.1 thou/uL (0.0-0.2); #Eosinphils 0.7 thou/uL (0.0-0.7); #Lymphocytes 2.1 thou/uL (1.20-3.40); #Monocytes 0.7 thou/uL (0.11-0.59); #Neutrophils 4.8 thou/uL (1.40-6.50); %Lymphocytes 24.9 % (21.0-51.0); %Monocytes 8.2 % (0.0-10.0); Hemoglobin 10.2 g/dL (12.0-16.0); Mean Corpuscular HGB CONC 31.3 g/dL (32.0-36.0); Mean Corpuscular Hemoglobin 28.8 pg (27.0-31.0); Mean Corpuscular Volume 91.9 fL (78.0-98.0); Mean Platelet Volume 7.9 fL (7.4-10.4); Platelet Count 284 thou/uL (130-400); Red Blood Cell (RBC) Count 3.54 mill/uL (4.20-5.40); White Blood Cell (WBC) Count 8.3 thou/uL (4.8-10.8)
--- NOTE | 2020-08-13 05:35 | PDOC.FM ---
- Subjective Subjective: Pt resting comfortably. She says she is not having any pain. She was able to eat jell-o last night with no problems. She said she would like to go home today. - Objective Vital Signs & Weight: Vital Signs (12 hours) Temp Pulse Resp BP BP Pulse Ox 08/13/20 03:00 98.4 F 71 24 H 134/61 93 L 08/12/20 21:10 98.9 F 08/12/20 20:47 69 176/76 H 08/12/20 20:00 69 18 176/76 H 97 08/12/20 19:39 97 Weight Weight 59.557 kg I&O: 08/11/20 08/12/20 08/13/20 06:59 06:59 06:59 Intake Total 480 Output Total 2100 Balance -1620 Result Diagrams: 08/13/20 04:23 08/13/20 04:23 Phys Exam - Physical Examination Constitutional: NAD Neck: supple Respiratory: no wheezing, clear to auscultation bilateral Cardiovascular: RRR, no significant murmur Gastrointestinal: soft, non-tender Musculoskeletal: no edema Neurological: non-focal, moves all 4 limbs Psychiatric: normal affect, A&O x 3 Dx/Plan - Plan Plan: Pancreatitis - Epigastric pain w/ N/V, Lipase >3x upper limit of normal at 283 - CT abd/pelvis read pending - Diet: clear liquid, advance as tolerated - IVF - LR @ 180ml x2 bags - Due to ESRD will need to closely monitor fluid balance - Morphine 4mg q4hr for pain - Hx of opioid abuse, will need to wean as soon as able - Will not DC with opioid - No identifiable etiology: Does not drink, no high risk medications (atorvastatin considered class III so low risk, held for now), no trauma, previous cholecystectomy, calcium level normal, no transaminitis Indeterminate trop - Pt always has trop in indeterminate level 2/2 ESRD - EKG stable - Sx are atypical for ACS Hypertensive Urgency - resolved after starting home meds and getting dialysis, Dr Vazquez recommended adding minoxidil - SBP >220 in ED - Missed morning and afternoon BP rx's yesterday - coreg, hydralazine, clonidine Chronic medical conditions ESRD - Consult nephro Dr. Vazquez, appreciate recs DM II - SSI while NPO, resume long acting insulin regimen once diet resumed Hypothyroid - resume home levothyroxine RLS - resume home ropinirole IVF: SL VTE: Heparin TID Diet: clears, advance as tolerated Code: Full PCP: Dr. Angie Glass - [facility] Dispo: Stable. Admit to inpatient telemetry. Will see if she is able to tolerate diet today and likely discharge Addendum - Attending - Attending Attestation Date/Time: 08/13/20 0637 I personally evaluated the patient and discussed the management with Dr. Glass. I agree with the History, Examination, Assessment and Plan documented above with any addition or exceptions noted below. Patient is feeling much better. no more pain. If she tolerates breakfast, she can d/c home. Bp much improved.
[2020-08-13 05:40] LABS: ALT (SGPT) 11 U/L (8-55); AST (SGOT) 21 U/L (5-34); Albumin 3.6 g/dL (3.5-5.0); Alkaline Phosphatase 111 U/L (40-110); Anion Gap 17 mmol/L (10-20); BUN (Urea Nitrogen) 19 mg/dL (7.0-18.7); Bilirubin, Total 0.5 mg/dL (0.2-1.2); Calc. Creatinine Clearance 14 mL/min (70-130); Calcium 9.1 mg/dL (7.8-10.44); Carbon Dioxide 29 mmol/L (22-29); Chloride 97 mmol/L (98-107); Globulin 3.3 g/dL (2.4-3.5); Glucose 112 mg/dL (70-105); Lipase 22 U/L (8-78); Potassium 3.8 mmol/L (3.5-5.1); Protein, Total 6.9 g/dL (6.0-8.3); Sodium 139 mmol/L (136-145)
[2020-08-13] MEDS: Levothyroxine Sodium 50 MCG TAB PO SCH (06:11)
[2020-08-13] MEDS: Famotidine 20 MG TAB PO SCH (08:34)
[2020-08-13] MEDS: Famotidine/PF 20 mg/2ml Vial SLOW IVP SCH (08:36)
[2020-08-13] MEDS: Heparin 5,000 UNITS/ML VIAL SC SCH (08:36)
[2020-08-13] MEDS: cloNIDine 0.2 MG TAB PO SCH (08:37)
[2020-08-13] MEDS: Sevelamer Carbonate 800 MG TAB PO SCH ×2 (08:37→11:31)
[2020-08-13] MEDS: hydrALAZINE 25 MG TAB PO SCH (08:38)
[2020-08-13] MEDS: Metoclopramide HCl 10 MG TAB PO SCH ×2 (08:38→11:31)
[2020-08-13] MEDS: DULoxetine 30 MG CAP PO SCH (08:39)
[2020-08-13] MEDS: Carvedilol 25 MG TAB PO SCH (08:39)
[2020-08-13] MEDS: Calcitriol 0.25 MCG CAP PO SCH (08:39)
[2020-08-13] MEDS ORDERED: Minoxidil 2.5 MG TAB PO SCH (09:00)
--- NOTE | 2020-08-13 10:36 | PRG ---
DATE OF SERVICE: 08/13/2020 SERVICE: Renal Medicine. SUBJECTIVE: Ms. Marion is a 50-year-old female with ESRD, admitted for acute pancreatitis. She initially presented with abdominal pain. She was managed conservatively. Abdominal pain was much improved. She also had a labile blood pressure at that time, and resumption of her BP medications has been done with improvement of the blood pressure. Please note, this patient has history of noncompliance. The patient voices no new complaints - no chest pain or shortness of breath. No abdominal pain. OBJECTIVE: VITAL SIGNS: Blood pressure 136/65, heart rate 68, respiratory rate 22, O2 saturation 93% on room air, and temperature 98.6. GENERAL: The patient is awake, alert, comfortable, not in overt distress. SKIN: Adequate turgor. HEENT: Slightly pale conjunctivae. Anicteric sclerae. NECK: No neck mass. No carotid bruits. No JVD. CHEST: No deformities. LUNGS: Clear breath sounds. No wheezing. No crackles. HEART: Normal sinus rhythm. No murmur, no gallops, no rubs. ABDOMEN: Globular, soft, nontender. No masses. EXTREMITIES: No edema. No deformities. MEDICATIONS: Of August 13, 2020, were reviewed. LABORATORY DATA: Laboratories of August 13, 2020; white count 8.2, hemoglobin 10.2. Sodium 139, potassium 3.8, chloride 97, carbon dioxide 29, BUN 19, creatinine 4.47, glucose 112, AST 21, ALT 11, and lipase is 22. ASSESSMENT AND PLAN: 1. My plan is to discontinue the TTS two patch and simply continued clonidine 0.2 mg p.o. b.i.d. 2. Minoxidil has been added. BP was much improved. 3. End-stage renal disease, stable, no indication for any acute dialytic intervention with this patient. 4. Borderline anemia. Restart Epogen 7500 units subcu q.week. As previously mentioned, hypertension, much improved with adjustment of BP medications. Job ID: [id number]
[2020-08-13] MEDS ORDERED: EPOETIN ALFA-EPBX (ESRD) 4,000 UNIT/ML VIAL SC SCH (12:00)
[2020-08-13 12:18] VITALS: BP 123/58; TEMP 98.1
--- NOTE | 2020-08-14 00:04 | DIS ---
DATE OF ADMISSION: 08/12/2020 DATE OF DISCHARGE: 08/13/2020 ADMITTING ATTENDING: Aiyana Bustillo MD. DISCHARGE ATTENDING: Aiyana Bustillo MD. RESIDENT: Angie Glass MD, PGY-1. CONSULT: Nephrology, Dr. Vazquez. PROCEDURES: Abdomen and pelvis CT: Mild pulmonary interstitial edema, diffuse intraabdominal ascites, dilatation of the intra and extrahepatic bile duct, stable, no acute intraabdominal findings. DISCHARGE MEDICATIONS: 1. Atorvastatin 20 mg daily. 2. Calcitriol 0.25 mcg daily. 3. Coreg 25 b.i.d. 4. Clonidine 0.2 mg patch q.7 days. 5. Diphenoxylate/atropine one tab b.i.d. 6. Cymbalta 30 mg daily. 7. Hydralazine 25 mg t.i.d. 8. Toujeo 15 units daily. 9. Levothyroxine 50 mcg daily. 10. Metoclopramide 5 mg a.c., h.s. 11. Minoxidil 5 mg daily. 12. Myrbetriq 50 mg daily. 13. Nifedipine 90 mg daily. 14. Ropinirole 0.25 mg q.h.s. 15. Senokot two tabs p.o. q.h.s. 16. Renvela 800 mg t.i.d. 17. Velphoro 500 mg t.i.d. Discontinued medications: Clonidine 0.1 mg p.o. PRIMARY DIAGNOSIS: Acute pancreatitis. SECONDARY DIAGNOSES: 1. Indeterminate troponin. 2. Hypertensive urgency. 3. Chronic medical conditions: End-stage renal disease, diabetes mellitus, 2, hypothyroidism, restless legs syndrome. HISTORY OF PRESENT ILLNESS: The patient is a 50-year-old female with history of end-stage renal disease on hemodialysis, DM 2, and opioid misuse, who presents with complaint of abdominal pain. She said it started 2 days ago and is located primarily in the epigastric area. Also, complains of nausea with no vomiting and diarrhea. The patient has a history of cholecystectomy many years ago. She denies any recent alcohol intake and also denies fevers and chills. She has dialysis on Friday, , Friday, and has not missed any appointments. Upon presentation to the ED, her blood pressure was noted to be elevated with systolic pressures in the 200 to 260 range. Patient states that she had not taken her blood pressure medications for at least 2 doses due to the nausea. Labs on presentation to the ER were white count 9.4, hemoglobin 12.1, hematocrit 38.3, platelets 318. Sodium 140, potassium 4.6, BUN 28, creatinine 5.77, glucose 177, AST 21, ALT 15, alkaline phosphatase 63. Troponin 0.1. Lipase 283. In the ED, a CT abdomen and pelvis was done, results as above. The patient was admitted for acute pancreatitis, was made n.p.o., and started on IV fluids. Also, given morphine for pain. Of note, this is a patient of [facility] who has had a problem with opioid misuse in the past. She is not given opioids by our clinic currently. She will not be sent home with narcotics after this admission. Dr. Vazquez was consulted upon admission and arranged for patient to get dialysis. It was a regularly scheduled day as well as she had treatment resistant hypertension at that point. Once home medications were restarted and patient got dialysis, her blood pressure improved. Changes that were made to her blood pressure regimen were adding minoxidil as well as we changed her clonidine from p.o. to a transdermal patch q.7 days. By the next morning, the patient said that her pain was completely controlled. She had not requested the morphine overnight. She had eaten Jell-O and felt well enough to eat breakfast. After she had breakfast with no associated nausea or vomiting, the patient was deemed stable for discharge. After discharge, would follow up with her PCP as outpatient. DISPOSITION: Stable. DISPOSITION INSTRUCTIONS: 1. Location: Home. 2. Diet: Renal. 3. Activity: As tolerated. 4. Followup: With PCP within 7 days and with regularly scheduled outpatient dialysis. Job ID: [id number] MTDD
== END 2020-08-13 13:30 | disposition home or self-care (01) | DRG 438 ==
LOC: ERS 23:30 → 2SW 08-12 02:42 → OBSVTOIN 08-12 02:42
PROVIDERS: ADMIT Family Medicine; ATTEND Family Medicine
DX: K85.90 Acute pancreatitis without necrosis or infection, unspecified (principal); N18.6 End stage renal disease; I12.0 Hypertensive chronic kidney disease with stage 5 chronic kidney disease or end stage renal disease; M19.90 Unspecified osteoarthritis, unspecified site; G25.81 Restless legs syndrome; R77.8 Other specified abnormalities of plasma proteins; F32.9 Major depressive disorder, single episode, unspecified; F41.9 Anxiety disorder, unspecified; E78.5 Hyperlipidemia, unspecified; E03.9 Hypothyroidism, unspecified; E11.22 Type 2 diabetes mellitus with diabetic chronic kidney disease; Z79.899 Other long term (current) drug therapy; Z99.2 Dependence on renal dialysis; Z88.8 Allergy status to other drugs, medicaments and biological substances; Z79.890 Hormone replacement therapy; Z98.890 Other specified postprocedural states; Z79.4 Long term (current) use of insulin; I16.0 Hypertensive urgency; E11.21 Type 2 diabetes mellitus with diabetic nephropathy; G89.29 Other chronic pain; E11.40 Type 2 diabetes mellitus with diabetic neuropathy, unspecified; E11.43 Type 2 diabetes mellitus with diabetic autonomic (poly)neuropathy; K31.84 Gastroparesis; Z90.49 Acquired absence of other specified parts of digestive tract
CPT/HCPCS: 36415; 36416; 74177; 80053; 80061; 82553; 83690; 84484; 85025; 90935; 93005; 96374; 96375; 96376; G0257; G0378; J0360; J1644; J2270; J2405; Q0162; Q0163; Q5105; Q9967; S0028

== ENCOUNTER 2020-09-03 11:36 | Inpatient (IN) | payer OTHER ==
[~2020-09-03 11:36] MED LIST changes: -Cyclobenzaprine 10 MG TAB ONE; -Cyclobenzaprine 10 MG TAB PO PRN; -Fentanyl 100 MCG/2 ML VIAL ONE; +Heparin 10,000 UNITS/ 10 ML VIAL ONE; -Heparin 10,000 UNITS/1 ML VIAL ONE; -Iopamidol 370 76% 100 ML VIAL ONE; -Iopamidol 370 76% 50 ML VIAL FS ONE; -Midazolam HCl 2 mg/2 ml Vial ONE; -diphenhydrAMINE 50 MG/ML VIAL ONE; -traMADol HCl 50 MG TAB ONE; -traMADol HCl 50 MG TAB PO SCH
[2020-09-03] MEDS ORDERED: Calcium Gluc 4.6 MEQ/10 ML (100 MG/ML) ONE (12:07)
[2020-09-03] MEDS ORDERED: Ondansetron PF 4 MG/2 ML Vial ONE (12:07)
[2020-09-03] MEDS ORDERED: Morphine 4 MG/ML VIAL ONE (12:07)
[2020-09-03 12:34] LABS: Band 12 % (5-11); Eosinophils 2 % (0-10); Hemoglobin 12.2 g/dL (12.0-16.0); Lymphocytes 9 % (21-51); MDiff Complete? YES; Mean Corpuscular HGB CONC 32.9 g/dL (32.0-36.0); Mean Corpuscular Hemoglobin 30.1 pg (27.0-31.0); Mean Corpuscular Volume 91.2 fL (78.0-98.0); Mean Platelet Volume 8.1 fL (7.4-10.4); Monocytes 6 % (0-10); Neutrophil 71 % (42-75); Platelet Count 329 thou/uL (130-400); RBC Distribution Width 15.4 % (11.5-14.5); Red Blood Cell (RBC) Count 4.05 mill/uL (4.20-5.40); White Blood Cell (WBC) Count 13.6 thou/uL (4.8-10.8)
[2020-09-03 12:48] LABS: ALT (SGPT) 13 U/L (8-55); AST (SGOT) 15 U/L (5-34); Alkaline Phosphatase 179 U/L (40-110); Anion Gap 30 mmol/L (10-20); BUN (Urea Nitrogen) 92 mg/dL (7.0-18.7); Bilirubin, Total 0.7 mg/dL (0.2-1.2); Calc. Creatinine Clearance 0 mL/min (70-130); Calcium 9.9 mg/dL (7.8-10.44); Carbon Dioxide 19 mmol/L (22-29); Chloride 87 mmol/L (98-107); Globulin 4.7 g/dL (2.4-3.5); Glucose 107 mg/dL (70-105); Protein, Total 8.7 g/dL (6.0-8.3); Sodium 129 mmol/L (136-145)
[2020-09-03 12:51] LABS: Potassium 6.9 mmol/L (3.5-5.1)
[2020-09-03 12:54] LABS: CRP (Inflammatory) 33.19 mg/dL (= or < 0.5)
[2020-09-03] MEDS ORDERED: Cefepime 2 GM VIAL ONE ×2 (13:11→13:14)
[2020-09-03] MEDS ORDERED: Dextrose 50% Abboject 50 ML SYRINGE ONE ×2 (13:11→13:14)
[2020-09-03] MEDS ORDERED: Insulin Regular 300 UNITS/3 ML VIAL ONE (13:11)
[2020-09-03] MEDS ORDERED: Vancomycin 1 GM/200 ML BAG ONE (13:52)
[2020-09-03] MEDS ORDERED: Dextrose 50% Abboject 50 ML SYRINGE SLOW IVP PRN (13:55)
[2020-09-03] MEDS ORDERED: Dextrose 5% in Water 1,000 ML IV PRN (13:55)
[2020-09-03] MEDS ORDERED: HumaLOG 300 UNITS/3 ML VIAL SC PRN (13:57)
[2020-09-03] MEDS ORDERED: Diphenoxylate HCl/Atropine Tablet PO PRN (13:59)
[2020-09-03] MEDS ORDERED: Senokot 8.6 MG TAB PO PRN (13:59)
[2020-09-03] MEDS ORDERED: Cefepime 2 GM in Sodium Chloride 0.9% 100 ML IVPB SCH (14:30)
[2020-09-03 14:41] LABS: Hemoglobin A1c 6.4 % (4.0-6.0)
[2020-09-03] MEDS: Acetaminophen 325 MG TAB PO PRN (15:07)
[2020-09-03] MEDS: hydrALAZINE 25 MG TAB PO SCH ×2 (15:08→20:45)
[2020-09-03] MEDS: Morphine 2 MG/ML VIAL SLOW IVP PRN ×2 (16:37→20:45)
[2020-09-03 17:12] LABS: Troponin I 0.269 ng/mL (< 0.028)
[2020-09-03 17:40] LABS: Anion Gap 29 mmol/L (10-20); BUN (Urea Nitrogen) 87 mg/dL (7.0-18.7); Calc. Creatinine Clearance 6 mL/min (70-130); Calcium 9.4 mg/dL (7.8-10.44); Carbon Dioxide 16 mmol/L (22-29); Chloride 90 mmol/L (98-107); Glucose 106 mg/dL (70-105); Sodium 128 mmol/L (136-145)
[2020-09-03 17:45] LABS: Potassium 6.9 mmol/L (3.5-5.1)
[2020-09-03] MEDS: Heparin 5,000 UNITS/ML VIAL SC SCH ×2 (18:08→22:35)
[2020-09-03] MEDS: Sevelamer Carbonate 800 MG TAB PO SCH (18:08)
[2020-09-03 18:35] LABS: RBC Count-Automated (BF) 195 /cu.mm; WBC/Nucleated-Auto (BF) 80 uL
[2020-09-03] MEDS ORDERED: Vancomycin HCl 500 MG in Sodium Chloride 0.9% 100 ML IVPB SCH (18:45)
[2020-09-03] MEDS ORDERED: Vancomycin 1 GM in Premix Bag 1 BAG IVPB SCH (18:45)
[2020-09-03] MEDS ORDERED: Vancomycin HCl 250 MG in Sodium Chloride 0.9% 100 ML IVPB SCH (18:45)
[2020-09-03] MEDS ORDERED: Vancomycin HCl 750 MG in Sodium Chloride 0.9% 250 ML 250 ML IVPB SCH (18:45)
[2020-09-03] MEDS ORDERED: HOLD VANCOMYCIN FOR LEVEL >20 FS SCH (18:45)
[2020-09-03 18:54] LABS: BF Color Yellow; Body Fluid Source Synovial Fluid; Clarity Hazy (Clear); Tube # EDTA
[2020-09-03 18:56] LABS: BF Segmented Neutrophils 73 %; Cell Count Non Hematic 25 %; Lymphocytes 2 %
[2020-09-03 20:35] LABS: Troponin I 0.312 ng/mL (< 0.028)
[2020-09-03] MEDS: Carvedilol 25 MG TAB PO SCH (20:45)
[2020-09-03] MEDS: rOPINIRole HCl 0.25 MG TAB PO SCH (20:45)
[2020-09-03] MEDS: Metoclopramide HCl 10 MG TAB PO SCH (20:45)
[2020-09-03] MEDS ORDERED: Morphine 2 MG/ML VIAL SLOW IVP SCH (20:45)
[2020-09-03] MEDS: Atorvastatin Calcium 20 MG TAB PO SCH (20:45)
[2020-09-03 21:58] LABS: SARS-CoV-2 PCR by NAA Not Detected (NotDetected)
[2020-09-03] MEDS: Cefepime 2 GM in Sodium Chloride 0.9% 100 ML IVPB SCH (22:35)
[2020-09-03] MEDS: hydrALAZINE 20 MG/ML VIAL SLOW IVP PRN (23:30)
[2020-09-04] MEDS: Morphine 2 MG/ML VIAL SLOW IVP PRN ×4 (01:40→21:10)
[2020-09-04] MEDS ORDERED: hydrALAZINE 20 MG/ML VIAL SLOW IVP SCH (02:00)
[2020-09-04] MEDS ORDERED: Morphine 4 MG/ML VIAL SLOW IVP SCH (02:00)
[2020-09-04 02:26] LABS: Troponin I 0.455 ng/mL (< 0.028)
[2020-09-04] MEDS ORDERED: Heparin 25,000 units/D5W 500 ML IVPB SCH (04:45)
[2020-09-04] MEDS: Cefepime 2 GM in Sodium Chloride 0.9% 100 ML IVPB SCH (05:05)
[2020-09-04] MEDS: Levothyroxine Sodium 50 MCG TAB PO SCH (05:05)
[2020-09-04] MEDS: hydrALAZINE 20 MG/ML VIAL SLOW IVP PRN (05:05)
[2020-09-04 05:10] LABS: Hemoglobin 10.9 g/dL (12.0-16.0); Mean Corpuscular HGB CONC 31.5 g/dL (32.0-36.0); Mean Corpuscular Hemoglobin 29.1 pg (27.0-31.0); Mean Corpuscular Volume 92.4 fL (78.0-98.0); Mean Platelet Volume 7.7 fL (7.4-10.4); Platelet Count 300 thou/uL (130-400); RBC Distribution Width 15.4 % (11.5-14.5); Red Blood Cell (RBC) Count 3.75 mill/uL (4.20-5.40); White Blood Cell (WBC) Count 11.8 thou/uL (4.8-10.8)
[2020-09-04 05:28] LABS: Anion Gap 22 mmol/L (10-20); BUN (Urea Nitrogen) 32 mg/dL (7.0-18.7); Calc. Creatinine Clearance 11 mL/min (70-130); Calcium 8.7 mg/dL (7.8-10.44); Carbon Dioxide 23 mmol/L (22-29); Chloride 96 mmol/L (98-107); Glucose 95 mg/dL (70-105); Potassium 4.7 mmol/L (3.5-5.1); Sodium 136 mmol/L (136-145)
[2020-09-04 05:33] LABS: Troponin I 0.609 ng/mL (< 0.028)
[2020-09-04] MEDS: Heparin 10,000 UNITS/ 10 ML VIAL SLOW IVP SCH ×3 (05:40→20:45)
[2020-09-04 05:50] LABS: Band 7 % (5-11); Eosinophils 2 % (0-10); Lymphocytes 6 % (21-51); MDiff Complete? YES; Monocytes 9 % (0-10); Neutrophil 75 % (42-75)
[2020-09-04] MEDS: Insulin Glargine 7 UNITS in Pre-Filled Syringe 1 EACH SC SCH (08:53)
[2020-09-04] MEDS: DULoxetine 30 MG CAP PO SCH (08:54)
[2020-09-04] MEDS: NIFEdipine XL 90 MG TAB PO SCH (08:54)
[2020-09-04] MEDS: Carvedilol 25 MG TAB PO SCH ×2 (08:54→18:28)
[2020-09-04] MEDS: Metoclopramide HCl 10 MG TAB PO SCH ×4 (08:55→21:02)
[2020-09-04] MEDS: hydrALAZINE 25 MG TAB PO SCH ×3 (08:55→21:02)
[2020-09-04] MEDS: Calcitriol 0.25 MCG CAP PO SCH (08:55)
[2020-09-04] MEDS: Sevelamer Carbonate 800 MG TAB PO SCH ×3 (08:55→16:35)
[2020-09-04] MEDS: Minoxidil 2.5 MG TAB PO SCH (08:57)
[2020-09-04] MEDS ORDERED: Non-Formulary Item 1 EACH (Insulin Glargine,Hum.Rec.Anlog [Toujeo Solostar] 300 UNIT/ML I SQ SCH (09:00)
[2020-09-04] MEDS ORDERED: EPOETIN ALFA-EPBX (ESRD) 4,000 UNIT/ML VIAL SC SCH (09:00)
[2020-09-04] MEDS ORDERED: Insulin Glargine 15 UNITS in Pre-Filled Syringe 1 EACH SC SCH (09:00)
[2020-09-04 10:39] VITALS: BMI 31.8
[2020-09-04] MEDS ORDERED: Labetalol HCl 100 MG/20 ML VIAL SLOW IVP SCH (11:30)
[2020-09-04] MEDS: Acetaminophen 325 MG TAB PO PRN ×2 (13:45→23:53)
[2020-09-04 13:58] LABS: Vancomycin, Random 9.7 ug/mL (See Comment)
[2020-09-04] MEDS: Atorvastatin Calcium 20 MG TAB PO SCH (21:03)
[2020-09-04] MEDS: rOPINIRole HCl 0.25 MG TAB PO SCH (21:03)
[2020-09-05 03:09] LABS: Band 18 % (5-11); Eosinophils 2 % (0-10); Hemoglobin 11.1 g/dL (12.0-16.0); Lymphocytes 5 % (21-51); MDiff Complete? YES; Mean Corpuscular HGB CONC 30.9 g/dL (32.0-36.0); Mean Corpuscular Hemoglobin 28.8 pg (27.0-31.0); Mean Corpuscular Volume 93.3 fL (78.0-98.0); Mean Platelet Volume 7.8 fL (7.4-10.4); Monocytes 3 % (0-10); Neutrophil 72 % (42-75); Platelet Count 316 thou/uL (130-400); RBC Distribution Width 15.2 % (11.5-14.5); Red Blood Cell (RBC) Count 3.87 mill/uL (4.20-5.40); White Blood Cell (WBC) Count 13.5 thou/uL (4.8-10.8)
[2020-09-05] MEDS: Morphine 2 MG/ML VIAL SLOW IVP PRN ×5 (03:18→20:30)
[2020-09-05 03:32] LABS: Anion Gap 21 mmol/L (10-20); BUN (Urea Nitrogen) 39 mg/dL (7.0-18.7); Calc. Creatinine Clearance 10 mL/min (70-130); Calcium 8.4 mg/dL (7.8-10.44); Carbon Dioxide 23 mmol/L (22-29); Chloride 94 mmol/L (98-107); Glucose 170 mg/dL (70-105); Potassium 6.1 mmol/L (3.5-5.1); Sodium 132 mmol/L (136-145)
[2020-09-05] MEDS: Heparin 10,000 UNITS/ 10 ML VIAL SLOW IVP SCH (03:59)
[2020-09-05] MEDS: Cefepime 0.5 GM, Admixture Fee 1 EACH in Sodium Chloride 0.9% 100 ML IVPB SCH (05:26)
[2020-09-05] MEDS: Levothyroxine Sodium 50 MCG TAB PO SCH (05:27)
[2020-09-05] MEDS: HumaLOG 300 UNITS/3 ML VIAL SC PRN ×2 (06:23→14:07)
[2020-09-05 10:05] LABS: Vancomycin, Random 7.8 ug/mL (See Comment)
[2020-09-05] MEDS: Sevelamer Carbonate 800 MG TAB PO SCH ×3 (13:45→17:45)
[2020-09-05] MEDS: Metoclopramide HCl 10 MG TAB PO SCH ×4 (13:46→20:29)
[2020-09-05] MEDS: Carvedilol 25 MG TAB PO SCH ×2 (13:46→17:48)
[2020-09-05] MEDS: Insulin Glargine 7 UNITS in Pre-Filled Syringe 1 EACH SC SCH (13:47)
[2020-09-05] MEDS: DULoxetine 30 MG CAP PO SCH (13:47)
[2020-09-05] MEDS: hydrALAZINE 25 MG TAB PO SCH ×3 (13:47→20:28)
[2020-09-05] MEDS: Calcitriol 0.25 MCG CAP PO SCH (13:47)
[2020-09-05] MEDS: Minoxidil 2.5 MG TAB PO SCH (13:48)
[2020-09-05] MEDS: NIFEdipine XL 90 MG TAB PO SCH (13:48)
[2020-09-05] MEDS ORDERED: Vancomycin HCl 750 MG in Sodium Chloride 0.9% 250 ML 250 ML IVPB SCH (14:00)
[2020-09-05] MEDS: Acetaminophen 325 MG TAB PO PRN ×2 (15:21→23:41)
[2020-09-05] MEDS: Atorvastatin Calcium 20 MG TAB PO SCH (20:28)
[2020-09-05] MEDS: rOPINIRole HCl 0.25 MG TAB PO SCH (20:30)
[2020-09-06] MEDS: Morphine 2 MG/ML VIAL SLOW IVP PRN ×3 (00:31→08:54)
[2020-09-06] MEDS: Acetaminophen 325 MG TAB PO PRN ×2 (04:01→11:08)
[2020-09-06 04:56] LABS: Hemoglobin 10.4 g/dL (12.0-16.0); Platelet Count 344 thou/uL (130-400)
[2020-09-06 04:56] LABS: #Basophils 0.1 thou/uL (0.0-0.2); #Eosinphils 0.8 thou/uL (0.0-0.7); #Monocytes 1.1 thou/uL (0.11-0.59); #Neutrophils 9.8 thou/uL (1.40-6.50); %Basophils 0.5 % (0.0-1.0); %Eosinophils 5.8 % (0.0-10.0); %Lymphocytes 14.9 % (21.0-51.0); %Monocytes 7.7 % (0.0-10.0); %Neutrophils 71.1 % (42.0-75.0); Hemoglobin 10.3 g/dL (12.0-16.0); Mean Corpuscular HGB CONC 30.7 g/dL (32.0-36.0); Mean Corpuscular Hemoglobin 28.9 pg (27.0-31.0); Mean Platelet Volume 7.4 fL (7.4-10.4); Platelet Count 341 thou/uL (130-400); RBC Distribution Width 15.1 % (11.5-14.5); Red Blood Cell (RBC) Count 3.59 mill/uL (4.20-5.40); White Blood Cell (WBC) Count 13.7 thou/uL (4.8-10.8)
[2020-09-06 05:12] LABS: Hemoglobin 10.3 g/dL (12.0-16.0); Mean Corpuscular HGB CONC 30.8 g/dL (32.0-36.0); Mean Corpuscular Volume 94.2 fL (78.0-98.0); Mean Platelet Volume 7.3 fL (7.4-10.4); Platelet Count 344 thou/uL (130-400); RBC Distribution Width 14.9 % (11.5-14.5); Red Blood Cell (RBC) Count 3.55 mill/uL (4.20-5.40); White Blood Cell (WBC) Count 13.6 thou/uL (4.8-10.8)
[2020-09-06 05:16] LABS: Anion Gap 18 mmol/L (10-20); BUN (Urea Nitrogen) 17 mg/dL (7.0-18.7); Calc. Creatinine Clearance 17 mL/min (70-130); Calcium 8.7 mg/dL (7.8-10.44); Carbon Dioxide 23 mmol/L (22-29); Chloride 96 mmol/L (98-107); Glucose 126 mg/dL (70-105); Potassium 3.9 mmol/L (3.5-5.1); Sodium 133 mmol/L (136-145)
[2020-09-06] MEDS: Levothyroxine Sodium 50 MCG TAB PO SCH (05:17)
[2020-09-06 05:27] LABS: Band 10 % (5-11); Eosinophils 5 % (0-10); Lymphocytes 10 % (21-51); MDiff Complete? YES; Metamyelocyte 1 % (0-0); Monocytes 7 % (0-10); Neutrophil 67 % (42-75)
[2020-09-06] MEDS: Cefepime 0.5 GM, Admixture Fee 1 EACH in Sodium Chloride 0.9% 100 ML IVPB SCH (07:23)
[2020-09-06] MEDS: DULoxetine 30 MG CAP PO SCH (08:03)
[2020-09-06] MEDS: hydrALAZINE 25 MG TAB PO SCH (08:03)
[2020-09-06] MEDS: Sevelamer Carbonate 800 MG TAB PO SCH ×2 (08:03→11:05)
[2020-09-06] MEDS: Minoxidil 2.5 MG TAB PO SCH (08:03)
[2020-09-06] MEDS: Carvedilol 25 MG TAB PO SCH (08:04)
[2020-09-06] MEDS: NIFEdipine XL 90 MG TAB PO SCH (08:04)
[2020-09-06] MEDS: Calcitriol 0.25 MCG CAP PO SCH (08:04)
[2020-09-06] MEDS: Metoclopramide HCl 10 MG TAB PO SCH ×2 (08:04→11:05)
[2020-09-06] MEDS ORDERED: hydrALAZINE 25 MG TAB PO SCH (09:00)
[2020-09-06] MEDS ORDERED: Heparin 5,000 UNITS/ML VIAL SC SCH (09:00)
[2020-09-06] MEDS: Insulin Glargine 7 UNITS in Pre-Filled Syringe 1 EACH SC SCH (09:51)
[2020-09-06] MEDS: HumaLOG 300 UNITS/3 ML VIAL SC PRN (11:04)
[2020-09-06] MEDS: hydrALAZINE 20 MG/ML VIAL SLOW IVP PRN (11:11)
[2020-09-06 11:14] VITALS: BP 181/81
[2020-09-06 11:30] VITALS: TEMP 98.5
[2020-09-10] MEDS ORDERED: cloNIDine 0.2mg/24 Hour PATCH TD SCH (09:00)
== END 2020-09-06 13:00 | disposition home or self-care (01) | DRG 602 ==
LOC: ERS 11:36 → 2NO 13:17
PROVIDERS: ADMIT Family Medicine; ATTEND Family Medicine
PROC: 0S9C3ZZ Drainage of Right Knee Joint, Percutaneous Approach (ICD-10-PCS; principal; 2020-09-03)
PROC: 5A1D70Z Performance of Urinary Filtration, Intermittent, Less than 6 Hours Per Day (ICD-10-PCS; 2020-09-03)
DX: L03.115 Cellulitis of right lower limb (principal); N18.6 End stage renal disease; I12.0 Hypertensive chronic kidney disease with stage 5 chronic kidney disease or end stage renal disease; I24.8 Other forms of acute ischemic heart disease; E87.2 Acidosis; E87.1 Hypo-osmolality and hyponatremia; E87.5 Hyperkalemia; E03.9 Hypothyroidism, unspecified; G25.81 Restless legs syndrome; E78.5 Hyperlipidemia, unspecified; F41.9 Anxiety disorder, unspecified; F32.9 Major depressive disorder, single episode, unspecified; E11.40 Type 2 diabetes mellitus with diabetic neuropathy, unspecified; S80.01XA Contusion of right knee, initial encounter; E87.70 Fluid overload, unspecified; R79.89 Other specified abnormal findings of blood chemistry; W19.XXXA Unspecified fall, initial encounter; E11.22 Type 2 diabetes mellitus with diabetic chronic kidney disease; Z20.822 Contact with and (suspected) exposure to COVID-19; Z88.8 Allergy status to other drugs, medicaments and biological substances; Z79.4 Long term (current) use of insulin; Z98.51 Tubal ligation status; Z99.2 Dependence on renal dialysis; Z87.891 Personal history of nicotine dependence; Z91.15 Patient's noncompliance with renal dialysis
CPT/HCPCS: 36415; 36416; 71045; 80048; 80053; 80202; 82550; 82945; 83036; 83605; 84145; 84484; 84550; 85007; 85025; 85027; 85060; 85730; 86140; 87040; 87077; 87149; 87186; 87205; 87635; 89051; 90935; 93005; 93010; G0257; J0360; J0692; J1644; J1815; J2001; J2270; J2405; J3370; J3490; Q5105; U0003; U0005

== ENCOUNTER 2020-12-07 19:18 | Emergency (ER) | payer OTHER ==
[~2020-12-07 19:18] MED LIST changes: -Heparin 10,000 UNITS/ 10 ML VIAL ONE; +Iopamidol-370 76% 500 ML 1 ML ONE
[2020-12-07] MEDS ORDERED: Morphine 4 MG/ML VIAL ONE (19:37)
[2020-12-07] MEDS ORDERED: Ondansetron PF 4 MG/2 ML Vial ONE (19:37)
[2020-12-07 20:30] LABS: #Eosinphils 0.4 thou/uL (0.0-0.7); #Lymphocytes 1.3 thou/uL (1.20-3.40); #Monocytes 0.6 thou/uL (0.11-0.59); #Neutrophils 6.7 thou/uL (1.40-6.50); %Basophils 0.5 % (0.0-1.0); %Eosinophils 4.8 % (0.0-10.0); %Monocytes 6.8 % (0.0-10.0); Hemoglobin 10.7 g/dL (12.0-16.0); Mean Corpuscular Hemoglobin 29.9 pg (27.0-31.0); Mean Corpuscular Volume 93.6 fL (78.0-98.0); Mean Platelet Volume 8.4 fL (7.4-10.4); Platelet Count 194 thou/uL (130-400); RBC Distribution Width 14.2 % (11.5-14.5); Red Blood Cell (RBC) Count 3.56 mill/uL (4.20-5.40); White Blood Cell (WBC) Count 9.1 thou/uL (4.8-10.8)
[2020-12-07 20:50] LABS: ALT (SGPT) 10 U/L (8-55); AST (SGOT) 17 U/L (5-34); Albumin 3.3 g/dL (3.5-5.0); Alkaline Phosphatase 99 U/L (40-110); Anion Gap 21 mmol/L (10-20); BUN (Urea Nitrogen) 36 mg/dL (7.0-18.7); Bilirubin, Total 0.5 mg/dL (0.2-1.2); CK (CPK) 178 U/L (29-168); Calc. Creatinine Clearance 0 mL/min (70-130); Calcium 8.1 mg/dL (7.8-10.44); Carbon Dioxide 24 mmol/L (22-29); Chloride 99 mmol/L (98-107); Globulin 3.1 g/dL (2.4-3.5); Glucose 184 mg/dL (70-105); Lipase 15 U/L (8-78); Protein, Total 6.4 g/dL (6.0-8.3); Sodium 139 mmol/L (136-145)
[2020-12-07 21:11] LABS: CKMB 3.9 ng/mL (0-6.6)
[2020-12-08 00:48] LABS: Troponin I 0.077 ng/mL (< 0.028)
== END 2020-12-08 00:21 | disposition left against medical advice (07) ==
LOC: ERS 19:18
DX: R18.8 Other ascites (principal); I12.0 Hypertensive chronic kidney disease with stage 5 chronic kidney disease or end stage renal disease; E11.22 Type 2 diabetes mellitus with diabetic chronic kidney disease; N18.6 End stage renal disease; R79.0 Abnormal level of blood mineral; E78.00 Pure hypercholesterolemia, unspecified; E03.9 Hypothyroidism, unspecified; E11.40 Type 2 diabetes mellitus with diabetic neuropathy, unspecified; Z99.2 Dependence on renal dialysis; Z79.899 Other long term (current) drug therapy
CPT/HCPCS: 36415; 74177; 80053; 82550; 82553; 83690; 84484; 85025; 93005; 96374; 96375; J2270; J2405; Q9967

== ENCOUNTER 2020-12-08 21:55 | Inpatient (IN) | payer OTHER ==
[2020-12-08 22:29] LABS: #Basophils 0.1 thou/uL (0.0-0.2); #Eosinphils 0.6 thou/uL (0.0-0.7); #Lymphocytes 1.5 thou/uL (1.20-3.40); #Monocytes 0.8 thou/uL (0.11-0.59); #Neutrophils 6.1 thou/uL (1.40-6.50); %Basophils 0.9 % (0.0-1.0); %Lymphocytes 16.4 % (21.0-51.0); %Monocytes 8.9 % (0.0-10.0); %Neutrophils 66.9 % (42.0-75.0); Hemoglobin 11.5 g/dL (12.0-16.0); Mean Corpuscular HGB CONC 31.4 g/dL (32.0-36.0); Mean Corpuscular Hemoglobin 29.4 pg (27.0-31.0); Mean Corpuscular Volume 93.6 fL (78.0-98.0); Mean Platelet Volume 8.3 fL (7.4-10.4); Platelet Count 236 thou/uL (130-400); RBC Distribution Width 14.2 % (11.5-14.5); White Blood Cell (WBC) Count 9.1 thou/uL (4.8-10.8)
[2020-12-08 22:46] LABS: ALT (SGPT) 12 U/L (8-55); AST (SGOT) 20 U/L (5-34); Albumin 3.8 g/dL (3.5-5.0); Alkaline Phosphatase 121 U/L (40-110); Anion Gap 22 mmol/L (10-20); BUN (Urea Nitrogen) 39 mg/dL (7.0-18.7); Bilirubin, Total 0.4 mg/dL (0.2-1.2); Calc. Creatinine Clearance 0 mL/min (70-130); Calcium 8.8 mg/dL (7.8-10.44); Carbon Dioxide 24 mmol/L (22-29); Chloride 96 mmol/L (98-107); Glucose 310 mg/dL (70-105); Lipase 22 U/L (8-78); Protein, Total 7.8 g/dL (6.0-8.3); Sodium 137 mmol/L (136-145)
[2020-12-08] MEDS ORDERED: Ondansetron PF 4 MG/2 ML Vial ONE (23:18)
[2020-12-08] MEDS ORDERED: Fentanyl 100 MCG/2 ML VIAL ONE (23:18)
[2020-12-09] MEDS ORDERED: Morphine 4 MG/ML VIAL ONE
[2020-12-09 00:47] LABS: CKMB 4.5 ng/mL (0-6.6)
[2020-12-09] MEDS ORDERED: Senokot 8.6 MG TAB PO PRN (01:04)
[2020-12-09] MEDS ORDERED: Ondansetron ODT 4 MG TAB PO PRN ×2 (01:04→01:48)
[2020-12-09] MEDS ORDERED: HumaLOG 300 UNITS/3 ML VIAL SC PRN ×2 (01:48)
[2020-12-09] MEDS ORDERED: Dextrose 50% Abboject 50 ML SYRINGE SLOW IVP PRN (01:48)
[2020-12-09] MEDS ORDERED: Morphine 4 MG/ML VIAL SLOW IVP PRN (01:48)
[2020-12-09] MEDS ORDERED: Dextrose 5% in Water 1,000 ML IV PRN (01:48)
[2020-12-09] MEDS ORDERED: Acetaminophen 325 MG TAB PO PRN (01:48)
[2020-12-09] MEDS ORDERED: Labetalol HCl 100 MG/20 ML VIAL SLOW IVP PRN (01:48)
[2020-12-09] MEDS ORDERED: hydrALAZINE 20 MG/ML VIAL SLOW IVP PRN (01:48)
[2020-12-09 01:53] VITALS: BMI 42.0
[2020-12-09] MEDS ORDERED: Morphine 4 MG/ML VIAL SLOW IVP SCH (02:00)
[2020-12-09] MEDS: Ondansetron PF 4 MG/2 ML Vial IVP PRN ×3 (02:05→13:18)
[2020-12-09] MEDS: cefTRIAXone\\ROCEPHIN 1 GM in Sodium Chloride 0.9% 100 ML IVPB SCH (02:19)
[2020-12-09 02:59] LABS: Troponin I 0.061 ng/mL (< 0.028)
[2020-12-09] MEDS ORDERED: Fentanyl 100 MCG/2 ML VIAL SLOW IVP SCH ×2 (03:45→05:15)
[2020-12-09] MEDS ORDERED: Naloxone HCl 0.4 mg/ml Vial IV PRN (05:14)
[2020-12-09] MEDS ORDERED: Carvedilol 25 MG TAB PO SCH ×2 (05:30→08:00)
[2020-12-09] MEDS ORDERED: Levothyroxine Sodium 50 MCG TAB PO SCH (06:00)
[2020-12-09 06:15] LABS: Troponin I 0.069 ng/mL (< 0.028)
[2020-12-09 08:03] LABS: INR-International Normal Ratio 1.2; PTT 28.6 sec (22.9-36.1); Prothrombin Time 14.8 sec (12.0-14.7)
[2020-12-09] MEDS ORDERED: EPOETIN ALFA-EPBX (ESRD) 4,000 UNIT/ML VIAL SC SCH (09:00)
[2020-12-09] MEDS ORDERED: Famotidine/PF 20 mg/2ml Vial SLOW IVP SCH (09:00)
[2020-12-09] MEDS: Heparin 5,000 UNITS/ML VIAL SC SCH ×3 (09:00→22:05)
[2020-12-09] MEDS ORDERED: Sodium Bicarbonate 2.5 MEQ/5 ML VIAL ONE (09:06)
[2020-12-09] MEDS ORDERED: Lidocaine 1% PF 5 ML VIAL ONE (09:06)
[2020-12-09] MEDS ORDERED: Acetaminophen 500 MG TAB PO SCH (09:30)
[2020-12-09] MEDS: Fentanyl 100 MCG/2 ML VIAL SLOW IVP PRN ×2 (09:31→13:15)
[2020-12-09] MEDS: NIFEdipine XL 90 MG TAB PO SCH (09:48)
[2020-12-09] MEDS: hydrALAZINE 25 MG TAB PO SCH ×3 (09:48→21:57)
[2020-12-09] MEDS: Minoxidil 2.5 MG TAB PO SCH ×2 (09:55→21:57)
[2020-12-09] MEDS: Lantus 1000 UNITS/10 ML VIAL SC SCH (09:59)
[2020-12-09] MEDS ORDERED: Iopamidol 370 76% 100 ML VIAL ONE (11:05)
[2020-12-09 12:26] LABS: RBC Count-Automated (BF) 10954 /cu.mm; WBC/Nucleated-Auto (BF) 279 uL
[2020-12-09 12:32] LABS: BF Color Pink; Body Fluid Source Ascites Body Fluid; Clarity Cloudy/Turbid (Clear); Tube # EDTA
[2020-12-09 12:41] LABS: BF Segmented Neutrophils 3 %; Cell Count Non Hematic 71 %; Lymphocytes 24 %
[2020-12-09] MEDS: Calcitriol 0.25 MCG CAP PO SCH (12:43)
[2020-12-09] MEDS: Folic Acid/Vit B Comp W-C PO SCH (12:44)
[2020-12-09] MEDS: DULoxetine 30 MG CAP PO SCH (12:44)
[2020-12-09] MEDS: Acetaminophen 325 MG TAB PO SCH ×2 (13:04→22:04)
[2020-12-09 15:59] LABS: SARS-CoV-2 PCR by NAA Not Detected (NotDetected)
[2020-12-09] MEDS: rOPINIRole HCl 0.25 MG TAB PO SCH (21:57)
[2020-12-09] MEDS: Atorvastatin Calcium 20 MG TAB PO SCH (21:57)
[2020-12-09] MEDS: Carvedilol 25 MG TAB PO SCH (22:10)
[2020-12-10] MEDS: cefTRIAXone\\ROCEPHIN 1 GM in Sodium Chloride 0.9% 100 ML IVPB SCH (01:46)
[2020-12-10 03:54] LABS: ALT (SGPT) 9 U/L (8-55); AST (SGOT) 21 U/L (5-34); Albumin 2.8 g/dL (3.5-5.0); Alkaline Phosphatase 81 U/L (40-110); Anion Gap 15 mmol/L (10-20); BUN (Urea Nitrogen) 23 mg/dL (7.0-18.7); Bilirubin, Total 0.3 mg/dL (0.2-1.2); Calc. Creatinine Clearance 13 mL/min (70-130); Calcium 8.2 mg/dL (7.8-10.44); Carbon Dioxide 26 mmol/L (22-29); Chloride 99 mmol/L (98-107); Globulin 3.3 g/dL (2.4-3.5); Glucose 68 mg/dL (70-105); Potassium 4.4 mmol/L (3.5-5.1); Protein, Total 6.1 g/dL (6.0-8.3); Sodium 136 mmol/L (136-145)
[2020-12-10] MEDS: Acetaminophen 325 MG TAB PO SCH ×3 (04:00→20:23)
[2020-12-10] MEDS: Levothyroxine Sodium 75 MCG TAB PO SCH (05:30)
[2020-12-10 07:17] LABS: #Basophils 0.1 thou/uL (0.0-0.2); #Eosinphils 0.4 thou/uL (0.0-0.7); #Lymphocytes 1.8 thou/uL (1.20-3.40); #Monocytes 0.7 thou/uL (0.11-0.59); #Neutrophils 5.5 thou/uL (1.40-6.50); %Basophils 0.8 % (0.0-1.0); %Eosinophils 5.2 % (0.0-10.0); %Lymphocytes 21.3 % (21.0-51.0); %Monocytes 8.3 % (0.0-10.0); %Neutrophils 64.5 % (42.0-75.0); Hemoglobin 11.7 g/dL (12.0-16.0); Mean Corpuscular HGB CONC 31.6 g/dL (32.0-36.0); Mean Corpuscular Hemoglobin 29.7 pg (27.0-31.0); Mean Platelet Volume 8.4 fL (7.4-10.4); Platelet Count 228 thou/uL (130-400); RBC Distribution Width 14.4 % (11.5-14.5); Red Blood Cell (RBC) Count 3.96 mill/uL (4.20-5.40); White Blood Cell (WBC) Count 8.5 thou/uL (4.8-10.8)
[2020-12-10] MEDS: Carvedilol 25 MG TAB PO SCH ×2 (09:33→15:51)
[2020-12-10] MEDS: Folic Acid/Vit B Comp W-C PO SCH (09:33)
[2020-12-10] MEDS: Heparin 5,000 UNITS/ML VIAL SC SCH ×3 (09:33→20:25)
[2020-12-10] MEDS: Calcitriol 0.25 MCG CAP PO SCH (09:33)
[2020-12-10] MEDS: DULoxetine 30 MG CAP PO SCH (09:33)
[2020-12-10] MEDS: Minoxidil 2.5 MG TAB PO SCH ×2 (09:34→20:23)
[2020-12-10] MEDS: hydrALAZINE 25 MG TAB PO SCH ×3 (09:34→20:23)
[2020-12-10] MEDS: NIFEdipine XL 90 MG TAB PO SCH (09:34)
[2020-12-10] MEDS ORDERED: Famotidine 20 MG TAB PO PRN (10:27)
[2020-12-10] MEDS: Lantus 1000 UNITS/10 ML VIAL SC SCH (11:26)
[2020-12-10] MEDS: rOPINIRole HCl 0.25 MG TAB PO SCH (20:20)
[2020-12-10] MEDS: Atorvastatin Calcium 20 MG TAB PO SCH (20:23)
[2020-12-11] MEDS ORDERED: hydrOXYzine 10 MG TAB PO PRN (01:01)
[2020-12-11] MEDS ORDERED: Fentanyl 100 MCG/2 ML VIAL SLOW IVP SCH (01:30)
[2020-12-11] MEDS: cefTRIAXone\\ROCEPHIN 1 GM in Sodium Chloride 0.9% 100 ML IVPB SCH (02:15)
[2020-12-11 03:25] LABS: #Basophils 0.1 thou/uL (0.0-0.2); #Eosinphils 0.7 thou/uL (0.0-0.7); #Lymphocytes 1.9 thou/uL (1.20-3.40); #Monocytes 0.9 thou/uL (0.11-0.59); #Neutrophils 5.3 thou/uL (1.40-6.50); %Eosinophils 7.8 % (0.0-10.0); %Lymphocytes 21.1 % (21.0-51.0); %Monocytes 9.6 % (0.0-10.0); %Neutrophils 60.4 % (42.0-75.0); Hemoglobin 11.1 g/dL (12.0-16.0); Mean Corpuscular HGB CONC 31.8 g/dL (32.0-36.0); Mean Corpuscular Hemoglobin 29.8 pg (27.0-31.0); Mean Corpuscular Volume 93.8 fL (78.0-98.0); Mean Platelet Volume 8.5 fL (7.4-10.4); Platelet Count 217 thou/uL (130-400); RBC Distribution Width 14.4 % (11.5-14.5); Red Blood Cell (RBC) Count 3.74 mill/uL (4.20-5.40); White Blood Cell (WBC) Count 8.9 thou/uL (4.8-10.8)
[2020-12-11] MEDS: Acetaminophen 325 MG TAB PO SCH (03:30)
[2020-12-11 03:50] LABS: Anion Gap 18 mmol/L (10-20); BUN (Urea Nitrogen) 31 mg/dL (7.0-18.7); Calc. Creatinine Clearance 11 mL/min (70-130); Calcium 8.4 mg/dL (7.8-10.44); Carbon Dioxide 25 mmol/L (22-29); Chloride 96 mmol/L (98-107); Glucose 231 mg/dL (70-105); Potassium 4.7 mmol/L (3.5-5.1); Sodium 134 mmol/L (136-145)
[2020-12-11] MEDS: Levothyroxine Sodium 75 MCG TAB PO SCH (05:48)
[2020-12-11 07:58] LABS: Phosphorus 6.9 mg/dL (2.3-4.7)
[2020-12-11] MEDS ORDERED: hydrOXYzine 25 MG TAB PO SCH (08:00)
[2020-12-11] MEDS: DULoxetine 30 MG CAP PO SCH (08:31)
[2020-12-11] MEDS: Calcitriol 0.25 MCG CAP PO SCH (08:31)
[2020-12-11] MEDS: Carvedilol 25 MG TAB PO SCH (08:31)
[2020-12-11] MEDS: Folic Acid/Vit B Comp W-C PO SCH (08:32)
[2020-12-11] MEDS: hydrALAZINE 25 MG TAB PO SCH (08:32)
[2020-12-11] MEDS: Minoxidil 2.5 MG TAB PO SCH (08:32)
[2020-12-11] MEDS: NIFEdipine XL 90 MG TAB PO SCH (08:32)
[2020-12-11] MEDS: Heparin 5,000 UNITS/ML VIAL SC SCH (08:32)
[2020-12-11] MEDS: Lantus 1000 UNITS/10 ML VIAL SC SCH (08:33)
[2020-12-11 09:14] VITALS: BP 130/70; TEMP 97.9
[2020-12-11] MEDS ORDERED: Sevelamer Carbonate 800 MG TAB PO SCH (12:00)
== END 2020-12-11 11:53 | disposition home or self-care (01) | DRG 947 ==
LOC: ERS 21:55 → 2SW 23:43 → IMCU/EMU 12-09 04:34 → OBSVTOIN 12-10 17:14 → 2SW 12-11 09:08
PROVIDERS: ADMIT Family Medicine; ATTEND Family Medicine
PROC: 0W9G3ZZ Drainage of Peritoneal Cavity, Percutaneous Approach (ICD-10-PCS; principal; 2020-12-09)
PROC: 5A1D70Z Performance of Urinary Filtration, Intermittent, Less than 6 Hours Per Day (ICD-10-PCS; 2020-12-09)
DX: R18.8 Other ascites (principal); N18.6 End stage renal disease; I12.0 Hypertensive chronic kidney disease with stage 5 chronic kidney disease or end stage renal disease; I16.0 Hypertensive urgency; E11.22 Type 2 diabetes mellitus with diabetic chronic kidney disease; E11.51 Type 2 diabetes mellitus with diabetic peripheral angiopathy without gangrene; G25.81 Restless legs syndrome; E11.40 Type 2 diabetes mellitus with diabetic neuropathy, unspecified; E03.9 Hypothyroidism, unspecified; E77.8 Other disorders of glycoprotein metabolism; F41.9 Anxiety disorder, unspecified; F32.9 Major depressive disorder, single episode, unspecified; E78.5 Hyperlipidemia, unspecified; G89.29 Other chronic pain; D63.1 Anemia in chronic kidney disease; D73.5 Infarction of spleen; Z99.2 Dependence on renal dialysis; Z88.8 Allergy status to other drugs, medicaments and biological substances; Z79.899 Other long term (current) drug therapy; Z79.890 Hormone replacement therapy; Z79.4 Long term (current) use of insulin; Z98.51 Tubal ligation status; Z87.891 Personal history of nicotine dependence
CPT/HCPCS: 36415; 36416; 49083; 74174; 80048; 80053; 82553; 83605; 83690; 83735; 84100; 84443; 84484; 85025; 85060; 85610; 85730; 87070; 87205; 89051; 90935; 93005; 96365; 96372; 96374; 96375; 96376; G0257; G0378; J0360; J0696; J1644; J1815; J2270; J2405; J3010; J3490; Q9967; S0028; U0003; U0005

== ENCOUNTER 2020-12-28 12:52 | Outpatient (CLI) | payer OTHER ==
[2020-12-29 08:03] LABS: SARS-CoV-2 NAA Rapid Test Not Detected (NotDetected)
== END 2020-12-28 12:53 | disposition home or self-care (01) ==
LOC: LABBT 12:52
PROVIDERS: ATTEND Specialist
DX: Z01.812 Encounter for preprocedural laboratory examination (principal); M48.062 Spinal stenosis, lumbar region with neurogenic claudication; Z20.822 Contact with and (suspected) exposure to COVID-19
CPT/HCPCS: U0002; U0003; U0005

== ENCOUNTER 2021-02-11 08:04 | Emergency (ER) | payer OTHER ==
[2021-02-11] MEDS ORDERED: Ketorolac Tromethamine 30 MG/ML VIAL ONE (09:23)
== END 2021-02-11 09:45 | disposition home or self-care (01) ==
LOC: ERS 08:04
DX: E11.40 Type 2 diabetes mellitus with diabetic neuropathy, unspecified (principal); M19.90 Unspecified osteoarthritis, unspecified site; I10 Essential (primary) hypertension; E78.00 Pure hypercholesterolemia, unspecified; E03.9 Hypothyroidism, unspecified; Z99.2 Dependence on renal dialysis; Z79.4 Long term (current) use of insulin; Z79.899 Other long term (current) drug therapy
CPT/HCPCS: J1885

== ENCOUNTER 2021-02-11 17:54 | Inpatient (IN) | payer OTHER ==
[2021-02-11] MEDS ORDERED: Naloxone HCl 0.4 mg/ml Vial ONE ×2 (18:05→18:07)
[2021-02-11] MEDS ORDERED: Midazolam HCl 2 mg/2 ml Vial ONE ×2 (18:10→18:30)
[2021-02-11 18:18] LABS: #Basophils 0.1 thou/uL (0.0-0.2); #Eosinphils 0.6 thou/uL (0.0-0.7); #Lymphocytes 1.7 thou/uL (1.20-3.40); #Monocytes 0.9 thou/uL (0.11-0.59); #Neutrophils 4.9 thou/uL (1.40-6.50); %Basophils 1.1 % (0.0-1.0); %Eosinophils 6.7 % (0.0-10.0); %Lymphocytes 20.9 % (21.0-51.0); %Monocytes 11.1 % (0.0-10.0); %Neutrophils 60.2 % (42.0-75.0); Hemoglobin 10.6 g/dL (12.0-16.0); Mean Corpuscular HGB CONC 32.2 g/dL (32.0-36.0); Mean Corpuscular Hemoglobin 30.3 pg (27.0-31.0); Mean Platelet Volume 8.5 fL (7.4-10.4); Platelet Count 258 thou/uL (130-400); Red Blood Cell (RBC) Count 3.49 mill/uL (4.20-5.40); White Blood Cell (WBC) Count 8.2 thou/uL (4.8-10.8)
[2021-02-11 18:32] LABS: INR-International Normal Ratio 1.1; PTT 34.9 sec (22.9-36.1); Prothrombin Time 14.1 sec (12.0-14.7)
[2021-02-11 18:37] LABS: ALT (SGPT) 15 U/L (8-55); AST (SGOT) 29 U/L (5-34); Albumin 3.3 g/dL (3.5-5.0); Alkaline Phosphatase 112 U/L (40-110); Anion Gap 21 mmol/L (10-20); BUN (Urea Nitrogen) 48 mg/dL (7.0-18.7); Bilirubin, Total 0.4 mg/dL (0.2-1.2); Calc. Creatinine Clearance 0 mL/min (70-130); Calcium 8.6 mg/dL (7.8-10.44); Carbon Dioxide 25 mmol/L (22-29); Chloride 95 mmol/L (98-107); Globulin 4.2 g/dL (2.4-3.5); Glucose 162 mg/dL (70-105); Potassium 4.9 mmol/L (3.5-5.1); Protein, Total 7.5 g/dL (6.0-8.3); Sodium 136 mmol/L (136-145)
[2021-02-11] MEDS ORDERED: Haloperidol Lactate 5 MG/ML VIAL ONE (18:51)
[2021-02-11] MEDS ORDERED: diphenhydrAMINE 50 MG/ML VIAL ONE (18:51)
[2021-02-11] MEDS ORDERED: diphenhydrAMINE 25 MG CAP ONE (18:51)
[2021-02-11] MEDS ORDERED: Acetaminophen 650 MG Suppository PR PRN (20:32)
[2021-02-11] MEDS ORDERED: Ondansetron ODT 4 MG TAB PO PRN (20:32)
[2021-02-11] MEDS ORDERED: Dextrose 5% in Water 1,000 ML IV PRN (20:32)
[2021-02-11] MEDS ORDERED: Dextrose 50% Abboject 50 ML SYRINGE SLOW IVP PRN (20:32)
[2021-02-11] MEDS ORDERED: Ondansetron PF 4 MG/2 ML Vial IVP PRN (20:32)
[2021-02-11 21:02] LABS: Troponin I 0.244 ng/mL (< 0.028)
[2021-02-11] MEDS ORDERED: HumaLOG 300 UNITS/3 ML VIAL SC PRN ×2 (21:16)
[2021-02-11] MEDS ORDERED: Senokot 8.6 MG TAB PO PRN (21:51)
[2021-02-11 22:05] LABS: Acetaminophen Less than 6.0 mcg/mL (10.0-30.0); Alcohol Less than 10 mg/dL (Less than 10); Salicylate Less than 8.0 mg/dL (15.0-30.0)
[2021-02-12] MEDS: Heparin 5,000 UNITS/ML VIAL SC SCH ×4 (00:44→21:59)
[2021-02-12] MEDS: Acetaminophen 325 MG TAB PO PRN ×2 (00:44→23:46)
[2021-02-12 01:13] LABS: Troponin I 0.252 ng/mL (< 0.028)
[2021-02-12 01:52] LABS: SARS-CoV-2 NAA Rapid Test Not Detected (NotDetected)
[2021-02-12 05:08] LABS: #Basophils 0.1 thou/uL (0.0-0.2); #Eosinphils 0.6 thou/uL (0.0-0.7); #Lymphocytes 2.3 thou/uL (1.20-3.40); #Monocytes 0.9 thou/uL (0.11-0.59); #Neutrophils 5.7 thou/uL (1.40-6.50); %Basophils 1.1 % (0.0-1.0); %Eosinophils 5.8 % (0.0-10.0); %Lymphocytes 24.5 % (21.0-51.0); %Monocytes 9.1 % (0.0-10.0); %Neutrophils 59.6 % (42.0-75.0); Mean Corpuscular HGB CONC 30.5 g/dL (32.0-36.0); Mean Corpuscular Hemoglobin 28.8 pg (27.0-31.0); Mean Corpuscular Volume 94.5 fL (78.0-98.0); Mean Platelet Volume 8.2 fL (7.4-10.4); Platelet Count 260 thou/uL (130-400); RBC Distribution Width 15.7 % (11.5-14.5); Red Blood Cell (RBC) Count 3.45 mill/uL (4.20-5.40); White Blood Cell (WBC) Count 9.6 thou/uL (4.8-10.8)
[2021-02-12 05:29] LABS: ALT (SGPT) 19 U/L (8-55); AST (SGOT) 41 U/L (5-34); Albumin 3.1 g/dL (3.5-5.0); Alkaline Phosphatase 106 U/L (40-110); Anion Gap 19 mmol/L (10-20); BUN (Urea Nitrogen) 51 mg/dL (7.0-18.7); Bilirubin, Total 0.4 mg/dL (0.2-1.2); Calc. Creatinine Clearance 10 mL/min (70-130); Calcium 8.4 mg/dL (7.8-10.44); Carbon Dioxide 26 mmol/L (22-29); Chloride 95 mmol/L (98-107); Globulin 3.9 g/dL (2.4-3.5); Glucose 106 mg/dL (70-105); Potassium 4.8 mmol/L (3.5-5.1); Sodium 135 mmol/L (136-145)
[2021-02-12] MEDS ORDERED: Levothyroxine Sodium 75 MCG TAB PO SCH (06:00)
[2021-02-12] MEDS ORDERED: Sucroferric Oxyhydroxide (Velphoro) 500 MG Tab.Chew PO SCH (08:00)
[2021-02-12] MEDS ORDERED: DULoxetine 30 MG CAP PO SCH (09:00)
[2021-02-12] MEDS ORDERED: Non-Formulary Item 1 EACH (Mirabegron [Myrbetriq] 50 MG Tab.Er.24h) PO SCH (09:00)
[2021-02-12] MEDS ORDERED: Epoetin (ESRD) 20,000 UNITS/ML SC SCH (09:30)
[2021-02-12] MEDS ORDERED: EPOETIN ALFA-EPBX (ESRD) 4,000 UNIT/ML VIAL SC SCH (12:00)
[2021-02-12 12:38] LABS: Magnesium 2.4 mg/dL (1.6-2.6); Phosphorus 7.2 mg/dL (2.3-4.7)
[2021-02-12 12:39] LABS: Troponin I 0.277 ng/mL (< 0.028)
[2021-02-12] MEDS: NIFEdipine XL 60 MG TAB PO SCH (13:24)
[2021-02-12] MEDS: hydrALAZINE 25 MG TAB PO SCH ×3 (13:25→21:59)
[2021-02-12] MEDS: Minoxidil 2.5 MG TAB PO SCH ×2 (13:25→22:00)
[2021-02-12] MEDS: Calcitriol 0.25 MCG CAP PO SCH (13:25)
[2021-02-12] MEDS: Carvedilol 6.25 MG TAB PO SCH ×2 (13:26→17:21)
[2021-02-12] MEDS: Lantus 1000 UNITS/10 ML VIAL SC SCH (14:50)
[2021-02-12] MEDS ORDERED: hydrALAZINE 20 MG/ML VIAL SLOW IVP PRN (17:08)
[2021-02-12] MEDS ORDERED: rOPINIRole HCl 0.25 MG TAB PO SCH (21:00)
[2021-02-12] MEDS ORDERED: Nitroglycerin 2% Ointment 1 INCH/1 GM Packet TOP SCH (23:45)
[2021-02-13] LABS: Anion Gap 14 mmol/L (10-20); BUN (Urea Nitrogen) 31 mg/dL (7.0-18.7); Calc. Creatinine Clearance 14 mL/min (70-130); Calcium 8.6 mg/dL (7.8-10.44); Carbon Dioxide 31 mmol/L (22-29); Chloride 96 mmol/L (98-107); Glucose 165 mg/dL (70-105); Magnesium 2.2 mg/dL (1.6-2.6); Sodium 137 mmol/L (136-145)
[2021-02-13 00:05] LABS: Troponin I 0.327 ng/mL (< 0.028)
[2021-02-13] MEDS ORDERED: Aspirin 325 mg Enteric Coated Tablet PO SCH (00:08)
[2021-02-13] MEDS ORDERED: Nitroglycerin 2% Ointment 1 INCH/1 GM Packet TOP SCH (00:45)
[2021-02-13] MEDS ORDERED: Heparin 10,000 UNITS/ 10 ML VIAL SLOW IVP SCH (00:45)
[2021-02-13] MEDS ORDERED: Heparin 25,000 units/D5W 500 ML IVPB SCH (00:45)
[2021-02-13 01:17] LABS: Hemoglobin 9.7 g/dL (12.0-16.0); Platelet Count 185 thou/uL (130-400)
[2021-02-13 03:43] LABS: ALT (SGPT) 18 U/L (8-55); AST (SGOT) 41 U/L (5-34); Albumin 2.9 g/dL (3.5-5.0); Alkaline Phosphatase 91 U/L (40-110); Anion Gap 18 mmol/L (10-20); BUN (Urea Nitrogen) 36 mg/dL (7.0-18.7); Bilirubin, Total 0.4 mg/dL (0.2-1.2); Calc. Creatinine Clearance 14 mL/min (70-130); Calcium 8.4 mg/dL (7.8-10.44); Carbon Dioxide 24 mmol/L (22-29); Chloride 98 mmol/L (98-107); Globulin 3.7 g/dL (2.4-3.5); Glucose 122 mg/dL (70-105); Potassium 4.3 mmol/L (3.5-5.1); Protein, Total 6.6 g/dL (6.0-8.3); Sodium 136 mmol/L (136-145)
[2021-02-13 03:49] LABS: Troponin I 0.327 ng/mL (< 0.028)
[2021-02-13 04:52] LABS: Band 36 % (5-11); Eosinophils 1 % (0-10); Hemoglobin 10.1 g/dL (12.0-16.0); Hypochromia SLIGHT = 6-15 cells (100X) (0-5/hpf); Lymphocytes 17 % (21-51); MDiff Complete? YES; Mean Corpuscular HGB CONC 31.3 g/dL (32.0-36.0); Mean Corpuscular Hemoglobin 30.3 pg (27.0-31.0); Mean Corpuscular Volume 96.8 fL (78.0-98.0); Mean Platelet Volume 8.6 fL (7.4-10.4); Metamyelocyte 11 % (0-0); Monocytes 5 % (0-10); Myelocyte 1 % (0-0); Neutrophil 26 % (42-75); Platelet Count 169 thou/uL (130-400); Platelet Morphology Comment Appears Adequate; RBC Distribution Width 16.1 % (11.5-14.5); Reactive Lymphocytes 2 % (0-10); Red Blood Cell (RBC) Count 3.33 mill/uL (4.20-5.40); Toxic Granulation SLIGHT
[2021-02-13 08:12] LABS: PTT Greater than 250.0 sec (22.9-36.1)
[2021-02-13] MEDS: Levothyroxine Sodium 125 MCG TAB PO SCH (08:13)
[2021-02-13] MEDS: Lantus 1000 UNITS/10 ML VIAL SC SCH (09:00)
[2021-02-13 09:07] LABS: PTT 164.8 sec (22.9-36.1)
[2021-02-13] MEDS ORDERED: NIFEdipine XL 60 MG TAB PO SCH (09:34)
[2021-02-13] MEDS ORDERED: NIFEdipine XL 30 MG TAB PO SCH (09:45)
[2021-02-13 09:47] LABS: PTT 118.2 sec (22.9-36.1)
[2021-02-13 10:07] LABS: Actual Bicarbonate (HCO3a) 29.2 mEq/L (22-28); Base Excess (BEa) 2.4 mEq/L (-2.0 to +3.0); CO2 Tension 56.1 mmHg (35.0-45.0); Calcium, Ionized (arterial) 1.09 mmol/L (1.12-1.30); Carboxyhemoglobin (COHb) 1.2 gm% (0.0-3.0); Hemoglobin (Hb) 10.9 g/dL (12.0-16.0); O2 Tension (PaO2), arterial 68.6 mmHg (80.0-100.0); Potassium - ABG Lab 4.37 mmol/L (3.70-5.30); pH, Arterial 7.33 (7.35-7.45)
[2021-02-13 10:09] LABS: ALV-art Gradient 89.435 mmHg (0-20); Puncture Site RBA
[2021-02-13] MEDS ORDERED: Naloxone HCl 2 MG in Sodium Chloride 0.9% 500 ML IV SCH (11:00)
[2021-02-13] MEDS ORDERED: Naloxone HCl 0.4 mg/ml Vial IV SCH (11:45)
[2021-02-13] MEDS: Carvedilol 6.25 MG TAB PO SCH ×2 (16:26→16:51)
[2021-02-13] MEDS: Calcitriol 0.25 MCG CAP PO SCH (16:52)
[2021-02-13] MEDS: hydrALAZINE 25 MG TAB PO SCH ×3 (16:52→22:30)
[2021-02-13] MEDS: Minoxidil 2.5 MG TAB PO SCH ×2 (16:53→22:30)
[2021-02-13] MEDS: Acetaminophen 325 MG TAB PO PRN (16:58)
[2021-02-13] MEDS: NIFEdipine XL 60 MG TAB PO SCH (17:26)
[2021-02-13] MEDS: Heparin 5,000 UNITS/ML VIAL SC SCH (22:30)
[2021-02-14 05:52] LABS: ALT (SGPT) 21 U/L (8-55); AST (SGOT) 33 U/L (5-34); Albumin 3.2 g/dL (3.5-5.0); Alkaline Phosphatase 108 U/L (40-110); Anion Gap 16 mmol/L (10-20); BUN (Urea Nitrogen) 22 mg/dL (7.0-18.7); Bilirubin, Total 0.5 mg/dL (0.2-1.2); Calc. Creatinine Clearance 17 mL/min (70-130); Calcium 9.2 mg/dL (7.8-10.44); Carbon Dioxide 27 mmol/L (22-29); Chloride 98 mmol/L (98-107); Glucose 206 mg/dL (70-105); Potassium 3.7 mmol/L (3.5-5.1); Protein, Total 7.2 g/dL (6.0-8.3); Sodium 137 mmol/L (136-145)
[2021-02-14] MEDS: Levothyroxine Sodium 125 MCG TAB PO SCH (05:53)
[2021-02-14 05:54] LABS: Band 17 % (5-11); Hemoglobin 9.7 g/dL (12.0-16.0); Hypochromia SLIGHT = 6-15 cells (100X) (0-5/hpf); Lymphocytes 6 % (21-51); MDiff Complete? YES; Mean Corpuscular HGB CONC 30.6 g/dL (32.0-36.0); Mean Corpuscular Hemoglobin 29.6 pg (27.0-31.0); Mean Corpuscular Volume 96.5 fL (78.0-98.0); Metamyelocyte 1 % (0-0); Monocytes 7 % (0-10); Neutrophil 69 % (42-75); Platelet Count 203 thou/uL (130-400); Platelet Morphology Comment Appears Adequate; RBC Distribution Width 16.3 % (11.5-14.5); Red Blood Cell (RBC) Count 3.29 mill/uL (4.20-5.40); White Blood Cell (WBC) Count 15.1 thou/uL (4.8-10.8)
[2021-02-14] MEDS ORDERED: NIFEdipine XL 30 MG TAB PO SCH ×2 (09:00→12:17)
[2021-02-14] MEDS: Lantus 1000 UNITS/10 ML VIAL SC SCH (09:01)
[2021-02-14] MEDS: Heparin 5,000 UNITS/ML VIAL SC SCH ×3 (09:02→21:58)
[2021-02-14] MEDS: Carvedilol 6.25 MG TAB PO SCH ×4 (14:50→21:57)
[2021-02-14] MEDS: hydrALAZINE 25 MG TAB PO SCH ×3 (14:51→21:57)
[2021-02-14] MEDS: Calcitriol 0.25 MCG CAP PO SCH (14:53)
[2021-02-14] MEDS: Acetaminophen 325 MG TAB PO PRN ×2 (14:53→21:56)
[2021-02-14] MEDS: Minoxidil 2.5 MG TAB PO SCH ×2 (14:53→21:57)
[2021-02-14] MEDS: DULoxetine 30 MG CAP PO SCH (15:06)
[2021-02-14] MEDS: Vancomycin HCl 25 MG/ML Oral PO SCH (22:54)
[2021-02-14] MEDS ORDERED: Melatonin 3 MG TAB PO PRN (23:43)
[2021-02-15] MEDS: Acetaminophen 325 MG TAB PO PRN ×3 (04:16→17:16)
[2021-02-15 06:09] LABS: Band 5 % (5-11); Eosinophils 2 % (0-10); Hemoglobin 10.5 g/dL (12.0-16.0); Lymphocytes 13 % (21-51); MDiff Complete? YES; Mean Corpuscular HGB CONC 31.5 g/dL (32.0-36.0); Mean Corpuscular Hemoglobin 30.3 pg (27.0-31.0); Mean Corpuscular Volume 96.2 fL (78.0-98.0); Mean Platelet Volume 8.6 fL (7.4-10.4); Monocytes 5 % (0-10); Neutrophil 74 % (42-75); Platelet Count 216 thou/uL (130-400); Platelet Morphology Comment Appears Adequate; Red Blood Cell (RBC) Count 3.47 mill/uL (4.20-5.40); White Blood Cell (WBC) Count 17.5 thou/uL (4.8-10.8)
[2021-02-15 06:31] LABS: Anion Gap 16 mmol/L (10-20); Calcium 9.3 mg/dL (7.8-10.44); Carbon Dioxide 22 mmol/L (22-29); Chloride 101 mmol/L (98-107); Phosphorus 2.3 mg/dL (2.3-4.7); Potassium 4.1 mmol/L (3.5-5.1); Sodium 135 mmol/L (136-145)
[2021-02-15] MEDS: Vancomycin HCl 25 MG/ML Oral PO SCH ×3 (06:35→17:16)
[2021-02-15] MEDS: Levothyroxine Sodium 125 MCG TAB PO SCH (06:35)
[2021-02-15 06:51] LABS: Glucose 176 mg/dL (70-105)
[2021-02-15 06:54] LABS: Calc. Creatinine Clearance 23 mL/min (70-130)
[2021-02-15 06:55] LABS: BUN (Urea Nitrogen) 14 mg/dL (7.0-18.7)
[2021-02-15 06:56] LABS: Magnesium 2.2 mg/dL (1.6-2.6)
[2021-02-15] MEDS ORDERED: NIFEdipine XL 60 MG TAB PO SCH (09:00)
[2021-02-15] MEDS: Heparin 5,000 UNITS/ML VIAL SC SCH ×2 (11:51→15:15)
[2021-02-15] MEDS: Lantus 1000 UNITS/10 ML VIAL SC SCH (11:51)
[2021-02-15] MEDS: hydrALAZINE 25 MG TAB PO SCH ×2 (11:52→15:17)
[2021-02-15] MEDS: Minoxidil 2.5 MG TAB PO SCH (11:52)
[2021-02-15] MEDS: Calcitriol 0.25 MCG CAP PO SCH (11:53)
[2021-02-15] MEDS: Carvedilol 6.25 MG TAB PO SCH ×2 (11:55→15:16)
[2021-02-15] MEDS: DULoxetine 30 MG CAP PO SCH (11:55)
[2021-02-15] MEDS: Sevelamer Carbonate 800 MG TAB PO SCH ×2 (13:35→17:23)
[2021-02-15 16:43] VITALS: BMI 42.5
[2021-02-15 17:02] VITALS: TEMP 98.8
[2021-02-15 17:26] VITALS: BP 161/77
[2021-02-15] MEDS ORDERED: Gabapentin 100 MG CAP PO SCH (21:00)
[2021-02-15] MEDS ORDERED: rOPINIRole HCl 0.25 MG TAB PO SCH (21:00)
== END 2021-02-15 19:57 | disposition left against medical advice (07) | DRG 917 ==
LOC: ERS 17:54 → 2SE 20:15 → OBSVTOIN 02-13 08:59 → 3SE 02-14 14:06
PROVIDERS: ADMIT Emergency Medicine; ATTEND Emergency Medicine
PROC: 5A09357 Assistance with Respiratory Ventilation, Less than 24 Consecutive Hours, Continuous Positive Airway Pressure (ICD-10-PCS; principal; 2021-02-13)
PROC: 5A1D70Z Performance of Urinary Filtration, Intermittent, Less than 6 Hours Per Day (ICD-10-PCS; 2021-02-13)
PROC: 8E0ZXY6 Isolation (ICD-10-PCS; 2021-02-13)
DX: T40.2X2A Poisoning by other opioids, intentional self-harm, initial encounter (principal); Z20.822 Contact with and (suspected) exposure to COVID-19; N18.6 End stage renal disease; I21.4 Non-ST elevation (NSTEMI) myocardial infarction; G92 Toxic encephalopathy; I12.0 Hypertensive chronic kidney disease with stage 5 chronic kidney disease or end stage renal disease; F33.9 Major depressive disorder, recurrent, unspecified; Z68.41 Body mass index [BMI] 40.0-44.9, adult; I47.2 Ventricular tachycardia; A04.72 Enterocolitis due to Clostridium difficile, not specified as recurrent; E11.22 Type 2 diabetes mellitus with diabetic chronic kidney disease; E03.9 Hypothyroidism, unspecified; E11.40 Type 2 diabetes mellitus with diabetic neuropathy, unspecified; M19.90 Unspecified osteoarthritis, unspecified site; G25.81 Restless legs syndrome; R79.89 Other specified abnormal findings of blood chemistry; D63.1 Anemia in chronic kidney disease; G47.33 Obstructive sleep apnea (adult) (pediatric); E66.9 Obesity, unspecified; E78.00 Pure hypercholesterolemia, unspecified; F41.9 Anxiety disorder, unspecified; E87.70 Fluid overload, unspecified; Z79.899 Other long term (current) drug therapy; Z79.890 Hormone replacement therapy; Z79.4 Long term (current) use of insulin; Z99.2 Dependence on renal dialysis; Z91.15 Patient's noncompliance with renal dialysis; Z98.51 Tubal ligation status
CPT/HCPCS: 36415; 36416; 36600; 51798; 70450; 71045; 80048; 80053; 80307; 82550; 82553; 82805; 83735; 84100; 84439; 84443; 84484; 85025; 85610; 85730; 86140; 87324; 87449; 87493; 90935; 93005; 93010; 96365; 96366; 96372; 96374; 96375; 99283; G0257; G0378; J1200; J1630; J1644; J1815; J1885; J2250; J2310; J7620; Q5105; U0002; U0005

== ENCOUNTER 2021-02-17 09:20 | Emergency (ER) | payer OTHER ==
[2021-02-17 11:30] LABS: Hemoglobin 10.7 g/dL (12.0-16.0); Mean Corpuscular HGB CONC 31.4 g/dL (32.0-36.0); Mean Corpuscular Hemoglobin 30.6 pg (27.0-31.0); Mean Corpuscular Volume 97.5 fL (78.0-98.0); Mean Platelet Volume 8.2 fL (7.4-10.4); Platelet Count 257 thou/uL (130-400); RBC Distribution Width 17.7 % (11.5-14.5); Red Blood Cell (RBC) Count 3.51 mill/uL (4.20-5.40); White Blood Cell (WBC) Count 15.4 thou/uL (4.8-10.8)
[2021-02-17 11:35] LABS: Acetaminophen Less than 6.0 mcg/mL (10.0-30.0); Alcohol Less than 10 mg/dL (Less than 10); Salicylate Less than 8.0 mg/dL (15.0-30.0)
[2021-02-17 11:42] LABS: ALT (SGPT) 13 U/L (8-55); AST (SGOT) 19 U/L (5-34); Albumin 3.5 g/dL (3.5-5.0); Alkaline Phosphatase 119 U/L (40-110); Anion Gap 15 mmol/L (10-20); BUN (Urea Nitrogen) 33 mg/dL (7.0-18.7); Bilirubin, Total 0.5 mg/dL (0.2-1.2); Calc. Creatinine Clearance 0 mL/min (70-130); Calcium 9.5 mg/dL (7.8-10.44); Carbon Dioxide 25 mmol/L (22-29); Chloride 100 mmol/L (98-107); Globulin 4.3 g/dL (2.4-3.5); Glucose 248 mg/dL (70-105); Potassium 3.3 mmol/L (3.5-5.1); Protein, Total 7.8 g/dL (6.0-8.3); Salicylate Less than 8.0 mg/dL (15.0-30.0); Sodium 137 mmol/L (136-145)
[2021-02-17 11:46] LABS: Anisocytosis SLIGHT = 6-15 cells (100X) (0-5/hpf); Eosinophils 4 % (0-10); Lymphocytes 12 % (21-51); MDiff Complete? YES; Monocytes 8 % (0-10); Neutrophil 74 % (42-75); Ovalocytes SLIGHT = 2-5 cells (100X) (0-1/hpf); Platelet Morphology Comment Appears Adequate; Polychromasia SLIGHT = 2-3 cells (100X) (0-2/hpf); Vacuoles SLIGHT
[2021-02-17 12:10] LABS: CKMB 2.9 ng/mL (0-6.6)
== END 2021-02-17 13:14 | disposition home or self-care (01) ==
LOC: ERS 09:20
DX: J98.59 Other diseases of mediastinum, not elsewhere classified (principal); E87.6 Hypokalemia; M19.90 Unspecified osteoarthritis, unspecified site; I10 Essential (primary) hypertension; E03.9 Hypothyroidism, unspecified; E78.00 Pure hypercholesterolemia, unspecified; E11.40 Type 2 diabetes mellitus with diabetic neuropathy, unspecified; Z99.2 Dependence on renal dialysis; Z79.899 Other long term (current) drug therapy
CPT/HCPCS: 36415; 70450; 71045; 72125; 80053; 80143; 80179; 80307; 82553; 84484; 85025

== ENCOUNTER 2021-02-23 01:04 | Emergency (ER) | payer OTHER | END 2021-02-23 02:25 | disposition home or self-care (01) | LOC: ERS 01:04 | DX: M79.605 Pain in left leg (principal); M79.604 Pain in right leg; G89.29 Other chronic pain; I10 Essential (primary) hypertension; E78.00 Pure hypercholesterolemia, unspecified; E03.9 Hypothyroidism, unspecified; E11.9 Type 2 diabetes mellitus without complications; Z79.4 Long term (current) use of insulin; M19.90 Unspecified osteoarthritis, unspecified site; R60.0 Localized edema; Z79.899 Other long term (current) drug therapy | CPT/HCPCS: 99283 ==

== ENCOUNTER 2021-02-27 17:51 | Inpatient (IN) | payer OTHER ==
[2021-02-27 19:18] LABS: #Basophils 0.1 thou/uL (0.0-0.2); #Eosinphils 0.4 thou/uL (0.0-0.7); #Lymphocytes 2.1 thou/uL (1.20-3.40); #Monocytes 1.3 thou/uL (0.11-0.59); #Neutrophils 8.2 thou/uL (1.40-6.50); %Basophils 0.8 % (0.0-1.0); %Eosinophils 3.3 % (0.0-10.0); %Lymphocytes 17.4 % (21.0-51.0); %Monocytes 11.1 % (0.0-10.0); %Neutrophils 67.4 % (42.0-75.0); Hemoglobin 8.2 g/dL (12.0-16.0); Mean Corpuscular HGB CONC 32.4 g/dL (32.0-36.0); Mean Corpuscular Hemoglobin 30.4 pg (27.0-31.0); Mean Corpuscular Volume 93.8 fL (78.0-98.0); Mean Platelet Volume 9.3 fL (7.4-10.4); Platelet Count 342 thou/uL (130-400); RBC Distribution Width 17.7 % (11.5-14.5); White Blood Cell (WBC) Count 12.1 thou/uL (4.8-10.8)
[2021-02-27] MEDS ORDERED: Morphine 4 MG/ML VIAL ONE (19:42)
[2021-02-27 19:49] LABS: Albumin 3.3 g/dL (3.5-5.0); Anion Gap 26 mmol/L (10-20); BUN (Urea Nitrogen) 104 mg/dL (7.0-18.7); Bilirubin, Total 0.3 mg/dL (0.2-1.2); Calc. Creatinine Clearance 0 mL/min (70-130); Calcium 8.7 mg/dL (7.8-10.44); Carbon Dioxide 12 mmol/L (22-29); Chloride 102 mmol/L (98-107); Globulin 4.3 g/dL (2.4-3.5); Glucose 125 mg/dL (70-105); Protein, Total 7.6 g/dL (6.0-8.3); Sodium 133 mmol/L (136-145)
[2021-02-27 19:50] LABS: ALT (SGPT) 24 U/L (8-55); AST (SGOT) 27 U/L (5-34); Alkaline Phosphatase 169 U/L (40-110)
[2021-02-27 20:09] LABS: Potassium 6.9 mmol/L (3.5-5.1)
[2021-02-27] MEDS ORDERED: Sodium Bicarb 50 MEQ/50 ML Abboject 8.4% SYRINGE ONE (20:23)
[2021-02-27] MEDS ORDERED: Insulin Regular 300 UNITS/3 ML VIAL ONE (20:23)
[2021-02-27] MEDS ORDERED: Calcium Gluc 4.6 MEQ/10 ML (100 MG/ML) ONE ×2 (20:23→20:25)
[2021-02-27] MEDS ORDERED: Dextrose 50% Abboject 50 ML SYRINGE ONE (20:23)
[2021-02-27] MEDS ORDERED: Ondansetron ODT 4 MG TAB PO PRN (23:14)
[2021-02-27] MEDS ORDERED: Dextrose 5% in Water 1,000 ML IV PRN (23:14)
[2021-02-27] MEDS ORDERED: Dextrose 50% Abboject 50 ML SYRINGE SLOW IVP PRN (23:14)
[2021-02-27] MEDS ORDERED: HumaLOG 300 UNITS/3 ML VIAL SC PRN ×2 (23:19)
[2021-02-28] MEDS: Vancomycin HCl 25 MG/ML Oral PO SCH ×5 (02:43→21:46)
[2021-02-28 04:14] LABS: SARS-CoV-2 NAA Rapid Test Not Detected (NotDetected)
[2021-02-28] MEDS ORDERED: Dextrose 50% Abboject 50 ML SYRINGE ONE ×3 (05:38→10:24)
[2021-02-28 08:20] LABS: #Basophils 0.1 thou/uL (0.0-0.2); #Eosinphils 0.2 thou/uL (0.0-0.7); #Lymphocytes 1.4 thou/uL (1.20-3.40); #Monocytes 1.3 thou/uL (0.11-0.59); #Neutrophils 10.6 thou/uL (1.40-6.50); %Basophils 0.5 % (0.0-1.0); %Eosinophils 1.5 % (0.0-10.0); %Lymphocytes 10.5 % (21.0-51.0); %Monocytes 9.5 % (0.0-10.0); Hemoglobin 8.6 g/dL (12.0-16.0); Mean Corpuscular HGB CONC 32.2 g/dL (32.0-36.0); Mean Corpuscular Hemoglobin 30.5 pg (27.0-31.0); Mean Corpuscular Volume 94.7 fL (78.0-98.0); Platelet Count 380 thou/uL (130-400); RBC Distribution Width 17.8 % (11.5-14.5); Red Blood Cell (RBC) Count 2.84 mill/uL (4.20-5.40); White Blood Cell (WBC) Count 13.6 thou/uL (4.8-10.8)
[2021-02-28 08:39] LABS: Anion Gap 20 mmol/L (10-20); BUN (Urea Nitrogen) 62 mg/dL (7.0-18.7); Calc. Creatinine Clearance 0 mL/min (70-130); Calcium 8.7 mg/dL (7.8-10.44); Carbon Dioxide 22 mmol/L (22-29); Chloride 100 mmol/L (98-107); Glucose 71 mg/dL (70-105); Potassium 4.6 mmol/L (3.5-5.1); Sodium 137 mmol/L (136-145)
[2021-02-28] MEDS: NIFEdipine XL 90 MG TAB PO SCH (10:00)
[2021-02-28] MEDS: hydrALAZINE 25 MG TAB PO SCH ×3 (10:00→21:45)
[2021-02-28] MEDS: Carvedilol 25 MG TAB PO SCH ×2 (10:00→19:41)
[2021-02-28] MEDS: Levothyroxine Sodium 75 MCG TAB PO SCH (10:15)
[2021-02-28] MEDS: Calcitriol 0.25 MCG CAP PO SCH (10:15)
[2021-02-28] MEDS: Sevelamer Carbonate 800 MG TAB PO SCH ×4 (10:15→22:09)
[2021-02-28] MEDS: DULoxetine 30 MG CAP PO SCH (10:16)
[2021-02-28] MEDS: Metoclopramide HCl 10 MG TAB PO SCH ×3 (10:18→21:44)
[2021-02-28 12:34] LABS: ALT (SGPT) 27 U/L (8-55); AST (SGOT) 33 U/L (5-34); Albumin 3.1 g/dL (3.5-5.0); Alkaline Phosphatase 123 U/L (40-110); Anion Gap 21 mmol/L (10-20); BUN (Urea Nitrogen) 68 mg/dL (7.0-18.7); Bilirubin, Total 0.3 mg/dL (0.2-1.2); Calc. Creatinine Clearance 0 mL/min (70-130); Calcium 8.8 mg/dL (7.8-10.44); Carbon Dioxide 20 mmol/L (22-29); Chloride 99 mmol/L (98-107); Globulin 4.2 g/dL (2.4-3.5); Glucose 146 mg/dL (70-105); Potassium 4.8 mmol/L (3.5-5.1); Protein, Total 7.3 g/dL (6.0-8.3); Sodium 135 mmol/L (136-145)
[2021-02-28] MEDS: Acetaminophen 325 MG TAB PO PRN ×2 (13:17→21:48)
[2021-02-28] MEDS ORDERED: EPOETIN ALFA-EPBX (ESRD) 4,000 UNIT/ML VIAL SC SCH (16:30)
[2021-02-28] MEDS: Heparin 5,000 UNITS/ML VIAL SC SCH ×2 (19:42→21:45)
[2021-02-28] MEDS: rOPINIRole HCl 0.25 MG TAB PO SCH (21:44)
[2021-02-28] MEDS: Atorvastatin Calcium 20 MG TAB PO SCH (21:45)
[2021-03-01] MEDS: Melatonin 3 MG TAB PO PRN (02:27)
[2021-03-01] MEDS: Acetaminophen 325 MG TAB PO PRN ×5 (02:27→20:13)
[2021-03-01] MEDS ORDERED: Pregabalin 75 MG CAP PO SCH (02:30)
[2021-03-01] MEDS: Levothyroxine Sodium 75 MCG TAB PO SCH (05:29)
[2021-03-01] MEDS: Vancomycin HCl 25 MG/ML Oral PO SCH ×3 (05:32→18:37)
[2021-03-01] MEDS ORDERED: Morphine 4 MG/ML VIAL FS SCH (10:45)
[2021-03-01] MEDS: Carvedilol 25 MG TAB PO SCH ×2 (12:40→16:02)
[2021-03-01] MEDS: Calcitriol 0.25 MCG CAP PO SCH (12:41)
[2021-03-01] MEDS: Sevelamer Carbonate 800 MG TAB PO SCH ×3 (12:42→16:00)
[2021-03-01] MEDS: Metoclopramide HCl 10 MG TAB PO SCH ×3 (12:43→20:03)
[2021-03-01] MEDS: Heparin 5,000 UNITS/ML VIAL SC SCH ×3 (12:43→20:03)
[2021-03-01] MEDS: hydrALAZINE 25 MG TAB PO SCH ×3 (12:43→20:03)
[2021-03-01] MEDS: NIFEdipine XL 90 MG TAB PO SCH (12:44)
[2021-03-01] MEDS: DULoxetine 30 MG CAP PO SCH (12:44)
[2021-03-01 13:00] LABS: #Basophils 0.1 thou/uL (0.0-0.2); #Eosinphils 0.3 thou/uL (0.0-0.7); #Lymphocytes 2.2 thou/uL (1.20-3.40); #Monocytes 1.4 thou/uL (0.11-0.59); #Neutrophils 6.7 thou/uL (1.40-6.50); %Basophils 0.9 % (0.0-1.0); %Eosinophils 2.4 % (0.0-10.0); %Lymphocytes 20.9 % (21.0-51.0); %Monocytes 12.9 % (0.0-10.0); %Neutrophils 62.9 % (42.0-75.0); Hemoglobin 8.2 g/dL (12.0-16.0); Mean Corpuscular HGB CONC 32.7 g/dL (32.0-36.0); Mean Corpuscular Hemoglobin 31.3 pg (27.0-31.0); Mean Corpuscular Volume 95.6 fL (78.0-98.0); Mean Platelet Volume 8.8 fL (7.4-10.4); Platelet Count 386 thou/uL (130-400); RBC Distribution Width 18.3 % (11.5-14.5); Red Blood Cell (RBC) Count 2.63 mill/uL (4.20-5.40); White Blood Cell (WBC) Count 10.7 thou/uL (4.8-10.8)
[2021-03-01 13:29] LABS: Anion Gap 16 mmol/L (10-20); BUN (Urea Nitrogen) 34 mg/dL (7.0-18.7); Calc. Creatinine Clearance 18 mL/min (70-130); Calcium 8.9 mg/dL (7.8-10.44); Carbon Dioxide 29 mmol/L (22-29); Chloride 98 mmol/L (98-107); Glucose 185 mg/dL (70-105); Potassium 3.9 mmol/L (3.5-5.1); Sodium 139 mmol/L (136-145)
[2021-03-01 14:48] VITALS: BMI 41.5
[2021-03-01] MEDS ORDERED: Preparation H Ointment 57 gram tube TOP PRN (18:00)
[2021-03-01] MEDS: Atorvastatin Calcium 20 MG TAB PO SCH (20:02)
[2021-03-01] MEDS: HumaLOG 300 UNITS/3 ML VIAL SC PRN (20:07)
[2021-03-01] MEDS: rOPINIRole HCl 0.25 MG TAB PO SCH (22:12)
[2021-03-02] MEDS: Acetaminophen 325 MG TAB PO PRN (00:23)
[2021-03-02] MEDS: Vancomycin HCl 25 MG/ML Oral PO SCH ×4 (00:23→17:58)
[2021-03-02] MEDS: Melatonin 3 MG TAB PO PRN (00:24)
[2021-03-02] MEDS ORDERED: HumaLOG 300 UNITS/3 ML VIAL SC PRN (01:36)
[2021-03-02] MEDS ORDERED: Methyl Salicylate/Menthol 85 GM TUBE TOP SCH (02:00)
[2021-03-02] MEDS ORDERED: Cyclobenzaprine 10 MG TAB PO SCH (04:30)
[2021-03-02 05:05] LABS: #Basophils 0.1 thou/uL (0.0-0.2); #Eosinphils 0.4 thou/uL (0.0-0.7); #Lymphocytes 2.1 thou/uL (1.20-3.40); #Monocytes 1.4 thou/uL (0.11-0.59); #Neutrophils 7.8 thou/uL (1.40-6.50); %Eosinophils 3.3 % (0.0-10.0); %Lymphocytes 17.6 % (21.0-51.0); %Monocytes 11.9 % (0.0-10.0); %Neutrophils 66.3 % (42.0-75.0); Hemoglobin 8.1 g/dL (12.0-16.0); Mean Corpuscular HGB CONC 31.3 g/dL (32.0-36.0); Mean Corpuscular Hemoglobin 30.1 pg (27.0-31.0); Mean Corpuscular Volume 96.1 fL (78.0-98.0); Mean Platelet Volume 8.8 fL (7.4-10.4); Platelet Count 366 thou/uL (130-400); RBC Distribution Width 18.1 % (11.5-14.5); White Blood Cell (WBC) Count 11.7 thou/uL (4.8-10.8)
[2021-03-02 05:28] LABS: Anion Gap 19 mmol/L (10-20); BUN (Urea Nitrogen) 41 mg/dL (7.0-18.7); Calc. Creatinine Clearance 16 mL/min (70-130); Calcium 8.7 mg/dL (7.8-10.44); Carbon Dioxide 24 mmol/L (22-29); Chloride 95 mmol/L (98-107); Glucose 281 mg/dL (70-105); Potassium 4.4 mmol/L (3.5-5.1); Sodium 134 mmol/L (136-145)
[2021-03-02] MEDS: Levothyroxine Sodium 75 MCG TAB PO SCH (06:27)
[2021-03-02] MEDS: HumaLOG 300 UNITS/3 ML VIAL SC PRN ×2 (06:27→11:42)
[2021-03-02] MEDS: NIFEdipine XL 90 MG TAB PO SCH (09:23)
[2021-03-02] MEDS: Metoclopramide HCl 10 MG TAB PO SCH ×2 (09:24→16:17)
[2021-03-02] MEDS: Carvedilol 25 MG TAB PO SCH ×2 (09:24→17:58)
[2021-03-02] MEDS: hydrALAZINE 25 MG TAB PO SCH ×2 (09:24→16:17)
[2021-03-02] MEDS: Sevelamer Carbonate 800 MG TAB PO SCH ×3 (09:24→17:58)
[2021-03-02] MEDS: Calcitriol 0.25 MCG CAP PO SCH (09:24)
[2021-03-02] MEDS: Heparin 5,000 UNITS/ML VIAL SC SCH ×2 (09:24→16:17)
[2021-03-02] MEDS: Methyl Salicylate/Menthol 85 GM TUBE TOP SCH ×3 (09:26→17:58)
[2021-03-02] MEDS: DULoxetine 30 MG CAP PO SCH (09:35)
[2021-03-02] MEDS ORDERED: Morphine 4 MG/ML VIAL SLOW IVP SCH (14:00)
[2021-03-02 18:06] VITALS: BP 154/79
[2021-03-02 18:14] VITALS: TEMP 98.6
== END 2021-03-02 19:00 | disposition home or self-care (01) | DRG 70 ==
LOC: ERS 17:51 → ERHOLD 21:39 → 2SW 02-28 11:50 → OBSVTOIN 03-01 14:02
PROVIDERS: ADMIT Student in an Organized Health Care Education/Training Program; ATTEND Student in an Organized Health Care Education/Training Program
PROC: 5A1D70Z Performance of Urinary Filtration, Intermittent, Less than 6 Hours Per Day (ICD-10-PCS; principal; 2021-02-27)
PROC: 8E0ZXY6 Isolation (ICD-10-PCS; 2021-02-27)
DX: G93.49 Other encephalopathy (principal); N18.6 End stage renal disease; A04.72 Enterocolitis due to Clostridium difficile, not specified as recurrent; I13.2 Hypertensive heart and chronic kidney disease with heart failure and with stage 5 chronic kidney disease, or end stage renal disease; N25.81 Secondary hyperparathyroidism of renal origin; G92 Toxic encephalopathy; E87.5 Hyperkalemia; T40.2X1A Poisoning by other opioids, accidental (unintentional), initial encounter; E11.22 Type 2 diabetes mellitus with diabetic chronic kidney disease; E11.65 Type 2 diabetes mellitus with hyperglycemia; F11.10 Opioid abuse, uncomplicated; E78.5 Hyperlipidemia, unspecified; E03.9 Hypothyroidism, unspecified; G25.81 Restless legs syndrome; E11.40 Type 2 diabetes mellitus with diabetic neuropathy, unspecified; F41.9 Anxiety disorder, unspecified; F32.9 Major depressive disorder, single episode, unspecified; N81.4 Uterovaginal prolapse, unspecified; D63.1 Anemia in chronic kidney disease; I50.9 Heart failure, unspecified; G89.29 Other chronic pain; K64.9 Unspecified hemorrhoids; Z53.20 Procedure and treatment not carried out because of patient's decision for unspecified reasons; Z99.2 Dependence on renal dialysis; Z79.899 Other long term (current) drug therapy; Z79.4 Long term (current) use of insulin; Z79.890 Hormone replacement therapy; Z98.51 Tubal ligation status; Z91.15 Patient's noncompliance with renal dialysis
CPT/HCPCS: 36415; 36416; 80048; 80053; 85025; 93005; 96365; 96372; 96375; G0378; J1610; J1644; J1815; J2001; J2270; Q5105; U0002

== ENCOUNTER 2021-03-08 20:38 | Emergency (ER) | payer OTHER | END 2021-03-08 21:15 | disposition left against medical advice (07) | LOC: ERS 20:38 | DX: Z53.21 Procedure and treatment not carried out due to patient leaving prior to being seen by health care provider (principal) ==

== ENCOUNTER 2021-05-02 00:48 | Emergency (ER) | payer OTHER ==
[2021-05-02 01:30] LABS: #Basophils 0.1 thou/uL (0.0-0.2); #Eosinphils 1.1 thou/uL (0.0-0.7); #Lymphocytes 2.2 thou/uL (1.20-3.40); #Monocytes 0.9 thou/uL (0.11-0.59); #Neutrophils 4.9 thou/uL (1.40-6.50); %Basophils 0.9 % (0.0-1.0); %Eosinophils 12.2 % (0.0-10.0); %Lymphocytes 23.9 % (21.0-51.0); %Monocytes 9.4 % (0.0-10.0); %Neutrophils 53.6 % (42.0-75.0); Hemoglobin 10.1 g/dL (12.0-16.0); Mean Corpuscular HGB CONC 30.9 g/dL (32.0-36.0); Mean Corpuscular Hemoglobin 29.1 pg (27.0-31.0); Mean Corpuscular Volume 93.9 fL (78.0-98.0); Platelet Count 472 thou/uL (130-400); RBC Distribution Width 17.6 % (11.5-14.5); Red Blood Cell (RBC) Count 3.48 mill/uL (4.20-5.40); White Blood Cell (WBC) Count 9.1 thou/uL (4.8-10.8)
[2021-05-02] MEDS ORDERED: Ketorolac Tromethamine 30 MG/ML VIAL ONE (01:36)
[2021-05-02 01:49] LABS: ALT (SGPT) 13 U/L (8-55); AST (SGOT) 12 U/L (5-34); Albumin 2.9 g/dL (3.5-5.0); Alkaline Phosphatase 180 U/L (40-110); Anion Gap 21 mmol/L (10-20); BUN (Urea Nitrogen) 49 mg/dL (9.8-20.1); Bilirubin, Total 0.3 mg/dL (0.2-1.2); Calc. Creatinine Clearance 0 mL/min (70-130); Calcium 8.8 mg/dL (7.8-10.44); Carbon Dioxide 25 mmol/L (22-29); Chloride 93 mmol/L (98-107); Globulin 4.6 g/dL (2.4-3.5); Glucose 200 mg/dL (70-105); Lipase 11 U/L (8-78); Potassium 5.7 mmol/L (3.5-5.1); Protein, Total 7.5 g/dL (6.0-8.3); Sodium 133 mmol/L (136-145)
== END 2021-05-02 03:07 | disposition home or self-care (01) ==
LOC: ERS 00:48
DX: K62.3 Rectal prolapse (principal); N81.4 Uterovaginal prolapse, unspecified; R18.8 Other ascites; I12.0 Hypertensive chronic kidney disease with stage 5 chronic kidney disease or end stage renal disease; E11.22 Type 2 diabetes mellitus with diabetic chronic kidney disease; N18.6 End stage renal disease; E11.40 Type 2 diabetes mellitus with diabetic neuropathy, unspecified; E78.00 Pure hypercholesterolemia, unspecified
CPT/HCPCS: 36415; 74176; 80053; 83690; 85025; 93005; 96372; J1885

== ENCOUNTER 2021-05-03 17:24 | Observation (INO) | payer OTHER ==
[2021-05-03] MEDS ORDERED: Morphine 4 MG/ML VIAL ONE (17:57)
[2021-05-03 18:04] LABS: Hemoglobin 10.2 g/dL (12.0-16.0); Mean Corpuscular HGB CONC 30.6 g/dL (32.0-36.0); Mean Corpuscular Hemoglobin 29.2 pg (27.0-31.0); Mean Corpuscular Volume 95.5 fL (78.0-98.0); Mean Platelet Volume 7.1 fL (7.4-10.4); Platelet Count 436 thou/uL (130-400); RBC Distribution Width 18.7 % (11.5-14.5); White Blood Cell (WBC) Count 12.6 thou/uL (4.8-10.8)
[2021-05-03 18:26] LABS: Band 5 % (5-11); Eosinophils 3 % (0-10); Lymphocytes 21 % (21-51); MDiff Complete? YES; Monocytes 13 % (0-10); Neutrophil 58 % (42-75); Platelet Morphology Comment Appears Increased; RBC Morphology Normal
[2021-05-03] MEDS ORDERED: HYDROmorphone 0.5 MG/0.5 ML SYRINGE ONE (18:27)
[2021-05-03 18:46] LABS: Anion Gap 24 mmol/L (10-20); BUN (Urea Nitrogen) 59 mg/dL (9.8-20.1); Calc. Creatinine Clearance 0 mL/min (70-130); Calcium 8.4 mg/dL (7.8-10.44); Carbon Dioxide 22 mmol/L (22-29); Chloride 93 mmol/L (98-107); Glucose 279 mg/dL (70-105); Potassium 5.9 mmol/L (3.5-5.1); Sodium 133 mmol/L (136-145)
[2021-05-03] MEDS ORDERED: Dextrose 50% Abboject 50 ML SYRINGE ONE ×2 (19:09→19:10)
[2021-05-03] MEDS ORDERED: Insulin Regular 300 UNITS/3 ML VIAL ONE (19:09)
[2021-05-03] MEDS ORDERED: HumaLOG 300 UNITS/3 ML VIAL SC PRN (20:02)
[2021-05-03] MEDS ORDERED: Acetaminophen 325 MG TAB PO PRN (20:02)
[2021-05-03] MEDS ORDERED: Dextrose 5% in Water 1,000 ML IV PRN (20:02)
[2021-05-03] MEDS ORDERED: Dextrose 50% Abboject 50 ML SYRINGE SLOW IVP PRN (20:02)
[2021-05-03] MEDS ORDERED: Morphine 4 MG/ML VIAL SLOW IVP PRN (20:12)
[2021-05-03] MEDS ORDERED: Heparin 5,000 UNITS/ML VIAL SC SCH (21:00)
[2021-05-03] MEDS ORDERED: hydrALAZINE 25 MG TAB PO SCH (21:00)
[2021-05-03] MEDS ORDERED: Minoxidil 2.5 MG TAB PO SCH (21:00)
[2021-05-03] MEDS ORDERED: rOPINIRole HCl 0.25 MG TAB PO SCH (21:00)
[2021-05-03] MEDS ORDERED: cloNIDine 0.1 MG TAB PO SCH (21:00)
[2021-05-03] MEDS ORDERED: Atorvastatin Calcium 20 MG TAB PO SCH (21:00)
[2021-05-03 21:49] LABS: SARS-CoV-2 NAA Rapid Test Not Detected (NotDetected)
[2021-05-03 22:03] VITALS: TEMP 97.9
[2021-05-03 22:05] VITALS: BP 131/57; BMI 36.7
[2021-05-04] MEDS ORDERED: Levothyroxine Sodium 75 MCG TAB PO SCH (06:00)
[2021-05-04] MEDS ORDERED: Carvedilol 6.25 MG TAB PO SCH (08:00)
[2021-05-04] MEDS ORDERED: Calcitriol 0.25 MCG CAP PO SCH (09:00)
[2021-05-04] MEDS ORDERED: NIFEdipine XL 90 MG TAB PO SCH (09:00)
[2021-05-04] MEDS ORDERED: DULoxetine 30 MG CAP PO SCH (09:00)
== END 2021-05-04 00:16 | disposition left against medical advice (07) ==
LOC: ERS 17:24 → 2NO 21:19
PROVIDERS: ADMIT Emergency Medicine; ATTEND Emergency Medicine
DX: E87.5 Hyperkalemia (principal); I12.0 Hypertensive chronic kidney disease with stage 5 chronic kidney disease or end stage renal disease; E11.22 Type 2 diabetes mellitus with diabetic chronic kidney disease; N18.6 End stage renal disease; D63.1 Anemia in chronic kidney disease; E87.1 Hypo-osmolality and hyponatremia; E11.21 Type 2 diabetes mellitus with diabetic nephropathy; E11.40 Type 2 diabetes mellitus with diabetic neuropathy, unspecified; N81.4 Uterovaginal prolapse, unspecified; G89.29 Other chronic pain; K62.3 Rectal prolapse; F41.9 Anxiety disorder, unspecified; F32.A Depression, unspecified; F11.10 Opioid abuse, uncomplicated; E78.00 Pure hypercholesterolemia, unspecified; E78.5 Hyperlipidemia, unspecified; E03.9 Hypothyroidism, unspecified; G25.81 Restless legs syndrome; E66.9 Obesity, unspecified; Z68.36 Body mass index [BMI] 36.0-36.9, adult; Z20.822 Contact with and (suspected) exposure to COVID-19; Z99.2 Dependence on renal dialysis; Z91.15 Patient's noncompliance with renal dialysis; Z79.4 Long term (current) use of insulin; Z79.899 Other long term (current) drug therapy; Z87.891 Personal history of nicotine dependence; Z98.51 Tubal ligation status; Z53.29 Procedure and treatment not carried out because of patient's decision for other reasons; Z98.890 Other specified postprocedural states
CPT/HCPCS: 36415; 36416; 71045; 80048; 85025; 93005; 96374; 96375; 96376; G0378; J1170; J1644; J1815; J2270; U0002

== ENCOUNTER 2021-11-17 11:45 | Emergency (ER) | payer MEDICAID, OTHER ==
[2021-11-17 12:27] LABS: #Basophils 0.1 thou/uL (0.0-0.2); #Eosinphils 1.3 thou/uL (0.0-0.7); #Lymphocytes 2.4 thou/uL (1.20-3.40); #Monocytes 0.6 thou/uL (0.11-0.59); #Neutrophils 4.2 thou/uL (1.40-6.50); %Basophils 1.1 % (0.0-1.0); %Eosinophils 14.9 % (0.0-10.0); %Lymphocytes 27.8 % (21.0-51.0); %Monocytes 6.9 % (0.0-10.0); %Neutrophils 49.4 % (42.0-75.0); Hemoglobin 8.4 g/dL (12.0-16.0); Mean Corpuscular HGB CONC 30.7 g/dL (32.0-36.0); Mean Corpuscular Hemoglobin 29.2 pg (27.0-31.0); Mean Corpuscular Volume 95.2 fL (78.0-98.0); Mean Platelet Volume 7.6 fL (7.4-10.4); Platelet Count 241 thou/uL (130-400); RBC Distribution Width 16.1 % (11.5-14.5); Red Blood Cell (RBC) Count 2.86 mill/uL (4.20-5.40); White Blood Cell (WBC) Count 8.6 thou/uL (4.8-10.8)
[2021-11-17 12:50] LABS: ALT (SGPT) 7 U/L (8-55); AST (SGOT) 15 U/L (5-34); Albumin 2.6 g/dL (3.5-5.0); Alkaline Phosphatase 199 U/L (40-110); Anion Gap 10 mmol/L (10-20); BUN (Urea Nitrogen) 29 mg/dL (9.8-20.1); Bilirubin, Total 0.4 mg/dL (0.2-1.2); Calc. Creatinine Clearance 0 mL/min (70-130); Calcium 7.8 mg/dL (7.8-10.44); Carbon Dioxide 31 mmol/L (22-29); Chloride 99 mmol/L (98-107); Glucose 93 mg/dL (70-105); Potassium 3.6 mmol/L (3.5-5.1); Protein, Total 6.6 g/dL (6.0-8.3); Sodium 136 mmol/L (136-145)
== END 2021-11-17 21:50 | disposition home or self-care (01) ==
LOC: ERS 11:45
DX: M96.841 Postprocedural hematoma of a musculoskeletal structure following other procedure (principal); I12.0 Hypertensive chronic kidney disease with stage 5 chronic kidney disease or end stage renal disease; E11.22 Type 2 diabetes mellitus with diabetic chronic kidney disease; N18.6 End stage renal disease; R00.1 Bradycardia, unspecified; I44.0 Atrioventricular block, first degree; E78.00 Pure hypercholesterolemia, unspecified; E11.40 Type 2 diabetes mellitus with diabetic neuropathy, unspecified; Z99.2 Dependence on renal dialysis; Z79.4 Long term (current) use of insulin; Z79.899 Other long term (current) drug therapy
CPT/HCPCS: 36415; 76936; 80053; 85025; 90935; 93005; G0257

== ENCOUNTER 2022-01-29 09:23 | Outpatient (CLI) | payer OTHER | END 2022-01-29 09:24 | disposition home or self-care (01) | PROVIDERS: ATTEND Family Medicine | DX: R53.81 Other malaise (principal) ==